=== PATIENT | female | born 1950 | race Caucasian/White ===

== ENCOUNTER 2017-11-16 19:46 | Inpatient (IN) | payer MEDICAID, SELFPAY ==
--- NOTE | 2017-11-16 20:27 | ED PDOC ---
HPI: Trauma/Fall - HPI Time Seen by Provider: 11/16/17 20:13 Chief Complaint (Nursing): Trauma Chief Complaint (Provider): fall History Per: Patient, Family History/Exam Limitations: no limitations Injury Occurred (Timing): Just Before Arrival Additional Complaint(s): 67 y/o female presents with daughter for evaluation of fall prior to arrival. Patient states she slipped in her bedroom, landed on right side. Patient notes pain to right upper arm, bilateral knees, and ribs. Denies head injury, LOC, dizziness, nausea/vomiting, neck/back pain, numbness/weakness of extremities. Past Medical History Reviewed: Historical Data, Nursing Documentation, Vital Signs Vital Signs: Last Vital Signs Temp 98.3 F 11/16/17 20:05 Pulse 96 H 11/16/17 20:05 Resp 16 11/16/17 20:05 BP 167/88 H 11/16/17 20:05 Pulse Ox 94 L 11/16/17 20:05 - Medical History PMH: Cardia Arrhythmia, COPD, Gastritis, HTN, Hyperthyroidism, Chronic Kidney Disease Denies: HIV - Surgical History Surgical History: Appendectomy - Family History Family History: States: Unknown Family Hx - Home Medications Home Medications: Ambulatory Orders Medication Instructions Recorded Albuterol Sulfate [Ventolin Hfa] 2 puff IH Q6H PRN 07/04/14 Aspirin [Aspirin EC] 81 mg PO DAILY 07/04/14 Fluticasone/Salmeterol 250/50 1 puff IH Q12H 07/04/14 [Advair Diskus 250/50] Pantoprazole Sodium [Protonix] 40 mg PO DAILY 07/04/14 diltiaZEM [Cardizem] 30 mg PO TID 07/04/14 Umeclidinium [facility] [Incruse 62.5 mcg IH DAILY #1 blst.w.dev 11/16/17 Ellipta] - Allergies Allergies/Adverse Reactions: Allergies Allergy/AdvReac Type Severity Reaction Status Date / Time No Known Allergies Allergy Verified 11/16/17 22:21 Review of Systems ROS Statement: Except As Marked, All Systems Reviewed And Found Negative Musculoskeletal: Positive for: Shoulder Pain (right), Arm Pain (right upper), Leg Pain (bilateral knee) Physical Exam - Reviewed Nursing Documentation Reviewed: Yes Vital Signs Reviewed: Yes - Physical Exam Appears: Positive for: Well, Non-toxic, Uncomfortable Head Exam: Positive for: ATRAUMATIC, NORMAL INSPECTION, NORMOCEPHALIC Skin: Positive for: Normal Color Eye Exam: Positive for: Normal appearance ENT: Positive for: Normal ENT Inspection Cardiovascular/Chest: Positive for: Regular Rate, Rhythm. Negative for: Chest Non Tender (tender to palpate left anterior inferior chest wall; no edema, ecchymosis, flail chest noted) Respiratory: Positive for: Normal Breath Sounds Gastrointestinal/Abdominal: Positive for: Normal Exam Back: Positive for: Normal Inspection Extremity: Positive for: Tenderness (Bilateral knee ecchymosis, FROM. Distal NV/ motor intact), Capillary Refill (<2 sec b/l UE/LE). Negative for: Normal ROM ( unable to move right upper extremity due to pain at shoulder and upper arm; old ecchymosis, + edema. Distal NV, motor intact. ) Neurologic/Psych: Positive for: Alert, Oriented. Negative for: Motor/Sensory Deficits - Laboratory Results Result Diagrams: 11/16/17 22:25 11/16/17 22:25 - ECG ECG: Positive for: Viewed By Me (reviewed by ED attenidng). Negative for: Interpreted By Me ECG Rhythm: Positive for: Sinus Rhythm O2 Sat by Pulse Oximetry: 94 - Other Rad xray right shoulder X-Ray: Viewed By Me X-Ray Interpretation: +humeral head fx xray bilateral knees X-Ray: Viewed By Me X-Ray Interpretation: no acute findings xray right humerus X-Ray: Viewed By Me X-Ray Interpretation: no acute findings - Progress ED Course And Treament: xray's, CT chest, tramadol PO Case discussed with Dr. Galarza, ortho on-call; recommends admission and CT right shoulder, agrees with plan for shoulder immobilizer Case discussed with Dr. Montano, FP resident on-call for admission EXAM: CT Chest Without Intravenous Contrast EXAM DATE/TIME: 11/16/2017 8:23 PM CLINICAL HISTORY: 67 years old, female; Injury or trauma; Fall; Initial encounter; Blunt trauma ( contusions or hematomas); Additional info: Fall, bilateral rib pain TECHNIQUE: Axial computed tomography images of the chest without intravenous contrast. All CT scans at this facility use one or more dose reduction techniques, viz.: automated exposure control; ma/kV adjustment per patient size (including targeted exams where dose is matched to indication; i.e. head); or iterative reconstruction technique. Coronal and sagittal reformatted images were created and reviewed. COMPARISON: No relevant prior studies available. FINDINGS: LUNGS: Moderate to severe diffuse centrilobular emphysematous changes, greatest in the upper lungs. Incidental tiny 3 x 1 mm noncalcified pulmonary nodule in the right middle lobe, image 68/series 3. For low-risk patients, no follow-up is necessary. For high-risk patients (smoking history or other known risk factors) an optional chest CT at 12 months could be performed 1.4 cm bulla or pneumatocele in the right lung. . PLEURAL SPACE: No pneumothorax or significant pleural effusions seen. HEART: Coronary artery calcification. No evidence of hemopericardium. MEDIASTINUM: No evidence of pneumomediastinum. BONES/JOINTS: Acute fracture of the right humeral head and neck. This is significantly comminuted, and is associated with multiple superiorly displaced humeral head fracture fragments. Fractures of the left fourth, fifth, and sixth ribs anteriorly, which are suspected to be acute. No significant associated displacement. SOFT TISSUES: No acute abnormality of the visualized soft tissues is seen. VASCULATURE: Exam is nondiagnostic for aortic dissection, secondary to unenhanced technique. No evidence of periaortic hemorrhage. LYMPH NODES: No evidence of diffuse lymphadenopathy. KIDNEYS AND URETERS: Incidental small 9 mm soft tissue density lesion abutting the right kidney laterally, suspicious for an indeterminate hyperdense exophytic right renal lesion. Recommend further evaluation with renal ultrasound or renal protocol CT or MRI, on a nonemergent basis. IMPRESSION: - Acute, comminuted fracture of the right humeral head and neck. - Acute fractures involving the left fourth through sixth ribs anteriorly. - Otherwise, no evidence of significant acute process on this unenhanced exam. - Incidental 2 mm pumonary nodule. See recommendations above. - Incidental indeterminate hyperdense renal lesion. See recommendations above. - Emphysematous changes. - See above for remaining findings. EXAM: CT Right Upper Extremity Without Intravenous Contrast, Shoulder EXAM DATE/TIME: 11/16/2017 10:05 PM CLINICAL HISTORY: 67 years old, female; Injury or trauma; Fall; Initial encounter; Blunt trauma ( contusions or hematomas; Shoulder; Right; Additional info: Humeral head FX TECHNIQUE: Axial computed tomography images of the right shoulder without intravenous contrast. All CT scans at this facility use one or more dose reduction techniques, viz.: automated exposure control; ma/kV adjustment per patient size (including targeted exams where dose is matched to indication; i.e. head); or iterative reconstruction technique. COMPARISON: CR - HUMERUS RT FALL PROTOCOL 2017-11-16 20:37 FINDINGS: Bones/joints: Acute comminuted fracture of the humeral head. No dislocation. Soft tissues: Unremarkable. IMPRESSION: Acute comminuted fracture of the humeral head. ESTRELLA wrap applied to bilateral knees Right shoulder placed in sling and swathe Incentive spirometer ordered Disposition - Clinical Impression Clinical Impression: Ribs, multiple fractures, Fracture of humeral head, right, closed - Patient ED Disposition Is Patient to be Admitted: Yes - Disposition Disposition Time: 22:00 Condition: GUARDED
--- NOTE | 2017-11-16 22:18 | CP.PCM.HP ---
History of Present Illness - History of Present Illness History of Present Illness: 67 yr old F presented to ED with complaint of right arm pain, left rib pain and overall body aches after suffering a fall at about 6:30pm today. Patient reports she was in her bedroom when she accidentally tripped over an area rug and landed on an adducted right arm and outstretched left arm. Prior to her fall patient denies weakness, dizziness, chest pain or syncope. Denies head trauma. After her fall patient was able to ambulate with assistance from her daughter but reports severe right arm/shoulder pain 10/10 and limited range of motion. PMD: [facility] (last visit was 11/13/17) PMHx: COPD, HTN, Hyperthyroidism, CKD, cardiac arrest in 2010 s/p IV medication ? for arrhythmia/respiratory distress FMHx: unknown SurgHx: appendectomy, x 1 SocHx: former smoker (100 pack yrs)-quit 10 yrs ago; denies Etoh or drugs Medications: Advair Diskus 250-50 mcg 1 puff BID, Aspirin 81mg PO QD, Albuterol Sulfate HFA 108 mcg/act 2 puffs PRN SOB, Lasix 20mg PO PRN edema/weight gain/ pulmonary congestion, Diltiazem 30mg PO before meals and at bedtime, Pantoprazole 40mg PO QD, Incruse-Ellipta 62.5mcg 1 puff QD, Allergies: NKDA; Morphine causes patient to hallucinate ED course: BP 167/88 mmHg, HR 96, Resp 16, O2 sat 94% on room air, Temp 98.3F -EKG: NSR at 90 bpm -XR Right humerus, XR right shoulder, XR knees -CT chest: acute comminuted fracture of the right humeral head and neck, acute fractures involving left 4th-6th ribs anteriorly, incidental 2mm pulmonary nodule, incidental indeterminate hyperdense renal lesion, emphysematous changes -CT right UE with contrast -ED treatment: Tramadol 50mg PO once -Orthopedic consult placed: Dr. Galarza Present on Admission - Present on Admission Any Indicators Present on Admission: No History of DVT/PE: No History of Uncontrolled Diabetes: No Urinary Catheter: No Decubitus Ulcer Present: No History Surgical Site Infection Following: None Review of Systems - Constitutional Constitutional: absent: Chills, Headache - EENT Eyes: absent: Change in Vision, Loss of Vision Ears: absent: Ear Pain, Dizziness Nose/Mouth/Throat: absent: Nasal Congestion, Nasal Discharge - Cardiovascular Cardiovascular: absent: Chest Pain, Dyspnea - Respiratory Respiratory: absent: Cough, Hemoptysis - Gastrointestinal Gastrointestinal: Abdominal Pain (left upper quadrant). absent: Nausea, Vomiting - Genitourinary Genitourinary: absent: Difficulty Urinating, Dysuria - Musculoskeletal Musculoskeletal: Deformity (RUE and right shoulder with severe pain) - Integumentary Integumentary: absent: Dry Skin, Rash - Neurological Neurological: Abnormal Gait. absent: Confusion, Numbness, Syncope, Weakness - Psychiatric Psychiatric: absent: Confusion - Hematologic/Lymphatic Hematologic: absent: Easy Bleeding, Easy Bruising Past Patient History - Infectious Disease Hx of Infectious Diseases: None - Past Medical History & Family History Past Medical History?: Yes - Past Social History Smoking Status: Former Smoker - CARDIAC Hx Cardia Arrhythmia: Yes Hx Hypertension: Yes - PULMONARY Hx Chronic Obstructive Pulmonary Disease (COPD): Yes - NEUROLOGICAL Hx Neurological Disorder: No - HEENT Hx HEENT Problems: No - RENAL Hx Chronic Kidney Disease: Yes - ENDOCRINE/METABOLIC Hx Hyperthyroidism: Yes - HEMATOLOGICAL/ONCOLOGICAL Hx Human Immunodeficiency Virus (HIV): No - INTEGUMENTARY Hx Dermatological Problems: No - MUSCULOSKELETAL/RHEUMATOLOGICAL Hx Musculoskeletal Disorders: No Hx Falls: No - GASTROINTESTINAL Hx Gastritis: Yes - GENITOURINARY/GYNECOLOGICAL Hx Genitourinary Disorders: Yes Hx Urinary Tract Infection: Yes - PSYCHIATRIC Hx Psychophysiologic Disorder: No Hx Substance Use: No - SURGICAL HISTORY Hx Appendectomy: Yes - ANESTHESIA Hx Anesthesia: Yes Hx Anesthesia Reactions: No Meds Home Medications: Home Medication List Medication Instructions Recorded Confirmed Type Umeclidinium [place] [Incruse 62.5 mcg IH DAILY #1 blst.w.dev 11/16/17 Rx Ellipta] Allergies/Adverse Reactions: Allergies Allergy/AdvReac Type Severity Reaction Status Date / Time No Known Allergies Allergy Verified 11/16/17 22:21 Physical Exam - Constitutional Appears: No Acute Distress (obese), Older Than Stated Age - Head Exam Head Exam: ATRAUMATIC, NORMOCEPHALIC - Eye Exam Eye Exam: EOMI, PERRL - ENT Exam ENT Exam: Mucous Membranes Moist - Neck Exam Neck exam: Positive for: Full Rom. Negative for: Lymphadenopathy - Respiratory Exam Respiratory Exam: Clear to Auscultation Bilateral, NORMAL BREATHING PATTERN - Cardiovascular Exam Cardiovascular Exam: REGULAR RHYTHM, +S1, +S2 - GI/Abdominal Exam GI & Abdominal Exam: Normal Bowel Sounds, Soft (obese), Tenderness (LUQ). absent: Rebound - Extremities Exam Extremities exam: Positive for: pedal pulses present (significant varciosed veins in bilateral LE). Negative for: full ROM (right arm adducted and in immobilizer, full ROM left arm and bilateral LE's with mild discomfort), pedal edema - Back Exam Back exam: absent: CVA tenderness (L), CVA tenderness (R) - Neurological Exam Neurological exam: Alert, CN II-XII Intact (grossly intact), Oriented x3 - Psychiatric Exam Psychiatric exam: Normal Affect, Normal Mood - Skin Skin Exam: Dry, Pallor (bluish discoloration of distal phalanges (hand and foot ) bilaterally), Warm Results - Vital Signs Recent Vital Signs: Last Vital Signs Temp 98.3 F 11/16/17 20:05 Pulse 96 H 11/16/17 20:05 Resp 16 11/16/17 20:05 BP 167/88 H 11/16/17 20:05 Pulse Ox 94 L 11/16/17 21:16 - Labs Result Diagrams: 11/16/17 22:25 11/16/17 22:25 Assessment & Plan - Assessment and Plan (Free Text) Assessment: 67 yr old F admitted for comminuted right humeral head and neck fracture and left ribs fractures. 1. Comminuted right humeral head and neck fracture -acute, traumatic, s/p mechanical fall -CT chest: acute comminuted fracture of the right humeral head and neck, acute fractures involving left 4th-6th ribs anteriorly, incidental 2mm pulmonary nodule, incidental indeterminate hyperdense renal lesion, emphysematous changes -admit to Med/Surg, NS 1 L IV, pain management, NPO past midnight -type and screen -Orthopedic consult: will follow recommendations: keep right arm immobilized -Cardiology consult 2. Left anterior rib fractures ribs 4th-6th -acute, traumatic, s/p mechanical fall -pain management 3. COPD -chronic, controlled -continue home medications (Advair diskus, albuterol sulfate HFA PRN) -supplemental O2 via nasal cannula to keep O2 sat above 92% 4. Pulmonary Hypertension -chronic, stable -continue home medications (Lasix 20mg PO QD, 5. Hyperthyroidism -chronic, stable of medications -f/u TSH 6. CKD stage 3 -chronic, stable -Bun/Cr 32/1.2, eGFR 45 7. Hyperkalemia -serum K+ 5.2 -home Potassium medication held 8. DVT prophylaxis -SCD's for now, possible OR tomorrow - Date & Time Date: 11/17/17 Time: 22:20
[2017-11-16 22:37] LABS: BASO # 0.1 K/uL (0.0-0.2); BASO % 0.9 % (0.0-2.0); EOS % 0.2 % (0.0-4.0); HEMOGLOBIN 15.1 g/dL (12.0-16.0); LYMPH # 1.5 K/uL (1.0-4.3); LYMPH % 10.2 % (20.0-40.0); MEAN CELL VOLUME 96.1 fl (81.0-99.0); MEAN CORPUSCULAR HEMOGLOBIN 32.2 pg (27.0-31.0); MEAN CORPUSCULAR HGB CONC 33.5 g/dL (33.0-37.0); MONO # 0.9 K/uL (0.0-0.8); MONO % 6.1 % (0.0-10.0); NEUT # 12.1 K/uL (1.8-7.0); NEUT % 82.6 % (50.0-75.0); RBC 4.7 Mil/uL (3.80-5.20); RED CELL DISTRIBUTION WIDTH 14.5 % (11.5-14.5); WHITE BLOOD COUNT 14.6 K/uL (4.8-10.8)
[2017-11-16 22:45] LABS: ALB/GLOB RATIO 1.1 (1.0-2.1); ALBUMIN 4.5 g/dL (3.5-5.0); CALCIUM 9.4 mg/dL (8.4-10.2)
--- NOTE | 2017-11-16 22:59 | CT ---
EXAM: CT Chest Without Intravenous Contrast EXAM DATE/TIME: 11/16/2017 8:23 PM CLINICAL HISTORY: 67 years old, female; Injury or trauma; Fall; Initial encounter; Blunt trauma (contusions or hematomas); Additional info: Fall, bilateral rib pain TECHNIQUE: Axial computed tomography images of the chest without intravenous contrast. All CT scans at this facility use one or more dose reduction techniques, viz.: automated exposure control; ma/kV adjustment per patient size (including targeted exams where dose is matched to indication; i.e. head); or iterative reconstruction technique. Coronal and sagittal reformatted images were created and reviewed. COMPARISON: No relevant prior studies available. FINDINGS: LUNGS: Moderate to severe diffuse centrilobular emphysematous changes, greatest in the upper lungs. Incidental tiny 3 x 1 mm noncalcified pulmonary nodule in the right middle lobe, image 68/series 3. For low-risk patients, no follow-up is necessary. For high-risk patients (smoking history or other known risk factors) an optional chest CT at 12 months could be performed 1.4 cm bulla or pneumatocele in the right lung. . PLEURAL SPACE: No pneumothorax or significant pleural effusions seen. HEART: Coronary artery calcification. No evidence of hemopericardium. MEDIASTINUM: No evidence of pneumomediastinum. BONES/JOINTS: Acute fracture of the right humeral head and neck. This is significantly comminuted, and is associated with multiple superiorly displaced humeral head fracture fragments. Fractures of the left fourth, fifth, and sixth ribs anteriorly, which are suspected to be acute. No significant associated displacement. SOFT TISSUES: No acute abnormality of the visualized soft tissues is seen. VASCULATURE: Exam is nondiagnostic for aortic dissection, secondary to unenhanced technique. No evidence of periaortic hemorrhage. LYMPH NODES: No evidence of diffuse lymphadenopathy. KIDNEYS AND URETERS: Incidental small 9 mm soft tissue density lesion abutting the right kidney laterally, suspicious for an indeterminate hyperdense exophytic right renal lesion. Recommend further evaluation with renal ultrasound or renal protocol CT or MRI, on a nonemergent basis. IMPRESSION: - Acute, comminuted fracture of the right humeral head and neck. - Acute fractures involving the left fourth through sixth ribs anteriorly. - Otherwise, no evidence of significant acute process on this unenhanced exam. - Incidental 2 mm pumonary nodule. See recommendations above. - Incidental indeterminate hyperdense renal lesion. See recommendations above. - Emphysematous changes. - See above for remaining findings.
[2017-11-16 23:04] LABS: PARTIAL THROMBOPLASTIN TIME 33.9 Seconds (25.6-37.1); PROTHROMBIN TIME 11.2 Seconds (9.8-13.1)
[2017-11-16] MEDS ORDERED: ALBUTEROL SULFATE IH PRN (23:51)
[2017-11-16] MEDS ORDERED: Albuterol HFA 90 mcg/actuation (8 g) INH PRN (23:53)
[2017-11-17] MEDS: Fluticasone-Salmeterol 250-50mcg Diskus IH SCH ×3 (01:08→22:58)
[2017-11-17] MEDS: Sodium Chloride 0.9% 1,000 ML IV SCH ×2 (04:05→16:37)
[2017-11-17 06:15] LABS: BASO % 0.5 % (0.0-2.0); EOS % 0.1 % (0.0-4.0); HEMOGLOBIN 14.2 g/dL (12.0-16.0); LYMPH # 1.8 K/uL (1.0-4.3); LYMPH % 18.4 % (20.0-40.0); MEAN CELL VOLUME 95.2 fl (81.0-99.0); MEAN CORPUSCULAR HEMOGLOBIN 32.6 pg (27.0-31.0); MEAN CORPUSCULAR HGB CONC 34.2 g/dL (33.0-37.0); MEAN PLATELET VOLUME 8.1 fl (7.2-11.7); MONO # 0.9 K/uL (0.0-0.8); MONO % 9.2 % (0.0-10.0); NEUT % 71.8 % (50.0-75.0); RBC 4.36 Mil/uL (3.80-5.20); RED CELL DISTRIBUTION WIDTH 14.1 % (11.5-14.5); WHITE BLOOD COUNT 9.8 K/uL (4.8-10.8)
[2017-11-17 06:27] LABS: ALB/GLOB RATIO 1.2 (1.0-2.1); ALBUMIN 3.9 g/dL (3.5-5.0); ALT/SGPT 33 U/L (9-52); AST/SGOT 26 U/L (14-36); BLOOD UREA NITROGEN 33 mg/dl (7-17); CALCIUM 9.2 mg/dL (8.4-10.2); GFR AFRICAN-AMERICAN > 60; GFR NON-AFRICAN AMERICAN 50
--- NOTE | 2017-11-17 07:48 | CP.PCM.CON ---
History of Present Illness - History of Present Illness History of Present Illness: Orthopedic consult Patient is a 67 y/o RHD female with PMH of COPD, HTN, hyperthyroidism, and CKD c /o severe right shoulder pain. She describes a mechanical fall yesterday, tripping over her footing at home and landing forward onto her chest and adducted right arm. She injured her left chest wall sustaining multiple rib fractures and a right comminuted humeral head fracture. She denies dizziness prior to fall and LOC. Dr. Galarza was consulted for evaluation of her right shoulder. Currently, her pain is controlled with medications and immobilization placed by ER. She describes the pain as dull, aching and intermittent. The pain occurs with movement and is alleviated when at rest. She denies radiation of pain, numbness and tingling. She also denies CP/SOB/N/V/D/fever/dysuria/ melena. Review of Systems - Review of Systems All systems: reviewed and no additional remarkable complaints except Review of Systems: as per HPI Past Patient History - Infectious Disease Hx of Infectious Diseases: None - Past Medical History & Family History Past Medical History?: Yes Past Family History: Reviewed and not pertinent - Past Social History Smoking Status: Former Smoker Alcohol: None Drugs: Denies - CARDIAC Hx Cardia Arrhythmia: Yes Hx Hypertension: Yes - PULMONARY Hx Chronic Obstructive Pulmonary Disease (COPD): Yes - NEUROLOGICAL Hx Neurological Disorder: No - HEENT Hx HEENT Problems: No - RENAL Hx Chronic Kidney Disease: Yes - ENDOCRINE/METABOLIC Hx Hyperthyroidism: Yes - HEMATOLOGICAL/ONCOLOGICAL Hx Human Immunodeficiency Virus (HIV): No - INTEGUMENTARY Hx Dermatological Problems: No - MUSCULOSKELETAL/RHEUMATOLOGICAL Hx Musculoskeletal Disorders: No Hx Falls: No - GASTROINTESTINAL Hx Gastritis: Yes - GENITOURINARY/GYNECOLOGICAL Hx Genitourinary Disorders: Yes Hx Urinary Tract Infection: Yes - PSYCHIATRIC Hx Psychophysiologic Disorder: No Hx Substance Use: No - SURGICAL HISTORY Hx Appendectomy: Yes - ANESTHESIA Hx Anesthesia: Yes Hx Anesthesia Reactions: No Meds Home Medications: Home Medication List Medication Instructions Recorded Confirmed Type Umeclidinium [place] [Incruse 62.5 mcg IH DAILY #1 blst.w.dev 11/16/17 Rx Ellipta] Allergies/Adverse Reactions: Allergies Allergy/AdvReac Type Severity Reaction Status Date / Time No Known Allergies Allergy Verified 11/16/17 22:21 - Medications Medications: Current Medications Albuterol (Ventolin Hfa 90 Mcg/Actuation (8 G)) 2 puff INH RQ6 PRN PRN Reason: Shortness of Breath Diltiazem HCl (Cardizem) 30 mg PO TID [facility] Sodium Chloride (Sodium Chloride 0.9%) 1,000 mls @ 100 mls/hr IV .Q10H [facility] Stop: 11/18/17 13:30 Last Admin: 11/17/17 04:05 Dose: 100 mls/hr Ketorolac Tromethamine (Toradol) 30 mg IVP Q6 PRN PRN Reason: Pain, moderate (4-7) Last Admin: 11/17/17 05:43 Dose: 30 mg Pantoprazole Sodium (Protonix Ec Tab) 40 mg PO DAILY [facility] Fluticasone/Salmeterol (Advair Diskus 250/50) 1 puff IH Q12H [facility] Last Admin: 11/17/17 01:08 Dose: 1 puff Tramadol HCl (Ultram) 50 mg PO Q4 PRN PRN Reason: Pain, severe (8-10) Physical Exam - Constitutional Appears: Well, No Acute Distress - Head Exam Head Exam: ATRAUMATIC, NORMOCEPHALIC - Eye Exam Eye Exam: EOMI, Normal appearance, PERRL - ENT Exam ENT Exam: Mucous Membranes Moist, Normal Exam - Respiratory Exam Respiratory Exam: Clear to Auscultation Bilateral, NORMAL BREATHING PATTERN - GI/Abdominal Exam GI & Abdominal Exam: Normal Bowel Sounds, Soft - Extremities Exam Additional comments: RUE: immoblized, mild shoulder swelling, + diffuse shoulder tenderness, no ecchymosis, no lesions sensation intact AXN/MN/UN/RN motor intact MN/UN/RN radial pulse intact comps soft NT LUE: no tenderness, no lesions, no swelling, no ecchymosis sensation intact AXN/MN/UN/RN motor intact MN/UN/RN radial pulse intact comps soft NT - Neurological Exam Neurological exam: Alert, Oriented x3 - Psychiatric Exam Psychiatric exam: Normal Affect, Normal Mood - Skin Skin Exam: Normal Color, Warm Results - Vital Signs Recent Vital Signs: Last Vital Signs Temp 98.2 F 11/17/17 07:43 Pulse 94 H 11/17/17 07:43 Resp 20 11/17/17 07:43 BP 147/82 11/17/17 07:43 Pulse Ox 94 L 11/17/17 07:43 - Labs Result Diagrams: 11/17/17 05:30 11/17/17 05:30 Labs: Laboratory Results - last 24 hr 11/16/17 11/16/17 11/16/17 22:25 22:25 22:25 WBC 14.6 H D RBC 4.70 Hgb 15.1 Hct 45.2 MCV 96.1 D MCH 32.2 H MCHC 33.5 RDW 14.5 Plt Count 394 MPV 8.0 Neut % (Auto) 82.6 H Lymph % (Auto) 10.2 L [place] % (Auto) 6.1 Eos % (Auto) 0.2 Baso % (Auto) 0.9 Neut # (Auto) 12.1 H Lymph # (Auto) 1.5 [place] # (Auto) 0.9 H Eos # (Auto) 0.0 Baso # (Auto) 0.1 PT 11.2 INR 1.0 APTT 33.9 Sodium 141 Potassium 5.2 H Chloride 105 Carbon Dioxide 23 Anion Gap 18 BUN 32 H Creatinine 1.2 Est GFR ( Amer) 54 Est GFR (Non-Af Amer) 45 Random Glucose 127 H Calcium 9.4 Total Bilirubin 0.8 AST 36 ALT 38 Alkaline Phosphatase 91 Total Protein 8.5 H Albumin 4.5 Globulin 4.0 H Albumin/Globulin Ratio 1.1 Blood Type Antibody Screen BBK History Checked 11/17/17 11/17/17 11/17/17 05:30 05:30 05:30 WBC 9.8 RBC 4.36 Hgb 14.2 Hct 41.5 MCV 95.2 MCH 32.6 H MCHC 34.2 RDW 14.1 Plt Count 347 MPV 8.1 Neut % (Auto) 71.8 Lymph % (Auto) 18.4 L [place] % (Auto) 9.2 Eos % (Auto) 0.1 Baso % (Auto) 0.5 Neut # (Auto) 7.0 Lymph # (Auto) 1.8 [place] # (Auto) 0.9 H Eos # (Auto) 0.0 Baso # (Auto) 0.0 PT INR APTT Sodium 140 Potassium 4.6 Chloride 106 Carbon Dioxide 22 Anion Gap 17 BUN 33 H Creatinine 1.1 Est GFR ( Amer) > 60 Est GFR (Non-Af Amer) 50 Random Glucose 115 H Calcium 9.2 Total Bilirubin 0.7 AST 26 ALT 33 Alkaline Phosphatase 86 Total Protein 7.3 Albumin 3.9 Globulin 3.4 Albumin/Globulin Ratio 1.2 Blood Type O POSITIVE Antibody Screen Negative BBK History Checked No verified bt Assessment & Plan (1) Fracture of humeral head, right, closed Assessment and Plan: Patient is a 67 y/o female with a right comminuted humeral head fracture -Dr. Galarza proposes a right total shoulder replacement -OR tomorrow AM -NPO pMN tonight -strict shoulder immobilization, NWB RUE -medical/cardiac clearance -above d/w Dr. Galarza in agreement Status: Acute Radiology Interpretation - Notes: Notes:: Accession No. : [id number] Patient Name / ID : TEO LUGO / [id number] Exam Date : 11/16/2017 20:30:30 ( Approved ) Study Comment : Sex / Age : Y Creator : Devon Espinoza MD Dictator : Devon Espinoza MD Pneumatic Systems Operator : A P Supervisor : Devon Espinoza MD Approver2 : Report Date : 11/17/2017 09:03:40 My Comment : PROCEDURE: Radiographs of the Right Shoulder HISTORY: fall COMPARISON: None. FINDINGS: BONES: Acute comminuted fracture of the humeral head. JOINTS: Degenerative changes. SOFT TISSUES: Normal. OTHER FINDINGS: None. IMPRESSION: Acute comminuted fracture of the humeral head. - Radiology Interpretation #2 Interpretation: Accession No. : [id number] Patient Name / ID : TEO LUGO / [id number] Exam Date : 11/16/2017 23:20:47 ( Approved ) Study Comment : Sex / Age : F 67Y Creator : Francisco J Rouse MD Dictator : Francisco J Rouse MD Pneumatic Systems Operator : A P Supervisor : Francisco J Rouse MD Approver2 : Report Date : 11/17/2017 10:55:15 My Comment : PROCEDURE: CT RIGHT UPPER EXTREMITY WITHOUT CONTRAST HISTORY: humeral head fx COMPARISON: Pole right humerus radiograph 11/16/2017. TECHNIQUE: A volumetric CT acquisition through the right shoulder was performed without intravenous contrast with reformatted datasets provided in sagittal axial and coronal planes as well as 3 dimensional surface rendered series. Contrast Dose: None Radiation dose:Total exam DLP = 299.95 mGy-cm. This CT exam was performed using one or more of the following dose reduction techniques: Automated exposure control, adjustment of the mA and/or kV according to patient size, and/or use of iterative reconstruction technique. FINDINGS: A comminuted fracture of the right radial head is appreciate with impaction into the metaphysis. The fracture includes at least 4 parts. There is medial angulation of the right humeral head forming a varus deformity at the fracture site. There is no subluxation or dislocation. The acromioclavicular joint intact without separation or fracture. The glenoid process is intact swells the remainder of the scapula as well. The visualized humeral diaphysis is intact as imaged although the distal segment is not included in this exam. Visualized upper right ribs appear intact. Local soft tissues appeared remarkable for local edema mildly. Hyperdensity at the upper triceps muscle may reflect limited hematoma. Incidental COPD noted at the right lung apex. IMPRESSION: Comminuted impacted fracture proximal right humerus involving the head with varus deformity at the fracture site and impaction of the major fracture fragment at the right hip humeral head. Comminution appears into least 4 parts and small hematoma is questioned at the proximal triceps muscle potentially reflecting muscle sprain or tear. Consider follow-up MRI. Intact scapula and acromioclavicular joint as well as the visualized clavicle.
--- NOTE | 2017-11-17 09:05 | RAD ---
PROCEDURE: Radiographs of the right humerus. HISTORY: fall COMPARISON: None. FINDINGS: BONES: Acute comminuted fracture of the humeral head. SOFT TISSUES: Regional soft tissue swelling. OTHER FINDINGS: None. IMPRESSION: Acute comminuted fracture of the humeral head.
--- NOTE | 2017-11-17 09:05 | RAD ---
PROCEDURE: Radiographs of the Right Shoulder HISTORY: fall COMPARISON: None. FINDINGS: BONES: Acute comminuted fracture of the humeral head. JOINTS: Degenerative changes. SOFT TISSUES: Normal. OTHER FINDINGS: None. IMPRESSION: Acute comminuted fracture of the humeral head.
--- NOTE | 2017-11-17 09:07 | RAD ---
PROCEDURE: Bilateral Knee Radiographs. HISTORY: fall COMPARISON: None. FINDINGS: BONES: Right Knee: No acute fracture. Left Knee: No acute fracture. JOINTS: Right Knee: Tibial femoral compartment narrowing. Left knee: Tibiofemoral compartment narrowing. SOFT TISSUES: Right Knee: Prepatellar soft tissue swelling. Left Knee: Prepatellar soft tissue swelling. JOINT EFFUSION: Right Knee: None. Left Knee: None. OTHER FINDINGS: None. IMPRESSION: Bilateral prepatellar soft tissue swelling without demonstrated fracture or dislocation. Bilateral knee tibial femoral compartment narrowing.
--- NOTE | 2017-11-17 09:21 | CP.PCM.CON ---
History of Present Illness - History of Present Illness History of Present Illness: This 67-year-old lady a hypertensive who has been taking Cardizem had an accidental fall and has a fractured right shoulder and this evaluation was requested prior to surgical correction. The patient indicates that she has been a hypertensive for number of years and has taken her medicines regularly. She denies any history of diabetes of smoking and has never experienced any chest pain or myocardial infarction or symptoms of congestive cardiac failure. The patient admits that she is fairly sedentary but is able to walk 4-5 blocks to the grocery store without any difficulty. There is no significant past history except an appendectomy 10 years back and a section more than 30 years back. Physical examination shows a pleasant elderly overweight female was able to lie flat and carry on a conversation. Her heart rate was 68 bpm regular and her blood pressure was 124/72 mmHg. Her jugular venous pressure was not elevated there was no edema over his lower extremities. The pedal pulses were well felt. The apex was not palpable the first and second heart sounds are normal there was no murmur or gallop there were no rales. Her electro-cardial gram showed sinus rhythm with a normal EKG pattern. Her lab data was noted. Impression: Accidental fall with a fractured right shoulder. The patient has a history of hypertension. She is hemodynamically stable and may proceed with the planned surgery. Past Patient History - Infectious Disease Hx of Infectious Diseases: None - Past Medical History & Family History Past Medical History?: Yes Past Family History: Reviewed and not pertinent - Past Social History Smoking Status: Former Smoker Alcohol: None Drugs: Denies - CARDIAC Hx Cardia Arrhythmia: Yes Hx Hypertension: Yes - PULMONARY Hx Chronic Obstructive Pulmonary Disease (COPD): Yes - NEUROLOGICAL Hx Neurological Disorder: No - HEENT Hx HEENT Problems: No - RENAL Hx Chronic Kidney Disease: Yes - ENDOCRINE/METABOLIC Hx Hyperthyroidism: Yes - HEMATOLOGICAL/ONCOLOGICAL Hx Human Immunodeficiency Virus (HIV): No - INTEGUMENTARY Hx Dermatological Problems: No - MUSCULOSKELETAL/RHEUMATOLOGICAL Hx Musculoskeletal Disorders: No Hx Falls: No - GASTROINTESTINAL Hx Gastritis: Yes - GENITOURINARY/GYNECOLOGICAL Hx Genitourinary Disorders: Yes Hx Urinary Tract Infection: Yes - PSYCHIATRIC Hx Psychophysiologic Disorder: No Hx Substance Use: No - SURGICAL HISTORY Hx Appendectomy: Yes - ANESTHESIA Hx Anesthesia: Yes Hx Anesthesia Reactions: No Meds Home Medications: Home Medication List Medication Instructions Recorded Confirmed Type Umeclidinium [place] [Incruse 62.5 mcg IH DAILY #1 blst.w.dev 11/16/17 Rx Ellipta] Allergies/Adverse Reactions: Allergies Allergy/AdvReac Type Severity Reaction Status Date / Time No Known Allergies Allergy Verified 11/16/17 22:21 - Medications Medications: Current Medications Albuterol (Ventolin Hfa 90 Mcg/Actuation (8 G)) 2 puff INH RQ6 PRN PRN Reason: Shortness of Breath Diltiazem HCl (Cardizem) 30 mg PO TID [facility] Sodium Chloride (Sodium Chloride 0.9%) 1,000 mls @ 100 mls/hr IV .Q10H [facility] Stop: 11/18/17 13:30 Last Admin: 11/17/17 04:05 Dose: 100 mls/hr Ketorolac Tromethamine (Toradol) 30 mg IVP Q6 PRN PRN Reason: Pain, moderate (4-7) Last Admin: 11/17/17 05:43 Dose: 30 mg Pantoprazole Sodium (Protonix Ec Tab) 40 mg PO DAILY [facility] Fluticasone/Salmeterol (Advair Diskus 250/50) 1 puff IH Q12H [facility] Last Admin: 11/17/17 01:08 Dose: 1 puff Tramadol HCl (Ultram) 50 mg PO Q4 PRN PRN Reason: Pain, severe (8-10) Results - Vital Signs Recent Vital Signs: Last Vital Signs Temp 98.2 F 11/17/17 07:43 Pulse 94 H 11/17/17 07:43 Resp 20 11/17/17 07:43 BP 147/82 11/17/17 07:43 Pulse Ox 94 L 11/17/17 07:43 - Labs Result Diagrams: 11/17/17 05:30 11/17/17 05:30 Labs: Laboratory Results - last 24 hr 11/16/17 11/16/17 11/16/17 22:25 22:25 22:25 WBC 14.6 H D RBC 4.70 Hgb 15.1 Hct 45.2 MCV 96.1 D MCH 32.2 H MCHC 33.5 RDW 14.5 Plt Count 394 MPV 8.0 Neut % (Auto) 82.6 H Lymph % (Auto) 10.2 L [place] % (Auto) 6.1 Eos % (Auto) 0.2 Baso % (Auto) 0.9 Neut # (Auto) 12.1 H Lymph # (Auto) 1.5 [place] # (Auto) 0.9 H Eos # (Auto) 0.0 Baso # (Auto) 0.1 PT 11.2 INR 1.0 APTT 33.9 Sodium 141 Potassium 5.2 H Chloride 105 Carbon Dioxide 23 Anion Gap 18 BUN 32 H Creatinine 1.2 Est GFR ( Amer) 54 Est GFR (Non-Af Amer) 45 Random Glucose 127 H Calcium 9.4 Total Bilirubin 0.8 AST 36 ALT 38 Alkaline Phosphatase 91 Total Protein 8.5 H Albumin 4.5 Globulin 4.0 H Albumin/Globulin Ratio 1.1 Blood Type Antibody Screen BBK History Checked 11/17/17 11/17/17 11/17/17 05:30 05:30 05:30 WBC 9.8 RBC 4.36 Hgb 14.2 Hct 41.5 MCV 95.2 MCH 32.6 H MCHC 34.2 RDW 14.1 Plt Count 347 MPV 8.1 Neut % (Auto) 71.8 Lymph % (Auto) 18.4 L [place] % (Auto) 9.2 Eos % (Auto) 0.1 Baso % (Auto) 0.5 Neut # (Auto) 7.0 Lymph # (Auto) 1.8 [place] # (Auto) 0.9 H Eos # (Auto) 0.0 Baso # (Auto) 0.0 PT INR APTT Sodium 140 Potassium 4.6 Chloride 106 Carbon Dioxide 22 Anion Gap 17 BUN 33 H Creatinine 1.1 Est GFR ( Amer) > 60 Est GFR (Non-Af Amer) 50 Random Glucose 115 H Calcium 9.2 Total Bilirubin 0.7 AST 26 ALT 33 Alkaline Phosphatase 86 Total Protein 7.3 Albumin 3.9 Globulin 3.4 Albumin/Globulin Ratio 1.2 Blood Type O POSITIVE Antibody Screen Negative BBK History Checked No verified bt
[2017-11-17] MEDS: Pantoprazole 40 mg EC Tab PO SCH (09:53)
--- NOTE | 2017-11-17 10:02 | CARD ---
APPROVED REPORT EKG Measurement Heart [id number] IA [id number] <Conclusion> Normal sinus rhythm Junctional ST depression, probably abnormal Abnormal ECG
--- NOTE | 2017-11-17 10:57 | CT ---
PROCEDURE: CT RIGHT UPPER EXTREMITY WITHOUT CONTRAST HISTORY: humeral head fx COMPARISON: Pole right humerus radiograph 11/16/2017. TECHNIQUE: A volumetric CT acquisition through the right shoulder was performed without intravenous contrast with reformatted datasets provided in sagittal axial and coronal planes as well as 3 dimensional surface rendered series. Contrast Dose: None Radiation dose:Total exam DLP = 299.95 mGy-cm. This CT exam was performed using one or more of the following dose reduction techniques: Automated exposure control, adjustment of the mA and/or kV according to patient size, and/or use of iterative reconstruction technique. FINDINGS: A comminuted fracture of the right radial head is appreciate with impaction into the metaphysis. The fracture includes at least 4 parts. There is medial angulation of the right humeral head forming a varus deformity at the fracture site. There is no subluxation or dislocation. The acromioclavicular joint intact without separation or fracture. The glenoid process is intact swells the remainder of the scapula as well. The visualized humeral diaphysis is intact as imaged although the distal segment is not included in this exam. Visualized upper right ribs appear intact. Local soft tissues appeared remarkable for local edema mildly. Hyperdensity at the upper triceps muscle may reflect limited hematoma. Incidental COPD noted at the right lung apex. IMPRESSION: Comminuted impacted fracture proximal right humerus involving the head with varus deformity at the fracture site and impaction of the major fracture fragment at the right hip humeral head. Comminution appears into least 4 parts and small hematoma is questioned at the proximal triceps muscle potentially reflecting muscle sprain or tear. Consider follow-up MRI. Intact scapula and acromioclavicular joint as well as the visualized clavicle.
--- NOTE | 2017-11-17 12:30 | CP.PCM.PN ---
Subjective - Date & Time of Evaluation Date of Evaluation: 11/17/17 Time of Evaluation: 12:30 - Subjective Subjective: No acute overnight events. Pt stats that she feel well this AM. Has pain in her RUE, and pain is worse with movement. Patient is medically Optimized for planned surgery tomorrow with Ortho. Objective - Vital Signs/Intake and Output Vital Signs (last 24 hours): Temp Pulse Resp BP Pulse Ox 98.2 F 94 H 18 147/82 95 11/17/17 07:43 11/17/17 09:52 11/17/17 09:52 11/17/17 09:52 11/17/17 09:52 - Medications Medications: Current Medications Albuterol (Ventolin Hfa 90 Mcg/Actuation (8 G)) 2 puff INH RQ6 PRN PRN Reason: Shortness of Breath Diltiazem HCl (Cardizem) 30 mg PO TID [facility] Last Admin: 11/17/17 09:52 Dose: 30 mg Sodium Chloride (Sodium Chloride 0.9%) 1,000 mls @ 100 mls/hr IV .Q10H [facility] Stop: 11/18/17 13:30 Last Admin: 11/17/17 04:05 Dose: 100 mls/hr Ketorolac Tromethamine (Toradol) 30 mg IVP Q6 PRN PRN Reason: Pain, moderate (4-7) Last Admin: 11/17/17 11:58 Dose: 30 mg Pantoprazole Sodium (Protonix Ec Tab) 40 mg PO DAILY [facility] Last Admin: 11/17/17 09:53 Dose: 40 mg Fluticasone/Salmeterol (Advair Diskus 250/50) 1 puff IH Q12H [facility] Last Admin: 11/17/17 11:06 Dose: 1 puff Tramadol HCl (Ultram) 50 mg PO Q4 PRN PRN Reason: Pain, severe (8-10) - Labs Labs: 11/17/17 05:30 11/17/17 05:30 PT 11.2 Seconds (9.8-13.1) 11/16/17 22:25 INR 1.0 (0.9-1.2) 11/16/17 22:25 APTT 33.9 Seconds (25.6-37.1) 11/16/17 22:25 - Constitutional Appears: No Acute Distress, Other (RUE in sling) - Head Exam Head Exam: ATRAUMATIC, NORMAL INSPECTION - Eye Exam Eye Exam: EOMI - ENT Exam ENT Exam: Mucous Membranes Moist - Respiratory Exam Respiratory Exam: Clear to Ausculation Bilateral. absent: Rhonchi, Wheezes - Cardiovascular Exam Cardiovascular Exam: REGULAR RHYTHM, +S1, +S2 - GI/Abdominal Exam GI & Abdominal Exam: Soft, Normal Bowel Sounds. absent: Tenderness - Extremities Exam Additional comments: RUE in a sling notable varicose veins in lower extremities b/l Contusion noted on both knees - Neurological Exam Neurological Exam: Alert, Awake, Oriented x3 - Psychiatric Exam Psychiatric exam: Normal Affect, Normal Mood Assessment and Plan - Assessment and Plan (Free Text) Assessment: Assessment/Plan: 67 yr old F admitted for comminuted right humeral head and neck fracture and left ribs fractures. Comminuted right humeral head and neck fracture -acute, traumatic, s/p mechanical fall -CT chest: acute comminuted fracture of the right humeral head and neck, acute fractures involving left 4th-6th ribs anteriorly, incidental 2mm pulmonary nodule, incidental indeterminate hyperdense renal lesion, emphysematous changes -admit to Med/Surg, NS 1 L IV, pain management, NPO past midnight -type and screen -Orthopedic consult: keep right arm immobilized, sling, OR in AM 11/18; strict shoulder immobilization, NWB RUE -Cardiology consult: She is hemodynamically stable and may proceed with the planned surgery. -Pain management: Dilaudid, Ultram, Toradol Left anterior rib fractures ribs 4th-6th -acute, traumatic, s/p mechanical fall -c/w pain management -follow up, Multiple myeloma and vitamin D follow up COPD -chronic, controlled -continue home medications (Advair diskus, albuterol sulfate HFA PRN) -supplemental O2 via nasal cannula to keep O2 sat above 92% Pulmonary Hypertension -chronic, stable -c/w home medications Hyperthyroidism -chronic, stable of medications -f/u TSH CKD stage 3 -chronic, stable -Bun/Cr 32/1.2, eGFR 45 -Bun/Cr 33/1.2, GFR 50 today Hyperkalemia -resolved -serum K+ 5.2-->4.6 -home Potassium medication held DVT prophylaxis -SCD's for now -hold per Surgery, OR tomorrow
[2017-11-17] MEDS ORDERED: HYDROmorphone 0.5 mg/0.5 ml ISec IVP PRN ×2 (12:39→18:00)
[2017-11-17] MEDS ORDERED: HYDROmorphone 0.5 mg/0.5 ml ISec IVP SCH (16:45)
[2017-11-17] MEDS: Docusate-Senna 50 mg-8.6 mg Tab PO SCH (22:55)
[2017-11-18] MEDS: Sodium Chloride 0.9% 1,000 ML IV SCH ×2 (04:45→09:33)
[2017-11-18] MEDS: HYDROmorphone 1 mg/ml ISec IVP PRN (05:58)
[2017-11-18] MEDS ORDERED: Absorbable Gelatin Sponge Size 100 ONE (06:20)
[2017-11-18] MEDS ORDERED: Bacitracin Ointment 30 GM TUBE ONE (06:20)
[2017-11-18] MEDS ORDERED: Thrombin Topical 5,000 Int Units Spray Kit ONE (06:20)
[2017-11-18 06:41] LABS: BASO # 0.1 K/uL (0.0-0.2); BASO % 0.7 % (0.0-2.0); EOS % 0.3 % (0.0-4.0); LYMPH # 1.7 K/uL (1.0-4.3); LYMPH % 14.2 % (20.0-40.0); MEAN CELL VOLUME 94.5 fl (81.0-99.0); MEAN CORPUSCULAR HEMOGLOBIN 32.7 pg (27.0-31.0); MEAN CORPUSCULAR HGB CONC 34.5 g/dL (33.0-37.0); MEAN PLATELET VOLUME 8.2 fl (7.2-11.7); MONO # 0.7 K/uL (0.0-0.8); MONO % 6.2 % (0.0-10.0); NEUT # 9.3 K/uL (1.8-7.0); NEUT % 78.6 % (50.0-75.0); NRBC % 0.1 % (0.0-0.0); RBC 4.29 Mil/uL (3.80-5.20); RED CELL DISTRIBUTION WIDTH 14.6 % (11.5-14.5); WHITE BLOOD COUNT 11.9 K/uL (4.8-10.8)
[2017-11-18 06:49] LABS: ALB/GLOB RATIO 1.2 (1.0-2.1); ALBUMIN 4.1 g/dL (3.5-5.0); ALT/SGPT 27 U/L (9-52); AST/SGOT 29 U/L (14-36); BLOOD UREA NITROGEN 30 mg/dl (7-17); CALCIUM 9.5 mg/dL (8.4-10.2); GFR AFRICAN-AMERICAN > 60; GFR NON-AFRICAN AMERICAN 55
[2017-11-18] MEDS ORDERED: Bupivacaine HCl 0.5% PF (30 ml) Inj ONE (07:20)
[2017-11-18] MEDS ORDERED: Etomidate 20 mg/10ml Inj IV ONE (07:23)
[2017-11-18] MEDS ORDERED: Phenylephrine 10 mg/ml Inj ONE (07:23)
[2017-11-18] MEDS ORDERED: Propofol 10 mg/ml Inj (20 ML) ONE (07:25)
[2017-11-18] MEDS ORDERED: Rocuronium 10 mg/ml (5 ml) ONE ×2 (07:25→09:10)
[2017-11-18] MEDS ORDERED: Succinylcholine 200 mg/10 ml Inj IV ONE (07:25)
[2017-11-18] MEDS ORDERED: Lactated Ringer's 1,000 ML IV ONE ×3 (07:45→10:55)
[2017-11-18] MEDS ORDERED: EPINEPHrine 1 mg/ml (1:1000) Inj ONE (07:46)
[2017-11-18] MEDS ORDERED: Midazolam 2 MG/2 ML VIAL ONE (08:06)
[2017-11-18] MEDS ORDERED: Bupivacaine HCl 0.25% PF (30 ml) Inj ONE (08:06)
[2017-11-18] MEDS ORDERED: Tranexamic Acid 1,000 MG in Sodium Chloride 0.9% 100 ML IVPB SCH (08:45)
[2017-11-18] MEDS ORDERED: Neostigmine 1:1000 (1 mg/ml) Inj ONE (09:04)
[2017-11-18] MEDS: Pantoprazole 40 mg EC Tab PO SCH (09:33)
[2017-11-18] MEDS ORDERED: Lactated Ringer's 1,000 ML IV SCH (10:30)
--- NOTE | 2017-11-18 11:07 | PCM.SURG1 ---
Surgeon's Initial Post Op Note - Surgeon's Notes Surgeon: Michell Gang Saw Operator: CRISTO Jenkins/ 2nd assist Zach sprague Type of Anesthesia: General Endo, Block Regional Anesthesia Administered By: DR Ramon Deal Pre-Operative Diagnosis: Displaced/comminuted 3 to 4 part fraxcture R proximal humerus. DJD R shoulder Operative Findings: comminuted/displaced fracture Right proximal humerus. DJD R shoulder. rotator cuff tear. biceps tendon rupture Post-Operative Diagnosis: as above Operation Performed: R Total Shoulder Replacemnt(Reverse type). repair R rotator cuff. biceps tenodesis Specimen/Specimens Removed: comminuted /displaced R prox humertus fx. tendon ( rotator cuff and biceps tenodesis) Estimated Blood Loss: EBL {In ML}: 50 Blood Products Given: N/A Drains Used: No Drains Post-Op Condition: Fair Date of Surgery/Procedure: 11/18/17 Time of Surgery/Procedure: 09:25 (time in room 7:55/anaesthesia indcution time 7 :55)
--- NOTE | 2017-11-18 13:07 | RAD ---
PROCEDURE: Radiographs of the Right Shoulder HISTORY: s/p R TSR COMPARISON: 11/16/2017 FINDINGS: BONES: Status post right glenohumeral arthroplasty. No osseous fracture appreciated. Prosthesis appears intact. JOINTS: Mild acromioclavicular degenerative arthritis. SOFT TISSUES: Normal. OTHER FINDINGS: None. IMPRESSION: Right glenohumeral arthroplasty.
--- NOTE | 2017-11-18 13:24 | PCM.ANESB1 ---
Interscalene Block - Brachial Plexus Date of Procedure: 11/18/17 Anesthesiologist: Jose Pre-Procedure Diagnosis: Right proximal humerus fracture Procedure Performed: Interscalene Block of Brachial Plexus Right - Procedure Interscalene Block of Brachial Plexus: This procedure was explained to the patient that it is for post-operative pain management. Consent was obtained after a thorough discussion with the patient regarding the benefits and possible complications of local anesthetic block of the Brachial Plexus at the Interscalene area. The patient was brought to the Operating Room and standard monitors were applied. Time out was held with the circulating nurse to confirm the correct surgery and appropriate block. After applying Oxygen by nasal cannula and administering IV Sedation, the patient's head was gently rotated away from the __right____operative shoulder and the anterior scalene groove was carefully palpated. The ultrasound transducer was then applied to the skin in the transverse plane and the brachial plexus was visualized lateral to the carotid artery and in between the anterior and middle scalene muscles. After identification,the anterior lateral portion of the neck was prepped with Chloraprep and Lidocaine 1% was injected subcutaneously for topical analgesia. At this point, a # 22 gauge Stimuplex 2 inches insulated needle was inserted into the interscalene groove and directed in a caudal and midline direction. The needle was inserted lateral to the ultrasound transducer in-plane towards the brachial plexus in a [id number] direction. Needle advancement was performed carefully under direct ultrasound visualization. Nerve stimulator was used and twitched of the affected extremity including the hand brachialis muscles, biceps and the deltoid was obtained at a current of __0.4___MA. After repeated negative aspiration,__2___cc of__2%___,____lidocaine were injected and this was followed with __8___cc of __2___% __lidocaine and 20 cc 0.25% bupivicaine . Under ultrasound guidance the local anesthetics were observed surrounding the roots of the brachial plexus. The needle was removed intact and sterile dressing was applied. The patient had stable vital signs, was conscious and in no apparent distress. The patient tolerated the interscalene block of the bracheal plexus well with stable vital signs and was prepared for subsequent surgery.
[2017-11-18] MEDS: Lactated Ringer's 1,000 ML IV SCH (13:30)
--- NOTE | 2017-11-18 13:58 | CP.PCM.PN ---
Subjective - Date & Time of Evaluation Date of Evaluation: 11/18/17 Time of Evaluation: 13:56 - Subjective Subjective: Not able to see the pt this AM. Was already taken to OR for surgery. Not able to perform physical exam. Will see and examine pt post procedure. Objective - Vital Signs/Intake and Output Vital Signs (last 24 hours): Temp Pulse Resp BP Pulse Ox 99.2 F 67 21 129/66 93 L 11/18/17 13:20 11/18/17 13:20 11/18/17 13:20 11/18/17 13:20 11/18/17 13:20 Intake and Output: 11/18/17 11/18/17 06:59 18:59 Intake Total 1150 Balance 1150 - Medications Medications: Current Medications Albuterol (Ventolin Hfa 90 Mcg/Actuation (8 G)) 2 puff INH RQ6 PRN PRN Reason: Shortness of Breath Diltiazem HCl (Cardizem) 30 mg PO TID [facility] Last Admin: 11/18/17 09:33 Dose: Not Given Hydromorphone HCl (Dilaudid) 0.5 mg IVP ONCE [facility] Last Admin: 11/17/17 16:48 Dose: 0.5 mg Hydromorphone HCl (Dilaudid) 0.5 mg IVP Q6H PRN PRN Reason: Pain, severe (8-10) Stop: 11/19/17 18:00 Last Admin: 11/18/17 05:58 Dose: 0.5 mg Cefazolin Sodium/Dextrose (Ancef Iv 2 Gm Duplex) 2 gm in 50 mls @ 50 mls/hr IVPB Q8 [facility] PRN Reason: Protocol Stop: 11/19/17 01:59 Lactated Ringer's (Lactated Ringer's) 1,000 mls @ 80 mls/hr IV .[id number] [facility] Ketorolac Tromethamine (Toradol) 30 mg IVP Q6 PRN PRN Reason: Pain, moderate (4-7) Last Admin: 11/17/17 11:58 Dose: 30 mg Ondansetron HCl (Zofran Inj) 4 mg IVP ONCE PRN PRN Reason: Nausea/Vomiting Pantoprazole Sodium (Protonix Ec Tab) 40 mg PO DAILY [facility] Last Admin: 11/18/17 09:33 Dose: Not Given Fluticasone/Salmeterol (Advair Diskus 250/50) 1 puff IH Q12H [facility] Last Admin: 11/17/17 22:58 Dose: 1 puff Senna/Docusate Sodium (Senokot S 50 Mg-8.6 Mg) 2 tab PO HS [facility] Last Admin: 11/17/17 22:55 Dose: 2 tab Tramadol HCl (Ultram) 50 mg PO Q4 PRN PRN Reason: Pain, severe (8-10) - Labs Labs: 11/18/17 06:10 11/18/17 06:10 PT 11.2 Seconds (9.8-13.1) 11/16/17 22:25 INR 1.0 (0.9-1.2) 11/16/17 22:25 APTT 33.9 Seconds (25.6-37.1) 11/16/17 22:25 Assessment and Plan - Assessment and Plan (Free Text) Assessment: Assessment/Plan: 67 yr old F admitted for comminuted right humeral head and neck fracture and left ribs fractures. Comminuted right humeral head and neck fracture -acute, traumatic, s/p mechanical fall -CT chest: acute comminuted fracture of the right humeral head and neck, acute fractures involving left 4th-6th ribs anteriorly, incidental 2mm pulmonary nodule, incidental indeterminate hyperdense renal lesion, emphysematous changes -Orthopedic consult: OR today for R shoulder replacement; follow up recs -Cardiology consult: She is hemodynamically stable and may proceed with the planned surgery. -Pain management: Dilaudid, Ultram, Toradol -will follow up ortho recs post OR Left anterior rib fractures ribs 4th-6th -acute, traumatic, s/p mechanical fall -c/w pain management -follow up, Multiple myeloma -vitamin D wnl COPD -chronic, controlled -c/w home medications -supplemental O2 via nasal cannula to keep O2 sat above 92% Pulmonary Hypertension -chronic, stable -c/w home medications Hyperthyroidism -chronic, stable of medications -f/u TSH CKD stage 3 -chronic, stable -Bun/Cr 33/1.2, GFR 50 -cont to monitor Hyperkalemia -resolved -serum K+ 5.2-->4.6 -home Potassium medication held DVT prophylaxis -SCD's for now -hold per Surgery: will follow up recs
--- NOTE | 2017-11-18 14:30 | CP.CCUPN ---
CCU Subjective - Physician Review Subjective (Free Text): 67F admitted 2 days ago after a Fall at Home, resulting in R humeral Fracture and Left Rib fractures. She underwent Total R Shoulder Replacement surgery today under interscalene anesthesia block and BiPAP support during an uneventful procedure. No narcotics were given nor necessary and patient is awake , alert and appropriately responsive post-procedure as he remains on BiPAP support. Settings now include 16/8 at 50% with generated TV of approx. 480- 500ml and SPo2 95%. She recd approx. 1000ml crystalloid intraop. Post-op R shoulder adductor immobilizer placed with binder placed circumferentially around entire upper chest/ torso. Other vitals and I/O's reviewed. ROS: Mild left lower rib pain now, but no other pertinent negs or positives on 10+ system review. PMSFH: Significant cardiac event occurred approx. 8 yrs ago whereby patient had an episode of tachycardia, given treatment to slow rhythm and became overly bradycardic and had a cardiac arrest, remained intubated on MV for over 3 weeks and was trached, also developed ARF and was on HD. Other PMH includes HTN. COPD and hypothyroidism. All other Nursing and physician documentation reviewed to date; no new pertinent info noted relevant to current medical problems. Allergies: NKDA Home Meds: Albuterol inh, Flutic/Salmet inh, ASA, Cardizem, Protonix, Umeclidinium EXAM- HEENT: no icterus, no gaze preference, pupils equal and reactive NECK: No JVD, supple, carotids equal upstroke bilat/no bruits CHEST: limited exam due to chest binder, otherwise clear with diminished BS bilat, no wheezes audible, palpable tenderness over left lateral lower ribs. HEART: regular, distant, S1S2, no rubs or murmurs ABD: soft, obese and rotund; no distention, no tympany, no palp tenderness, BS hypoactive EXT: Trace bilat pedal edema. No peripheral/ digital cyanosis, no calf tenderness or palpable cords, distal pulses intact and symmetrical. Multiple bilat varicosities, large ecchymoses over R knee. NEURO: no focal motor deficits, sensory (PP, Vib) intact SKIN: no rashes, warm and dry. 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 Results report reviewed as well. IMPRESSION / MAJOR PROBLEMS NOW: 1. S/p R Total Shoulder Replacement for R humeral head comminuted fracture 2. Left lower Anterior Rib Fractures 3. COPD 4. Morbid obesity PLAN: 1. BiPAP support until diaphragmatic function returns post-anesthesia. Settings on BiPAP changed to 05/13 for patient comfort. Average TV maintained above 350 ml. Will monitor resp status closely for any prolonged diaphragmatic paralysis. 2. Cautious narcotics ( low dose) only if necessary as interscalene block effects dissipate. 3. Maintenance IVF hydration 4. Continue SCDs, otherwise post-op DVT prophylaxis as per Ortho. CCU Objective - Vital Signs / Intake & Output Vital Signs (Last 4 hours): Vital Signs Temp Pulse Resp BP Pulse Ox 11/18/17 13:29 97.7 F 84 22 149/75 95 11/18/17 13:20 99.2 F 67 21 129/66 93 L 11/18/17 13:15 88 11/18/17 13:10 70 20 122/63 94 L 11/18/17 12:40 75 20 142/87 94 L 11/18/17 12:10 91 H 20 130/90 93 L 11/18/17 11:55 99.2 F 90 16 157/63 H 89 L 11/18/17 11:40 99 F 81 16 172/73 H 94 L 11/18/17 11:25 98.8 F 96 H 16 167/99 H 94 L 11/18/17 11:10 98.7 F 81 16 183/80 H 94 L Intake and Output (Last 8hrs): Intake & Output 11/17/17 11/18/17 11/18/17 22:59 06:59 14:59 Intake Total 1150 Balance 1150 Intake: IV 1150
[2017-11-18] MEDS ORDERED: HYDROmorphone 1 mg/ml ISec IVP SCH (17:00)
[2017-11-18] MEDS: HYDROmorphone 0.5 mg/0.5 ml ISec IVP PRN ×2 (17:34→21:39)
[2017-11-18] MEDS: ceFAZolin IV 2 gm in Dextrose 2 GM/50 ML BAG IVPB SCH (17:58)
[2017-11-18] MEDS: Docusate-Senna 50 mg-8.6 mg Tab PO SCH (21:38)
[2017-11-19] MEDS: ceFAZolin IV 2 gm in Dextrose 2 GM/50 ML BAG IVPB SCH (00:14)
[2017-11-19] MEDS: Fluticasone-Salmeterol 250-50mcg Diskus IH SCH ×3 (00:15→23:50)
[2017-11-19] MEDS: Lactated Ringer's 1,000 ML IV SCH (00:17)
[2017-11-19] MEDS: HYDROmorphone 0.5 mg/0.5 ml ISec IVP PRN ×3 (01:03→09:33)
[2017-11-19 05:34] LABS: HEMOGLOBIN 12.1 g/dL (12.0-16.0); MEAN CELL VOLUME 95.6 fl (81.0-99.0); MEAN CORPUSCULAR HEMOGLOBIN 32.1 pg (27.0-31.0); MEAN CORPUSCULAR HGB CONC 33.5 g/dL (33.0-37.0); RBC 3.78 Mil/uL (3.80-5.20); RED CELL DISTRIBUTION WIDTH 14.2 % (11.5-14.5); WHITE BLOOD COUNT 12.5 K/uL (4.8-10.8)
[2017-11-19 05:43] LABS: ABG ALLEN TEST YES; ARTERIAL BLOOD GAS HCO3 23.5 mmol/L (21-28); ARTERIAL BLOOD GAS HEMOGLOBIN 11.8 g/dL (11.7-17.4); ARTERIAL BLOOD GAS O2 CAPACITY 16.2 mL/dL (16-24); ARTERIAL BLOOD GAS O2 SAT 98.9 % (95-98); ARTERIAL BLOOD GAS PCO2 32 mm/Hg (35-45); ARTERIAL BLOOD GAS PH 7.44 (7.35-7.45); ARTERIAL BLOOD GAS PO2 96 mm/Hg (80-100); ARTERIAL BLOOD GAS TCO2 22.7 mmol/L (22-28)
[2017-11-19 05:56] LABS: BLOOD UREA NITROGEN 19 mg/dl (7-17); CALCIUM 8.8 mg/dL (8.4-10.2); GFR AFRICAN-AMERICAN > 60; GFR NON-AFRICAN AMERICAN > 60
--- NOTE | 2017-11-19 07:30 | CP.PCM.PN ---
Subjective - Date & Time of Evaluation Date of Evaluation: 11/19/17 Time of Evaluation: 07:30 - Subjective Subjective: OR for R total shoulder replacement 11/18/17 Pt seen and examined in bedside this AM, ICU. Pt awake, alert and answering all questions. RUE in sling, pt states that her pain is well controlled. Objective - Vital Signs/Intake and Output Vital Signs (last 24 hours): Temp Pulse Resp BP Pulse Ox 98 F 68 16 118/56 L 97 11/19/17 00:00 11/19/17 06:00 11/19/17 06:00 11/19/17 06:00 11/19/17 06:00 Intake and Output: 11/19/17 11/19/17 06:59 18:59 Intake Total 900 Balance 900 - Medications Medications: Current Medications Albuterol (Ventolin Hfa 90 Mcg/Actuation (8 G)) 2 puff INH RQ6 PRN PRN Reason: Shortness of Breath Diltiazem HCl (Cardizem) 30 mg PO TID [facility] Last Admin: 11/18/17 18:00 Dose: 30 mg Hydromorphone HCl (Dilaudid) 0.5 mg IVP ONCE [facility] Last Admin: 11/17/17 16:48 Dose: 0.5 mg Hydromorphone HCl (Dilaudid) 0.5 mg IVP Q4 PRN PRN Reason: Pain, severe (8-10) Stop: 11/19/17 18:00 Last Admin: 11/19/17 04:46 Dose: 0.5 mg Lactated Ringer's (Lactated Ringer's) 1,000 mls @ 80 mls/hr IV .[id number] [facility] Last Admin: 11/19/17 00:17 Dose: 80 mls/hr Ketorolac Tromethamine (Toradol) 30 mg IVP Q6 PRN PRN Reason: Pain, moderate (4-7) Last Admin: 11/17/17 11:58 Dose: 30 mg Ondansetron HCl (Zofran Inj) 4 mg IVP ONCE PRN PRN Reason: Nausea/Vomiting Pantoprazole Sodium (Protonix Ec Tab) 40 mg PO DAILY [facility] Last Admin: 11/18/17 09:33 Dose: Not Given Fluticasone/Salmeterol (Advair Diskus 250/50) 1 puff IH Q12H [facility] Last Admin: 11/19/17 00:15 Dose: 1 puff Senna/Docusate Sodium (Senokot S 50 Mg-8.6 Mg) 2 tab PO HS [facility] Last Admin: 11/18/17 21:38 Dose: 2 tab Tramadol HCl (Ultram) 50 mg PO Q4 PRN PRN Reason: Pain, severe (8-10) - Labs Labs: 11/19/17 04:50 11/19/17 04:45 PT 11.2 Seconds (9.8-13.1) 11/16/17 22:25 INR 1.0 (0.9-1.2) 11/16/17 22:25 APTT 33.9 Seconds (25.6-37.1) 11/16/17 22:25 - Constitutional Appears: No Acute Distress - Head Exam Head Exam: NORMAL INSPECTION Additional comments: O2 on NL 4L - Eye Exam Eye Exam: EOMI, Normal appearance - ENT Exam ENT Exam: Mucous Membranes Moist - Respiratory Exam Respiratory Exam: Clear to Ausculation Bilateral, NORMAL BREATHING PATTERN. absent: Rales, Rhonchi, Wheezes - Cardiovascular Exam Cardiovascular Exam: REGULAR RHYTHM, +S1, +S2 - GI/Abdominal Exam GI & Abdominal Exam: Soft, Normal Bowel Sounds. absent: Distended, Guarding, Tenderness - Extremities Exam Extremities Exam: Full ROM. absent: Pedal Edema Additional comments: RUE in a sling, moving fingers, good cap refill Multiple contusions noted on LUE, area of abrasion on L arm Notable varicose veins in lower extremities b/l Contusion noted on both knees b/l SCDs on, no edema noted moving b/l lower extremities - Neurological Exam Neurological Exam: Alert, Awake, Oriented x3 - Psychiatric Exam Psychiatric exam: Normal Affect, Normal Mood - Skin Skin Exam: Dry, Intact, Normal Color, Warm Assessment and Plan - Assessment and Plan (Free Text) Assessment: Assessment/Plan: 67 yr old F admitted for comminuted right humeral head and neck fracture and left ribs fractures. S/p R total shoulder replacement POD1 Comminuted right humeral head and neck fracture -S/p R total shoulder replacement POD1 -acute, traumatic, s/p mechanical fall -CT chest: acute comminuted fracture of the right humeral head and neck, acute fractures involving left 4th-6th ribs anteriorly, incidental 2mm pulmonary nodule, incidental indeterminate hyperdense renal lesion, emphysematous changes -Orthopedic consult: keep shoulder immobilized, sling and swath not to be removed, PT/OT, NWB RUE -Cardiology consult: She is hemodynamically stable and may proceed with the planned surgery. -Pain management: Dilaudid, Toradol and Interscalene Block of Brachial Plexus Right -ortho following -PT/OT Left anterior rib fractures ribs 4th-6th -acute, traumatic, s/p mechanical fall -stable -c/w pain management -PT/OT Osteoporosis -multiple fractures in ground level fall -vitamin D 35.5 -follow up, Multiple myeloma -start vitamin D and C Hyperthyroidism -uncontrolled -on PO meds in the past -not on any home meds -TSH 0.08, T4 12.3, T3 0.532 -Endocrine consulted; started on Methimazole 5mg PO BID -follow up labs COPD -chronic, controlled -c/w home medications -supplemental O2 via nasal cannula to keep O2 sat above 92% Pulmonary Hypertension -chronic, stable -c/w home medications CKD stage 3 -chronic, stable -Bun/Cr 19/0.8, GFR >60 -cont to monitor Hyperkalemia -resolved -serum K+ 5.2-->4.6 -home Potassium medication held DVT prophylaxis -start Lovenox; okay per surgery
--- NOTE | 2017-11-19 08:36 | CP.PCM.PN ---
Subjective - Date & Time of Evaluation Date of Evaluation: 11/19/17 Time of Evaluation: 07:45 - Subjective Subjective: Patient seen and examined at bedside comfortable. Pain is well controlled. On bipap overnight. No acute events overnight. Objective - Vital Signs/Intake and Output Vital Signs (last 24 hours): Temp Pulse Resp BP Pulse Ox 98.3 F 92 H 18 121/68 95 11/19/17 08:00 11/19/17 08:00 11/19/17 08:00 11/19/17 08:00 11/19/17 08:00 Intake and Output: 11/19/17 11/19/17 06:59 18:59 Intake Total 900 Balance 900 - Medications Medications: Current Medications Albuterol (Ventolin Hfa 90 Mcg/Actuation (8 G)) 2 puff INH RQ6 PRN PRN Reason: Shortness of Breath Diltiazem HCl (Cardizem) 30 mg PO TID [facility] Last Admin: 11/18/17 18:00 Dose: 30 mg Hydromorphone HCl (Dilaudid) 0.5 mg IVP ONCE [facility] Last Admin: 11/17/17 16:48 Dose: 0.5 mg Hydromorphone HCl (Dilaudid) 0.5 mg IVP Q4 PRN PRN Reason: Pain, severe (8-10) Stop: 11/19/17 18:00 Last Admin: 11/19/17 04:46 Dose: 0.5 mg Lactated Ringer's (Lactated Ringer's) 1,000 mls @ 80 mls/hr IV .[id number] [facility] Last Admin: 11/19/17 00:17 Dose: 80 mls/hr Ketorolac Tromethamine (Toradol) 30 mg IVP Q6 PRN PRN Reason: Pain, moderate (4-7) Last Admin: 11/19/17 07:53 Dose: 30 mg Ondansetron HCl (Zofran Inj) 4 mg IVP ONCE PRN PRN Reason: Nausea/Vomiting Pantoprazole Sodium (Protonix Ec Tab) 40 mg PO DAILY [facility] Last Admin: 11/18/17 09:33 Dose: Not Given Fluticasone/Salmeterol (Advair Diskus 250/50) 1 puff IH Q12H [facility] Last Admin: 11/19/17 00:15 Dose: 1 puff Senna/Docusate Sodium (Senokot S 50 Mg-8.6 Mg) 2 tab PO HS [facility] Last Admin: 11/18/17 21:38 Dose: 2 tab Tramadol HCl (Ultram) 50 mg PO Q4 PRN PRN Reason: Pain, severe (8-10) - Labs Labs: 11/19/17 04:50 11/19/17 04:45 PT 11.2 Seconds (9.8-13.1) 11/16/17 22:25 INR 1.0 (0.9-1.2) 11/16/17 22:25 APTT 33.9 Seconds (25.6-37.1) 11/16/17 22:25 - Extremities Exam Additional comments: R shoulder: Dressings CDI, mild swelling and ecchymosis, + diffuse tenderness 2nd to surgery ROM restricted in shoulder immobilizer sensation intact AXN/MN/UN/RN motor intact MN/UN/RN 2 sec cap refill, radial pulse intact Assessment and Plan (1) Fracture of humeral head, right, closed Assessment & Plan: Patient is POD#1 s/p R reverse TSR doing well -pain control -keep shoulder immobilized, sling and swath not to be removed -PT/OT NWB RUE -care as per medicine -orthopedically stable -discharge planning -above d/w Dr. Galarza in agreement Status: Acute
[2017-11-19] MEDS: Pantoprazole 40 mg EC Tab PO SCH (08:52)
[2017-11-19 09:05] LABS: T4 12.3 ug/dl (5.5-11.0)
[2017-11-19 09:19] LABS: T3 0.532 nmol/L (1.49-2.60)
--- NOTE | 2017-11-19 10:18 | CP.CCUPN ---
CCU Subjective - Physician Review Subjective (Free Text): Remains awake and alert, was on BiPAP overnight, tolerated nasal cannula oxygen therapy during breakfast meal, able to do incentive spirometry without difficulty and with acceptable effort. Post-op R shoulder adductor immobilizer placed with binder placed circumferentially around entire upper chest/ torso remamins. Just medicated with IV Toradol for rib pain. Other vitals and I/O's reviewed. ROS: Mild left lower rib pain now, but no other pertinent negs or positives on 10+ system review. PMSFH: Significant cardiac event occurred approx. 8 yrs ago whereby patient had an episode of tachycardia, given treatment to slow rhythm and became overly bradycardic and had a cardiac arrest, remained intubated on MV for over 3 weeks and was trached, also developed ARF and was on HD. Other PMH includes HTN. COPD and hypothyroidism. All other Nursing and physician documentation reviewed to date; no new pertinent info noted relevant to current medical problems. EXAM- HEENT: no icterus, no gaze preference, pupils equal and reactive NECK: No JVD, supple, carotids equal upstroke bilat/no bruits CHEST: limited exam due to chest binder, otherwise clear with diminished BS bilat, no wheezes audible, palpable tenderness over left lateral lower ribs. HEART: regular, distant, S1S2, no rubs or murmurs ABD: soft, obese and rotund; no distention, no tympany, no palp tenderness, BS hypoactive EXT: Trace bilat pedal edema. No peripheral/ digital cyanosis, no calf tenderness or palpable cords, distal pulses intact and symmetrical. Multiple bilat varicosities, large ecchymoses over R knee. NEURO: no focal motor deficits, sensory (PP, Vib) intact SKIN: no rashes, warm and dry. LABS: WBC= 12.5 HGB= 12.1 PLTs= 269K Zl=519 K= 4.7 WY=876 HCO3= 21 BUN/Cr= 19/0.8 BS= 120 IMPRESSION / MAJOR PROBLEMS NOW: 1. S/p R Total Shoulder Replacement for R humeral head comminuted fracture 2. Left lower Anterior Rib Fractures 3. COPD 4. Morbid obesity PLAN: 1. Satisfactory TVs noted on BiPAP support, does not need to be on BiPAP any further, transitioned to nasal cannula. 2. Incentive Spirometry as tolerated. 3. Cautious low dose narcotics. 4. Continue SCDs, otherwise post-op DVT prophylaxis as per Ortho. 5. Stable for transfer to regular post-op Ortho bed. CCU Objective - Vital Signs / Intake & Output Vital Signs (Last 4 hours): Vital Signs Temp Pulse Resp BP Pulse Ox 11/19/17 08:51 92 H 21 121/58 L 93 L 11/19/17 08:00 98.3 F 92 H 18 121/68 95 Intake and Output (Last 8hrs): Intake & Output 11/18/17 11/19/17 11/19/17 22:59 06:59 14:59 Intake Total 240 660 Output Total 300 Balance -60 660 Intake: IV 240 560 Intake, Piggyback 100 Output: Urine 300 Urine, Voided 300 Other: # Voids Urine, Voided 1 1
[2017-11-19] MEDS ORDERED: Enoxaparin 40 mg Syringe SC SCH (10:45)
--- NOTE | 2017-11-19 15:00 | OP ---
PROCEDURE DATE: 11/18/17 TIME OF SURGERY: Time in the room 07:55, anesthesia induction time 07:55, incision time 09:25. PREOPERATIVE DIAGNOSES: 1. Comminuted displaced ecjzj-el-bifg-part fracture of the right proximal humerus. 2. Preexisting degenerative joint disease of the right shoulder. POSTOPERATIVE DIAGNOSES: 1. Displaced comminuted hfdra-ya-pgeu-part fracture of the right proximal humerus. 2. Preexisting osteoarthritis of the right shoulder. 3. Rotator cuff tear. 4. Biceps tendon rupture. Postoperative diagnoses as per operative findings. OPERATIONS PERFORMED: 1. Right total shoulder replacement, reverse type. 2. Repair of right rotator cuff. 3. Biceps tenodesis. SPECIMENS REMOVED: Comminuted displaced right proximal humerus fracture, tendon and cartilage. SURGEON: Colton Galarza MD CATERING [place]: BALAJI Ellsworth, certified registered nursing therapist's assistant. SECOND BARREL HEADER: Ivana Winchester PA-C. ANESTHESIA: General and regional anesthesia. ANESTHESIOLOGIST: Ramon Garcia MD ESTIMATED BLOOD LOSS: Approximately 50 mL. BLOOD PRODUCTS: No blood products given. DRAINS: No drains. POSTOPERATIVE CONDITION: Fair. OPERATIVE INDICATIONS: Kathy Rea is a 67-year-old female who presents today after a fall at home. The patient is transported to the [facility] emergency room. The patient is a patient of Dr. Michael Watkins. The patient is admitted. Preoperative workup including planar radiographs and CT scan was accomplished. Medical clearance was obtained from Dr. Michael Sapp. Pros, cons, risks and benefits of various treatment options were discussed. The concept of benign neglect, closed reduction, possible open reduction and plate fixation and possible prosthetic replacement were discussed, most people across the country would agree with this fracture pattern, prosthetic replacement was indicated. The patient can no longer withstand the discomfort. The situation was discussed with the patient and her daughter and the patient renders informed consent. OPERATIVE PROCEDURE: After having obtained informed consent in the above fashion, after the satisfactory induction of regional scalene block and general endotracheal anesthesia by Dr. Garcia, after having identified side, site and procedure and a critical pause/time-out, after sterilely prepping and draping the right upper extremity, after having sure that all bony prominences were well padded. The right upper extremity was prepped and free draped in usual fashion for upper extremity surgery. The shoulder positioner was employed. An incision was described extending from the distal third of the clavicle, taking great care to staying lateral from the coracoid process to the point of the deltoid. The incision is insufflated with a solution of 1:1000 epinephrine in 200 mL of saline. The skin incision was carried down through the skin and subcutaneous tissue. Dissection was carried out medially and laterally, identifying the deltopectoral interval. The deltopectoral interval was identified and using Metzenbaum scissors, the cephalic vein was mobilized, the underlying clavipectoral fascia, hemostasis was controlled with the Aquamantys. This having been accomplished using a modified pediatric [place] retractor, shoulder retractor was placed with external rotation, the rotator cuff was identified. There was found to be a tear of the rotator cuff and attenuation of the biceps tendon complex. With externally rotating the site of the contracture, a capsular release was necessary after identifying the rotator cuff tear at a point approximately 1 cm lateral to the position of the lesser tuberosity, incision was accomplished and described using electrocautery with further external rotation, the fragments were identified and the shoulder is dislocated. The fracture line is at the surgical neck of the humerus. The rotator cuff flap was developed and with external rotation, it was peeled back and tagged with Arthrex stay sutures, with progressive external rotation, the shoulder having been dislocated, the biceps tendon now which was injured is completely released and is tacked, a portion of the rotator cuff was elevated from the humeral side and the fragments were enucleated from the rotator cuff. This having been accomplished, the humeral neck osteotomy was accomplished and attention was now turned to the glenoid. The intramedullary canal was found and at this point in time, again the previous contractures were released. Hemostasis was controlled with the Aquamantys. The glenoid is exposed, there were found to be osteophytes on the glenoid, they were debrided. The glenoid is exposed. Glenoid preparation having been accomplished, the guide is placed on the glenoid and the guidewire was introduced. At this point in time, the glenoid having been exposed with appropriate retractors anterior and posteriorly and the capsule having been released, the labrum was excised. The pin having been introduced at the equator, some of the articular cartilage superiorly is denuded with a jono and reaming was accomplished with the reamers. The guide pin position after acceptable reaming is accomplished for the small size glenoid component, reaming having been accomplished, the central peg is reamed. The guide pin was removed. At this point in time, the small glenoid baseplate was impacted, impacted firmly, drilling was accomplished and the 20 and 25 mm screws were impacted. The position of the glenoid plate was found to be excellent. At this point in time, the glenosphere is introduced, impacted and held definitively with the screw. Attention was now turned to the humeral shaft, sequential reaming is to 14 mm. The osteotomy was modified to accommodate the 14 mm prosthesis. The rasp was left, trailing was accomplished with a neutral humeral head assembly, the construct was reduced and found to be acceptable in all planes. At this point in time, the rasp was removed, the definitive component was introduced. The proximal body had been affixed and held with a screw, the polyethylene was inserted. The shoulder was reduced and the shoulder was found to be stable in all planes. This having been accomplished with the arm neutral and about 10 degrees of internal rotation, the rotator cuff was repaired to the prosthesis and to the posterior leaf of the rotator cuff. This having been accomplished, biceps tenodesis was accomplished by tenodesing the biceps tendon to the rotator cuff repair. The wound was thoroughly irrigated, at this point in time, hemostasis was controlled with the Aquamantys. Closures in layers with interrupted 0 Quill followed by 0 Quill, 2-0 Quill plastic closure. Compression dressing, shoulder immobilizers was applied. Neurocirculatory status is intact in recovery. Postoperative x-rays revealed acceptable position of the construct. Colton Galarza MD
--- NOTE | 2017-11-19 16:50 | CP.PCM.PCO ---
Assessment/Plan - Assessment and Plan (Free Text) Assessment: looks good Dtr at bedside No AARON with pain meds Spoke with Dr Guillaume to start lovenox
[2017-11-19] MEDS: Citracal+D 315mg/250IU PO SCH ×2 (17:34→17:38)
[2017-11-19] MEDS: Cholecalciferol 1,000 INTLU TAB PO SCH (17:34)
[2017-11-19] MEDS: methIMAzole 5 MG TAB PO SCH (17:34)
[2017-11-19] MEDS: Enoxaparin 40 mg Syringe SC SCH (17:36)
[2017-11-19] MEDS ORDERED: HYDROmorphone 1 mg/ml ISec IVP PRN (18:00)
[2017-11-19] MEDS: HYDROmorphone 1 mg/ml ISec IVP PRN (21:42)
[2017-11-19] MEDS: Docusate-Senna 50 mg-8.6 mg Tab PO SCH (21:45)
--- NOTE | 2017-11-20 01:51 | CON ---
DATE: 11/19/2017 ENDOCRINOLOGY CONSULT LOCATION: Room 651. HISTORY OF PRESENT ILLNESS: This is a 67-year-old female with known history of hypertension who had an accidental fall and sustained a right humeral head fracture and underwent surgical resection thereof, and is now being referred for an incidental finding of abnormal thyroid function studies consistent with hyperthyroidism. PAST MEDICAL HISTORY: History of hypertension, currently controlled on medications. No known history of any thyroid condition or any intake of any medications for the same. FAMILY HISTORY: No known thyroid endocrinopathy. SOCIAL HISTORY: The patient has a supportive family. No known substance use. REVIEW OF SYSTEMS: As mentioned above. Admits to generalized body weakness with episodic bouts of dizziness and lightheadedness with bifrontal headaches. Also admits to occasional bouts of palpitations, especially on exertion but no overt chest pains or shortness of breath, otherwise. Her oral intake has been variable with nausea and dyspepsia with occasional hyperdefecation. PHYSICAL EXAMINATION: GENERAL: This is an overweight female in no apparent distress. VITAL SIGNS: Blood pressure of 140/80, pulse of 70 beats per minute and regular, temperature 98, respirations 20. Height is 4 feet 8 inches, weight is 178 pounds. HEENT: Head normocephalic. Eyes anicteric with pink conjunctivae. Funduscopy not possible at this time. Ears, nose and throat, otherwise, normal. NECK: Supple. Thyroid gland is normal in size. No carotid bruits or any cervical adenopathy. CARDIOPULMONARY: Some adynamic precordium. S1, S2 is rapid and regular. LUNGS: Clear to auscultation. ABDOMEN: Flat, soft with positive bowel sounds. EXTREMITIES: No peripheral edema. Pulses are +2 bilaterally. LABORATORY DATA: Her chemistry showed a BUN of 19, sodium 139, potassium 4.7, chloride 106, CO2 of 21, glucose 120, and creatinine 0.8. Her thyroid studies showed a T4 of 12.3 with a TSH of less than 0.08. ASSESSMENT: This is a 67-year-old female with early hyperthyroidism, most likely related to underlying autoimmune thyroiditis with no overt palpable thyroid nodules or thyromegaly at this time. PLAN OF MANAGEMENT: We will start her with very low-dose medical therapy with Tapazole given as 5 mg b.i.d. after meals to start today as ordered. We will obtain a comprehensive thyroid hormonal profile with a total and free T4 and TSH. We will also obtain a thyroid stimulating immunoglobulin which will confirm and/or indicate the presence of underlying thyroid autoimmunity. We will follow with you. Mandi Munoz MD
[2017-11-20] MEDS ORDERED: Levothyroxine 25 MCG TAB PO SCH (06:30)
[2017-11-20 06:51] LABS: BASO # 0.1 K/uL (0.0-0.2); BASO % 0.8 % (0.0-2.0); EOS % 0.2 % (0.0-4.0); HEMOGLOBIN 11.6 g/dL (12.0-16.0); LYMPH # 1.9 K/uL (1.0-4.3); LYMPH % 17.7 % (20.0-40.0); MEAN CELL VOLUME 97.6 fl (81.0-99.0); MEAN CORPUSCULAR HEMOGLOBIN 32.8 pg (27.0-31.0); MEAN CORPUSCULAR HGB CONC 33.6 g/dL (33.0-37.0); MONO # 1.4 K/uL (0.0-0.8); MONO % 12.9 % (0.0-10.0); NEUT # 7.3 K/uL (1.8-7.0); NEUT % 68.4 % (50.0-75.0); NRBC % 5.5 % (0.0-0.0); RBC 3.55 Mil/uL (3.80-5.20); RED CELL DISTRIBUTION WIDTH 14.7 % (11.5-14.5); WHITE BLOOD COUNT 10.6 K/uL (4.8-10.8)
[2017-11-20 07:14] LABS: ALBUMIN (PEP) 3.8 g/dL (3.8-4.8); ALPHA-1-GLOBULIN (PEP) 0.3 g/dL (0.2-0.3)
[2017-11-20 07:17] LABS: ALBUMIN 3.5 g/dL (3.5-5.0); ALT/SGPT 23 U/L (9-52); AST/SGOT 45 U/L (14-36); BLOOD UREA NITROGEN 26 mg/dl (7-17); CALCIUM 8.7 mg/dL (8.4-10.2); GFR AFRICAN-AMERICAN > 60; GFR NON-AFRICAN AMERICAN 55; T4 15.5 ug/dl (5.5-11.0)
[2017-11-20] MEDS: methIMAzole 5 MG TAB PO SCH ×3 (09:23→18:02)
[2017-11-20] MEDS: Cholecalciferol 1,000 INTLU TAB PO SCH (09:23)
[2017-11-20] MEDS: Pantoprazole 40 mg EC Tab PO SCH (09:23)
[2017-11-20] MEDS: Enoxaparin 40 mg Syringe SC SCH (09:24)
--- NOTE | 2017-11-20 11:53 | CP.PCM.PN ---
Subjective - Date & Time of Evaluation Date of Evaluation: 11/20/17 Time of Evaluation: 09:00 - Subjective Subjective: Patient complaining of left shoulder pain. Denies numbness/tinglng/CP/SOB/ dizziness. Objective - Vital Signs/Intake and Output Vital Signs (last 24 hours): Temp Pulse Resp BP Pulse Ox 98.6 F 92 H 18 153/86 H 92 L 11/20/17 08:04 11/20/17 09:22 11/20/17 09:22 11/20/17 09:22 11/20/17 09:22 Intake and Output: 11/20/17 11/20/17 06:59 18:59 Intake Total 350 Balance 350 - Medications Medications: Current Medications Albuterol (Ventolin Hfa 90 Mcg/Actuation (8 G)) 2 puff INH RQ6 PRN PRN Reason: Shortness of Breath Calcium/Vitamin D (Citracal+D 315mg/250iu) 1 tab PO DAILY [facility] Last Admin: 11/19/17 17:38 Dose: Not Given Cholecalciferol (Vitamin D) 1,000 intlu PO DAILY [facility] Last Admin: 11/20/17 09:23 Dose: 1,000 intlu Diltiazem HCl (Cardizem) 30 mg PO TID [facility] Last Admin: 11/20/17 09:22 Dose: 30 mg Enoxaparin Sodium (Lovenox) 40 mg SC DAILY [facility] PRN Reason: Protocol Last Admin: 11/20/17 09:24 Dose: 40 mg Hydromorphone HCl (Dilaudid) 0.5 mg IVP Q4 PRN PRN Reason: Pain, severe (8-10) Hydromorphone HCl (Dilaudid) 2 mg PO Q6 [facility] Ketorolac Tromethamine (Toradol) 30 mg IVP Q6 PRN PRN Reason: Pain, moderate (4-7) Last Admin: 11/20/17 06:49 Dose: 30 mg Methimazole (Tapazole) 5 mg PO BID [facility] Last Admin: 11/20/17 09:23 Dose: 5 mg Ondansetron HCl (Zofran Inj) 4 mg IVP ONCE PRN PRN Reason: Nausea/Vomiting Pantoprazole Sodium (Protonix Ec Tab) 40 mg PO DAILY [facility] Last Admin: 11/20/17 09:23 Dose: 40 mg Fluticasone/Salmeterol (Advair Diskus 250/50) 1 puff IH Q12H [facility] Last Admin: 11/19/17 23:50 Dose: 1 puff Senna/Docusate Sodium (Senokot S 50 Mg-8.6 Mg) 2 tab PO HS [facility] Last Admin: 11/19/17 21:45 Dose: 2 tab Tramadol HCl (Ultram) 50 mg PO Q4 PRN PRN Reason: Pain, severe (8-10) - Labs Labs: 11/20/17 06:25 11/20/17 06:25 PT 11.2 Seconds (9.8-13.1) 11/16/17 22:25 INR 1.0 (0.9-1.2) 11/16/17 22:25 APTT 33.9 Seconds (25.6-37.1) 11/16/17 22:25 - Extremities Exam Additional comments: +ROM fingers/wrist, sensation intact, dressing changed, incision intact, dry, no erythema. Assessment and Plan (1) Closed fracture of right proximal humerus Assessment & Plan: POD#2 s/p total shoulder replacmeent, reverse orthopedically stable shoulder post op xray noted f/u w 2 weeks call for appt shoulder immobilizer at all times d/w marsha Loco with above Status: Acute (2) Fracture of humeral head, right, closed Assessment & Plan: Patient Name / ID : CURT WEINBERG / [id number] Exam Date : 05/06/2017 19:26:45 ( Approved ) Study Comment : Sex / Age : F / 56Y Creator : Devon Espinoza MD Dictator : Devon Espinoza MD Territory Sales Professional : Insulation Board Back Tender : Devon Espinoza MD Approver2 : Report Date : 05/07/2017 09:39:08 My Comment : PROCEDURE: CT Abdomen and Pelvis with contrast HISTORY: RLQ pain COMPARISON: None. TECHNIQUE: Contrast dose: 95 mL Omnipaque 300 Radiation dose: Total exam DLP = 514.7 mGy-cm. This CT exam was performed using one or more of the following dose reduction techniques: Automated exposure control, adjustment of the mA and/or kV according to patient size, and/or use of iterative reconstruction technique. FINDINGS: LOWER THORAX: Partially imaged right middle lobe consolidation. LIVER: Steatosis. Stable mild central ductal dilatation. GALLBLADDER AND BILE DUCTS: Unremarkable. Stable prominence of the CBD measuring up to 1.1 centimeter. PANCREAS: Stable mild ductal dilatation. SPLEEN: Unremarkable main spleen and splenule. ADRENALS: Unremarkable. No mass. KIDNEYS AND URETERS: Stable subcentimeter left renal cysts. No hydronephrosis. No solid mass. VASCULATURE: Atherosclerotic calcifications. No aortic aneurysm. BOWEL: Unremarkable. No obstruction. No gross mural thickening. APPENDIX: Not visualized. PERITONEUM: Unremarkable. No free fluid. No free air. LYMPH NODES: Unremarkable. No enlarged lymph nodes. BLADDER: Unremarkable. REPRODUCTIVE: Not visualized. BONES: No acute fracture. OTHER FINDINGS: Radiopaque foreign body in posterior spinal canal extending from T12-L4 redemonstrated. IMPRESSION: Partially imaged right middle lobe consolidation. Stable biliary and pancreatic ductal dilatation. Additional stable findings as above. Status: Acute
[2017-11-20] MEDS ORDERED: Fluticasone-Salmeterol 250-50mcg Diskus IH SCH (12:00)
[2017-11-20 12:08] LABS: ALBUMIN 40.7 Relative %
--- NOTE | 2017-11-20 13:08 | CP.PCM.PN ---
Subjective - Date & Time of Evaluation Date of Evaluation: 11/20/17 Time of Evaluation: 13:05 - Subjective Subjective: S/p R total shoulder replacement 11/18/17 No acute overnight events. Pt states that she continues to have pain in her RUE. Pt ambulating with PT/OT. Objective - Vital Signs/Intake and Output Vital Signs (last 24 hours): Temp Pulse Resp BP Pulse Ox 98.6 F 92 H 18 153/86 H 92 L 11/20/17 08:04 11/20/17 12:39 11/20/17 09:22 11/20/17 12:39 11/20/17 09:22 Intake and Output: 11/20/17 11/20/17 06:59 18:59 Intake Total 350 Balance 350 - Medications Medications: Current Medications Albuterol (Ventolin Hfa 90 Mcg/Actuation (8 G)) 2 puff INH RQ6 [facility] Calcium/Vitamin D (Citracal+D 315mg/250iu) 1 tab PO DAILY [facility] Last Admin: 11/19/17 17:38 Dose: Not Given Cholecalciferol (Vitamin D) 1,000 intlu PO DAILY [facility] Last Admin: 11/20/17 09:23 Dose: 1,000 intlu Diltiazem HCl (Cardizem) 30 mg PO TID [facility] Last Admin: 11/20/17 12:39 Dose: 30 mg Enoxaparin Sodium (Lovenox) 40 mg SC DAILY [facility] PRN Reason: Protocol Last Admin: 11/20/17 09:24 Dose: 40 mg Hydromorphone HCl (Dilaudid) 0.5 mg IVP Q4 PRN PRN Reason: Pain, severe (8-10) Hydromorphone HCl (Dilaudid) 2 mg PO Q6 [facility] Ketorolac Tromethamine (Toradol) 30 mg IVP Q6 PRN PRN Reason: Pain, moderate (4-7) Last Admin: 11/20/17 06:49 Dose: 30 mg Methimazole (Tapazole) 5 mg PO BID [facility] Last Admin: 11/20/17 09:23 Dose: 5 mg Ondansetron HCl (Zofran Inj) 4 mg IVP ONCE PRN PRN Reason: Nausea/Vomiting Pantoprazole Sodium (Protonix Ec Tab) 40 mg PO DAILY [facility] Last Admin: 11/20/17 09:23 Dose: 40 mg Fluticasone/Salmeterol (Advair Diskus 250/50) 1 puff IH Q12H [facility] Last Admin: 11/20/17 12:38 Dose: 1 puff Senna/Docusate Sodium (Senokot S 50 Mg-8.6 Mg) 2 tab PO HS [facility] Last Admin: 11/19/17 21:45 Dose: 2 tab Tramadol HCl (Ultram) 50 mg PO Q4 PRN PRN Reason: Pain, severe (8-10) - Labs Labs: 11/20/17 06:25 11/20/17 06:25 PT 11.2 Seconds (9.8-13.1) 11/16/17 22:25 INR 1.0 (0.9-1.2) 11/16/17 22:25 APTT 33.9 Seconds (25.6-37.1) 11/16/17 22:25 - Constitutional Appears: No Acute Distress - Head Exam Head Exam: ATRAUMATIC, NORMAL INSPECTION - Eye Exam Eye Exam: EOMI - ENT Exam ENT Exam: Mucous Membranes Moist - Respiratory Exam Respiratory Exam: Clear to Ausculation Bilateral, NORMAL BREATHING PATTERN. absent: Wheezes - Cardiovascular Exam Cardiovascular Exam: REGULAR RHYTHM, +S1, +S2 - GI/Abdominal Exam GI & Abdominal Exam: Soft, Normal Bowel Sounds. absent: Tenderness - Extremities Exam Extremities Exam: Full ROM, Normal Inspection. absent: Pedal Edema Additional comments: RUE in a sling, moving fingers, good cap refill Multiple contusions noted on LUE, area of abrasion on L arm Notable varicose veins in lower extremities b/l Contusion noted on both knees b/l SCDs on, no edema noted moving b/l lower extremities - Neurological Exam Neurological Exam: Alert, Awake, Oriented x3 - Psychiatric Exam Psychiatric exam: Normal Affect, Normal Mood - Skin Skin Exam: Dry Assessment and Plan - Assessment and Plan (Free Text) Assessment: Assessment/Plan: 67 yr old F admitted for comminuted right humeral head and neck fracture and left ribs fractures. S/p R total shoulder replacement POD2 Comminuted right humeral head and neck fracture -S/p R total shoulder replacement POD2 -acute, traumatic, s/p mechanical fall -CT chest: acute comminuted fracture of the right humeral head and neck, acute fractures involving left 4th-6th ribs anteriorly, incidental 2mm pulmonary nodule, incidental indeterminate hyperdense renal lesion, emphysematous changes -Cardiology consult: She is hemodynamically stable and may proceed with the planned surgery. -Pain management: Dilaudid, Toradol and Interscalene Block of Brachial Plexus Right. -Will add PO dilaudid around the clock for better control -ortho following;f/u w 2 weeks call for appt and shoulder immobilizer at all times -PT/OT Left anterior rib fractures ribs 4th-6th -acute, traumatic, s/p mechanical fall -stable -c/w pain management -PT/OT Osteoporosis -multiple fractures in ground level fall -vitamin D 35.5 -follow up, Multiple myeloma -c/w vitamin D and C Hyperthyroidism -uncontrolled -on PO meds in the past -not on any home meds -TSH 0.09, T4 15.5, T3 0.532 -Endocrine consulted; started on Methimazole 5mg PO BID, follow up recs COPD -chronic, controlled -c/w home medications Pulmonary Hypertension -chronic, stable -c/w home medications CKD stage 3 -chronic, stable -Bun/Cr 26/, GFR >58 -cont to monitor Hyperkalemia -resolved -serum K+ 5.2-->4.6 -home Potassium medication held DVT prophylaxis -cont Lovenox; okay per surgery
[2017-11-20] MEDS: Albuterol HFA 90 mcg/actuation (8 g) INH SCH ×3 (16:47→20:57)
[2017-11-20] MEDS: Fluticasone-Salmeterol 250-50mcg Diskus IH SCH ×2 (18:00→20:56)
[2017-11-20] MEDS: Citracal+D 315mg/250IU PO SCH (18:06)
--- NOTE | 2017-11-20 20:09 | PN ---
DATE: 11/20/2017 ROOM: 651. SUBJECTIVE: This is a 67 year old female with recent right humeral fracture and is now also being followed closely for metabolic management for an incidental finding of recent onset of hyperthyroidism as noted thereof. Her repeat thyroid studies done today showed a T4 of 15.5 mcg/dL with a free T4 of 3.09 and a TSH of 0.09. LABORATORY DATA: Her chemistries showed a BUN of 26, sodium 137, potassium 4.5, chloride 106, CO2 21, glucose 88 and creatinine 1. ASSESSMENT: This is a 67-year-old female with overt hyperthyroidism historically, clinically and biochemically most likely related to underlying Graves disease. PLAN OF MANAGEMENT: We will modify once again her medical therapy and increase the Tapazole to 10 mg b.i.d. after meals to start today as ordered. We will we will titrate incremental as indicated to optimize metabolic control. We will obtain serial chemistries and serial thyroid studies and adjust her dose regimen accordingly. We will follow. Mandi Munoz MD
[2017-11-21] MEDS: Albuterol HFA 90 mcg/actuation (8 g) INH SCH ×4 (02:10→20:25)
[2017-11-21] MEDS: HYDROmorphone 0.5 mg/0.5 ml ISec IVP PRN ×2 (02:49→07:30)
[2017-11-21 07:49] LABS: BASO % 0.3 % (0.0-2.0); EOS # 0.1 K/uL (0.0-0.7); EOS % 0.9 % (0.0-4.0); LYMPH # 1.4 K/uL (1.0-4.3); LYMPH % 14.4 % (20.0-40.0); MEAN CORPUSCULAR HEMOGLOBIN 32.6 pg (27.0-31.0); MEAN CORPUSCULAR HGB CONC 33.6 g/dL (33.0-37.0); MEAN PLATELET VOLUME 8.2 fl (7.2-11.7); MONO # 0.9 K/uL (0.0-0.8); MONO % 9.4 % (0.0-10.0); NEUT # 7.1 K/uL (1.8-7.0); RBC 3.67 Mil/uL (3.80-5.20); RED CELL DISTRIBUTION WIDTH 14.3 % (11.5-14.5); WHITE BLOOD COUNT 9.5 K/uL (4.8-10.8)
[2017-11-21 07:56] LABS: BLOOD UREA NITROGEN 24 mg/dl (7-17); CALCIUM 8.4 mg/dL (8.4-10.2); GFR AFRICAN-AMERICAN > 60; GFR NON-AFRICAN AMERICAN > 60
[2017-11-21] MEDS: Fluticasone-Salmeterol 250-50mcg Diskus IH SCH ×2 (08:36→21:27)
[2017-11-21] MEDS: Citracal+D 315mg/250IU PO SCH (08:38)
[2017-11-21] MEDS: Enoxaparin 40 mg Syringe SC SCH (08:38)
[2017-11-21] MEDS: Pantoprazole 40 mg EC Tab PO SCH (08:39)
[2017-11-21] MEDS: Cholecalciferol 1,000 INTLU TAB PO SCH (08:40)
--- NOTE | 2017-11-21 18:59 | CP.PCM.PN ---
Subjective - Date & Time of Evaluation Date of Evaluation: 11/21/17 Time of Evaluation: 08:15 - Subjective Subjective: 67F seen and examined at bedside with attending. Patient not happy, on nasal cannula, and complaint of continued pain (5-8/10) at RIGHT shoulder but without numbness/tingling in hand or fingers, LEFT chest in area of rib fractures 4-5-6 with pain on deep inspiration, and poits to RIGHT knee especially having pain when she moves. She reports not much appetite but says she has been using the incentive spirometer. Review of records shows PT does not recommend discharge and was unable to evaluate for ability to navigate stairs due to desaturation and pain. Objective - Vital Signs/Intake and Output Vital Signs (last 24 hours): Temp Pulse Resp BP Pulse Ox 36.6 C 87 18 116/75 93 L 11/21/17 16:08 11/21/17 17:05 11/21/17 16:08 11/21/17 17:05 11/21/17 16:08 Intake and Output: 11/21/17 11/21/17 06:59 18:59 Intake Total 50 100 Balance 50 100 - Medications Medications: Current Medications Albuterol (Ventolin Hfa 90 Mcg/Actuation (8 G)) 2 puff INH RQ6 [facility] Last Admin: 11/21/17 13:40 Dose: Not Given Calcium/Vitamin D (Citracal+D 315mg/250iu) 1 tab PO DAILY [facility] Last Admin: 11/21/17 08:38 Dose: 1 tab Cholecalciferol (Vitamin D) 1,000 intlu PO DAILY [facility] Last Admin: 11/21/17 08:40 Dose: 1,000 intlu Diltiazem HCl (Cardizem) 30 mg PO TID [facility] Last Admin: 11/21/17 17:05 Dose: 30 mg Enoxaparin Sodium (Lovenox) 40 mg SC DAILY [facility] PRN Reason: Protocol Last Admin: 11/21/17 08:38 Dose: 40 mg Gabapentin (Neurontin) 100 mg PO BID [facility] Last Admin: 11/21/17 18:26 Dose: 100 mg Hydromorphone HCl (Dilaudid) 0.5 mg IVP Q4 PRN PRN Reason: Pain, severe (8-10) Last Admin: 11/21/17 07:30 Dose: 0.5 mg Ketorolac Tromethamine (Toradol) 15 mg IVP Q6 [facility] Methimazole (Tapazole) 10 mg PO BID [facility] Last Admin: 11/21/17 16:59 Dose: 10 mg Pantoprazole Sodium (Protonix Ec Tab) 40 mg PO DAILY [facility] Last Admin: 11/21/17 08:39 Dose: 40 mg Fluticasone/Salmeterol (Advair Diskus 250/50) 1 puff IH Q12H [facility] Last Admin: 11/21/17 08:36 Dose: 1 puff - Labs Labs: 11/21/17 06:30 11/21/17 06:30 PT 11.2 Seconds (9.8-13.1) 11/16/17 22:25 INR 1.0 (0.9-1.2) 11/16/17 22:25 APTT 33.9 Seconds (25.6-37.1) 11/16/17 22:25 - Constitutional Appears: Non-toxic, No Acute Distress - Head Exam Head Exam: ATRAUMATIC, NORMAL INSPECTION - Eye Exam Eye Exam: EOMI Pupil Exam: PERRL - ENT Exam ENT Exam: Mucous Membranes Moist, Normal Exam - Neck Exam Neck Exam: Normal Inspection - Respiratory Exam Respiratory Exam: Clear to Ausculation Bilateral (Not good inspiratory effort due to discomfort), NORMAL BREATHING PATTERN - Cardiovascular Exam Cardiovascular Exam: REGULAR RHYTHM, +S1, +S2 - GI/Abdominal Exam GI & Abdominal Exam: Soft, Normal Bowel Sounds - Extremities Exam Extremities Exam: Normal Capillary Refill, Normal Inspection Additional comments: RIGHT shoulder immobilized: fingers warm, moving all digits RIGHT knee edematous/ecchymotic but patient able to move knee with pain - Neurological Exam Neurological Exam: Alert, Awake, Oriented x3 - Psychiatric Exam Psychiatric exam: Normal Mood - Skin Skin Exam: Dry, Warm Additional comments: Several areas of ecchymosis: RIGHT chest/shoulder, b/l knees Assessment and Plan - Assessment and Plan (Free Text) Assessment: 67F POD#3 s/p orthopedic surgery for comminuted humeral head fracture with poor pain control and when combined with LEFT rib fractures is resulting in poor respiratory effort which greatly increases chances of developing pneumonia. She has an underlying hyperthyroid condition which is being managed by Dr Munoz. - Pain managment: Adjusted Toradol dosing, Added Gabapentin 100mg BID, and Dilaudid 0.5mg for breakthrough, will re-evaluate - c/w Diet, encourage hydration (BUN slightly elevated) - Endocrinology Consult (Dr Munoz): Methimazole - COPD: home medications (instructed to have Ellipta brought in) - HTN: home medications - DVT prophylaxis: Lovenox - c/w PT/OT - Shortness of Breath: NC @ 2L, Incentive Spirometry, Lasix 20mg x1 (patient takes PRN at home for "swelling" in legs)
--- NOTE | 2017-11-21 19:24 | PN ---
DATE: 11/21/2017 ENDO FOLLOWUP NOTE LOCATION: In room 651. SUBJECTIVE: This is a 67-year-old female with recent overt hyperthyroidism noted historically, clinically and biochemically with possible underlying Graves disease and has been started on medical therapy, which she is tolerating fairly well at this time. She also sustained a right humeral fracture from an accidental fall prior to this admission and is being followed closely by Orthopedic Surgery. Her latest chemistry showed a BUN of 24, sodium 137, potassium 4.3, chloride 103, CO2 of 24, glucose 90 and creatinine 0.9. Her latest thyroid study showed a T4 of 15.5 with a free T4 of 3.09 and a TSH of 0.09. ASSESSMENT: This is a 67-year-old female with overt hyperthyroidism noted historically, clinically and biochemically, most likely related to underlying Graves disease and/or autoimmune thyroiditis thereof. PLAN OF MANAGEMENT: We will continue to modify medical therapy given at a higher dose of Tapazole at 10 mg p.o. b.i.d. after meals as ordered. We will titrate incrementally as indicated to optimize metabolic control. We will follow. Mandi Munoz MD
[2017-11-22] MEDS: Albuterol HFA 90 mcg/actuation (8 g) INH SCH ×4 (02:01→20:43)
[2017-11-22] MEDS: Fluticasone-Salmeterol 250-50mcg Diskus IH SCH ×2 (09:05→22:05)
[2017-11-22] MEDS: Enoxaparin 40 mg Syringe SC SCH (09:12)
[2017-11-22] MEDS ORDERED: Oxycodone/Acetaminophen 5/325 mg Tab PO ONE (09:14)
[2017-11-22] MEDS: Citracal+D 315mg/250IU PO SCH (09:15)
[2017-11-22] MEDS: Cholecalciferol 1,000 INTLU TAB PO SCH (09:15)
[2017-11-22] MEDS: Pantoprazole 40 mg EC Tab PO SCH (09:16)
[2017-11-22] MEDS: Lidocaine 5% Patch TD SCH (09:30)
--- NOTE | 2017-11-22 10:10 | CP.PCM.PN ---
Subjective - Date & Time of Evaluation Date of Evaluation: 11/22/17 Time of Evaluation: 10:10 - Subjective Subjective: No acute overnight events. Pt states that her breathing has improved, but continues to endorse L rib pain. Objective - Vital Signs/Intake and Output Vital Signs (last 24 hours): Temp Pulse Resp BP Pulse Ox 98.5 F 95 H 20 157/90 H 91 L 11/22/17 08:35 11/22/17 09:14 11/22/17 08:35 11/22/17 09:20 11/22/17 08:35 Intake and Output: 11/22/17 11/22/17 06:59 18:59 Intake Total 50 Balance 50 - Medications Medications: Current Medications Albuterol (Ventolin Hfa 90 Mcg/Actuation (8 G)) 2 puff INH RQ6 [facility] Last Admin: 11/22/17 09:17 Dose: 2 puff Calcium/Vitamin D (Citracal+D 315mg/250iu) 1 tab PO DAILY [facility] Last Admin: 11/22/17 09:15 Dose: 1 tab Cholecalciferol (Vitamin D) 1,000 intlu PO DAILY [facility] Last Admin: 11/22/17 09:15 Dose: 1,000 intlu Diltiazem HCl (Cardizem) 30 mg PO TID [facility] Last Admin: 11/22/17 09:14 Dose: 30 mg Enoxaparin Sodium (Lovenox) 40 mg SC DAILY [facility] PRN Reason: Protocol Last Admin: 11/22/17 09:12 Dose: 40 mg Furosemide (Lasix) 20 mg IVP DAILY [facility] Last Admin: 11/22/17 09:20 Dose: 20 mg Gabapentin (Neurontin) 100 mg PO BID [facility] Last Admin: 11/22/17 09:15 Dose: 100 mg Hydromorphone HCl (Dilaudid) 0.5 mg IVP Q4 PRN PRN Reason: Pain, severe (8-10) Last Admin: 11/21/17 07:30 Dose: 0.5 mg Hydromorphone HCl (Dilaudid) 4 mg PO Q6 PRN PRN Reason: Pain, severe (8-10) Ketorolac Tromethamine (Toradol) 15 mg IVP Q6 [facility] Last Admin: 11/22/17 04:21 Dose: 15 mg Lidocaine (Lidoderm) 1 ea TD DAILY [facility] Last Admin: 11/22/17 09:30 Dose: 1 ea Methimazole (Tapazole) 10 mg PO BID [facility] Last Admin: 11/22/17 09:15 Dose: 10 mg Pantoprazole Sodium (Protonix Ec Tab) 40 mg PO DAILY [facility] Last Admin: 11/22/17 09:16 Dose: 40 mg Fluticasone/Salmeterol (Advair Diskus 250/50) 1 puff IH Q12H [facility] Last Admin: 11/22/17 09:05 Dose: 1 puff - Labs Labs: 11/21/17 06:30 11/21/17 06:30 PT 11.2 Seconds (9.8-13.1) 11/16/17 22:25 INR 1.0 (0.9-1.2) 11/16/17 22:25 APTT 33.9 Seconds (25.6-37.1) 11/16/17 22:25 - Constitutional Appears: No Acute Distress, Other (NL on 4L O2) - Head Exam Head Exam: NORMAL INSPECTION - Eye Exam Eye Exam: EOMI - ENT Exam ENT Exam: Mucous Membranes Moist - Respiratory Exam Respiratory Exam: Wheezes (mild expiratory wheezing ), NORMAL BREATHING PATTERN - Cardiovascular Exam Cardiovascular Exam: REGULAR RHYTHM, +S1, +S2 - GI/Abdominal Exam GI & Abdominal Exam: Soft, Normal Bowel Sounds. absent: Tenderness - Extremities Exam Extremities Exam: Pedal Edema (mild pedeal edema, varicose veins b/l, b/l knee contusion, improved ) - Neurological Exam Neurological Exam: Alert, Awake, Oriented x3 - Psychiatric Exam Psychiatric exam: Normal Affect, Normal Mood Assessment and Plan - Assessment and Plan (Free Text) Assessment: Assessment/Plan: 67 yr old F admitted for comminuted right humeral head and neck fracture and left ribs fractures. S/p R total shoulder replacement POD4. Pain management. Comminuted right humeral head and neck fracture -S/p R total shoulder replacement POD4 -acute, traumatic, s/p mechanical fall -CT chest: acute comminuted fracture of the right humeral head and neck, acute fractures involving left 4th-6th ribs anteriorly, incidental 2mm pulmonary nodule, incidental indeterminate hyperdense renal lesion, emphysematous changes -Cardiology consult: She is hemodynamically stable and may proceed with the planned surgery. -Pain management: Dilaudid, Toradol and Interscalene Block of Brachial Plexus Right. -c/w PO dilaudid around the clock for better control -ortho following;f/u w 2 weeks call for appt and shoulder immobilizer at all times -PT/OT Left anterior rib fractures ribs 4th-6th -acute, traumatic, s/p mechanical fall -stable -c/w pain management; toradol, dilaudid, Lidoderm -PT/OT Osteoporosis -multiple fractures in ground level fall -vitamin D 35.5 -follow up, Multiple myeloma; SPEP neg for M spike -c/w vitamin D and C Hyperthyroidism -uncontrolled -on PO meds in the past -not on any home meds -TSH 0.09, T4 15.5, T3 0.532 -Endocrine consulted; started on Methimazole 10mg PO BID, follow up recs COPD -chronic, controlled -c/w home medications Pulmonary Hypertension -chronic, stable -c/w home medications CKD stage 2 -chronic, stable -Bun/Cr 2/, GFR >60 -cont to monitor DVT prophylaxis -cont Lovenox; okay per surgery
[2017-11-22] MEDS: HYDROmorphone 0.5 mg/0.5 ml ISec IVP PRN (12:01)
[2017-11-23] MEDS: Albuterol HFA 90 mcg/actuation (8 g) INH SCH ×4 (02:04→20:35)
[2017-11-23] MEDS: Fluticasone-Salmeterol 250-50mcg Diskus IH SCH ×2 (08:14→21:25)
[2017-11-23] MEDS: Cholecalciferol 1,000 INTLU TAB PO SCH (08:15)
[2017-11-23] MEDS: Lidocaine 5% Patch TD SCH (08:19)
[2017-11-23] MEDS ORDERED: Albuterol-Ipratrop 3 mg / 0.5 (3 ml) UD INH STA (08:28)
--- NOTE | 2017-11-23 08:42 | CP.PCM.PN ---
Subjective - Date & Time of Evaluation Date of Evaluation: 11/23/17 Time of Evaluation: 08:38 - Subjective Subjective: Patient complaining about rib pain is worse than shoulder pain. Denies CP/SOB/ dizziness/numbness/tingling. Objective - Vital Signs/Intake and Output Vital Signs (last 24 hours): Temp Pulse Resp BP Pulse Ox 98.4 F 95 H 18 143/78 96 11/23/17 07:52 11/23/17 08:14 11/23/17 08:14 11/23/17 08:20 11/23/17 08:14 Intake and Output: 11/23/17 11/23/17 06:59 18:59 Intake Total 200 Balance 200 - Medications Medications: Current Medications Albuterol (Ventolin Hfa 90 Mcg/Actuation (8 G)) 2 puff INH RQ6 [facility] Last Admin: 11/23/17 08:15 Dose: 2 puff Albuterol/Ipratropium (Duoneb 3 Mg/0.5 Mg (3 Ml) Ud) 3 ml INH STAT STA Stop: 11/23/17 08:29 Calcium/Vitamin D (Citracal+D 315mg/250iu) 1 tab PO DAILY [facility] Last Admin: 11/22/17 09:15 Dose: 1 tab Cholecalciferol (Vitamin D) 1,000 intlu PO DAILY [facility] Last Admin: 11/23/17 08:15 Dose: 1,000 intlu Diltiazem HCl (Cardizem) 30 mg PO TID [facility] Last Admin: 11/23/17 08:14 Dose: 30 mg Enoxaparin Sodium (Lovenox) 40 mg SC DAILY [facility] PRN Reason: Protocol Last Admin: 11/22/17 09:12 Dose: 40 mg Furosemide (Lasix) 20 mg IVP DAILY [facility] Last Admin: 11/23/17 08:20 Dose: 20 mg Gabapentin (Neurontin) 100 mg PO BID [facility] Last Admin: 11/22/17 17:18 Dose: 100 mg Hydromorphone HCl (Dilaudid) 0.5 mg IVP Q4 PRN PRN Reason: Pain, severe (8-10) Last Admin: 11/22/17 12:01 Dose: 0.5 mg Hydromorphone HCl (Dilaudid) 4 mg PO Q6 PRN PRN Reason: Pain, severe (8-10) Last Admin: 11/22/17 20:39 Dose: 4 mg Ketorolac Tromethamine (Toradol) 15 mg IVP Q6 [facility] Last Admin: 11/23/17 04:41 Dose: 15 mg Lidocaine (Lidoderm) 1 ea TD DAILY [facility] Last Admin: 11/23/17 08:19 Dose: 1 ea Methimazole (Tapazole) 10 mg PO BID [facility] Last Admin: 11/22/17 17:18 Dose: 10 mg Pantoprazole Sodium (Protonix Ec Tab) 40 mg PO DAILY [facility] Last Admin: 11/22/17 09:16 Dose: 40 mg Fluticasone/Salmeterol (Advair Diskus 250/50) 1 puff IH Q12H [facility] Last Admin: 11/23/17 08:14 Dose: 1 puff - Labs Labs: 11/21/17 06:30 11/21/17 06:30 PT 11.2 Seconds (9.8-13.1) 11/16/17 22:25 INR 1.0 (0.9-1.2) 11/16/17 22:25 APTT 33.9 Seconds (25.6-37.1) 11/16/17 22:25 - Extremities Exam Additional comments: Right shoulder: dressing changed. Dry. Incision intact, no drainage. No erythema , Sensation intact to rad/ulnar/med nerve, +ROM fingers/wrist. Assessment and Plan (1) Closed fracture of right proximal humerus Assessment & Plan: POD#5 s/p right total shoulder replacement orthopedically stable for d/c shoulder immobilizer at all times encourage OOB IS d/w Dr. Galarza, agrees with above Status: Acute (2) Fracture of humeral head, right, closed Status: Acute
[2017-11-23] MEDS: Enoxaparin 40 mg Syringe SC SCH (09:35)
[2017-11-23] MEDS: Pantoprazole 40 mg EC Tab PO SCH (09:36)
--- NOTE | 2017-11-23 11:39 | CP.PCM.PN ---
Subjective - Date & Time of Evaluation Date of Evaluation: 11/23/17 Time of Evaluation: 11:36 - Subjective Subjective: No acute overnight events. Pt states that the pain is better today, but continues to endorse L rib pain and R should pain (rib >shoulder pain). Ambulating, denies dyspnea, n/v/d/c. Objective - Vital Signs/Intake and Output Vital Signs (last 24 hours): Temp Pulse Resp BP Pulse Ox 98.4 F 95 H 18 143/78 96 11/23/17 07:52 11/23/17 09:03 11/23/17 08:14 11/23/17 08:20 11/23/17 08:14 Intake and Output: 11/23/17 11/23/17 06:59 18:59 Intake Total 200 Balance 200 - Medications Medications: Current Medications Acetaminophen (Tylenol 325mg Tab) 650 mg PO Q6 [facility] Albuterol (Ventolin Hfa 90 Mcg/Actuation (8 G)) 2 puff INH RQ6 [facility] Last Admin: 11/23/17 08:15 Dose: 2 puff Calcium/Vitamin D (Citracal+D 315mg/250iu) 1 tab PO DAILY [facility] Last Admin: 11/22/17 09:15 Dose: 1 tab Cholecalciferol (Vitamin D) 1,000 intlu PO DAILY [facility] Last Admin: 11/23/17 08:15 Dose: 1,000 intlu Diltiazem HCl (Cardizem) 30 mg PO TID [facility] Last Admin: 11/23/17 08:14 Dose: 30 mg Enoxaparin Sodium (Lovenox) 40 mg SC DAILY [facility] PRN Reason: Protocol Last Admin: 11/23/17 09:35 Dose: 40 mg Furosemide (Lasix) 20 mg IVP DAILY [facility] Last Admin: 11/23/17 08:20 Dose: 20 mg Gabapentin (Neurontin) 100 mg PO BID [facility] Last Admin: 11/23/17 09:36 Dose: 100 mg Hydromorphone HCl (Dilaudid) 0.5 mg IVP Q4 PRN PRN Reason: Pain, severe (8-10) Last Admin: 11/22/17 12:01 Dose: 0.5 mg Hydromorphone HCl (Dilaudid) 4 mg PO Q6 [facility] Ketorolac Tromethamine (Toradol) 15 mg IVP Q6 [facility] Last Admin: 11/23/17 09:29 Dose: 15 mg Lidocaine (Lidoderm) 1 ea TD DAILY [facility] Last Admin: 11/23/17 08:19 Dose: 1 ea Methimazole (Tapazole) 10 mg PO BID [facility] Last Admin: 11/23/17 09:36 Dose: 10 mg Pantoprazole Sodium (Protonix Ec Tab) 40 mg PO DAILY [facility] Last Admin: 11/23/17 09:36 Dose: 40 mg Promethazine HCl/Codeine (Phenergan/Codeine Oral Syrup) 10 ml PO Q6 [facility] Fluticasone/Salmeterol (Advair Diskus 250/50) 1 puff IH Q12H [facility] Last Admin: 11/23/17 08:14 Dose: 1 puff - Labs Labs: 11/21/17 06:30 11/21/17 06:30 PT 11.2 Seconds (9.8-13.1) 11/16/17 22:25 INR 1.0 (0.9-1.2) 11/16/17 22:25 APTT 33.9 Seconds (25.6-37.1) 11/16/17 22:25 - Constitutional Appears: No Acute Distress, Other (NC on 4L O2) - Head Exam Head Exam: NORMAL INSPECTION - Eye Exam Eye Exam: EOMI - ENT Exam ENT Exam: Mucous Membranes Moist - Respiratory Exam Respiratory Exam: Clear to Ausculation Bilateral, NORMAL BREATHING PATTERN. absent: Wheezes - Cardiovascular Exam Cardiovascular Exam: REGULAR RHYTHM, +S1, +S2 - GI/Abdominal Exam GI & Abdominal Exam: Soft, Normal Bowel Sounds. absent: Tenderness - Extremities Exam Extremities Exam: Pedal Edema (1+ pedal edema up to the mid-verdugo. ). absent: Calf Tenderness Additional comments: RUE in a sling, finger good cap refill, warm and moving all fingers Lower extremities contusion b/l in the knees Varicose veins b/l in the lower ext - Neurological Exam Neurological Exam: Alert, Awake - Psychiatric Exam Psychiatric exam: Normal Affect, Normal Mood Assessment and Plan - Assessment and Plan (Free Text) Assessment: Assessment/Plan: 67 yr old F admitted for comminuted right humeral head and neck fracture and left ribs fractures. S/p R total shoulder replacement POD4. Pain management. Comminuted right humeral head and neck fracture -S/p R total shoulder replacement POD4 -acute, traumatic, s/p mechanical fall -CT chest: acute comminuted fracture of the right humeral head and neck, acute fractures involving left 4th-6th ribs anteriorly, incidental 2mm pulmonary nodule, incidental indeterminate hyperdense renal lesion, emphysematous changes -Cardiology consult: She is hemodynamically stable and may proceed with the planned surgery. -Pain management: Dilaudid, Toradol and Interscalene Block of Brachial Plexus Right. -c/w PO dilaudid around the clock for better control -ortho following;f/u w 2 weeks call for appt and shoulder immobilizer at all times. Okay to be d/c per ortho. -will consult anesthesiology -PT/OT Left anterior rib fractures ribs 4th-6th -acute, traumatic, s/p mechanical fall -stable -c/w pain management; toradol, dilaudid -Lidoderm patch in area -will consult anesthesiology for pain, nerve block -PT/OT Dyspna -dyspnea with O2 90's, desaturation with ambulation -per pt, hx of small clots -O2 desaturated with ambulation during PT -will r/o PE -consult pulmonary -U/s lower extremities -d-dimer, blood work -Cont O2 via NC -follow up results Osteoporosis -multiple fractures in ground level fall -vitamin D 35.5 -follow up, Multiple myeloma; SPEP neg for M spike -c/w vitamin D and C Hyperthyroidism -uncontrolled -on PO meds in the past -not on any home meds -TSH 0.09, T4 15.5, T3 0.532 -Endocrine consulted; started on Methimazole 10mg PO BID, follow up recs COPD -chronic, controlled -c/w home medications Pulmonary Hypertension -chronic, stable -c/w home medications CKD stage 2 -chronic, stable -Bun/Cr 2/, GFR >60 -cont to monitor DVT prophylaxis -cont Lovenox; okay per surgery
[2017-11-23] MEDS: HYDROmorphone 0.5 mg/0.5 ml ISec IVP PRN (13:30)
[2017-11-23 15:23] LABS: PROTHROMBIN TIME 11.6 Seconds (9.8-13.1)
[2017-11-23 15:24] LABS: PARTIAL THROMBOPLASTIN TIME 28.8 Seconds (25.6-37.1)
[2017-11-23 15:29] LABS: BLOOD UREA NITROGEN 31 mg/dl (7-17); CALCIUM 8.6 mg/dL (8.4-10.2); GFR AFRICAN-AMERICAN > 60; GFR NON-AFRICAN AMERICAN 55
[2017-11-23] MEDS ORDERED: Potassium Chloride 20 mEq ER Tab PO ONE (15:55)
[2017-11-23] MEDS ORDERED: Promethazine/Cod 6.25mg-10mg/5ml Syr UD PO SCH (16:00)
[2017-11-23] MEDS: Citracal+D 315mg/250IU PO SCH (16:38)
[2017-11-23] MEDS ORDERED: Enoxaparin 40 mg Syringe SC SCH (16:45)
--- NOTE | 2017-11-23 17:28 | US ---
PROCEDURE: Bilateral lower extremity venous duplex Doppler. HISTORY: r/o PE COMPARISON: None available. TECHNIQUE: Bilateral common femoral, superficial femoral, popliteal and posterior tibial veins were evaluated. Flow was assessed with color Doppler, compressibility, assessment of phasic flow and augmentation response. FINDINGS: COMMON FEMORAL VEIN: Right CFV: Unremarkable. Left CFV: Unremarkable. SUPERFICIAL FEMORAL VEIN: Right SFV: Unremarkable. Left SFV: Unremarkable. POPLITEAL VEIN: Right Popliteal: Unremarkable. Left Popliteal: Unremarkable. POSTERIOR TIBIAL VEIN: Right PTV: Unremarkable. Left PTV: Unremarkable. OTHER FINDINGS: None. IMPRESSION: No evidence of deep venous thrombosis.
[2017-11-23] MEDS: Promethazine/Cod 6.25mg-10mg/5ml Syr UD PO SCH (17:56)
--- NOTE | 2017-11-23 20:42 | CP.PCM.PN ---
Subjective - Date & Time of Evaluation Date of Evaluation: 11/23/17 Time of Evaluation: 20:30 - Subjective Subjective: Patient is examined at bedside with daughter present. She states the pain is tolerable with the current regimen of Dilaudid PO 4mg. There is no wincing or grimacing when she moves or takes a deep breath, but she does appear to be short of breath. According to her daughter this is her baseline. It was explained to her that intercostal nerve blocks are only 6-8 hours in duration, she then decided against it. She's hesitant to undergo CT angio due to history of renal failure, and is awaiting VQ scan instead. Objective - Vital Signs/Intake and Output Vital Signs (last 24 hours): Temp Pulse Resp BP Pulse Ox 99.3 F 90 20 118/66 91 L 11/23/17 16:12 11/23/17 17:57 11/23/17 16:12 11/23/17 17:57 11/23/17 16:12 - Medications Medications: Current Medications Acetaminophen (Tylenol 325mg Tab) 650 mg PO Q6 [facility] Last Admin: 11/23/17 16:44 Dose: 650 mg Albuterol (Ventolin Hfa 90 Mcg/Actuation (8 G)) 2 puff INH RQ6 [facility] Last Admin: 11/23/17 16:39 Dose: 2 puff Calcium/Vitamin D (Citracal+D 315mg/250iu) 1 tab PO DAILY [facility] Last Admin: 11/23/17 16:38 Dose: 1 tab Cholecalciferol (Vitamin D) 1,000 intlu PO DAILY [facility] Last Admin: 11/23/17 08:15 Dose: 1,000 intlu Diltiazem HCl (Cardizem) 30 mg PO TID [facility] Last Admin: 11/23/17 17:57 Dose: 30 mg Enoxaparin Sodium (Lovenox) 40 mg SC DAILY [facility] PRN Reason: Protocol Gabapentin (Neurontin) 100 mg PO BID [facility] Last Admin: 11/23/17 16:39 Dose: 100 mg Hydromorphone HCl (Dilaudid) 0.5 mg IVP Q4 PRN PRN Reason: Pain, severe (8-10) Last Admin: 11/23/17 13:30 Dose: 0.5 mg Hydromorphone HCl (Dilaudid) 4 mg PO Q6 [facility] Last Admin: 11/23/17 16:43 Dose: 4 mg Ketorolac Tromethamine (Toradol) 15 mg IVP Q6 [facility] Last Admin: 11/23/17 18:42 Dose: 15 mg Lidocaine (Lidoderm) 1 ea TD DAILY [facility] Last Admin: 11/23/17 08:19 Dose: 1 ea Methimazole (Tapazole) 10 mg PO BID [facility] Last Admin: 11/23/17 16:39 Dose: 10 mg Pantoprazole Sodium (Protonix Ec Tab) 40 mg PO DAILY [facility] Last Admin: 11/23/17 09:36 Dose: 40 mg Promethazine HCl/Codeine (Phenergan/Codeine Oral Syrup) 10 ml PO Q8 [facility] Last Admin: 11/23/17 17:56 Dose: 10 ml Fluticasone/Salmeterol (Advair Diskus 250/50) 1 puff IH Q12H [facility] Last Admin: 11/23/17 08:14 Dose: 1 puff - Labs Labs: 11/21/17 06:30 11/23/17 14:35 PT 11.6 Seconds (9.8-13.1) 11/23/17 14:35 INR 1.0 (0.9-1.2) 11/23/17 14:35 APTT 28.8 Seconds (25.6-37.1) 11/23/17 14:35 - Respiratory Exam Respiratory Exam: Accessory Muscle Use, Chest Wall Tenderness, Decreased Breath Sounds Assessment and Plan - Assessment and Plan (Free Text) Assessment: 67 yo woman s/p fall at home, s/p right total shoulder replacement, also with rib fractures. - continue current regimen - add neurontin 100mg qhs to regimen, can titrate to BID if tolerated - add Voltaren gel to alternate with Lidoderm patch - f/u PE work-up
[2017-11-23] MEDS ORDERED: Enoxaparin 80 mg Syringe SC SCH (21:00)
[2017-11-24] MEDS: Promethazine/Cod 6.25mg-10mg/5ml Syr UD PO SCH ×3 (01:16→18:08)
[2017-11-24] MEDS: Albuterol HFA 90 mcg/actuation (8 g) INH SCH ×4 (01:20→20:55)
[2017-11-24 06:18] LABS: BASO # 0.1 K/uL (0.0-0.2); EOS # 0.3 K/uL (0.0-0.7); EOS % 2.3 % (0.0-4.0); HEMOGLOBIN 11.2 g/dL (12.0-16.0); LYMPH # 2.1 K/uL (1.0-4.3); LYMPH % 17.3 % (20.0-40.0); MEAN CELL VOLUME 96.8 fl (81.0-99.0); MEAN CORPUSCULAR HEMOGLOBIN 32.3 pg (27.0-31.0); MEAN CORPUSCULAR HGB CONC 33.3 g/dL (33.0-37.0); MEAN PLATELET VOLUME 8.3 fl (7.2-11.7); MONO # 1.1 K/uL (0.0-0.8); MONO % 8.7 % (0.0-10.0); NEUT # 8.6 K/uL (1.8-7.0); NEUT % 70.7 % (50.0-75.0); NRBC % 0.2 % (0.0-0.0); RBC 3.47 Mil/uL (3.80-5.20); RED CELL DISTRIBUTION WIDTH 14.4 % (11.5-14.5); WHITE BLOOD COUNT 12.1 K/uL (4.8-10.8)
[2017-11-24 06:29] LABS: BLOOD UREA NITROGEN 31 mg/dl (7-17); CALCIUM 8.4 mg/dL (8.4-10.2); GFR AFRICAN-AMERICAN > 60; GFR NON-AFRICAN AMERICAN 50
--- NOTE | 2017-11-24 07:57 | CP.PCM.PN ---
Subjective - Date & Time of Evaluation Date of Evaluation: 11/24/17 Time of Evaluation: 07:45 - Subjective Subjective: Patient seen and examined OOB to chair comfortable. No complaints of pain at this time. No acute events overnight. Objective - Vital Signs/Intake and Output Vital Signs (last 24 hours): Temp Pulse Resp BP Pulse Ox 97.9 F 84 18 138/79 95 11/23/17 23:38 11/23/17 23:38 11/23/17 23:38 11/23/17 23:38 11/23/17 23:38 - Medications Medications: Current Medications Acetaminophen (Tylenol 325mg Tab) 650 mg PO Q6 [facility] Last Admin: 11/24/17 04:24 Dose: 650 mg Albuterol (Ventolin Hfa 90 Mcg/Actuation (8 G)) 2 puff INH RQ6 [facility] Last Admin: 11/24/17 01:20 Dose: 2 puff Calcium/Vitamin D (Citracal+D 315mg/250iu) 1 tab PO DAILY [facility] Last Admin: 11/23/17 16:38 Dose: 1 tab Cholecalciferol (Vitamin D) 1,000 intlu PO DAILY [facility] Last Admin: 11/23/17 08:15 Dose: 1,000 intlu Diltiazem HCl (Cardizem) 30 mg PO TID [facility] Last Admin: 11/23/17 17:57 Dose: 30 mg Enoxaparin Sodium (Lovenox) 40 mg SC DAILY [facility] PRN Reason: Protocol Gabapentin (Neurontin) 100 mg PO BID [facility] Last Admin: 11/23/17 16:39 Dose: 100 mg Hydromorphone HCl (Dilaudid) 0.5 mg IVP Q4 PRN PRN Reason: Pain, severe (8-10) Last Admin: 11/23/17 13:30 Dose: 0.5 mg Hydromorphone HCl (Dilaudid) 4 mg PO Q6 [facility] Last Admin: 11/24/17 04:27 Dose: Not Given Ketorolac Tromethamine (Toradol) 15 mg IVP Q6 [facility] Last Admin: 11/24/17 05:50 Dose: 15 mg Lidocaine (Lidoderm) 1 ea TD DAILY [facility] Last Admin: 11/23/17 08:19 Dose: 1 ea Methimazole (Tapazole) 10 mg PO BID [facility] Last Admin: 11/23/17 16:39 Dose: 10 mg Pantoprazole Sodium (Protonix Ec Tab) 40 mg PO DAILY [facility] Last Admin: 11/23/17 09:36 Dose: 40 mg Promethazine HCl/Codeine (Phenergan/Codeine Oral Syrup) 10 ml PO Q8 [facility] Last Admin: 11/24/17 01:16 Dose: 10 ml Fluticasone/Salmeterol (Advair Diskus 250/50) 1 puff IH Q12H [facility] Last Admin: 11/23/17 21:25 Dose: 1 puff - Labs Labs: 11/24/17 05:30 11/24/17 05:30 PT 11.6 Seconds (9.8-13.1) 11/23/17 14:35 INR 1.0 (0.9-1.2) 11/23/17 14:35 APTT 28.8 Seconds (25.6-37.1) 11/23/17 14:35 - Extremities Exam Additional comments: R shoulder: Dressings CDI, mild swelling and ecchymosis, no tenderness ROM restricted in shoulder immobilizer sensation intact AXN/MN/UN/RN motor intact MN/UN/RN 2 sec cap refill, radial pulse intact Assessment and Plan (1) Fracture of humeral head, right, closed Assessment & Plan: Patient is POD#6 s/p R reverse TSR doing well -strict shoulder immobilization -PT/OT NWB RUE -orthopedically stable for discharge -f/u in office this Thursday11/27/17 -above d/w Dr. Galarza in agreement Status: Acute
[2017-11-24] MEDS ORDERED: Enoxaparin 40 mg Syringe SC SCH (09:00)
[2017-11-24] MEDS: Fluticasone-Salmeterol 250-50mcg Diskus IH SCH ×2 (09:54→20:55)
[2017-11-24] MEDS: Citracal+D 315mg/250IU PO SCH (09:55)
[2017-11-24] MEDS: Lidocaine 5% Patch TD SCH (09:56)
[2017-11-24] MEDS: Enoxaparin 40 mg Syringe SC SCH (09:56)
[2017-11-24] MEDS: Pantoprazole 40 mg EC Tab PO SCH (09:57)
[2017-11-24] MEDS: Cholecalciferol 1,000 INTLU TAB PO SCH (09:58)
--- NOTE | 2017-11-24 11:33 | CP.PCM.PN ---
Subjective - Date & Time of Evaluation Date of Evaluation: 11/24/17 Time of Evaluation: 11:30 - Subjective Subjective: Yesterday, PT refused CTA, Anesthesiology was consulted for better pain management; pt refused nerve block. No acute overnight events. This AM pt refused MRI of R knee, stating that she feels that she does not need it and her legs are not hurting and shes claustrophobic. Risks explained to patient, option to give ativan to help pt through the MRI, but pt refusing further work-up. Overall, pt states that is feeling well, pain improving per pt. Despnea improving. Objective - Vital Signs/Intake and Output Vital Signs (last 24 hours): Temp Pulse Resp BP Pulse Ox 97.8 F 83 20 170/74 H 88 L 11/24/17 08:54 11/24/17 09:54 11/24/17 08:54 11/24/17 08:54 11/24/17 08:54 - Medications Medications: Current Medications Acetaminophen (Tylenol 325mg Tab) 650 mg PO Q6 [facility] Last Admin: 11/24/17 10:01 Dose: 650 mg Albuterol (Ventolin Hfa 90 Mcg/Actuation (8 G)) 2 puff INH RQ6 [facility] Last Admin: 11/24/17 09:58 Dose: 2 puff Calcium/Vitamin D (Citracal+D 315mg/250iu) 1 tab PO DAILY [facility] Last Admin: 11/24/17 09:55 Dose: 1 tab Cholecalciferol (Vitamin D) 1,000 intlu PO DAILY [facility] Last Admin: 11/24/17 09:58 Dose: 1,000 intlu Diltiazem HCl (Cardizem) 30 mg PO TID [facility] Last Admin: 11/24/17 09:54 Dose: 30 mg Enoxaparin Sodium (Lovenox) 40 mg SC DAILY [facility] PRN Reason: Protocol Last Admin: 11/24/17 09:56 Dose: 40 mg Gabapentin (Neurontin) 100 mg PO BID [facility] Last Admin: 11/24/17 09:57 Dose: 100 mg Hydromorphone HCl (Dilaudid) 0.5 mg IVP Q4 PRN PRN Reason: Pain, severe (8-10) Last Admin: 11/23/17 13:30 Dose: 0.5 mg Hydromorphone HCl (Dilaudid) 2 mg PO Q6 [facility] Last Admin: 11/24/17 09:55 Dose: 2 mg Ketorolac Tromethamine (Toradol) 15 mg IVP Q8 [facility] Last Admin: 11/24/17 09:57 Dose: 15 mg Lidocaine (Lidoderm) 1 ea TD DAILY [facility] Last Admin: 11/24/17 09:56 Dose: 1 ea Methimazole (Tapazole) 10 mg PO BID [facility] Last Admin: 11/24/17 09:57 Dose: 10 mg Pantoprazole Sodium (Protonix Ec Tab) 40 mg PO DAILY [facility] Last Admin: 11/24/17 09:57 Dose: 40 mg Promethazine HCl/Codeine (Phenergan/Codeine Oral Syrup) 10 ml PO Q8 [facility] Last Admin: 11/24/17 11:18 Dose: 10 ml Fluticasone/Salmeterol (Advair Diskus 250/50) 1 puff IH Q12H [facility] Last Admin: 11/24/17 09:54 Dose: 1 puff - Labs Labs: 11/24/17 05:30 11/24/17 05:30 PT 11.6 Seconds (9.8-13.1) 11/23/17 14:35 INR 1.0 (0.9-1.2) 11/23/17 14:35 APTT 28.8 Seconds (25.6-37.1) 11/23/17 14:35 - Constitutional Appears: No Acute Distress, Other (on 2L NC) - Head Exam Head Exam: NORMAL INSPECTION - Eye Exam Eye Exam: EOMI, Normal appearance - ENT Exam ENT Exam: Mucous Membranes Moist - Neck Exam Neck Exam: Full ROM - Respiratory Exam Respiratory Exam: Clear to Ausculation Bilateral, Wheezes (mild in lower lobes) . absent: Rales - Cardiovascular Exam Cardiovascular Exam: REGULAR RHYTHM, +S1, +S2 - GI/Abdominal Exam GI & Abdominal Exam: Soft, Normal Bowel Sounds. absent: Tenderness - Extremities Exam Extremities Exam: Pedal Edema Additional comments: RUE in a sling, finger good cap refill, warm and moving all fingers LUE contusions noted throughout the skin Lower extremities contusion b/l in the knees Varicose veins b/l in the lower ext R knee edema > L knee contusions noted throughout both knees, improving 1+ pedal edema up to the knees. - Neurological Exam Neurological Exam: Alert, Awake, Oriented x3 - Psychiatric Exam Psychiatric exam: Normal Affect, Normal Mood - Skin Skin Exam: Dry, Intact Assessment and Plan - Assessment and Plan (Free Text) Assessment: Assessment/Plan: 67 yr old F admitted for comminuted right humeral head and neck fracture and left ribs fractures. S/p R total shoulder replacement POD4. Pain management. Comminuted right humeral head and neck fracture -S/p R total shoulder replacement POD4 -acute, traumatic, s/p mechanical fall -CT chest: acute comminuted fracture of the right humeral head and neck, acute fractures involving left 4th-6th ribs anteriorly, incidental 2mm pulmonary nodule, incidental indeterminate hyperdense renal lesion, emphysematous changes -Cardiology consult: She is hemodynamically stable and may proceed with the planned surgery. -Pain management: Dilaudid, Toradol and Interscalene Block of Brachial Plexus Right. -c/w PO dilaudid around the clock for better control -ortho following;f/u w 2 weeks call for appt and shoulder immobilizer at all times. Okay to be d/c per ortho. -will consult anesthesiology -PT/OT Left anterior rib fractures ribs 4th-6th -acute, traumatic, s/p mechanical fall -stable -c/w pain management; toradol, dilaudid -Lidoderm patch in area -will consult anesthesiology for pain, nerve block, pt refused. Recs appreciated -PT/OT Dyspna -dyspnea with O2 90's, desaturation with ambulation -per pt, hx of small clots -O2 desaturated with ambulation during PT -dyspnea improving -d/c NC O2 -consult pulmonary -U/s lower extremities 11/23: no DVT appreciated -d-dimer elevated 1472 like 07/10 to contusions throughout the body, s/p trauma -follow up results Osteoporosis -multiple fractures in ground level fall -vitamin D 35.5 -follow up, Multiple myeloma; SPEP neg for M spike -c/w vitamin D and C Hyperthyroidism -uncontrolled -on PO meds in the past -not on any home meds -TSH 0.09, T4 15.5, T3 0.532 -Endocrine consulted; started on Methimazole 10mg PO BID, follow up recs COPD -chronic, controlled -c/w home medications Pulmonary Hypertension -chronic, stable -c/w home medications CKD stage 2 -chronic, stable -Bun/Cr 2/, GFR >60 -cont to monitor DVT prophylaxis -cont Lovenox; okay per surgery Dispo -will d/c pt home once pt is able to climb stairs and pain is controlled.
--- NOTE | 2017-11-24 21:10 | CP.PCM.CON ---
History of Present Illness - History of Present Illness History of Present Illness: Called to evaluate patine with COPD, and now with worsening SOB after surgery for arm Fx. NKDA 2 ppd smoker since 17 years of age, quit 10 years ago. VSS Stable. O2 Sat was 80% on Room Air. Physical was WNL exctp Lung Exam which demonstrated distant lung sounds. a/p I would obtain v/q scan. Cont O2 for an ot sat > 90%. Cont ERNESTINA. Would continue LABA/ICS and LAMA. Would contiue full dose Lovenox until FL has been rulled out. Will need AC for 9 months if + for PE. Signing out of case. Please reconsult prn. Past Patient History - Infectious Disease Hx of Infectious Diseases: None - Past Medical History & Family History Past Medical History?: Yes Past Family History: Reviewed and not pertinent - Past Social History Smoking Status: Former Smoker Alcohol: None Drugs: Denies - CARDIAC Hx Cardia Arrhythmia: Yes Hx Hypertension: Yes - PULMONARY Hx Chronic Obstructive Pulmonary Disease (COPD): Yes - NEUROLOGICAL Hx Neurological Disorder: No - HEENT Hx HEENT Problems: No - RENAL Hx Chronic Kidney Disease: Yes - ENDOCRINE/METABOLIC Hx Hyperthyroidism: Yes - HEMATOLOGICAL/ONCOLOGICAL Hx Human Immunodeficiency Virus (HIV): No - INTEGUMENTARY Hx Dermatological Problems: No - MUSCULOSKELETAL/RHEUMATOLOGICAL Hx Musculoskeletal Disorders: No Hx Falls: No - GASTROINTESTINAL Hx Gastritis: Yes - GENITOURINARY/GYNECOLOGICAL Hx Genitourinary Disorders: Yes Hx Urinary Tract Infection: Yes - PSYCHIATRIC Hx Psychophysiologic Disorder: No Hx Substance Use: No - SURGICAL HISTORY Hx Appendectomy: Yes - ANESTHESIA Hx Anesthesia: Yes Hx Anesthesia Reactions: No Meds Home Medications: Home Medication List Medication Instructions Recorded Confirmed Type Umeclidinium [place] [Incruse 62.5 mcg IH DAILY #1 blst.w.dev 11/16/17 Rx Ellipta] Albuterol HFA [Ventolin HFA 90 2 puff INH RQ6 PRN inhaler 11/20/17 Rx mcg/actuation (8 g)] Calcium/Vitamin D [Citracal+D 1 tab PO DAILY 30 Days tab 11/20/17 Rx 315mg/250IU] Cholecalciferol [Vitamin D 1000 IU] 1,000 intlu PO DAILY 30 Days tab 11/20/17 Rx diltiaZEM [Cardizem] 30 mg PO TID 30 Days tab 11/20/17 Rx methIMAzole [Tapazole] 5 mg PO BID 30 Days tab 11/20/17 Rx oxyCODONE/Acetaminophen [Percocet 1 ea PO Q6 #30 tab 11/20/17 Rx 5/325 mg Tab] Allergies/Adverse Reactions: Allergies Allergy/AdvReac Type Severity Reaction Status Date / Time No Known Allergies Allergy Verified 11/16/17 22:21 - Medications Medications: Current Medications Acetaminophen (Tylenol 325mg Tab) 650 mg PO Q6 [facility] Last Admin: 11/24/17 15:50 Dose: 650 mg Albuterol (Ventolin Hfa 90 Mcg/Actuation (8 G)) 2 puff INH RQ6 [facility] Last Admin: 11/24/17 20:55 Dose: 2 puff Calcium/Vitamin D (Citracal+D 315mg/250iu) 1 tab PO DAILY [facility] Last Admin: 11/24/17 09:55 Dose: 1 tab Cholecalciferol (Vitamin D) 1,000 intlu PO DAILY [facility] Last Admin: 11/24/17 09:58 Dose: 1,000 intlu Diltiazem HCl (Cardizem) 30 mg PO TID [facility] Last Admin: 11/24/17 17:24 Dose: 30 mg Enoxaparin Sodium (Lovenox) 40 mg SC DAILY [facility] PRN Reason: Protocol Last Admin: 11/24/17 09:56 Dose: 40 mg Gabapentin (Neurontin) 100 mg PO BID [facility] Last Admin: 11/24/17 16:34 Dose: 100 mg Hydromorphone HCl (Dilaudid) 0.5 mg IVP Q4 PRN PRN Reason: Pain, severe (8-10) Last Admin: 11/23/17 13:30 Dose: 0.5 mg Hydromorphone HCl (Dilaudid) 2 mg PO Q6 [facility] Last Admin: 11/24/17 21:03 Dose: 2 mg Ketorolac Tromethamine (Toradol) 15 mg IVP Q8 [facility] Last Admin: 11/24/17 16:35 Dose: 15 mg Lidocaine (Lidoderm) 1 ea TD DAILY [facility] Last Admin: 11/24/17 09:56 Dose: 1 ea Methimazole (Tapazole) 10 mg PO BID [facility] Last Admin: 11/24/17 16:35 Dose: 10 mg Pantoprazole Sodium (Protonix Ec Tab) 40 mg PO DAILY [facility] Last Admin: 11/24/17 09:57 Dose: 40 mg Promethazine HCl/Codeine (Phenergan/Codeine Oral Syrup) 10 ml PO Q8 [facility] Last Admin: 11/24/17 18:08 Dose: 10 ml Fluticasone/Salmeterol (Advair Diskus 250/50) 1 puff IH Q12H [facility] Last Admin: 11/24/17 20:55 Dose: 1 puff Senna/Docusate Sodium (Senokot S 50 Mg-8.6 Mg) 2 tab PO HS [facility] Last Admin: 11/24/17 21:04 Dose: Not Given Results - Vital Signs Recent Vital Signs: Last Vital Signs Temp 98.2 F 11/24/17 16:52 Pulse 89 11/24/17 17:24 Resp 20 11/24/17 16:52 BP 109/62 11/24/17 17:24 Pulse Ox 94 L 11/24/17 16:52 - Labs Result Diagrams: 11/24/17 05:30 11/24/17 05:30 Labs: Laboratory Results - last 24 hr 11/24/17 11/24/17 05:30 05:30 WBC 12.1 H RBC 3.47 L Hgb 11.2 L Hct 33.6 L MCV 96.8 MCH 32.3 H MCHC 33.3 RDW 14.4 Plt Count 275 MPV 8.3 Neut % (Auto) 70.7 Lymph % (Auto) 17.3 L Wells % (Auto) 8.7 Eos % (Auto) 2.3 Baso % (Auto) 1.0 Neut # (Auto) 8.6 H Lymph # (Auto) 2.1 Wells # (Auto) 1.1 H Eos # (Auto) 0.3 Baso # (Auto) 0.1 Sodium 135 Potassium 4.1 Chloride 104 Carbon Dioxide 20 L Anion Gap 15 BUN 31 H Creatinine 1.1 Est GFR ( Amer) > 60 Est GFR (Non-Af Amer) 50 Random Glucose 94 Calcium 8.4
[2017-11-24] MEDS ORDERED: Docusate-Senna 50 mg-8.6 mg Tab PO SCH (22:00)
[2017-11-25] MEDS: Promethazine/Cod 6.25mg-10mg/5ml Syr UD PO SCH ×2 (00:38→09:30)
[2017-11-25 01:57] VITALS: O2SAT 95
[2017-11-25] MEDS: Albuterol HFA 90 mcg/actuation (8 g) INH SCH ×2 (02:05→09:08)
[2017-11-25 06:22] LABS: BASO # 0.1 K/uL (0.0-0.2); BASO % 0.8 % (0.0-2.0); EOS # 0.3 K/uL (0.0-0.7); EOS % 2.3 % (0.0-4.0); HEMOGLOBIN 11.2 g/dL (12.0-16.0); LYMPH # 1.9 K/uL (1.0-4.3); LYMPH % 16.1 % (20.0-40.0); MEAN CELL VOLUME 96.8 fl (81.0-99.0); MEAN CORPUSCULAR HEMOGLOBIN 31.7 pg (27.0-31.0); MEAN CORPUSCULAR HGB CONC 32.7 g/dL (33.0-37.0); MEAN PLATELET VOLUME 7.6 fl (7.2-11.7); MONO # 1.3 K/uL (0.0-0.8); MONO % 11.1 % (0.0-10.0); NEUT # 8.1 K/uL (1.8-7.0); NEUT % 69.7 % (50.0-75.0); NRBC % 0.1 % (0.0-0.0); RBC 3.54 Mil/uL (3.80-5.20); RED CELL DISTRIBUTION WIDTH 14.4 % (11.5-14.5); WHITE BLOOD COUNT 11.6 K/uL (4.8-10.8)
--- NOTE | 2017-11-25 07:02 | CP.PCM.DIS ---
Provider - Provider Date of Admission: 11/16/17 22:06 Attending physician: Abimbola Hughes MD Consults: Ortho: Dr. Galarza Endocrinology: Dr. Munoz Pulmonology: Dr. Meza Time Spent in preparation of Discharge (in minutes): 20 Hospital Course - Lab Results Lab Results: Micro Results 11/19/17 08:01 Naris MRSA Culture (Admit) - Final MRSA NOT DETECTED 11/18/17 19:20 Naris MRSA Culture (Admit) - Final MRSA NOT DETECTED Most Recent Lab Values WBC 11.6 K/uL (4.8-10.8) H 11/25/17 05:30 RBC 3.54 Mil/uL (3.80-5.20) L 11/25/17 05:30 Hgb 11.2 g/dL (12.0-16.0) L 11/25/17 05:30 Hct 34.3 % (34.0-47.0) 11/25/17 05:30 MCV 96.8 fl (81.0-99.0) 11/25/17 05:30 MCH 31.7 pg (27.0-31.0) H 11/25/17 05:30 MCHC 32.7 g/dL (33.0-37.0) L 11/25/17 05:30 RDW 14.4 % (11.5-14.5) 11/25/17 05:30 Plt Count 411 K/uL (130-400) H D 11/25/17 05:30 MPV 7.6 fl (7.2-11.7) 11/25/17 05:30 Neut % (Auto) 69.7 % (50.0-75.0) 11/25/17 05:30 Lymph % (Auto) 16.1 % (20.0-40.0) L 11/25/17 05:30 [place] % (Auto) 11.1 % (0.0-10.0) H 11/25/17 05:30 Eos % (Auto) 2.3 % (0.0-4.0) 11/25/17 05:30 Baso % (Auto) 0.8 % (0.0-2.0) 11/25/17 05:30 Neut # (Auto) 8.1 K/uL (1.8-7.0) H 11/25/17 05:30 Lymph # (Auto) 1.9 K/uL (1.0-4.3) 11/25/17 05:30 [place] # (Auto) 1.3 K/uL (0.0-0.8) H 11/25/17 05:30 Eos # (Auto) 0.3 K/uL (0.0-0.7) 11/25/17 05:30 Baso # (Auto) 0.1 K/uL (0.0-0.2) 11/25/17 05:30 PT 11.6 Seconds (9.8-13.1) 11/23/17 14:35 INR 1.0 (0.9-1.2) 11/23/17 14:35 APTT 28.8 Seconds (25.6-37.1) 11/23/17 14:35 D-Dimer, Quantitative 1472 ng/mlDDU (0-230) H 11/23/17 14:35 pCO2 32 mm/Hg (35-45) L 11/19/17 05:17 pO2 96 mm/Hg (80-100) 11/19/17 05:17 HCO3 23.5 mmol/L (21-28) 11/19/17 05:17 ABG pH 7.44 (7.35-7.45) 11/19/17 05:17 ABG Total CO2 22.7 mmol/L (22-28) 11/19/17 05:17 ABG O2 Saturation 98.9 % (95-98) H 11/19/17 05:17 ABG O2 Content 16.0 ML/dL (15-23) 11/19/17 05:17 ABG Base Excess -1.8 mmol/L (-2.0-3.0) 11/19/17 05:17 ABG Hemoglobin 11.8 g/dL (11.7-17.4) 11/19/17 05:17 ABG Carboxyhemoglobin 2.0 % (0.5-1.5) H 11/19/17 05:17 POC ABG HHb (Measured) 1.1 % (0.0-5.0) 11/19/17 05:17 ABG Methemoglobin 1.2 % (0.0-3.0) 11/19/17 05:17 ABG O2 Capacity 16.2 mL/dL (16-24) 11/19/17 05:17 Zachariah Test Yes 11/19/17 05:17 A-a O2 Difference 149.0 mm/Hg 11/19/17 05:17 Hgb O2 Saturation 95.7 % (95.0-98.0) 11/19/17 05:17 Vent Mode Bipap 11/19/17 05:17 Mechanical Rate 14 11/19/17 05:17 FiO2 40.0 % 11/19/17 05:17 Inspiratory BiPAP 16 11/19/17 05:17 Expiratory BiPAP 8 11/19/17 05:17 Sodium 135 mmol/l (132-148) 11/24/17 05:30 Potassium 4.1 MMOL/L (3.6-5.0) 11/24/17 05:30 Chloride 104 mmol/L (98-107) 11/24/17 05:30 Carbon Dioxide 20 mmol/L (22-30) L 11/24/17 05:30 Anion Gap 15 (10-20) 11/24/17 05:30 BUN 31 mg/dl (7-17) H 11/24/17 05:30 Creatinine 1.1 mg/dl (0.7-1.2) 11/24/17 05:30 Est GFR ( Amer) > 60 11/24/17 05:30 Est GFR (Non-Af Amer) 50 11/24/17 05:30 Random Glucose 94 mg/dL (65-105) 11/24/17 05:30 Calcium 8.4 mg/dL (8.4-10.2) 11/24/17 05:30 Total Bilirubin 1.1 mg/dl (0.2-1.3) 11/20/17 06:25 AST 45 U/L (14-36) H D 11/20/17 06:25 ALT 23 U/L (9-52) 11/20/17 06:25 Alkaline Phosphatase 77 U/L (38-126) 11/20/17 06:25 Total Protein 7.0 G/DL (6.3-8.2) 11/20/17 06:25 Total Protein (PEP) 6.9 g/dL (6.1-8.1) 11/18/17 06:10 Albumin 3.5 g/dL (3.5-5.0) 11/20/17 06:25 Albumin (PEP) 3.8 g/dL (3.8-4.8) 11/18/17 06:10 Globulin 3.5 gm/dL (2.2-3.9) 11/20/17 06:25 Albumin/Globulin Ratio 1.0 (1.0-2.1) 11/20/17 06:25 Owlvk-4-Wlhoaxsmu 0.3 g/dL (0.2-0.3) 11/18/17 06:10 Ecozs-1-Lenojxibm 1.0 g/dL (0.5-0.9) H 11/18/17 06:10 Beta Globulins 28.8 Relative % 11/18/17 05:30 Czgq-4-Dgrsuqis 0.4 g/dL (0.4-0.6) 11/18/17 06:10 Hpsv-1-Xywkuqvt 0.5 g/dL (0.2-0.5) 11/18/17 06:10 Gamma Globulins 1.0 g/dL (0.8-1.7) 11/18/17 06:10 Abnorm Protein Band 1 TEST NOT PERFORMED 11/18/17 06:10 Abnorm Protein Band 2 TEST NOT PERFORMED 11/18/17 06:10 Abnorm Protein Band 3 TEST NOT PERFORMED 11/18/17 06:10 25-OH Vitamin D Total 35.5 NG/ML (30.0-100.0) 11/18/17 06:10 Free T4 3.09 ng/dL (0.78-2.19) H 11/20/17 06:25 Thyroxine (T4) 15.5 ug/dl (5.5-11.0) H 11/20/17 06:25 Total T3 0.532 nmol/L (1.49-2.60) L 11/19/17 08:14 TSH 3rd Generation 0.09 mIU/ML (0.46-4.68) L 11/20/17 06:25 Ur Random Creatinine 164 mg/dL (20-320) 11/18/17 05:30 U Random Total Protein 74 mg/g creat (21-161) 11/18/17 05:30 Urine Albumin (PEP) 40.7 Relative % 11/18/17 05:30 Ur Protein Fractions See note 11/18/17 05:30 SAUMYA & SPEP Interp See note 11/18/17 06:10 Blood Type O POSITIVE 11/17/17 05:30 Blood Type Confirm O POSITIVE 11/17/17 10:10 Antibody Screen Negative 11/17/17 05:30 Crossmatch See Detail 11/17/17 05:30 BBK History Checked No verified bt 11/17/17 05:30 - Hospital Course Hospital Course: 67 YO Female admitted for comminuted right humeral head and neck fracture and left ribs fractures. S/p R total shoulder replacement POD7. During admission there was dyspnea during PT with desaturation, with hx of chronic lower extremity edema (PO lasix at home). Wells criteria score 1, Lower extremity u/s was obtained and was negative with elevated d-dimer. Further imaging was held because patient refused CTA, V/Q scan could not be done due to surgery and pt refused medical treatment for PE/DVT. Pain control was optimized, dyspnea improved. Endo was consulted due to elevated TSH, pt was started on methimazole 10mg PO BID. Pt cleared by Ortho to be d/c home, has follow up apt with Dr. Galarza on 11/27/17 and follow up in [facility] with Dr. Bowen on 12/01/17 @ 10:00AM. Pt to be d/c to home with daughter. Pt will need further osteoporosis workup as outpatient. Cont Meds: Albuterol (Ventolin Hfa 90 Mcg/Actuation (8 G)) 2 puff INH RQ6 [facility] Calcium/Vitamin D (Citracal+D 315mg/250iu) 1 tab PO DAILY [facility] tab Cholecalciferol (Vitamin D) 1,000 intlu PO DAILY [facility] Diltiazem HCl (Cardizem) 30 mg PO TID [facility] Fluticasone/Salmeterol (Advair Diskus 250/50) 1 puff IH Q12H [facility] + Methimazole (Tapazole) 10 mg PO BID [facility] Ketorolac Tromethamine [Toradol] 10 mg PO BID oxyCODONE/Acetaminophen [Percocet 5/325 mg Tab] 1 ea PO Q6 Gabapentin (Neurontin) 100 mg PO BID [facility] Lidocaine (Lidoderm) 1 ea TD DAILY Discharge Exam - Head Exam Head Exam: NORMAL INSPECTION - Eye Exam Eye Exam: EOMI - ENT Exam ENT Exam: Mucous Membranes Moist - Respiratory Exam Respiratory Exam: Clear to PA & Lateral, NORMAL BREATHING PATTERN. absent: Rales, Rhonchi, Wheezes - Cardiovascular Exam Cardiovascular Exam: REGULAR RHYTHM, +S1, +S2 - GI/Abdominal Exam GI & Abdominal Exam: Normal Bowel Sounds. absent: Guarding, Soft, Tenderness - Extremities Exam Extremities exam: pedal edema (1+ up to the knees b/l) Additional comments: contusions in both knees b/l, improving Edema R>L Full ROM Varicose veins b/l multiple contusions in the LUE - Neurological Exam Neurological exam: Alert, Oriented x3 - Psychiatric Exam Psychiatric exam: Normal Affect, Normal Mood Discharge Plan - Discharge Medications Prescriptions: Calcium/Vitamin D [Citracal+D 315mg/250IU] 1 tab PO DAILY 30 Days tab Cholecalciferol [Vitamin D 1000 IU] 1,000 intlu PO DAILY 30 Days tab diltiaZEM [Cardizem] 30 mg PO TID 30 Days tab Gabapentin [Neurontin] 100 mg PO BID 30 Days cap Ketorolac Tromethamine [Toradol] 10 mg PO BID #10 tab Lidocaine 5% [Lidoderm] 1 ea TD DAILY #5 patch methIMAzole [Tapazole] 10 mg PO BID #60 tab oxyCODONE/Acetaminophen [Percocet 5/325 mg Tab] 1 ea PO Q6 #30 tab Umeclidinium [place] [Incruse Ellipta] 62.5 mcg IH DAILY #1 blst.w.dev - Follow Up Plan Condition: GUARDED Disposition: HOME/ ROUTINE Instructions: Shoulder Replacement (DC) Additional Instructions: Follow up with Ortho on 11/27/[address] Galarza Follow up with PMDDr. Bowen on 12/01/17 @ 10:00AM Referrals: Glory Bowen MD [Family Provider] - Colton Galarza III, MD [Staff Provider] -
[2017-11-25 08:31] VITALS: BP 153/85; PULSE 93; RESP 22; TEMP 97.8
[2017-11-25] MEDS: Fluticasone-Salmeterol 250-50mcg Diskus IH SCH (09:02)
[2017-11-25] MEDS: Citracal+D 315mg/250IU PO SCH (09:04)
[2017-11-25] MEDS: Lidocaine 5% Patch TD SCH (09:05)
[2017-11-25] MEDS: Pantoprazole 40 mg EC Tab PO SCH (09:07)
[2017-11-25] MEDS: Enoxaparin 40 mg Syringe SC SCH (09:07)
[2017-11-25] MEDS: Cholecalciferol 1,000 INTLU TAB PO SCH (09:12)
--- NOTE | 2017-11-25 11:28 | CP.PCM.PN ---
Subjective - Date & Time of Evaluation Date of Evaluation: 11/25/17 Time of Evaluation: 07:30 - Subjective Subjective: Patient seen and examined OOB to chair comfortable. Pain well controlled. Tolerated PT well yesterday. To be discharged home today. No new complaints. Objective - Vital Signs/Intake and Output Vital Signs (last 24 hours): Temp Pulse Resp BP Pulse Ox 97.8 F 93 H 22 153/85 H 95 11/25/17 08:31 11/25/17 09:03 11/25/17 08:31 11/25/17 09:03 11/25/17 00:00 - Medications Medications: Current Medications Acetaminophen (Tylenol 325mg Tab) 650 mg PO Q6 [facility] Last Admin: 11/25/17 09:00 Dose: 650 mg Albuterol (Ventolin Hfa 90 Mcg/Actuation (8 G)) 2 puff INH RQ6 [facility] Last Admin: 11/25/17 09:08 Dose: 2 puff Calcium/Vitamin D (Citracal+D 315mg/250iu) 1 tab PO DAILY [facility] Last Admin: 11/25/17 09:04 Dose: 1 tab Cholecalciferol (Vitamin D) 1,000 intlu PO DAILY [facility] Last Admin: 11/25/17 09:12 Dose: 1,000 intlu Diltiazem HCl (Cardizem) 30 mg PO TID [facility] Last Admin: 11/25/17 09:03 Dose: 30 mg Enoxaparin Sodium (Lovenox) 40 mg SC DAILY [facility] PRN Reason: Protocol Last Admin: 11/25/17 09:07 Dose: 40 mg Gabapentin (Neurontin) 100 mg PO BID [facility] Last Admin: 11/25/17 09:07 Dose: 100 mg Hydromorphone HCl (Dilaudid) 0.5 mg IVP Q4 PRN PRN Reason: Pain, severe (8-10) Last Admin: 11/23/17 13:30 Dose: 0.5 mg Hydromorphone HCl (Dilaudid) 2 mg PO Q6 [facility] Last Admin: 11/25/17 09:04 Dose: 2 mg Ketorolac Tromethamine (Toradol) 15 mg IVP Q8 [facility] Last Admin: 11/25/17 09:01 Dose: 15 mg Lidocaine (Lidoderm) 1 ea TD DAILY [facility] Last Admin: 11/25/17 09:05 Dose: 1 ea Methimazole (Tapazole) 10 mg PO BID [facility] Last Admin: 11/25/17 09:07 Dose: 10 mg Pantoprazole Sodium (Protonix Ec Tab) 40 mg PO DAILY [facility] Last Admin: 11/25/17 09:07 Dose: 40 mg Promethazine HCl/Codeine (Phenergan/Codeine Oral Syrup) 10 ml PO Q8 [facility] Last Admin: 11/25/17 09:30 Dose: 10 ml Fluticasone/Salmeterol (Advair Diskus 250/50) 1 puff IH Q12H [facility] Last Admin: 11/25/17 09:02 Dose: 1 puff Senna/Docusate Sodium (Senokot S 50 Mg-8.6 Mg) 2 tab PO HS [facility] Last Admin: 11/24/17 21:04 Dose: Not Given - Labs Labs: 11/25/17 05:30 11/24/17 05:30 PT 11.6 Seconds (9.8-13.1) 11/23/17 14:35 INR 1.0 (0.9-1.2) 11/23/17 14:35 APTT 28.8 Seconds (25.6-37.1) 11/23/17 14:35 - Extremities Exam Additional comments: R shoulder: Dressings CDI, mild swelling and ecchymosis, mild tenderness ROM restricted in shoulder immobilizer sensation intact AXN/MN/UN/RN motor intact MN/UN/RN 2 sec cap refill, radial pulse intact Assessment and Plan (1) Fracture of humeral head, right, closed Assessment & Plan: Patient is POD#7 s/p R reverse TSR doing well -strict shoulder immobilization -dressings changed today -PT/OT NWB RUE -orthopedically stable for discharge today -f/u in office this Thursday11/27/17 -above d/w Dr. Galarza in agreement Status: Acute
--- NOTE | 2017-11-25 16:38 | CP.PCM.PCO ---
Assessment/Plan - Assessment and Plan (Free Text) Assessment: Met with patient and dtr twice Reviewed meds and discharge plan Reviewed out concerns for PE . Offered blood thinners such as coumadin / Eliquis because both CTA and V/Q scan were unable to be done Pt says her blood is thin enough with enough bruising and prefers not to take it "I know it from my emphysema " F/u in [facility] will need tx for osteoporosis as outpt
[2017-11-25 17:13] LABS: TSI 99 % baseline (<140)
== END 2017-11-25 12:41 | disposition home or self-care (01) | DRG 483 ==
LOC: H.ER 19:46 → H.ERHOLD 22:06 → H.MEDSURG1 11-17 00:20 → H.ICU/CCU 11-18 13:26 → H.MEDSURG1 11-19 13:56
PROVIDERS: ADMIT Family Medicine Geriatric Medicine; ATTEND Family Medicine Geriatric Medicine
PROC: 0LS30ZZ Reposition Right Upper Arm Tendon, Open Approach (ICD-10-PCS; 2017-11-18)
PROC: 0LQ10ZZ Repair Right Shoulder Tendon, Open Approach (ICD-10-PCS; 2017-11-18)
PROC: 3E0T3BZ Introduction of Anesthetic Agent into Peripheral Nerves and Plexi, Percutaneous Approach (ICD-10-PCS; principal; 2017-11-18 07:45)
PROC: 0RRJ00Z Replacement of Right Shoulder Joint with Reverse Ball and Socket Synthetic Substitute, Open Approach (ICD-10-PCS; 2017-11-18 07:45)
DX: S42.241A 4-part fracture of surgical neck of right humerus, initial encounter for closed fracture (principal); S22.42XA Multiple fractures of ribs, left side, initial encounter for closed fracture; I27.20 Pulmonary hypertension, unspecified; I12.9 Hypertensive chronic kidney disease with stage 1 through stage 4 chronic kidney disease, or unspecified chronic kidney disease; R91.1 Solitary pulmonary nodule; K29.70 Gastritis, unspecified, without bleeding; Z86.74 Personal history of sudden cardiac arrest; W01.0XXA Fall on same level from slipping, tripping and stumbling without subsequent striking against object, initial encounter; Y92.003 Bedroom of unspecified non-institutional (private) residence as the place of occurrence of the external cause; Z68.39 Body mass index [BMI] 39.0-39.9, adult; E06.3 Autoimmune thyroiditis; Z87.891 Personal history of nicotine dependence; E87.5 Hyperkalemia; E66.01 Morbid (severe) obesity due to excess calories; M81.0 Age-related osteoporosis without current pathological fracture; M19.011 Primary osteoarthritis, right shoulder; S46.011A Strain of muscle(s) and tendon(s) of the rotator cuff of right shoulder, initial encounter; S46.211A Strain of muscle, fascia and tendon of other parts of biceps, right arm, initial encounter; N18.2 Chronic kidney disease, stage 2 (mild); E05.00 Thyrotoxicosis with diffuse goiter without thyrotoxic crisis or storm; R79.1 Abnormal coagulation profile

== ENCOUNTER 2018-06-19 22:52 | Inpatient (IN) | payer MEDICAID, SELFPAY ==
[2018-06-19] MEDS ORDERED: Sodium Chloride 0.9% 1,000 ML IV STA (23:29)
[2018-06-20 00:06] LABS: BASO % 0.2 % (0.0-2.0); EOS % 0.1 % (0.0-4.0); LYMPH # 0.4 K/uL (1.0-4.3); MEAN CELL VOLUME 95.3 fl (81.0-99.0); MEAN CORPUSCULAR HEMOGLOBIN 32.5 pg (27.0-31.0); MEAN CORPUSCULAR HGB CONC 34.1 g/dL (33.0-37.0); MEAN PLATELET VOLUME 7.7 fl (7.2-11.7); MONO # 0.7 K/uL (0.0-0.8); MONO % 3.8 % (0.0-10.0); NEUT # 16.7 K/uL (1.8-7.0); NEUT % 93.9 % (50.0-75.0); PLATELET COUNT 378 K/uL (130-400); RBC 4.93 Mil/uL (3.80-5.20); RED CELL DISTRIBUTION WIDTH 14.7 % (11.5-14.5); WHITE BLOOD COUNT 17.8 K/uL (4.8-10.8)
--- NOTE | 2018-06-20 00:47 | ED PDOC ---
HPI: Chest Pain Time Seen by Provider: 06/19/18 23:08 Chief Complaint (Nursing): Chest Pain History Per: Patient History/Exam Limitations: no limitations Onset/Duration Of Symptoms: Days Current Symptoms Are (Timing): Better Additional Complaint(s): Hx of COPD, HTN, Pneumonia presenting with chest pain, states it started yesterday, mid-sternal, also with RUQ/R sided rib pain and vomiting. States for the past week she has been vomiting several times a day, watery, non bloody non bilious, with normal bowel movements. States she has had problems with vomiting ever since her R shoulder surgery. States currently her breathing is much better and feels the pain is less than when she arrived in the ER. No fevers. Patient states that she has been coughing all day with blood-tinged sputum. PMD: [facility] Past Medical History Reviewed: Historical Data, Nursing Documentation, Vital Signs Vital Signs: Last Vital Signs Temp 97.8 F 06/19/18 23:04 Pulse 132 H 06/19/18 23:04 Resp 30 H 06/19/18 23:04 BP 162/89 H 06/19/18 23:04 Pulse Ox 90 L 06/19/18 23:04 - Medical History PMH: Cardia Arrhythmia, COPD, Gastritis, HTN, Hyperthyroidism, Chronic Kidney Disease Denies: HIV - Surgical History Surgical History: Appendectomy - Family History Family History: States: Unknown Family Hx - Home Medications Home Medications: Ambulatory Orders Medication Instructions Recorded Aspirin [Aspirin EC] 81 mg PO DAILY 07/04/14 Pantoprazole Sodium [Protonix] 40 mg PO DAILY 07/04/14 Umeclidinium [place] [Incruse 62.5 mcg IH DAILY #1 blst.w.dev 11/16/17 Ellipta] Albuterol HFA [Ventolin HFA 90 2 puff INH RQ6 PRN inhaler 11/20/17 mcg/actuation (8 g)] Calcium/Vitamin D [Citracal+D 1 tab PO DAILY 30 Days tab 11/20/17 315mg/250IU] Cholecalciferol [Vitamin D 1000 IU] 1,000 intlu PO DAILY 30 Days tab 11/20/17 diltiaZEM [Cardizem] 30 mg PO TID 30 Days tab 11/20/17 Gabapentin [Neurontin] 100 mg PO BID 30 Days cap 11/25/17 methIMAzole [Tapazole] 10 mg PO QOTHERDAY 06/20/18 - Allergies Allergies/Adverse Reactions: Allergies Allergy/AdvReac Type Severity Reaction Status Date / Time No Known Allergies Allergy Verified 06/19/18 23:03 Review of Systems ROS Statement: Except As Marked, All Systems Reviewed And Found Negative Constitutional: Negative for: Fever, Chills Cardiovascular: Positive for: Chest Pain Respiratory: Negative for: Cough, Shortness of Breath Gastrointestinal: Positive for: Nausea, Vomiting, Abdominal Pain Physical Exam - Reviewed Nursing Documentation Reviewed: Yes Vital Signs Reviewed: Yes - Physical Exam Appears: Positive for: Well, Non-toxic, No Acute Distress Head Exam: Positive for: ATRAUMATIC, NORMAL INSPECTION, NORMOCEPHALIC Skin: Positive for: Normal Color, Warm, DRY Eye Exam: Positive for: EOMI, Normal appearance, PERRL ENT: Positive for: Normal ENT Inspection Neck: Positive for: Normal, Painless ROM Cardiovascular/Chest: Positive for: Regular Rate, Rhythm, Other (Right lower rib tenderness, no stepoff/crepitus) Respiratory: Positive for: CNT, Normal Breath Sounds Gastrointestinal/Abdominal: Positive for: Normal Exam, Soft, Tenderness Back: Positive for: Normal Inspection Extremity: Positive for: Normal ROM Neurologic/Psych: Positive for: Alert, Oriented - Laboratory Results Result Diagrams: 06/19/18 23:45 06/19/18 23:45 - ECG O2 Sat by Pulse Oximetry: 90 Pulse Ox Interpretation: Abnormal - Critical Care Total Time (In Min): 60 Documented Critical Care: Time excludes all time spent performint seperately billable procedures Medical Decision Making Medical Decision Making: Patient presenting with chest pain, vomiting --Patient's vitals are abnormal, however patient is well appearing --Possibly bronchitis v. URI v. PE v. PNA --Will check labs, give fluids --No respiratory distress noted 2AM --Patient has elevated troponin --Dr. Vizcarra reviewed EKG's, states symptoms and troponin are more concerning for respiratory etiology --D dimer elevated, CTA ordered 3AM CTA OF THE CHEST WITH IV CONTRAST CLINICAL HISTORY: Rule out pulmonary embolus. TECHNIQUE: Axial and reformatted sagittal and coronal images of the chest ob tained after bolus IV contrast administration. FINDINGS: Moderate centrilobular emphysema. Right lower lobe air space infiltration. Left lower lobe subsegmental air space consolidation. Mild central pulmonary venous congestion. Mildly prominent mediastinal and hilar lymph nodes with largest measuring 1.3 cm, benign. Reactive. Moderate diffuse spondylosis. Normal enhancement of the main pulmonary artery and right and left pulmonary arteries. Normal enhancement of the bilateral peripheral pulmonary arteries. There is no demonstrated pulmonary embolism. Normal thoracic aorta and visualized great vessels. There is no demonstrated aortic dissection. Normal pericardium. Normal visualized trachea and thickened bronchi. Normal pleura. Normal chest wall structures. Osteopenia. Increased dorsal kyphosis secondary to mild chronic compression deformities of the midthoracic vertebral bodies. Mild thickening of the gallbladder. IMPRESSION: No demonstrated pulmonary embolism or arterial dissection. Emphysema. Bilateral multifocal bronchopneumonia. Congestive heart failure. Mild thickening of the gallbladder. Electronically signed on Jun 20, 2018 3:27:25 AM EST by: Mercy Flor M.D., Certified by ABR, MSK, Neuroradiology Dr. Deondre quintero. Will admit for NSTEMI for continuous cardiac monitoring and serial troponins Disposition - Clinical Impression Clinical Impression: NSTEMI (non-ST elevated myocardial infarction), Tachycardia - Disposition Disposition Time: 03:00 Condition: FAIR
[2018-06-20 00:53] LABS: CALCIUM 9.4 mg/dL (8.4-10.2)
[2018-06-20 00:58] LABS: TROPONIN I 0.213 ng/mL (0.00-0.120)
[2018-06-20 01:13] LABS: INR 1.1; PROTHROMBIN TIME 12.9 Seconds (9.8-13.1)
[2018-06-20 01:16] LABS: PARTIAL THROMBOPLASTIN TIME 33.2 Seconds (25.6-37.1)
[2018-06-20 01:50] LABS: BANDS 3 % (0-2); LYMPHOCYTE 3 % (20-50); MONOCYTE 8 % (0-10); NEUTROPHIL 86 % (42-75); TOTAL CELLS COUNTED 100
[2018-06-20 01:51] LABS: PLATELET ESTIMATE NORMAL (NORMAL)
[2018-06-20] MEDS ORDERED: Iodixanol 320 MG/ML 100 ML BOTTLE IV ONE (02:08)
[2018-06-20] MEDS ORDERED: Sodium Chloride 0.9% 50 ML IV ONE (02:08)
[2018-06-20] MEDS ORDERED: Albuterol-Ipratrop 3 mg / 0.5 (3 ml) UD INH PRN (04:48)
--- NOTE | 2018-06-20 04:49 | CP.PCM.HP ---
History of Present Illness - History of Present Illness History of Present Illness: 67 yr old F with PMH of COPD, HTN, Hyperthyroidism, CKD presented to ED with chest pain and also with RUQ/R sided rib pain since 2 months ago. Patient states worsening CP since 2 days ago, mild sternal, no radiated to arms, neck or back, at rest, no related with any event, associated nbnb vomiting several times a day for the past 3 days, also states mild sob but denies difficulty breathing. On arrival pt was found tachycardic and tachypneic with low O2 sat (90) Patient has h/o fall 7 months ago requiring total shoulder replacement, she states mild pain in R shoulder. Otherwise she denies fever, chills, diaphoresis, palpitations, headaches, blurry vision, cough, back pain, no urinary sx or changes in BM. PMD: [facility] (last visit was ) PMHx: COPD, HTN, Hyperthyroidism, CKD, cardiac arrest in 2010 s/p IV medication? for arrhythmia/respiratory distress FMHx: MOther from ovarian cancer, father had a stroke. SurgHx: appendectomy, x 1, R shoulder replacement SocHx: former smoker (100 pack yrs)-quit 12 yrs ago; denies Etoh or drugs Medications: Advair Diskus 250-50 mcg 1 puff BID, Aspirin 81mg PO QD, Albuterol Sulfate HFA 108 mcg/act 2 puffs PRN SOB, Lasix 20mg PO PRN, Diltiazem 30mg PO before meals and at bedtime, Pantoprazole 40mg PO QD, Incruse-Ellipta 62.5mcg 1 puff QD, Methimazol 10 mg daily Allergies: NKDA; Morphine causes patient to hallucinate ED course: BP 162/89 HR 132, Resp 30, O2 sat 90% on room air, Temp 97.3F - elevated troponin x1, D dimer elevated - EKG: sinus tachycardia, no acute changes - CTA chest: No demonstrated pulmonary embolism or arterial dissection. Emphysema. Bilateral multifocal bronchopneumonia. Congestive heart failure. Mild thickening of the gallbladder. - ED treatment: ASA 325 mg once, Toradol IV Present on Admission - Present on Admission Any Indicators Present on Admission: No History of DVT/PE: No History of Uncontrolled Diabetes: No Urinary Catheter: No Decubitus Ulcer Present: No Review of Systems - Review of Systems All systems: reviewed and no additional remarkable complaints except (HPI) Past Patient History - Infectious Disease Hx of Infectious Diseases: None - Past Medical History & Family History Past Medical History?: Yes - Past Social History Smoking Status: Former Smoker - CARDIAC Hx Cardia Arrhythmia: Yes Hx Hypertension: Yes - PULMONARY Hx Chronic Obstructive Pulmonary Disease (COPD): Yes - NEUROLOGICAL Hx Neurological Disorder: No - HEENT Hx HEENT Problems: No - RENAL Hx Chronic Kidney Disease: Yes - ENDOCRINE/METABOLIC Hx Hyperthyroidism: Yes - HEMATOLOGICAL/ONCOLOGICAL Hx Human Immunodeficiency Virus (HIV): No - INTEGUMENTARY Hx Dermatological Problems: No - MUSCULOSKELETAL/RHEUMATOLOGICAL Hx Musculoskeletal Disorders: No Hx Falls: No - GASTROINTESTINAL Hx Gastritis: Yes - GENITOURINARY/GYNECOLOGICAL Hx Genitourinary Disorders: Yes Hx Urinary Tract Infection: Yes - PSYCHIATRIC Hx Psychophysiologic Disorder: No Hx Substance Use: No - SURGICAL HISTORY Hx Appendectomy: Yes - ANESTHESIA Hx Anesthesia: Yes Hx Anesthesia Reactions: No Meds Allergies/Adverse Reactions: Allergies Allergy/AdvReac Type Severity Reaction Status Date / Time No Known Allergies Allergy Verified 06/19/18 23:03 Physical Exam - Constitutional Appears: No Acute Distress - Head Exam Head Exam: NORMAL INSPECTION - Eye Exam Eye Exam: EOMI, PERRL - Respiratory Exam Respiratory Exam: Clear to Auscultation Bilateral, NORMAL BREATHING PATTERN - Cardiovascular Exam Cardiovascular Exam: Tachycardia, REGULAR RHYTHM, +S1, +S2. absent: Systolic Murmur - GI/Abdominal Exam GI & Abdominal Exam: Normal Bowel Sounds, Soft, Tenderness (RUQ and ribs). absent: Distended - Extremities Exam Extremities exam: Negative for: calf tenderness, pedal edema Additional comments: b/l varicose veins - Neurological Exam Neurological exam: Alert, CN II-XII Intact, Oriented x3 - Skin Skin Exam: Dry, Warm Results - Vital Signs Recent Vital Signs: Last Vital Signs Temp 97.8 F 06/19/18 23:04 Pulse 124 H 06/20/18 01:20 Resp 18 06/20/18 01:20 BP 125/67 06/20/18 01:20 Pulse Ox 92 L 06/20/18 01:20 - Labs Result Diagrams: 06/19/18 23:45 06/19/18 23:45 Labs: Laboratory Results - last 24 hr 06/19/18 06/19/18 06/19/18 23:45 23:45 23:45 WBC 17.8 H D RBC 4.93 Hgb 16.0 Hct 47.0 MCV 95.3 D MCH 32.5 H MCHC 34.1 RDW 14.7 H Plt Count 378 D MPV 7.7 Neut % (Auto) 93.9 H Lymph % (Auto) 2.0 L [place] % (Auto) 3.8 Eos % (Auto) 0.1 Baso % (Auto) 0.2 Neut # (Auto) 16.7 H Lymph # (Auto) 0.4 L [place] # (Auto) 0.7 Eos # (Auto) 0.0 Baso # (Auto) 0.0 Neutrophils % (Manual) 86 H Band Neutrophils % 3 H Lymphocytes % (Manual) 3 L Monocytes % (Manual) 8 Platelet Estimate Normal PT 12.9 INR 1.1 APTT 33.2 D-Dimer, Quantitative 980 H Sodium 134 Potassium 4.2 Chloride 93 L Carbon Dioxide 26 Anion Gap 19 BUN 24 H Creatinine 1.2 Est GFR ( Amer) 54 Est GFR (Non-Af Amer) 45 Random Glucose 98 Calcium 9.4 Troponin I 0.2130 H* Assessment & Plan - Assessment and Plan (Free Text) Assessment: 67 yo female patient admitted with chest pain and elevated troponin r/o NSTEMI. Plan: Elevated troponin/chest pain r/o NSTEMI - admit to tele - continue cardiac monitoring - cardiology consulted - per ED Doctor, Dr. Vizcarra reviewed EKG's, states symptoms and troponin are more concerning for respiratory etiology, hold lovenox for now. - elevated D dimer - CTA chest: negative for pulmonary embolism or arterial dissection. - ASA daily - start statin - pain management - trending troponin - PBNP - f/u echo and ekg in am - labs in am Tachycardia - EKG: sinus tachy, no acute chnges - c/ cardiazem TID - Cardiology consult, recs appreciated Nausea/Vomiting - liquid diet for now, advance as tolerated - zofran IV prn COPD -chronic, dyspneic -continue home medications (Advair diskus, albuterol sulfate HFA PRN) -supplemental O2 via NC to keep O2 sat above 92% Hypertension -chronic, stable -continue home medications Hyperthyroidism -chronic, continue home medications -f/u TSH and free T4 CKD stage 3 -chronic, stable -Bun/Cr 24/1.2, eGFR 45 DVT prophylaxis -SCD's for now
[2018-06-20] MEDS ORDERED: Sodium Chloride 3% for Inhalation 4 ML VIAL.NEB IH PRN (08:06)
[2018-06-20] MEDS: Citracal+D 315mg/250IU PO SCH (09:08)
[2018-06-20] MEDS: Cholecalciferol 1,000 INTLU TAB PO SCH (09:08)
[2018-06-20] MEDS: Enoxaparin 40 mg Syringe SC SCH (09:11)
[2018-06-20] MEDS: Azithromycin 500 MG in Sodium Chloride 0.9% 250 ML IVPB SCH (09:12)
--- NOTE | 2018-06-20 09:41 | RAD ---
Date of service: 06/19/2018 HISTORY: cp, tachycardia COMPARISON: Chest radiographs 07/27/2014. FINDINGS: LUNGS: Reticular markings are increased bilaterally diffusely but no alveolitis is appreciated bilaterally. PLEURA: No significant pleural effusion identified, no pneumothorax apparent. CARDIOVASCULAR: Calcific atherosclerotic changes are seen related to the thoracic aorta. Cardiomegaly is unchanged. [id number] pulmonary vascular congestion evident. OSSEOUS STRUCTURES: No significant abnormalities. VISUALIZED UPPER ABDOMEN: Normal. OTHER FINDINGS: None. IMPRESSION: [id number] pulmonary vascular congestion pattern. No acute infiltrate or pleural effusion appreciated bilaterally. Stable cardiomegaly
[2018-06-20 10:30] LABS: BASO # 0.1 K/uL (0.0-0.2); BASO % 0.6 % (0.0-2.0); EOS # 0.1 K/uL (0.0-0.7); EOS % 0.8 % (0.0-4.0); HEMOGLOBIN 14.6 g/dL (12.0-16.0); LYMPH % 8.6 % (20.0-40.0); MEAN CELL VOLUME 95.8 fl (81.0-99.0); MEAN CORPUSCULAR HEMOGLOBIN 32.1 pg (27.0-31.0); MEAN CORPUSCULAR HGB CONC 33.5 g/dL (33.0-37.0); MEAN PLATELET VOLUME 7.8 fl (7.2-11.7); MONO # 0.9 K/uL (0.0-0.8); NEUT # 9.6 K/uL (1.8-7.0); NRBC % 0.1 % (0.0-0.0); RBC 4.56 Mil/uL (3.80-5.20); RED CELL DISTRIBUTION WIDTH 14.9 % (11.5-14.5); WHITE BLOOD COUNT 11.7 K/uL (4.8-10.8)
[2018-06-20] MEDS ORDERED: Alum-Mag Hydrox-Simethicone Susp (30 mL) PO ONE (10:44)
[2018-06-20 10:49] LABS: ALB/GLOB RATIO 0.9 (1.0-2.1); ALBUMIN 3.5 g/dL (3.5-5.0); ALT/SGPT 107 U/L (9-52); AST/SGOT 257 U/L (14-36); BLOOD UREA NITROGEN 19 mg/dl (7-17); CALCIUM 8.7 mg/dL (8.4-10.2); GFR NON-AFRICAN AMERICAN 50
[2018-06-20 10:57] LABS: T4 9.36 ug/dl (5.5-11.0)
[2018-06-20 11:07] LABS: B-TYPE NATRIURETIC PEPTIDE 3920 pg/ml (0-900)
[2018-06-20] MEDS: Pantoprazole 40 mg EC Tab PO SCH (11:47)
[2018-06-20] MEDS: Sucralfate 1 gm/10 ml Oral Susp UD PO SCH ×3 (12:59→21:53)
--- NOTE | 2018-06-20 15:12 | US ---
Date of service: 06/20/2018 HISTORY: abn LFT, eval GB and liver COMPARISON: None. TECHNIQUE: Sonographic evaluation of the abdomen. FINDINGS: LIVER: Measures 14.1 cm. Normal echogenicity of the liver parenchyma. Linear echogenic structure in the lumen of the left hepatic vein best seen in transverse images of the left liver lobe (image 16) may indicate partial thrombosis on a chronic basis. The remainder the liver appears unremarkable. GALLBLADDER: Unremarkable. No gallstones. COMMON BILE DUCT: Measures 10.9 mm. No choledocholithiasis appreciable. PANCREAS: The tail of the pancreas is obscured by overlying bowel gas with remainder unremarkable. RIGHT KIDNEY: Measures 9.4cm. Normal echogenicity. No calculus, mass, or hydronephrosis. LEFT KIDNEY: Measures 9.2cm. 1.9 cm simple cyst is identified at the lower pole. No calculus, solid mass, or hydronephrosis. SPLEEN: Normal in size and contour, measuring 8.6 cm greatest dimension. No focal mass appreciable. AORTA: Limited evaluation due to overlying bowel gas. IVC: Limited evaluation due to overlying bowel gas. OTHER FINDINGS: None. IMPRESSION: Abnormal common bile duct dilatation of 10.9 mm without choledocholithiasis. Sludge identified in the gallbladder but no cholelithiasis is appreciated. Gallbladder moderately mildly distended and is otherwise unremarkable. Questionable chronic partial thrombosis left hepatic vein. Consider follow-up contrast CT through the abdomen using liver protocol.
--- NOTE | 2018-06-20 16:16 | CT ---
Date of service: 06/20/2018 PROCEDURE: CT Chest with contrast (Pulmonary Angiogram) HISTORY: r/o PE, elevate dimer COMPARISON: Noncontrast chest CT 11/16/2017. TECHNIQUE: Axial computed tomography images were obtained of the chest in the pulmonary arterial phase of enhancement. Coronal and sagittal reformatted images were created and reviewed. Intravenous contrast dose: Visipaque 320, 99 cc Radiation dose: Total exam DLP = 316.83 mGy-cm. This CT exam was performed using one or more of the following dose reduction techniques: Automated exposure control, adjustment of the mA and/or kV according to patient size, and/or use of iterative reconstruction technique. FINDINGS: PULMONARY ARTERIES: Unremarkable. No pulmonary embolism. AORTA: Calcific atherosclerotic changes are seen related to the thoracic aorta. LUNGS: Diffuse pulmonary fibrosis is appreciated with pulmonary emphysema concentrated at the apices more than bases once again. Two tiny pulmonary nodules are again seen at the right middle lobe in image 61 series 5 measuring 2.5 mm in each case with no additional pulmonary mass appreciated bilaterally. Bibasilar dependent atelectasis is appreciated in the central airways appear clear. PLEURAL SPACES: Unremarkable. No effusion or pneumothorax. HEART: Cardiomegaly. No pericardial effusion. No pulmonary vascular congestion. LYMPH NODES: No lymphadenopathy. BONES, CHEST WALL: Unremarkable. No fracture or destructive lesion OTHER FINDINGS: Unremarkable. IMPRESSION: COPD pattern again evident without pneumothorax or acute infiltrate bilaterally. Limited bilateral basilar atelectasis identified with stable right middle lobe subcentimeter pulmonary nodules. Follow-up low-dose chest CT is recommended in 1 year to further surveil the right middle lobe nodular findings. Discordant preliminary report from [facility] multifocal bronchopneumonia not clearly identified and there is no mention of right middle lobe nodules in preliminary report.
[2018-06-20] MEDS: Albuterol-Ipratrop 3 mg / 0.5 (3 ml) UD INH SCH (19:17)
[2018-06-20 19:48] LABS: HEPATITIS B SURFACE AG Negative (NEGATIVE)
[2018-06-20 19:53] LABS: HEPATITIS A IGM NEGATIVE (NEGATIVE); HEPATITIS B CORE AB NEGATIVE (NEGATIVE)
[2018-06-20 20:05] LABS: HEPATITIS C ANTIBODY NEGATIVE (NEGATIVE)
--- NOTE | 2018-06-20 20:39 | CP.PCM.CON ---
History of Present Illness - History of Present Illness History of Present Illness: PT ADMITTED WITH SUBSTERNAL CP AND ELEVATED TROPONINS. CP OCCURS AT REST, NON RADIATING, NO PALP OR SOB. NO EDEMA. PT ALSO PRESENTS WITH COUGH AND HEMOPTYSIS. CTA REVEALS NO CENTRAL PE. Review of Systems - Constitutional Constitutional: As Per HPI. absent: Anorexia, Chills, Daytime Sleepiness, Excessive Sweating, Fatigue, Fever, Frequent Falls, Headache, Increased Appetite, Lethargy, Malaise, Night Sweats, Snoring, Sleep Apnea, Weight Gain, Weight Loss, Weakness, Other - EENT Eyes: As Per HPI. absent: Blind Spots, Blurred Vision, Change in Vision, Decreased Night Vision, Diplopia, Discharge, Dry Eye, Exophthalmos, Floaters, Irritation, Itchy Eyes, Loss of Peripheral Vision, Pain, Photophobia, Requires Corrective Lenses, Sees Flashes, Spots in Vision, Tunnel Vision, Other Visual Disturbances, Loss of Vision, Other Ears: As Per HPI. absent: Decreased Hearing, Ear Discharge, Ear Pain, Tinnitus, Abnormal Hearing, Disequilibrium, Dizziness, Other Nose/Mouth/Throat: As Per HPI. absent: Epistaxis, Nasal Congestion, Nasal Discharge, Nasal Obstruction, Nasal Trauma, Nose Pain, Post Nasal Drip, Sinus Pain, Sinus Pressure, Bleeding Gums, Change in Voice, Dental Pain, Dry Mouth, Dysphagia, Halitosis, Hoarsness, Lip Swelling, Mouth Lesions, Mouth Pain, Odynophagia, Sore Throat, Throat Swelling, Tongue Swelling, Facial Pain, Neck Pain, Neck Mass, Other - Breasts Breasts: As Per HPI. absent: Change in Shape, Mass, Pain, Nipple Discharge, Nipple Inversion, Skin Changes, Swelling, Other - Cardiovascular Cardiovascular: As Per HPI, Chest Pain, Chest Pain at Rest, Orthopnea, Palpitat ions. absent: Acrocyanosis, Chest Pain with Activity, Claudication, Diaphoresis, Dyspnea, Dyspnea on Exertion, Edema, Irregular Heart Rhythm, Pain Radiating to Arm/Neck/Jaw, Leg Edema, Leg Ulcers, Lightheadedness, Paroxysmal Nocturnal Dyspnea, Pedal Edema, Radiating Pain, Rapid Heart Rate, Slow Heart Rate, Syncope, Other - Respiratory Respiratory: As Per HPI. absent: Cough, Dyspnea, Hemoptysis, Dyspnea on Exertion, Wheezing, Snoring, Stridor, Pain on Inspiration, Chest Congestion, Excessive Mucous Production, Change in Mucous Color, Pain with Coughing, Other - Gastrointestinal Gastrointestinal: As Per HPI. absent: Abdominal Pain, Belching, Bloating, Change in Bowel Habits, Change in Stool Character, Coffee Ground Emesis, Constipation, Cramping, Diarrhea, Dyspepsia, Dysphagia, Early Satiety, Excessive Flatus, Fecal Incontinence, Heartburn, Hematemesis, Hematochezia, Loose Stools, Melena, Nausea, Odynophagia, Temesmus, Vomiting, Other - Genitourinary Genitourinary: As Per HPI. absent: Change in Urinary Stream, Difficulty Urinating, Dysuria, Flank Pain, Hematuria, Pyuria, Nocturia, Urinary Incontinence, Urinary Frequency, Urinary Hesitance, Urinary Urgency, Voiding Freq/Small Amts, Freq UTI, Hx Renal/Bladder Calculi, Hx /Renal Surgery, Bladder Distension, Other - Reproductive: Female Reproductive:Female: As Per HPI. absent: Amenorrhea, Amenorrhea/ Control, Currently Menstual, Cycle <21 Days, Cycle >35 Days, Cycle Variable, Menses 1-7 Days, Menses >/= 8 Days, Menses Variable, Cycle > 4 Weeks Between, No Menses for 6 Months, Heavy Menses, Light Menses, Normal Menses, Spotting Between Cycles, S/P Hysterectomy, Menopausal, Post Menopausal, Premenarche, Abnormal Vaginal Bleeding, Dysmenorrhea, Dyspareunia, Genital Lesions, Genital Pruritis, Pelvic Pain, Prolapse Symptoms, Sexual Dysfunction, Vaginal Discharge, Vaginal Dryness, Vaginal Odor, Vaginal Pruritis, Other - Menstruation Menstruation: As Per HPI. absent: Amenorrhea, Amenorrhea/ Control, Currently Menstual, Cycle <21 Days, Cycle >35 Days, Cycle Variable, Menses 1-7 Days, Menses >/= 8 Days, Menses Variable, Cycle > 4 Weeks Between, No Menses for 6 Months, Heavy Menses, Light Menses, Normal Menses, Spotting Between Cycles, S/P Hysterectomy, Menopausal, Post Menopausal, Premenarche, Abnormal Vaginal B leeding, Dysmenorrhea, Other - Musculoskeletal Musculoskeletal: As Per HPI. absent: Abnormal Gait, Arthralgias, Atrophy, Back Pain, Deformity, Joint Swelling, Limited Range of Motion, Loss of Height, Muscle Cramps, Muscle Weakness, Myalgias, Neck Pain, Numbness, Radiating Pain into Limb, Stiffness, Tingling, Other - Integumentary Integumentary: As Per HPI. absent: Acne, Alopecia, Bleeding Lesions, Change in Hair, Change in Nails, Change in Pigmentation, Changing Lesions, Dry Skin, Erythema, Furuncle, Hirsutism, Lesions, New Lesions, Non-Healing Lesions, Photosensitivity, Pruritus, Rash, Skin Pain, Skin Ulcer, Sores, Striae, Swelling, Unusual Bruising, Wounds, Jaundice, Other - Neurological Neurological: As Per HPI. absent: Abnormal Gait, Abnormal Hearing, Abnormal Movements, Abnormal Speech, Behavioral Changes, Burning Sensations, Confusion, Convulsions, Disequilibrium, Dizziness, Numbness, Focal Weakness, Frequent Falls, Headaches, Lack of Coordination, Loss of Vision, Memory Loss, Paresthesias, Radicular Pain, Restless Legs, Sensory Deficit, Syncope, Tingling, Tremor, Vertigo, Weakness, Other Visual Disturbances, Other - Psychiatric Psychiatric: As Per HPI. absent: Abnormal Sleep Pattern, Anhedonia, Anxiety, Auditory Hallucinations, Behavioral Changes, Change in Appetite, Change in Libido, Confusion, Depression, Difficulty Concentrating, Hallucinations, Homicidal Ideation, Hopelessness, Irritability, Memory Loss, Mood Swings, Panic Attacks, Paranoia, Suicidal Ideation, Visual Hallucinations, Tactile Hallucinations, Other - Endocrine Endocrine: As Per HPI. absent: Change in Body Appearance, Change in Libido, Cold Intolorance, Deepening of Voice, Excessive Sweating, Fatigue, Flushing, Heat Intolorance, Increase in Ring/Shoe/Hat Size, Palpitations, Polydipsia, Polyphagia, Polyuria, Other - Hematologic/Lymphatic Hematologic: As Per HPI. absent: Easy Bleeding, Easy Bruising, Lymphadenopathy, Other Past Patient History - Infectious Disease Hx of Infectious Diseases: None - Past Medical History & Family History Past Medical History?: Yes - Past Social History Smoking Status: Former Smoker Chewing Tobacco Use: No Cigar Use: No Alcohol: None Drugs: Denies Home Situation {Lives}: With Family Domestic Violence: Negative - CARDIAC Hx Cardiac Disorders: Yes (HTN, CHF) Hx Hypertension: Yes - PULMONARY Hx Respiratory Disorders: Yes (COPD) Hx Chronic Obstructive Pulmonary Disease (COPD): Yes - NEUROLOGICAL Hx Neurological Disorder: No - HEENT Hx HEENT Problems: No - RENAL Hx Chronic Kidney Disease: Yes - ENDOCRINE/METABOLIC Hx Endocrine Disorders: Yes (hyperthyroidism) Hx Hyperthyroidism: Yes - HEMATOLOGICAL/ONCOLOGICAL Hx Blood Disorders: No - INTEGUMENTARY Hx Dermatological Problems: No - MUSCULOSKELETAL/RHEUMATOLOGICAL Hx Musculoskeletal Disorders: No Hx Falls: No - GASTROINTESTINAL Hx Gastritis: Yes - GENITOURINARY/GYNECOLOGICAL Hx Genitourinary Disorders: Yes - PSYCHIATRIC Hx Psychophysiologic Disorder: No - SURGICAL HISTORY Hx Appendectomy: Yes - ANESTHESIA Hx Anesthesia: Yes Hx Anesthesia Reactions: No Meds Allergies/Adverse Reactions: Allergies Allergy/AdvReac Type Severity Reaction Status Date / Time No Known Allergies Allergy Verified 06/19/18 23:03 - Medications Medications: Current Medications Albuterol/Ipratropium (Duoneb 3 Mg/0.5 Mg (3 Ml) Ud) 3 ml INH RQ6 PRN PRN Reason: Shortness of Breath Albuterol/Ipratropium (Duoneb 3 Mg/0.5 Mg (3 Ml) Ud) 3 ml INH RQ6 [facility]QUE Last Admin: 06/20/18 19:17 Dose: 3 ml Aspirin (Aspirin) 325 mg PO DAILY [facility] Last Admin: 06/20/18 11:47 Dose: 325 mg Calcium/Vitamin D (Citracal+D 315mg/250iu) 1 tab PO DAILY [facility] Last Admin: 06/20/18 09:08 Dose: 1 tab Cholecalciferol (Vitamin D) 1,000 intlu PO DAILY [facility] Last Admin: 06/20/18 09:08 Dose: 1,000 intlu Diltiazem HCl (Cardizem) 30 mg PO TID [facility] Last Admin: 06/20/18 18:05 Dose: 30 mg Enoxaparin Sodium (Lovenox) 40 mg SC DAILY [facility]; Protocol Last Admin: 06/20/18 09:11 Dose: 40 mg Gabapentin (Neurontin) 100 mg PO BID [facility] Last Admin: 06/20/18 18:03 Dose: 100 mg Ceftriaxone Sodium 1 gm/ (Sodium Chloride) 100 mls @ 100 mls/hr IVPB DAILY [facility]; Protocol Last Admin: 06/20/18 09:12 Dose: 100 mls/hr Azithromycin 500 mg/ Sodium (Chloride) 250 mls @ 250 mls/hr IVPB DAILY [facility]; Protocol Last Admin: 06/20/18 09:12 Dose: 250 mls/hr Methimazole (Tapazole) 10 mg PO DAILY [facility] Last Admin: 06/20/18 11:47 Dose: 10 mg Pantoprazole Sodium (Protonix Ec Tab) 40 mg PO DAILY [facility] Last Admin: 06/20/18 11:47 Dose: 40 mg Sucralfate (Carafate Oral Susp) 1 gm PO QID [facility] Last Admin: 06/20/18 18:05 Dose: 1 gm Physical Exam - Constitutional Appears: Non-toxic - Head Exam Head Exam: ATRAUMATIC, NORMAL INSPECTION, NORMOCEPHALIC - Eye Exam Eye Exam: EOMI, Normal appearance, PERRL. absent: Conjunctival injection, Nystagmus, Periorbital swelling, Periorbital tenderness, Scleral icterus Pupil Exam: NORMAL ACCOMODATION, PERRL. absent: Fixed, Irregular, Miosis, Mydriatic, Unequal - ENT Exam ENT Exam: Mucous Membranes Moist, Normal Exam. absent: Mucous Membranes Dry, Normal External Ear Exam, Normal Oropharynx, TM's Normal Bilaterally - Neck Exam Neck exam: Positive for: Normal Inspection. Negative for: Full Rom, Lymphadenopathy, Meningismus, Tenderness, Thyromegaly - Respiratory Exam Respiratory Exam: Clear to Auscultation Bilateral, NORMAL BREATHING PATTERN. absent: Accessory Muscle Use, Chest Wall Tenderness, Decreased Breath Sounds, Prolonged Expiratory Phase, Rales, Rhonchi, Wheezes, Respiratory Distress, Stridor - Cardiovascular Exam Cardiovascular Exam: REGULAR RHYTHM, +S1, +S2, Systolic Murmur. absent: Bradycardia, Tachycardia, Clicks, Diastolic murmur, Gallop, Irregular Rhythm, JVD, RRR, Rubs, +S4 - GI/Abdominal Exam GI & Abdominal Exam: Normal Bowel Sounds, Soft. absent: Bruit, Diminished Bowel Sounds, Distended, Firm, Guarding, Hernia, Hyperactive Bowel Sounds, Hypoactive Bowel Sounds, Mass, Organomegaly, Pulsatile Mass, Rebound, Rigid, Tenderness - Rectal Exam Rectal Exam: Deferred - Extremities Exam Extremities exam: Positive for: normal inspection. Negative for: calf tenderness, full ROM, joint swelling, normal capillary refill, pedal edema, tenderness, pedal pulses present - Back Exam Back exam: NORMAL INSPECTION. absent: CVA tenderness (L), CVA tenderness (R), FULL ROM, muscle spasm, paraspinal tenderness, rash noted, tenderness, vertebral tenderness - Neurological Exam Neurological exam: Alert, CN II-XII Intact, Normal Gait, Oriented x3, Reflexes Normal - Psychiatric Exam Psychiatric exam: Normal Affect, Normal Mood - Skin Skin Exam: Dry, Intact, Normal Color, Warm Results - Vital Signs Recent Vital Signs: Last Vital Signs Temp 97.8 F 06/20/18 20:24 Pulse 106 H 06/20/18 20:24 Resp 20 06/20/18 20:24 BP 139/83 06/20/18 20:24 Pulse Ox 96 06/20/18 20:24 - Labs Result Diagrams: 06/21/18 04:20 06/21/18 04:20 Labs: Laboratory Results - last 24 hr 06/19/18 06/19/18 06/19/18 23:45 23:45 23:45 WBC 17.8 H D RBC 4.93 Hgb 16.0 Hct 47.0 MCV 95.3 D MCH 32.5 H MCHC 34.1 RDW 14.7 H Plt Count 378 D MPV 7.7 Neut % (Auto) 93.9 H Lymph % (Auto) 2.[address] [place] % (Auto) 3.8 Eos % (Auto) 0.1 Baso % (Auto) 0.2 Neut # (Auto) 16.7 H Lymph # (Auto) 0.[address] [place] # (Auto) 0.7 Eos # (Auto) 0.0 Baso # (Auto) 0.0 Neutrophils % (Manual) 86 H Band Neutrophils % 3 H Lymphocytes % (Manual) 3 L Monocytes % (Manual) 8 Platelet Estimate Normal PT 12.9 INR 1.1 APTT 33.2 D-Dimer, Quantitative 980 H Sodium 134 Potassium 4.2 Chloride 93 L Carbon Dioxide 26 Anion Gap 19 BUN 24 H Creatinine 1.2 Est GFR ( Amer) 54 Est GFR (Non-Af Amer) 45 Random Glucose 98 Calcium 9.4 Total Bilirubin AST ALT Alkaline Phosphatase Troponin I 0.2130 H* NT-Pro-B Natriuret Pep Total Protein Albumin Globulin Albumin/Globulin Ratio Thyroxine (T4) TSH 3rd Generation Hepatitis A IgM Ab Hep Bs Antigen Hep B Core IgM Ab Hepatitis C Antibody HIV-1 Ab Rapid Screen 06/20/18 06/20/18 06/20/18 10:20 10:20 10:20 WBC 11.7 H RBC 4.56 Hgb 14.6 Hct 43.7 MCV 95.8 MCH 32.1 H MCHC 33.5 RDW 14.9 H Plt Count 354 MPV 7.8 Neut % (Auto) 82.0 H Lymph % (Auto) 8.[address] [place] % (Auto) 8.0 Eos % (Auto) 0.8 Baso % (Auto) 0.6 Neut # (Auto) 9.6 H Lymph # (Auto) 1.0 [place] # (Auto) 0.9 H Eos # (Auto) 0.1 Baso # (Auto) 0.1 Neutrophils % (Manual) Band Neutrophils % Lymphocytes % (Manual) Monocytes % (Manual) Platelet Estimate PT INR APTT D-Dimer, Quantitative Sodium 137 Potassium 4.1 Chloride 99 Carbon Dioxide 27 Anion Gap 15 BUN 19 H Creatinine 1.1 Est GFR ( Amer) > 60 Est GFR (Non-Af Amer) 50 Random Glucose 97 Calcium 8.7 Total Bilirubin 6.1 H AST 257 H D ALT 107 H D Alkaline Phosphatase 317 H D Troponin I 0.9590 H* 0.9410 H* NT-Pro-B Natriuret Pep 3920 H Total Protein 7.2 Albumin 3.5 Globulin 3.7 Albumin/Globulin Ratio 0.9 L Thyroxine (T4) 9.36 TSH 3rd Generation 1.18 Hepatitis A IgM Ab Hep Bs Antigen Hep B Core IgM Ab Hepatitis C Antibody HIV-1 Ab Rapid Screen 06/20/18 06/20/18 11:00 11:18 WBC RBC Hgb Hct MCV MCH MCHC RDW Plt Count MPV Neut % (Auto) Lymph % (Auto) [place] % (Auto) Eos % (Auto) Baso % (Auto) Neut # (Auto) Lymph # (Auto) [place] # (Auto) Eos # (Auto) Baso # (Auto) Neutrophils % (Manual) Band Neutrophils % Lymphocytes % (Manual) Monocytes % (Manual) Platelet Estimate PT INR APTT D-Dimer, Quantitative Sodium Potassium Chloride Carbon Dioxide Anion Gap BUN Creatinine Est GFR ( Amer) Est GFR (Non-Af Amer) Random Glucose Calcium Total Bilirubin AST ALT Alkaline Phosphatase Troponin I NT-Pro-B Natriuret Pep Total Protein Albumin Globulin Albumin/Globulin Ratio Thyroxine (T4) TSH 3rd Generation Hepatitis A IgM Ab Negative Hep Bs Antigen Negative Hep B Core IgM Ab Negative Hepatitis C Antibody Negative HIV-1 Ab Rapid Screen Non reactive Assessment & Plan (1) Chest pain Status: Acute Comment: monitor trop. change from ccb to metoprolol. sl ntg prn. echo in am. (2) Hemoptysis Status: Acute Comment: NO PNA ON CT. NO CENTRAL PE ON CTA (3) Elevated troponin Status: Acute (4) Hepatic vein thrombosis Status: Acute Comment: ORDERED VQ SCAN TO EVAL FOR CHRONIC EMBOLIC DISEASE PT HAS HEMOPTYSIS W SOB AND MILD TROP INCREASE. (5) HTN (hypertension) Status: Chronic Priority: Low (6) Hyperthyroidism Status: Chronic Priority: Low - Assessment and Plan (Free Text) Plan: MEDS TO BE ADJUSTED FOR SYMPTOMS. WOULD RO CHRONIC PERIPHERAL PE'S. TREND TROP. DW FAMILY AND CARE TEAM 45 MIN TOTAL CARE TIME.
[2018-06-20] MEDS: Metoprolol Succinate 50 mg XL Tab PO SCH (21:54)
--- NOTE | 2018-06-20 22:35 | CARD ---
APPROVED REPORT Date of service: 06/20/2018 EKG Measurement Heart [id number] <Conclusion> Sinus tachycardia Right atrial enlargement Borderline ECG
--- NOTE | 2018-06-20 22:39 | CARD ---
APPROVED REPORT Date of service: 06/19/2018 EKG Measurement Heart [id number] <Conclusion> Sinus tachycardia Right atrial enlargement Nonspecific ST abnormality Abnormal ECG
[2018-06-21] MEDS: Albuterol-Ipratrop 3 mg / 0.5 (3 ml) UD INH SCH ×4 (00:59→20:14)
[2018-06-21 05:41] LABS: BASO # 0.1 K/uL (0.0-0.2); BASO % 0.8 % (0.0-2.0); EOS % 0.1 % (0.0-4.0); HEMOGLOBIN 14.8 g/dL (12.0-16.0); LYMPH # 0.9 K/uL (1.0-4.3); LYMPH % 4.9 % (20.0-40.0); MEAN CELL VOLUME 95.8 fl (81.0-99.0); MEAN CORPUSCULAR HGB CONC 34.4 g/dL (33.0-37.0); MEAN PLATELET VOLUME 8.1 fl (7.2-11.7); MONO # 1.3 K/uL (0.0-0.8); MONO % 7.5 % (0.0-10.0); NEUT # 15.4 K/uL (1.8-7.0); NEUT % 86.7 % (50.0-75.0); RBC 4.49 Mil/uL (3.80-5.20); RED CELL DISTRIBUTION WIDTH 14.7 % (11.5-14.5); WHITE BLOOD COUNT 17.8 K/uL (4.8-10.8)
[2018-06-21 06:41] LABS: ALB/GLOB RATIO 0.9 (1.0-2.1); ALBUMIN 3.1 g/dL (3.5-5.0); ALT/SGPT 110 U/L (9-52); AMYLASE 37 U/L (30-110); AST/SGOT 231 U/L (14-36); BLOOD UREA NITROGEN 14 mg/dl (7-17); CALCIUM 8.5 mg/dL (8.4-10.2); GFR NON-AFRICAN AMERICAN 55; LIPASE 30 U/L (23-300)
[2018-06-21] MEDS ORDERED: Potassium Chloride 20 mEq ER Tab PO ONE (07:49)
[2018-06-21] MEDS: Sucralfate 1 gm/10 ml Oral Susp UD PO SCH ×4 (09:02→21:14)
[2018-06-21] MEDS: Azithromycin 500 MG in Sodium Chloride 0.9% 250 ML IVPB SCH (09:03)
[2018-06-21] MEDS: Enoxaparin 40 mg Syringe SC SCH (09:05)
[2018-06-21] MEDS: Citracal+D 315mg/250IU PO SCH (09:06)
[2018-06-21] MEDS: Metoprolol Succinate 50 mg XL Tab PO SCH ×2 (09:06→21:13)
[2018-06-21] MEDS: Cholecalciferol 1,000 INTLU TAB PO SCH (09:06)
[2018-06-21] MEDS: Pantoprazole 40 mg EC Tab PO SCH (09:07)
[2018-06-21] MEDS ORDERED: Iohexol 300 100 ML IJ ONE (09:41)
[2018-06-21] MEDS ORDERED: Sodium Chloride 0.9% 50 ML IV ONE (09:41)
--- NOTE | 2018-06-21 09:41 | CP.PCM.PN ---
<Ruth Yatesa - Last Filed: 06/21/18 10:37> Subjective - Date & Time of Evaluation Date of Evaluation: 06/21/18 Time of Evaluation: 09:00 - Subjective Subjective: Pt seen/evaluated at bedside, reports resolution of chest pain. Denies abdominal pain/discomfort, shortness of breath, leg pain/cramps. Troponin 0.65243, down from peak of 0.959. Objective - Vital Signs/Intake and Output Vital Signs (last 24 hours): Temp Pulse Resp BP Pulse Ox 97.6 F 88 20 102/62 96 06/21/18 08:22 06/21/18 09:06 06/21/18 08:22 06/21/18 09:06 06/21/18 08:22 - Medications Medications: Current Medications Albuterol/Ipratropium (Duoneb 3 Mg/0.5 Mg (3 Ml) Ud) 3 ml INH RQ6 PRN PRN Reason: Shortness of Breath Albuterol/Ipratropium (Duoneb 3 Mg/0.5 Mg (3 Ml) Ud) 3 ml INH RQ6 [facility] Last Admin: 06/21/18 07:11 Dose: 3 ml Aspirin (Aspirin) 325 mg PO DAILY [facility] Last Admin: 06/21/18 09:16 Dose: 325 mg Calcium/Vitamin D (Citracal+D 315mg/250iu) 1 tab PO DAILY [facility] Last Admin: 06/21/18 09:06 Dose: 1 tab Cholecalciferol (Vitamin D) 1,000 intlu PO DAILY [facility] Last Admin: 06/21/18 09:06 Dose: 1,000 intlu Enoxaparin Sodium (Lovenox) 40 mg SC DAILY [facility]; Protocol Last Admin: 06/21/18 09:05 Dose: 40 mg Gabapentin (Neurontin) 100 mg PO BID [facility] Last Admin: 06/21/18 09:08 Dose: Not Given Ceftriaxone Sodium 1 gm/ (Sodium Chloride) 100 mls @ 100 mls/hr IVPB DAILY [facility]; Protocol Last Admin: 06/21/18 09:03 Dose: 100 mls/hr Azithromycin 500 mg/ Sodium (Chloride) 250 mls @ 250 mls/hr IVPB DAILY [facility]; Protocol Last Admin: 06/21/18 09:03 Dose: 250 mls/hr Methimazole (Tapazole) 10 mg PO DAILY [facility] Last Admin: 06/21/18 09:05 Dose: 10 mg Metoprolol Succinate (Toprol Xl) 50 mg PO Q12 [facility] Last Admin: 06/21/18 09:06 Dose: Not Given Nitroglycerin (Nitrostat Sl Tab) 0.4 mg SL Q5M PRN PRN Reason: Pain, Mild (1-3) Pantoprazole Sodium (Protonix Ec Tab) 40 mg PO DAILY [facility] Last Admin: 06/21/18 09:07 Dose: 40 mg Sucralfate (Carafate Oral Susp) 1 gm PO QID [facility] Last Admin: 06/21/18 09:02 Dose: 1 gm - Labs Labs: 06/21/18 04:20 06/21/18 04:20 PT 12.9 Seconds (9.8-13.1) 06/19/18 23:45 INR 1.1 06/19/18 23:45 APTT 33.2 Seconds (25.6-37.1) 06/19/18 23:45 - Constitutional Appears: No Acute Distress - Head Exam Head Exam: NORMAL INSPECTION - Respiratory Exam Respiratory Exam: NORMAL BREATHING PATTERN. absent: Wheezes - Cardiovascular Exam Cardiovascular Exam: REGULAR RHYTHM - GI/Abdominal Exam GI & Abdominal Exam: Soft. absent: Tenderness - Extremities Exam Extremities Exam: absent: Calf Tenderness Additional comments: vasicose veins - Neurological Exam Neurological Exam: Alert, Oriented x3 - Skin Skin Exam: Dry, Warm Assessment and Plan - Assessment and Plan (Free Text) Assessment: 67 yo F with hx COPD, HTN, Hyperthyroidism, CKD, admitted with chest pain and elevated troponin/NSTEMI. 4 Trop positive; last one 0.5780 (down from peak). Cu rrently stable. EKG with sinus tach and no acute changes. Had elevated D-dimer; CTA ordered and neg for acute PE; showed COPD pattern and subcentimeter pulm nodules; prelim report reported multifocal PNA as well. Pt has leukocytosis and cough; started on ceftriaxone/azithro on 04/20 (today is day 2). Cardiology consulted- Dr. Vizcarra - recs appreciated; pending VQ scan. Also found to have transaminitis - CT abd/pelvis w/ liver protocol ordered. Plan: Elevated troponin/chest pain - Cardiology consult Dr. Vizcarra; input and recs appreciated; reviewed EKG in ED and stated symptoms and troponin are more concerning for respiratory etiology, hold lovenox for now; VQ scan - CTA chest: negative for pulmonary embolism or arterial dissection; subcentim eter nodules; no PNA on final report - Continue with ASA, statin daily - Echo pending for today Jaundice/Abnormal LFT - Hepatitis panel, HIV screen - CT abd/pelvis w/ liver protocol - GI consult - Dr. Sutherland - Surg Consult- Dr. Farley Tachycardia - EKG: sinus tachy, no acute chnges - Cardiazem d/c by cardiology Pneumonia, prob bacterial ( POA) - C/w IV Azithro and Ceftriaxone - Elevated WBC, cough - Duoneb, scheduled - Follow up blood and sputum cultures, and legionella/mycoplasma COPD - Continue home medications (Advair diskus, albuterol sulfate HFA PRN) - Supplemental O2 via NC to keep O2 sat above 92% Hypertension -Chronic, stable -Continue home medications Hyperthyroidism -Chronic, continue home medications - TSH 1.18 wnl, T4 9.36 wnl CKD stage 3 -Chronic, stable -Bun/Cr 14/1.0, eGFR 55 Nausea/Vomiting - Resolved; advance diet DVT prophylaxis -SCD's for now <Yuridia Black - Last Filed: 06/21/18 19:20> Objective - Vital Signs/Intake and Output Vital Signs (last 24 hours): Temp Pulse Resp BP Pulse Ox 97.5 F L 90 20 106/64 95 06/21/18 12:38 06/21/18 12:38 06/21/18 12:38 06/21/18 12:38 06/21/18 12:38 - Medications Medications: Current Medications Albuterol/Ipratropium (Duoneb 3 Mg/0.5 Mg (3 Ml) Ud) 3 ml INH RQ6 PRN PRN Reason: Shortness of Breath Albuterol/Ipratropium (Duoneb 3 Mg/0.5 Mg (3 Ml) Ud) 3 ml INH RQ6 [facility] Last Admin: 06/21/18 14:03 Dose: 3 ml Aspirin (Aspirin) 325 mg PO DAILY [facility] Last Admin: 06/21/18 09:16 Dose: 325 mg Bacitracin (Bacitracin Oint) 1 applic TOP BID [facility] Last Admin: 06/21/18 17:18 Dose: 1 applic Calcium/Vitamin D (Citracal+D 315mg/250iu) 1 tab PO DAILY [facility] Last Admin: 06/21/18 09:06 Dose: 1 tab Cholecalciferol (Vitamin D) 1,000 intlu PO DAILY [facility] Last Admin: 06/21/18 09:06 Dose: 1,000 intlu Enoxaparin Sodium (Lovenox) 40 mg SC DAILY [facility]; Protocol Last Admin: 06/21/18 09:05 Dose: 40 mg Gabapentin (Neurontin) 100 mg PO BID [facility] Last Admin: 06/21/18 17:19 Dose: Not Given Ceftriaxone Sodium 1 gm/ (Sodium Chloride) 100 mls @ 100 mls/hr IVPB DAILY [facility]; Protocol Last Admin: 06/21/18 09:03 Dose: 100 mls/hr Azithromycin 500 mg/ Sodium (Chloride) 250 mls @ 250 mls/hr IVPB DAILY [facility]; Protocol Last Admin: 06/21/18 09:03 Dose: 250 mls/hr Methimazole (Tapazole) 10 mg PO DAILY [facility] Last Admin: 06/21/18 09:05 Dose: 10 mg Metoprolol Succinate (Toprol Xl) 50 mg PO Q12 [facility] Last Admin: 06/21/18 09:06 Dose: Not Given Nitroglycerin (Nitrostat Sl Tab) 0.4 mg SL Q5M PRN PRN Reason: Pain, Mild (1-3) Pantoprazole Sodium (Protonix Ec Tab) 40 mg PO DAILY [facility] Last Admin: 06/21/18 09:07 Dose: 40 mg Sucralfate (Carafate Oral Susp) 1 gm PO QID [facility] Last Admin: 06/21/18 17:18 Dose: 1 gm - Labs Labs: 06/21/18 04:20 06/21/18 04:20 PT 12.9 Seconds (9.8-13.1) 06/19/18 23:45 INR 1.1 06/19/18 23:45 APTT 33.2 Seconds (25.6-37.1) 06/19/18 23:45 Attending/Attestation - Attestation I have personally seen and examined this patient.: Yes I have fully participated in the care of the patient.: Yes I have reviewed all pertinent clinical information, including history, physical exam and plan: Yes Notes (Text): Troponin Elevation prob NSTEMI - pt came with CP, Troponin elevation - cont ASA, Toprol - not on therapeutic anticoag as pt had questionable hemoptysis vs blood tinge sputum on admission -Cardio consulted- discussed case with Dr Vizcarra - poss Cardiac cath if V/Q scan neg and after clearance from ID Cough with questionable Hemoptysis ? Lung Infection/Pneumonia ( initial CT reading was multifocal infiltrates plus 17k leukocytosis)) - no further hemoptysis during admission -empirically started on IV Ceftriaxone and Azithro - sputum c/s , blood c/s, -Flu , Legionella, Mycoplasma: neg Leukocytosis with Bandemia no fever ? Lung Infection vs Hepatobiliary Infection - empirically on Ceftriaxone and Azithro - ID consult - Dr Graf - Blood c/s neg so far - Abn LFTs with Ct finding of CBD dilatation Abn LFT Ct of abd: Pancreatic Protocol LIVER: Evaluation of the hepatic parenchyma fails demonstrate cystic or solid mass or definite patent vein thrombosis. However, filling defects are identified in a linear fashion in the distribution of the right and left portal veins best appreciated axial series 5 images 48 through 51 at the right and at the left, images 40 through 45. The suggest nonocclusive thrombosis and correspond to the sonographic images best shown at the left sided portal veins. Right-sided portal vein and involvement was not as easily demonstrated by ultrasound. It is difficult to completely exclude trace thrombosis within the lumen of the main portal vein at its proximal to mid segment. Nevertheless, enhancement throughout the liver is unremarkable. No cirrhosis pattern appreciated. Dilated intra and extrahepatic biliary tree is stable with the gallbladder di stended as well. Radiodense choledocholithiasis remains unidentified. PANCREAS: Unremarkable. No gross lesion or ductal dilatation. - GI consulted -Surgery consulted Non occlusive Thrombosis Portal Vein ? need for anticoag will hold off on anticoag as this is nonocclusive and pt came with hemoptysis, will get GI consult and await recommendation
--- NOTE | 2018-06-21 12:11 | CP.PCM.HP ---
<Milo Dumont - Last Filed: 06/21/18 12:06> History of Present Illness - History of Present Illness History of Present Illness: SURGERY CONSULT NOTE FOR DR. NELSON Reason: enlarged CBD 67F present to hospital for chest pain and found to have a myocardial infarction on this admission. Patient also states she has been having RUQ pain on and off for the pain 2 months. She states pain is not associated with nausea or vomiting, she denies feeling fevers or chills associated with pain. She tolerates diet. She noticed she has been more jaundice over the past 2 weeks. PMH: COPD, HTN, CKD, Cardiac arrest, CHF, Cardiac arrest in the past PSH: Appendectomy, , right shoulder replacement Social: 100 year pack of tobacco, quit 17 years ago, denies alcohol or illicit drug abuse Allergies: NKDA Present on Admission - Present on Admission Any Indicators Present on Admission: Yes Past Patient History - Infectious Disease Hx of Infectious Diseases: None - Past Medical History & Family History Past Medical History?: Yes - Past Social History Smoking Status: Former Smoker - CARDIAC Hx Cardiac Disorders: Yes (HTN, CHF) Hx Hypertension: Yes - PULMONARY Hx Respiratory Disorders: Yes (COPD) Hx Chronic Obstructive Pulmonary Disease (COPD): Yes - NEUROLOGICAL Hx Neurological Disorder: No - HEENT Hx HEENT Problems: No - RENAL Hx Chronic Kidney Disease: Yes - ENDOCRINE/METABOLIC Hx Endocrine Disorders: Yes (hyperthyroidism) Hx Hyperthyroidism: Yes - HEMATOLOGICAL/ONCOLOGICAL Hx Blood Disorders: No - INTEGUMENTARY Hx Dermatological Problems: No - MUSCULOSKELETAL/RHEUMATOLOGICAL Hx Musculoskeletal Disorders: No Hx Falls: No - GASTROINTESTINAL Hx Gastritis: Yes - GENITOURINARY/GYNECOLOGICAL Hx Genitourinary Disorders: Yes - PSYCHIATRIC Hx Psychophysiologic Disorder: No - SURGICAL HISTORY Hx Appendectomy: Yes - ANESTHESIA Hx Anesthesia: Yes Hx Anesthesia Reactions: No Meds Allergies/Adverse Reactions: Allergies Allergy/AdvReac Type Severity Reaction Status Date / Time No Known Allergies Allergy Verified 06/22/18 14:32 Physical Exam - Constitutional Appears: Non-toxic, No Acute Distress - Eye Exam Eye Exam: EOMI, PERRL - ENT Exam ENT Exam: Mucous Membranes Moist - Respiratory Exam Respiratory Exam: Clear to Auscultation Bilateral, NORMAL BREATHING PATTERN - Cardiovascular Exam Cardiovascular Exam: REGULAR RHYTHM, +S1, +S2 - GI/Abdominal Exam GI & Abdominal Exam: Soft, Tenderness (RUQ tenderness). absent: Distended, Firm, Guarding, Rebound, Rigid - Extremities Exam Extremities exam: Negative for: pedal edema, tenderness - Neurological Exam Neurological exam: Alert, Oriented x3 - Psychiatric Exam Psychiatric exam: Normal Affect, Normal Mood - Skin Skin Exam: Dry, Intact, Warm Additional comments: Jaundice Results - Vital Signs Recent Vital Signs: Last Vital Signs Temp 97.6 F 06/21/18 08:22 Pulse 88 06/21/18 09:06 Resp 20 06/21/18 08:22 BP 102/62 06/21/18 09:06 Pulse Ox 96 06/21/18 08:22 - Labs Result Diagrams: 06/21/18 04:20 06/21/18 04:20 Labs: Laboratory Results - last 24 hr 06/20/18 06/21/18 06/21/18 11:00 04:20 04:20 WBC 17.8 H D RBC 4.49 Hgb 14.8 Hct 43.0 MCV 95.8 MCH 33.0 H MCHC 34.4 RDW 14.7 H Plt Count 340 MPV 8.1 Neut % (Auto) 86.7 H Lymph % (Auto) 4.9 L [place] % (Auto) 7.5 Eos % (Auto) 0.1 Baso % (Auto) 0.8 Neut # (Auto) 15.4 H Lymph # (Auto) 0.9 L [place] # (Auto) 1.3 H Eos # (Auto) 0.0 Baso # (Auto) 0.1 Sodium 133 Potassium 3.3 L Chloride 102 Carbon Dioxide 23 Anion Gap 11 BUN 14 Creatinine 1.0 Est GFR ( Amer) > 60 Est GFR (Non-Af Amer) 55 Random Glucose 104 Calcium 8.5 Magnesium 2.0 Total Bilirubin 7.0 H AST 231 H ALT 110 H Alkaline Phosphatase 330 H Troponin I 0.5780 H* Total Protein 6.6 Albumin 3.1 L Globulin 3.5 Albumin/Globulin Ratio 0.9 L Amylase 37 Lipase 30 Hepatitis A IgM Ab Negative Hep Bs Antigen Negative Hep B Core IgM Ab Negative Hepatitis C Antibody Negative Assessment & Plan - Assessment and Plan (Free Text) Assessment: 67F presents with myocardial infarction, Transaminitis US: CBD- 10.9mm, no choledocholithiasis, GB sludge, mildly dilated Plan: - IVF - Antibiotics - Trend LFTs - Pain control - Recommend MRCP to evaluate CBD, patient refusing/metal shoulder - Recommend CT with pancreatic protocol - Recommend GI evaluation - No surgical intervention Discussed with Dr. Omar Dumont, PGY3 <Topher Nelson - Last Filed: 06/25/18 20:02> Results - Vital Signs Recent Vital Signs: Last Vital Signs Temp 98 F 06/25/18 19:54 Pulse 77 06/25/18 19:54 Resp 18 06/25/18 19:54 BP 116/67 06/25/18 19:54 Pulse Ox 96 06/25/18 19:54 - Labs Result Diagrams: 06/25/18 05:00 06/25/18 05:00 Labs: Laboratory Results - last 24 hr 06/25/18 06/25/18 06/25/18 05:00 05:00 16:10 WBC 7.9 RBC 3.86 Hgb 12.6 Hct 36.9 MCV 95.4 MCH 32.6 H MCHC 34.2 RDW 15.0 H Plt Count 362 MPV 8.1 Neut % (Auto) 72.2 Lymph % (Auto) 15.1 L [place] % (Auto) 10.0 Eos % (Auto) 1.8 Baso % (Auto) 0.9 Neut # (Auto) 5.7 Lymph # (Auto) 1.2 [place] # (Auto) 0.8 Eos # (Auto) 0.1 Baso # (Auto) 0.1 Sodium 140 Potassium 3.5 L Chloride 109 H Carbon Dioxide 23 Anion Gap 12 BUN 9 Creatinine 0.8 Est GFR ( Amer) > 60 Est GFR (Non-Af Amer) > 60 Random Glucose 93 Calcium 8.9 Phosphorus 3.3 Total Bilirubin 4.7 H AST 116 H ALT 81 H Alkaline Phosphatase 547 H Total Protein 6.3 Albumin 2.8 L Globulin 3.5 Albumin/Globulin Ratio 0.8 L Attending/Attestation - Attestation I have personally seen and examined this patient.: Yes I have fully participated in the care of the patient.: Yes I have reviewed all pertinent clinical information: Yes Notes (Text): Pt was seen and examined at bedside Agree with above note and assessment Pt with upper abdominal pain and High Troponin Abdomen: Soft, Tender in RUQ, ND Labs and radiology reviewed Ass: Abdominal pain related to Chronic Cholecystitis with Dilated CBD Plan: Clear liquid diet GI consult Cardiology consult IV antibiotics c.w current mx Plan d.w pt in detail Risk and benefit explained in detail.
--- NOTE | 2018-06-21 12:19 | CP.PCM.PN ---
Subjective - Date & Time of Evaluation Date of Evaluation: 06/21/18 Time of Evaluation: 12:17 - Subjective Subjective: NO FURTHER CP. TROP STABLE. HR REMAINS MILDLY ELEVATED. Objective - Vital Signs/Intake and Output Vital Signs (last 24 hours): Temp Pulse Resp BP Pulse Ox 97.6 F 88 20 102/62 96 06/21/18 08:22 06/21/18 09:06 06/21/18 08:22 06/21/18 09:06 06/21/18 08:22 - Medications Medications: Current Medications Albuterol/Ipratropium (Duoneb 3 Mg/0.5 Mg (3 Ml) Ud) 3 ml INH RQ6 PRN PRN Reason: Shortness of Breath Albuterol/Ipratropium (Duoneb 3 Mg/0.5 Mg (3 Ml) Ud) 3 ml INH RQ6 [facility] Last Admin: 06/21/18 07:11 Dose: 3 ml Aspirin (Aspirin) 325 mg PO DAILY [facility] Last Admin: 06/21/18 09:16 Dose: 325 mg Bacitracin (Bacitracin Oint) 1 applic TOP BID [facility] Calcium/Vitamin D (Citracal+D 315mg/250iu) 1 tab PO DAILY [facility] Last Admin: 06/21/18 09:06 Dose: 1 tab Cholecalciferol (Vitamin D) 1,000 intlu PO DAILY [facility] Last Admin: 06/21/18 09:06 Dose: 1,000 intlu Enoxaparin Sodium (Lovenox) 40 mg SC DAILY [facility]; Protocol Last Admin: 06/21/18 09:05 Dose: 40 mg Gabapentin (Neurontin) 100 mg PO BID [facility] Last Admin: 06/21/18 09:08 Dose: Not Given Ceftriaxone Sodium 1 gm/ (Sodium Chloride) 100 mls @ 100 mls/hr IVPB DAILY [facility]; Protocol Last Admin: 06/21/18 09:03 Dose: 100 mls/hr Azithromycin 500 mg/ Sodium (Chloride) 250 mls @ 250 mls/hr IVPB DAILY [facility]; Protocol Last Admin: 06/21/18 09:03 Dose: 250 mls/hr Methimazole (Tapazole) 10 mg PO DAILY [facility] Last Admin: 06/21/18 09:05 Dose: 10 mg Metoprolol Succinate (Toprol Xl) 50 mg PO Q12 [facility] Last Admin: 06/21/18 09:06 Dose: Not Given Nitroglycerin (Nitrostat Sl Tab) 0.4 mg SL Q5M PRN PRN Reason: Pain, Mild (1-3) Pantoprazole Sodium (Protonix Ec Tab) 40 mg PO DAILY [facility] Last Admin: 06/21/18 09:07 Dose: 40 mg Sucralfate (Carafate Oral Susp) 1 gm PO QID [facility] Last Admin: 06/21/18 09:02 Dose: 1 gm - Labs Labs: 06/21/18 04:20 06/21/18 04:20 PT 12.9 Seconds (9.8-13.1) 06/19/18 23:45 INR 1.1 06/19/18 23:45 APTT 33.2 Seconds (25.6-37.1) 06/19/18 23:45 - Constitutional Appears: Well - Head Exam Head Exam: ATRAUMATIC, NORMAL INSPECTION, NORMOCEPHALIC - Eye Exam Eye Exam: EOMI, Normal appearance, PERRL. absent: Conjunctival injection, Nystagmus, Periorbital swelling, Periorbital tenderness, Scleral icterus Pupil Exam: NORMAL ACCOMODATION, PERRL - ENT Exam ENT Exam: Mucous Membranes Moist, Normal Exam. absent: Mucous Membranes Dry, Normal External Ear Exam, Normal Oropharynx, TM's Normal Bilaterally - Neck Exam Neck Exam: Full ROM, Normal Inspection. absent: Lymphadenopathy, Meningismus, Tenderness, Thyromegaly - Respiratory Exam Respiratory Exam: Clear to Ausculation Bilateral, NORMAL BREATHING PATTERN. absent: Accessory Muscle Use, Chest Wall Tenderness, Decreased Breath Sounds, Prolonged Expiratory Phase, Rales, Rhonchi, Wheezes, Respiratory Distress, Stridor - Cardiovascular Exam Cardiovascular Exam: REGULAR RHYTHM, +S1, +S2, Murmur. absent: Bradycardia, Tachycardia, Clicks, Diastolic murmur, Gallop, Irregular Rhythm, JVD, RRR, Rubs, +S4 - GI/Abdominal Exam GI & Abdominal Exam: Soft, Normal Bowel Sounds. absent: Bruit, Distended, Firm, Guarding, Rigid, Tenderness, Diminished Bowel Sounds, Hernia, Hyperactive Bowel Sounds, Hypoactive Bowel Sounds, Organomegaly, Pulsatile Mass, Rebound, Mass - Rectal Exam Rectal Exam: Deferred - Extremities Exam Extremities Exam: Full ROM, Normal Capillary Refill, Pedal Edema. absent: Calf Tenderness, Joint Swelling, Normal Inspection, Tenderness - Back Exam Back Exam: NORMAL INSPECTION. absent: CVA tenderness (L), CVA tenderness (R), Full ROM, muscle spasm, paraspinal tenderness, rash noted, tenderness, vertebral tenderness - Neurological Exam Neurological Exam: Alert, Awake, CN II-XII Intact, Normal Gait, Oriented x3 - Psychiatric Exam Psychiatric exam: Normal Affect, Normal Mood. absent: Agitated, Anxious, Depressed, Flat Affect, Homicidal Ideation, Manic, Suicidal Ideation - Skin Skin Exam: Dry, Intact, Normal Color, Warm. absent: Abrasion, Cyanosis, Diaphoretic, Erythema, Mottled, Pallor, Pallor, Petechiae, Rash, Urticaria, Vesicles Assessment and Plan (1) Chest pain Status: Acute (2) Hemoptysis Status: Acute (3) Elevated troponin Status: Acute (4) Hepatic vein thrombosis Status: Acute (5) HTN (hypertension) Status: Chronic (6) Transaminitis Status: Acute (7) Hyperthyroidism Status: Chronic - Assessment and Plan (Free Text) Plan: echo reveals mod dilated RV and RA. Mild PHTN. would await vq prior to cath also consider id eval for leukocytosis prior to cath continue med management 45 MIN TOTAL CARE TIME
--- NOTE | 2018-06-21 12:26 | CP.PCM.CON ---
<Milo Dumont - Last Filed: 06/21/18 12:26> History of Present Illness - History of Present Illness History of Present Illness: SURGERY CONSULT NOTE FOR DR. NELSON Reason: enlarged CBD 67F present to hospital for chest pain and found to have a myocardial infarction on this admission. Patient also states she has been having RUQ pain on and off for the pain 2 months. She states pain is not associated with nausea or vomiting, she denies feeling fevers or chills associated with pain. She tolerates diet. She noticed she has been more jaundice over the past 2 weeks. PMH: COPD, HTN, CKD, Cardiac arrest, CHF, Cardiac arrest in the past PSH: Appendectomy, , right shoulder replacement Social: 100 year pack of tobacco, quit 17 years ago, denies alcohol or illicit drug abuse Allergies: NKDA Past Patient History - Infectious Disease Hx of Infectious Diseases: None - Past Medical History & Family History Past Medical History?: Yes - Past Social History Smoking Status: Former Smoker - CARDIAC Hx Cardiac Disorders: Yes (HTN, CHF) Hx Hypertension: Yes - PULMONARY Hx Respiratory Disorders: Yes (COPD) Hx Chronic Obstructive Pulmonary Disease (COPD): Yes - NEUROLOGICAL Hx Neurological Disorder: No - HEENT Hx HEENT Problems: No - RENAL Hx Chronic Kidney Disease: Yes - ENDOCRINE/METABOLIC Hx Endocrine Disorders: Yes (hyperthyroidism) Hx Hyperthyroidism: Yes - HEMATOLOGICAL/ONCOLOGICAL Hx Blood Disorders: No - INTEGUMENTARY Hx Dermatological Problems: No - MUSCULOSKELETAL/RHEUMATOLOGICAL Hx Musculoskeletal Disorders: No Hx Falls: No - GASTROINTESTINAL Hx Gastritis: Yes - GENITOURINARY/GYNECOLOGICAL Hx Genitourinary Disorders: Yes - PSYCHIATRIC Hx Psychophysiologic Disorder: No - SURGICAL HISTORY Hx Appendectomy: Yes - ANESTHESIA Hx Anesthesia: Yes Hx Anesthesia Reactions: No Meds Allergies/Adverse Reactions: Allergies Allergy/AdvReac Type Severity Reaction Status Date / Time No Known Allergies Allergy Verified 06/22/18 14:32 - Medications Medications: Current Medications Albuterol/Ipratropium (Duoneb 3 Mg/0.5 Mg (3 Ml) Ud) 3 ml INH RQ6 PRN PRN Reason: Shortness of Breath Albuterol/Ipratropium (Duoneb 3 Mg/0.5 Mg (3 Ml) Ud) 3 ml INH RQ6 [facility] Last Admin: 06/21/18 07:11 Dose: 3 ml Aspirin (Aspirin) 325 mg PO DAILY [facility] Last Admin: 06/21/18 09:16 Dose: 325 mg Bacitracin (Bacitracin Oint) 1 applic TOP BID [facility] Calcium/Vitamin D (Citracal+D 315mg/250iu) 1 tab PO DAILY [facility] Last Admin: 06/21/18 09:06 Dose: 1 tab Cholecalciferol (Vitamin D) 1,000 intlu PO DAILY [facility] Last Admin: 06/21/18 09:06 Dose: 1,000 intlu Enoxaparin Sodium (Lovenox) 40 mg SC DAILY [facility]; Protocol Last Admin: 06/21/18 09:05 Dose: 40 mg Gabapentin (Neurontin) 100 mg PO BID [facility] Last Admin: 06/21/18 09:08 Dose: Not Given Ceftriaxone Sodium 1 gm/ (Sodium Chloride) 100 mls @ 100 mls/hr IVPB DAILY [facility]; Protocol Last Admin: 06/21/18 09:03 Dose: 100 mls/hr Azithromycin 500 mg/ Sodium (Chloride) 250 mls @ 250 mls/hr IVPB DAILY [facility]; Protocol Last Admin: 06/21/18 09:03 Dose: 250 mls/hr Methimazole (Tapazole) 10 mg PO DAILY [facility] Last Admin: 06/21/18 09:05 Dose: 10 mg Metoprolol Succinate (Toprol Xl) 50 mg PO Q12 [facility] Last Admin: 06/21/18 09:06 Dose: Not Given Nitroglycerin (Nitrostat Sl Tab) 0.4 mg SL Q5M PRN PRN Reason: Pain, Mild (1-3) Pantoprazole Sodium (Protonix Ec Tab) 40 mg PO DAILY [facility] Last Admin: 06/21/18 09:07 Dose: 40 mg Sucralfate (Carafate Oral Susp) 1 gm PO QID [facility] Last Admin: 06/21/18 09:02 Dose: 1 gm Physical Exam - Constitutional Appears: Non-toxic, No Acute Distress - Eye Exam Eye Exam: EOMI, PERRL - ENT Exam ENT Exam: Mucous Membranes Moist - Respiratory Exam Respiratory Exam: Clear to Auscultation Bilateral, NORMAL BREATHING PATTERN - Cardiovascular Exam Cardiovascular Exam: REGULAR RHYTHM, +S1, +S2 - GI/Abdominal Exam GI & Abdominal Exam: Soft, Tenderness (RUQ tenderness). absent: Distended, Firm, Guarding, Rebound, Rigid - Extremities Exam Extremities exam: Negative for: pedal edema, tenderness - Neurological Exam Neurological exam: Alert, Oriented x3 - Psychiatric Exam Psychiatric exam: Normal Affect, Normal Mood - Skin Skin Exam: Dry, Intact, Warm Additional comments: jaundice Results - Vital Signs Recent Vital Signs: Last Vital Signs Temp 97.6 F 06/21/18 08:22 Pulse 88 06/21/18 09:06 Resp 20 06/21/18 08:22 BP 102/62 06/21/18 09:06 Pulse Ox 96 06/21/18 08:22 - Labs Result Diagrams: 06/21/18 04:20 06/21/18 04:20 Labs: Laboratory Results - last 24 hr 06/20/18 06/21/18 06/21/18 11:00 04:20 04:20 WBC 17.8 H D RBC 4.49 Hgb 14.8 Hct 43.0 MCV 95.8 MCH 33.0 H MCHC 34.4 RDW 14.7 H Plt Count 340 MPV 8.1 Neut % (Auto) 86.7 H Lymph % (Auto) 4.9 L [place] % (Auto) 7.5 Eos % (Auto) 0.1 Baso % (Auto) 0.8 Neut # (Auto) 15.4 H Lymph # (Auto) 0.9 L [place] # (Auto) 1.3 H Eos # (Auto) 0.0 Baso # (Auto) 0.1 Sodium 133 Potassium 3.3 L Chloride 102 Carbon Dioxide 23 Anion Gap 11 BUN 14 Creatinine 1.0 Est GFR ( Amer) > 60 Est GFR (Non-Af Amer) 55 Random Glucose 104 Calcium 8.5 Magnesium 2.0 Total Bilirubin 7.0 H AST 231 H ALT 110 H Alkaline Phosphatase 330 H Troponin I 0.5780 H* Total Protein 6.6 Albumin 3.1 L Globulin 3.5 Albumin/Globulin Ratio 0.9 L Amylase 37 Lipase 30 Hepatitis A IgM Ab Negative Hep Bs Antigen Negative Hep B Core IgM Ab Negative Hepatitis C Antibody Negative Assessment & Plan - Assessment and Plan (Free Text) Assessment: 67F presents with myocardial infarction, Transaminitis US: CBD- 10.9mm, no choledocholithiasis, GB sludge, mildly dilated Plan: - IVF - Antibiotics - Trend LFTs - Pain control - Recommend MRCP to evaluate CBD, patient refusing/metal shoulder - Recommend CT with pancreatic protocol - Recommend GI evaluation - No surgical intervention Discussed with Dr. Omar Dumont, PGY3 <Topher Nelson - Last Filed: 06/25/18 20:03> Meds - Medications Medications: Current Medications Albuterol/Ipratropium (Duoneb 3 Mg/0.5 Mg (3 Ml) Ud) 3 ml INH RQ6 PRN PRN Reason: Shortness of Breath Albuterol/Ipratropium (Duoneb 3 Mg/0.5 Mg (3 Ml) Ud) 3 ml INH RQ6 [facility] Last Admin: 06/25/18 13:03 Dose: 3 ml Calcium/Vitamin D (Citracal+D 315mg/250iu) 1 tab PO DAILY [facility] Last Admin: 06/25/18 11:34 Dose: Not Given Cholecalciferol (Vitamin D) 1,000 intlu PO DAILY [facility] Last Admin: 06/25/18 11:40 Dose: 1,000 intlu Emollient Ointment (Vaseline Oint) 1 pkt TOP DAILY [facility] Last Admin: 06/25/18 11:39 Dose: 1 pkt Gabapentin (Neurontin) 100 mg PO BID [facility] Last Admin: 06/25/18 17:44 Dose: Not Given Ceftriaxone Sodium 1 gm/ (Sodium Chloride) 100 mls @ 100 mls/hr IVPB DAILY [facility]; Protocol Last Admin: 06/25/18 11:37 Dose: 100 mls/hr Azithromycin 500 mg/ Sodium (Chloride) 250 mls @ 250 mls/hr IVPB DAILY [facility]; Protocol Last Admin: 06/25/18 11:37 Dose: 250 mls/hr Methimazole (Tapazole) 10 mg PO DAILY [facility] Last Admin: 06/25/18 11:39 Dose: 10 mg Metoprolol Succinate (Toprol Xl) 50 mg PO Q12 [facility] Last Admin: 06/25/18 11:39 Dose: 50 mg Nitroglycerin (Nitrostat Sl Tab) 0.4 mg SL Q5M PRN PRN Reason: Pain, Mild (1-3) Pantoprazole Sodium (Protonix Ec Tab) 40 mg PO DAILY [facility] Last Admin: 06/25/18 11:40 Dose: 40 mg Results - Vital Signs Recent Vital Signs: Last Vital Signs Temp 98 F 06/25/18 19:54 Pulse 77 06/25/18 19:54 Resp 18 06/25/18 19:54 BP 116/67 06/25/18 19:54 Pulse Ox 96 06/25/18 19:54 - Labs Result Diagrams: 06/25/18 05:00 06/25/18 05:00 Labs: Laboratory Results - last 24 hr 06/25/18 06/25/18 06/25/18 05:00 05:00 16:10 WBC 7.9 RBC 3.86 Hgb 12.6 Hct 36.9 MCV 95.4 MCH 32.6 H MCHC 34.2 RDW 15.0 H Plt Count 362 MPV 8.1 Neut % (Auto) 72.2 Lymph % (Auto) 15.1 L [place] % (Auto) 10.0 Eos % (Auto) 1.8 Baso % (Auto) 0.9 Neut # (Auto) 5.7 Lymph # (Auto) 1.2 [place] # (Auto) 0.8 Eos # (Auto) 0.1 Baso # (Auto) 0.1 Sodium 140 Potassium 3.5 L Chloride 109 H Carbon Dioxide 23 Anion Gap 12 BUN 9 Creatinine 0.8 Est GFR ( Amer) > 60 Est GFR (Non-Af Amer) > 60 Random Glucose 93 Calcium 8.9 Phosphorus 3.3 Total Bilirubin 4.7 H AST 116 H ALT 81 H Alkaline Phosphatase 547 H Total Protein 6.3 Albumin 2.8 L Globulin 3.5 Albumin/Globulin Ratio 0.8 L Attending/Attestation - Attestation I have personally seen and examined this patient.: Yes I have fully participated in the care of the patient.: Yes I have reviewed all pertinent clinical information: Yes Notes (Text): Pt was seen and examined at bedside Agree with above note and assessment Pt with upper abdominal pain and High Troponin Abdomen: Soft, Tender in RUQ, ND Labs and radiology reviewed Ass: Abdominal pain related to Chronic Cholecystitis with Dilated CBD Plan: Clear liquid diet GI consult Cardiology consult IV antibiotics c.w current mx Plan d.w pt in detail Risk and benefit explained in detail.
[2018-06-21] MEDS ORDERED: Iodixanol 320 MG/ML 100 ML BOTTLE IV ONE (15:52)
--- NOTE | 2018-06-21 16:22 | NM ---
Date of service: 06/21/2018 COMPARISON: 06/19/2018. Single-view chest TECHNIQUE: 35.9 mCi technetium 99-m DTPA aerosol. 4.54 mCI technetium 99-m MAA administered intravenously. FINDINGS: VENTILATION COMPONENT: Heterogeneous ventilation. Retention of radionuclide in the tracheobronchial tree and ingestion of radionuclide in the stomach, incidental findings PERFUSION COMPONENT: Heterogeneous distribution of radionuclide. No geographic, segmental, lobar abnormalities apparent on the present examination. IMPRESSION: Low probability ventilation perfusion scan for pulmonary embolism.
--- NOTE | 2018-06-21 16:54 | CT ---
Date of service: 06/21/2018 PROCEDURE: CT Abdomen without and with contrast HISTORY: CBD abnormal COMPARISON: None. TECHNIQUE: Helical CT the abdomen was performed from the domes the diaphragm to the symphysis pubis following dynamic intravenous contrast administration at 40 and 85 sec post intravenous contrast administration. Preliminary CT was performed prior to intravenous contrast administration through the same volume. Reformatted images of been submitted as well. Contrast dose: Visipaque 320, 95 cc Radiation dose: Total exam DLP = 1635.45 mGy-cm. This CT exam was performed using one or more of the following dose reduction techniques: Automated exposure control, adjustment of the mA and/or kV according to patient size, and/or use of iterative reconstruction technique. FINDINGS: LOWER THORAX: Pulmonary fibrotic changes are reiterated at the bases with limited subsegmental atelectasis. Cardiomegaly is stable. LIVER: Evaluation of the hepatic parenchyma fails demonstrate cystic or solid mass or definite patent vein thrombosis. However, filling defects are identified in a linear fashion in the distribution of the right and left portal veins best appreciated axial series 5 images 48 through 51 at the right and at the left, images 40 through 45. The suggest nonocclusive thrombosis and correspond to the sonographic images best shown at the left sided portal veins. Right-sided portal vein and involvement was not as easily demonstrated by ultrasound. It is difficult to completely exclude trace thrombosis within the lumen of the main portal vein at its proximal to mid segment. Nevertheless, enhancement throughout the liver is unremarkable. No cirrhosis pattern appreciated. Dilated intra and extrahepatic biliary tree is stable with the gallbladder distended as well. Radiodense choledocholithiasis remains unidentified. PANCREAS: Unremarkable. No gross lesion or ductal dilatation. SPLEEN: Unremarkable. ADRENALS: Unremarkable. No mass. KIDNEYS AND URETERS: Bilateral renal cysts are stable with no interval obstructive uropathy or definitive suspicious renal mass. VASCULATURE: Nonaneurysmal abdominal aortic calcific atherosclerotic changes are identified. BOWEL: Stomach is collapsed and the visualized small large-bowel loops appear unremarkable grossly. PERITONEUM: Unremarkable. No free fluid. No free air. LYMPH NODES: Unremarkable. No enlarged lymph nodes. OTHER FINDINGS: None. IMPRESSION: 1. No definite pattern to suggest hepatic venous thrombosis. 2. 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 No definite pattern of cirrhosis identified. 3. Dilated biliary tree reiterated as per above.
[2018-06-21] MEDS: Bacitracin OINT 15GM TOP SCH (17:18)
--- NOTE | 2018-06-21 19:43 | CP.PCM.CON ---
History of Present Illness - History of Present Illness History of Present Illness: 67 yo female with epigastric and RUQ pain over the past 4 weeks with new onset jaundice over the past 2 weeks. Patient initially was evaluated for possible cardiac or pulmonary source of pain. LFTs have been elevated. Pain described as sharp and under ribs on the right side. Review of Systems - Constitutional Constitutional: absent: Chills - EENT Eyes: absent: Blurred Vision Ears: absent: Ear Pain Nose/Mouth/Throat: absent: Nasal Discharge - Cardiovascular Cardiovascular: As Per HPI - Respiratory Respiratory: absent: Cough - Gastrointestinal Gastrointestinal: As Per HPI Past Patient History - Infectious Disease Hx of Infectious Diseases: None - Past Medical History & Family History Past Medical History?: Yes - Past Social History Smoking Status: Former Smoker Chewing Tobacco Use: No Cigar Use: No Alcohol: None Drugs: Denies Home Situation {Lives}: With Family Domestic Violence: Negative - CARDIAC Hx Cardiac Disorders: Yes (HTN, CHF) Hx Hypertension: Yes - PULMONARY Hx Respiratory Disorders: Yes (COPD) Hx Chronic Obstructive Pulmonary Disease (COPD): Yes - NEUROLOGICAL Hx Neurological Disorder: No - HEENT Hx HEENT Problems: No - RENAL Hx Chronic Kidney Disease: Yes - ENDOCRINE/METABOLIC Hx Endocrine Disorders: Yes (hyperthyroidism) Hx Hyperthyroidism: Yes - HEMATOLOGICAL/ONCOLOGICAL Hx Blood Disorders: No - INTEGUMENTARY Hx Dermatological Problems: No - MUSCULOSKELETAL/RHEUMATOLOGICAL Hx Musculoskeletal Disorders: No Hx Falls: No - GASTROINTESTINAL Hx Gastritis: Yes - GENITOURINARY/GYNECOLOGICAL Hx Genitourinary Disorders: Yes - PSYCHIATRIC Hx Psychophysiologic Disorder: No - SURGICAL HISTORY Hx Appendectomy: Yes - ANESTHESIA Hx Anesthesia: Yes Hx Anesthesia Reactions: No Meds Allergies/Adverse Reactions: Allergies Allergy/AdvReac Type Severity Reaction Status Date / Time No Known Allergies Allergy Verified 06/19/18 23:03 - Medications Medications: Current Medications Albuterol/Ipratropium (Duoneb 3 Mg/0.5 Mg (3 Ml) Ud) 3 ml INH RQ6 PRN PRN Reason: Shortness of Breath Albuterol/Ipratropium (Duoneb 3 Mg/0.5 Mg (3 Ml) Ud) 3 ml INH RQ6 [facility] Last Admin: 06/21/18 14:03 Dose: 3 ml Bacitracin (Bacitracin Oint) 1 applic TOP BID [facility] Last Admin: 06/21/18 17:18 Dose: 1 applic Calcium/Vitamin D (Citracal+D 315mg/250iu) 1 tab PO DAILY [facility] Last Admin: 06/21/18 09:06 Dose: 1 tab Cholecalciferol (Vitamin D) 1,000 intlu PO DAILY [facility] Last Admin: 06/21/18 09:06 Dose: 1,000 intlu Enoxaparin Sodium (Lovenox) 40 mg SC DAILY [facility]; Protocol Last Admin: 06/21/18 09:05 Dose: 40 mg Gabapentin (Neurontin) 100 mg PO BID [facility] Last Admin: 06/21/18 17:19 Dose: Not Given Ceftriaxone Sodium 1 gm/ (Sodium Chloride) 100 mls @ 100 mls/hr IVPB DAILY [facility]; Protocol Last Admin: 06/21/18 09:03 Dose: 100 mls/hr Azithromycin 500 mg/ Sodium (Chloride) 250 mls @ 250 mls/hr IVPB DAILY [facility]; Protocol Last Admin: 06/21/18 09:03 Dose: 250 mls/hr Methimazole (Tapazole) 10 mg PO DAILY [facility] Last Admin: 06/21/18 09:05 Dose: 10 mg Metoprolol Succinate (Toprol Xl) 50 mg PO Q12 [facility] Last Admin: 06/21/18 09:06 Dose: Not Given Nitroglycerin (Nitrostat Sl Tab) 0.4 mg SL Q5M PRN PRN Reason: Pain, Mild (1-3) Pantoprazole Sodium (Protonix Ec Tab) 40 mg PO DAILY [facility] Last Admin: 06/21/18 09:07 Dose: 40 mg Sucralfate (Carafate Oral Susp) 1 gm PO QID [facility] Last Admin: 06/21/18 17:18 Dose: 1 gm Physical Exam - Constitutional Appears: No Acute Distress - Head Exam Head Exam: ATRAUMATIC - Eye Exam Eye Exam: Scleral icterus - ENT Exam ENT Exam: Mucous Membranes Moist - Neck Exam Neck exam: Positive for: Full Rom - Respiratory Exam Respiratory Exam: Clear to Auscultation Bilateral - GI/Abdominal Exam GI & Abdominal Exam: Normal Bowel Sounds, Soft, Tenderness Additional comments: epigastrum and RUQ Results - Vital Signs Recent Vital Signs: Last Vital Signs Temp 97.5 F L 06/21/18 12:38 Pulse 90 06/21/18 12:38 Resp 20 06/21/18 12:38 BP 106/64 06/21/18 12:38 Pulse Ox 95 06/21/18 12:38 - Labs Result Diagrams: 06/21/18 04:20 06/21/18 04:20 Labs: Laboratory Results - last 24 hr 06/20/18 06/20/18 06/20/18 10:20 11:00 19:23 WBC RBC Hgb Hct MCV MCH MCHC RDW Plt Count MPV Neut % (Auto) Lymph % (Auto) [place] % (Auto) Eos % (Auto) Baso % (Auto) Neut # (Auto) Lymph # (Auto) [place] # (Auto) Eos # (Auto) Baso # (Auto) Sodium Potassium Chloride Carbon Dioxide Anion Gap BUN Creatinine Est GFR ( Amer) Est GFR (Non-Af Amer) Random Glucose Calcium Magnesium Total Bilirubin AST ALT Alkaline Phosphatase Troponin I Total Protein Albumin Globulin Albumin/Globulin Ratio Amylase Lipase 25-OH Vitamin D Total Hepatitis A IgM Ab Negative Hep Bs Antigen Negative Hep B Core IgM Ab Negative Hepatitis C Antibody Negative Ur L.pneumophila Ag Negative Mycoplasma pneumon IgM Negative 06/21/18 06/21/18 06/21/18 04:20 04:20 04:20 WBC 17.8 H D RBC 4.49 Hgb 14.8 Hct 43.0 MCV 95.8 MCH 33.0 H MCHC 34.4 RDW 14.7 H Plt Count 340 MPV 8.1 Neut % (Auto) 86.7 H Lymph % (Auto) 4.9 L [place] % (Auto) 7.5 Eos % (Auto) 0.1 Baso % (Auto) 0.8 Neut # (Auto) 15.4 H Lymph # (Auto) 0.9 L [place] # (Auto) 1.3 H Eos # (Auto) 0.0 Baso # (Auto) 0.1 Sodium 133 Potassium 3.3 L Chloride 102 Carbon Dioxide 23 Anion Gap 11 BUN 14 Creatinine 1.0 Est GFR ( Amer) > 60 Est GFR (Non-Af Amer) 55 Random Glucose 104 Calcium 8.5 Magnesium 2.0 Total Bilirubin 7.0 H AST 231 H ALT 110 H Alkaline Phosphatase 330 H Troponin I 0.5780 H* Total Protein 6.6 Albumin 3.1 L Globulin 3.5 Albumin/Globulin Ratio 0.9 L Amylase 37 Lipase 30 25-OH Vitamin D Total 47.8 Hepatitis A IgM Ab Hep Bs Antigen Hep B Core IgM Ab Hepatitis C Antibody Ur L.pneumophila Ag Mycoplasma pneumon IgM - Imaging and Cardiology CT scan - abdomen Status: Image reviewed by me, Report reviewed by me Assessment & Plan (1) Dilation of biliary tract Assessment and Plan: Extra and intrahepatic duct dilatation in patient with gallbladder intact. No definite stones were seen though sludge is present. LFT abnormalities consistent with cholestatic picture. Patient refusing MRCP due to metal in shoulder. ERCP is indicated to r/o Ampullary stricture/obstruction. If she is cleared by cardiology the procedure could be done as early as Thursday. Aspirin being held pending the ERCP. Status: Acute
--- NOTE | 2018-06-21 21:29 | CARD ---
APPROVED REPORT Date of service: 06/21/2018 EXAM: Two-dimensional and M-mode echocardiogram with Doppler and color Doppler. Other Information Quality : GoodRhythm : NSR INDICATION Congestive Heart Failure 2D DIMENSIONS IVSd1.04 (0.7-1.1cm)LVDd3.64 (3.9-5.9cm) PWd0.93 (0.7-1.1cm)IVSs1.33 (0.8-1.2cm) LVDs2.28 (2.5-4.0cm)FS (%) 37.4 % PWs1.33 (0.8-1.2cm) M-Mode DIMENSIONS Left Atrium (MM)4.06 (2.5-4.0cm)IVSd1.41 (0.7-1.1cm) Aortic Root2.85 (2.2-3.7cm)LVDd4.32 (4.0-5.6cm) Aortic Cusp Exc.1.82 (1.5-2.0cm)PWd1.21 (0.7-1.1cm) IVSs2.00 cmFS (%) 35 % LVDs2.79 (2.0-3.8cm)PWs1.44 cm Aortic Valve AoV Peak Xypbleuo575.1cm/sAoV VTI19.7cmAO Peak GR.7mmHg LVOT Peak Whovpkcz29.8cm/sLVOT VTI14.13cmAO Mean GR.3mmHg Mitral Valve MV E Lhfxviix03.1cm/sMV DECEL [id number] A Lvoozkko72.3cm/s MV NNE55biN/A ratio0.6MVA (PHT)3.59cm2 TDI Lateral E' Peak V9.29cm/sMedial E' Peak V7.01cm/sE/Lateral E'4.4 E/Medial E'5.9 Tricuspid Valve TR Peak [id number]/sRAP [id number] Peak Gr.30mmHg [id number] LEFT VENTRICLE The left ventricle is normal size. There is normal left ventricular wall thickness. The left ventricular systolic function is normal. The estimated ejection fraction is 55-60% No regional wall motion abnormalities noted.. Transmitral Doppler flow pattern is Grade I-abnormal relaxation pattern. No left ventricle thrombus noted on this study. There is no ventricular septal defect visualized. There is no left ventricular aneurysm. There is no mass noted in the left ventricle. RIGHT VENTRICLE The right ventricle is dilated. There is normal right ventricular wall thickness. The right ventricular systolic function is normal. ATRIA The left atrium is borderline dilated. The right atrium size is normal. The interatrial septum is intact with no evidence for an atrial septal defect. AORTIC VALVE The aortic valve is normal in structure. Trace aortic regurgitation is present. There is no aortic valvular stenosis. There is no aortic valvular vegetation. MITRAL VALVE The mitral valve is normal in structure. There is no evidence of mitral valve prolapse. There is no mitral valve stenosis. There is trace mitral valve regurgitation noted. TRICUSPID VALVE The tricuspid valve is normal in structure. There is mild to moderate tricuspid valve regurgitation noted. RVSP is calculated at 40 mm Hg. There is no tricuspid valve prolapse or vegetation. There is no tricuspid valve stenosis. PULMONIC VALVE The pulmonary valve is normal in structure. There is no pulmonic valvular regurgitation. There is no pulmonic valvular stenosis. GREAT VESSELS The aortic root is normal in size. The ascending aorta is normal in size. The pulmonary artery is normal. The IVC is dilated and collapses >50% with inspiration. PERICARDIAL EFFUSION There is no pericardial effusion. There is no pleural effusion. <Conclusion> The estimated ejection fraction is 55-60% Transmitral Doppler flow pattern is Grade I-abnormal relaxation pattern. The left atrium is borderline dilated. The right ventricle is dilated. Consider chronic Cor Pulmonale. There is mild to moderate tricuspid valve regurgitation noted. RVSP is calculated at 40 mm Hg. The IVC is dilated and collapses >50% with inspiration.
[2018-06-22] MEDS: Albuterol-Ipratrop 3 mg / 0.5 (3 ml) UD INH SCH ×4 (03:48→19:52)
[2018-06-22 05:23] LABS: BASO # 0.1 K/uL (0.0-0.2); BASO % 0.5 % (0.0-2.0); EOS # 0.1 K/uL (0.0-0.7); EOS % 0.8 % (0.0-4.0); HEMOGLOBIN 14.1 g/dL (12.0-16.0); LYMPH # 0.8 K/uL (1.0-4.3); LYMPH % 6.8 % (20.0-40.0); MEAN CELL VOLUME 96.3 fl (81.0-99.0); MEAN CORPUSCULAR HEMOGLOBIN 32.6 pg (27.0-31.0); MEAN CORPUSCULAR HGB CONC 33.9 g/dL (33.0-37.0); MEAN PLATELET VOLUME 8.1 fl (7.2-11.7); MONO # 0.6 K/uL (0.0-0.8); MONO % 5.3 % (0.0-10.0); NEUT # 9.9 K/uL (1.8-7.0); NEUT % 86.6 % (50.0-75.0); RBC 4.32 Mil/uL (3.80-5.20); WHITE BLOOD COUNT 11.4 K/uL (4.8-10.8)
[2018-06-22 05:31] LABS: ALB/GLOB RATIO 0.9 (1.0-2.1); ALBUMIN 3.1 g/dL (3.5-5.0); ALT/SGPT 114 U/L (9-52); AST/SGOT 183 U/L (14-36); BLOOD UREA NITROGEN 12 mg/dl (7-17); CALCIUM 9.1 mg/dL (8.4-10.2); GFR NON-AFRICAN AMERICAN > 60
--- NOTE | 2018-06-22 07:24 | CP.PCM.PN ---
<Milo Dumont D - Last Filed: 06/22/18 07:22> Subjective - Date & Time of Evaluation Date of Evaluation: 06/22/18 Time of Evaluation: 07:22 - Subjective Subjective: SURGERY NOTE FOR DR. NELSON 67F presents with no acute events overnight. Objective - Vital Signs/Intake and Output Vital Signs (last 24 hours): Temp Pulse Resp BP Pulse Ox 97.5 F L 83 18 118/74 95 06/22/18 05:00 06/22/18 05:00 06/22/18 05:00 06/22/18 05:00 06/22/18 05:00 - Medications Medications: Current Medications Albuterol/Ipratropium (Duoneb 3 Mg/0.5 Mg (3 Ml) Ud) 3 ml INH RQ6 PRN PRN Reason: Shortness of Breath Albuterol/Ipratropium (Duoneb 3 Mg/0.5 Mg (3 Ml) Ud) 3 ml INH RQ6 [facility] Last Admin: 06/22/18 03:48 Dose: Not Given Bacitracin (Bacitracin Oint) 1 applic TOP BID [facility] Last Admin: 06/21/18 17:18 Dose: 1 applic Calcium/Vitamin D (Citracal+D 315mg/250iu) 1 tab PO DAILY [facility] Last Admin: 06/21/18 09:06 Dose: 1 tab Cholecalciferol (Vitamin D) 1,000 intlu PO DAILY [facility] Last Admin: 06/21/18 09:06 Dose: 1,000 intlu Enoxaparin Sodium (Lovenox) 40 mg SC DAILY [facility]; Protocol Last Admin: 06/21/18 09:05 Dose: 40 mg Gabapentin (Neurontin) 100 mg PO BID [facility] Last Admin: 06/21/18 17:19 Dose: Not Given Ceftriaxone Sodium 1 gm/ (Sodium Chloride) 100 mls @ 100 mls/hr IVPB DAILY [facility]; Protocol Last Admin: 06/21/18 09:03 Dose: 100 mls/hr Azithromycin 500 mg/ Sodium (Chloride) 250 mls @ 250 mls/hr IVPB DAILY [facility]; Protocol Last Admin: 06/21/18 09:03 Dose: 250 mls/hr Methimazole (Tapazole) 10 mg PO DAILY [facility] Last Admin: 06/21/18 09:05 Dose: 10 mg Metoprolol Succinate (Toprol Xl) 50 mg PO Q12 [facility] Last Admin: 06/21/18 21:13 Dose: 50 mg Nitroglycerin (Nitrostat Sl Tab) 0.4 mg SL Q5M PRN PRN Reason: Pain, Mild (1-3) Pantoprazole Sodium (Protonix Ec Tab) 40 mg PO DAILY [facility] Last Admin: 06/21/18 09:07 Dose: 40 mg Sucralfate (Carafate Oral Susp) 1 gm PO QID [facility] Last Admin: 06/21/18 21:14 Dose: 1 gm - Labs Labs: 06/22/18 04:50 06/22/18 04:50 PT 12.9 Seconds (9.8-13.1) 06/19/18 23:45 INR 1.1 06/19/18 23:45 APTT 33.2 Seconds (25.6-37.1) 06/19/18 23:45 Assessment and Plan - Assessment and Plan (Free Text) Assessment: 67F with dilated CBD, transaminitis, with cardiac event Plan: - No surgical intervention - Per GI patient needs ERCP, pending cardiac clearance - Trend LFTS Further recs discuss with Dr. Omar Dumont, PGY3 <Topher Nelson - Last Filed: 06/25/18 20:04> Objective - Vital Signs/Intake and Output Vital Signs (last 24 hours): Temp Pulse Resp BP Pulse Ox 98 F 77 18 116/67 96 06/25/18 19:54 06/25/18 19:54 06/25/18 19:54 06/25/18 19:54 06/25/18 19:54 Intake and Output: 06/25/18 06/26/18 18:59 06:59 Intake Total 350 Balance 350 - Medications Medications: Current Medications Albuterol/Ipratropium (Duoneb 3 Mg/0.5 Mg (3 Ml) Ud) 3 ml INH RQ6 PRN PRN Reason: Shortness of Breath Albuterol/Ipratropium (Duoneb 3 Mg/0.5 Mg (3 Ml) Ud) 3 ml INH RQ6 [facility] Last Admin: 06/25/18 13:03 Dose: 3 ml Calcium/Vitamin D (Citracal+D 315mg/250iu) 1 tab PO DAILY [facility] Last Admin: 06/25/18 11:34 Dose: Not Given Cholecalciferol (Vitamin D) 1,000 intlu PO DAILY [facility] Last Admin: 06/25/18 11:40 Dose: 1,000 intlu Emollient Ointment (Vaseline Oint) 1 pkt TOP DAILY [facility] Last Admin: 06/25/18 11:39 Dose: 1 pkt Gabapentin (Neurontin) 100 mg PO BID [facility] Last Admin: 06/25/18 17:44 Dose: Not Given Ceftriaxone Sodium 1 gm/ (Sodium Chloride) 100 mls @ 100 mls/hr IVPB DAILY [facility]; Protocol Last Admin: 06/25/18 11:37 Dose: 100 mls/hr Azithromycin 500 mg/ Sodium (Chloride) 250 mls @ 250 mls/hr IVPB DAILY [facility]; Protocol Last Admin: 06/25/18 11:37 Dose: 250 mls/hr Methimazole (Tapazole) 10 mg PO DAILY [facility] Last Admin: 06/25/18 11:39 Dose: 10 mg Metoprolol Succinate (Toprol Xl) 50 mg PO Q12 [facility] Last Admin: 06/25/18 11:39 Dose: 50 mg Nitroglycerin (Nitrostat Sl Tab) 0.4 mg SL Q5M PRN PRN Reason: Pain, Mild (1-3) Pantoprazole Sodium (Protonix Ec Tab) 40 mg PO DAILY [facility] Last Admin: 06/25/18 11:40 Dose: 40 mg - Labs Labs: 06/25/18 05:00 06/25/18 05:00 PT 12.9 Seconds (9.8-13.1) 06/19/18 23:45 INR 1.1 06/19/18 23:45 APTT 33.2 Seconds (25.6-37.1) 06/19/18 23:45 Attending/Attestation - Attestation I have personally seen and examined this patient.: Yes I have fully participated in the care of the patient.: Yes I have reviewed all pertinent clinical information, including history, physical exam and plan: Yes Notes (Text): Pt was seen and examined at bedside Agree with above note and assessment Pt with abdominal pain related to Chronic Cholecystitis with Dilated CBD GI consult for ERCP Cardiology consult IV antibiotics c.w current mx Plan d.w pt in detail Risk and benefit explained in detail.
[2018-06-22] MEDS: Bacitracin OINT 15GM TOP SCH (09:16)
[2018-06-22] MEDS: Enoxaparin 40 mg Syringe SC SCH (09:16)
[2018-06-22] MEDS: Pantoprazole 40 mg EC Tab PO SCH (09:17)
[2018-06-22] MEDS: Metoprolol Succinate 50 mg XL Tab PO SCH ×2 (09:17→21:49)
[2018-06-22] MEDS: Cholecalciferol 1,000 INTLU TAB PO SCH (09:17)
[2018-06-22] MEDS: Sucralfate 1 gm/10 ml Oral Susp UD PO SCH ×4 (09:17→22:06)
[2018-06-22] MEDS: Citracal+D 315mg/250IU PO SCH (09:17)
[2018-06-22] MEDS: Azithromycin 500 MG in Sodium Chloride 0.9% 250 ML IVPB SCH (09:25)
--- NOTE | 2018-06-22 09:51 | CP.PCM.PN ---
Subjective - Date & Time of Evaluation Date of Evaluation: 06/22/18 Time of Evaluation: 09:00 - Subjective Subjective: Pt seen and evaluated at bedside, sitting up, eating breakfast. Reports that she does not have chest pain, had an episode of RUQ abdominal pain overnight which was relieved with 1 dose naproxen. Pt states she is agreeable to ERCP; anxious to know results of scans done yesterday. Objective - Vital Signs/Intake and Output Vital Signs (last 24 hours): Temp Pulse Resp BP Pulse Ox 98.0 F 80 18 104/67 96 06/22/18 07:56 06/22/18 09:17 06/22/18 07:56 06/22/18 09:17 06/22/18 07:56 - Medications Medications: Current Medications Albuterol/Ipratropium (Duoneb 3 Mg/0.5 Mg (3 Ml) Ud) 3 ml INH RQ6 PRN PRN Reason: Shortness of Breath Albuterol/Ipratropium (Duoneb 3 Mg/0.5 Mg (3 Ml) Ud) 3 ml INH RQ6 [facility] Last Admin: 06/22/18 08:18 Dose: 3 ml Bacitracin (Bacitracin Oint) 1 applic TOP BID [facility] Last Admin: 06/22/18 09:16 Dose: 1 applic Calcium/Vitamin D (Citracal+D 315mg/250iu) 1 tab PO DAILY [facility] Last Admin: 06/22/18 09:17 Dose: 1 tab Cholecalciferol (Vitamin D) 1,000 intlu PO DAILY [facility] Last Admin: 06/22/18 09:17 Dose: 1,000 intlu Enoxaparin Sodium (Lovenox) 40 mg SC DAILY [facility]; Protocol Last Admin: 06/22/18 09:16 Dose: 40 mg Gabapentin (Neurontin) 100 mg PO BID [facility] Last Admin: 06/22/18 09:17 Dose: 100 mg Ceftriaxone Sodium 1 gm/ (Sodium Chloride) 100 mls @ 100 mls/hr IVPB DAILY [facility]; Protocol Last Admin: 06/22/18 09:21 Dose: 100 mls/hr Azithromycin 500 mg/ Sodium (Chloride) 250 mls @ 250 mls/hr IVPB DAILY [facility]; Protocol Last Admin: 06/22/18 09:25 Dose: 250 mls/hr Methimazole (Tapazole) 10 mg PO DAILY [facility] Last Admin: 06/22/18 09:16 Dose: 10 mg Metoprolol Succinate (Toprol Xl) 50 mg PO Q12 [facility] Last Admin: 06/22/18 09:17 Dose: 50 mg Nitroglycerin (Nitrostat Sl Tab) 0.4 mg SL Q5M PRN PRN Reason: Pain, Mild (1-3) Pantoprazole Sodium (Protonix Ec Tab) 40 mg PO DAILY [facility] Last Admin: 06/22/18 09:17 Dose: 40 mg Sucralfate (Carafate Oral Susp) 1 gm PO QID [facility] Last Admin: 06/22/18 09:17 Dose: 1 gm - Labs Labs: 06/22/18 04:50 06/22/18 04:50 PT 12.9 Seconds (9.8-13.1) 06/19/18 23:45 INR 1.1 06/19/18 23:45 APTT 33.2 Seconds (25.6-37.1) 06/19/18 23:45 - Constitutional Appears: No Acute Distress - Head Exam Head Exam: NORMAL INSPECTION - Respiratory Exam Respiratory Exam: Clear to Ausculation Bilateral, NORMAL BREATHING PATTERN. absent: Respiratory Distress - GI/Abdominal Exam GI & Abdominal Exam: Soft, Normal Bowel Sounds - Extremities Exam Extremities Exam: absent: Calf Tenderness - Back Exam Back Exam: NORMAL INSPECTION - Neurological Exam Neurological Exam: Alert, Oriented x3 - Psychiatric Exam Psychiatric exam: Anxious - Skin Skin Exam: Warm Additional comments: jaundiced hue Assessment and Plan - Assessment and Plan (Free Text) Assessment: 67 yo F with hx COPD, HTN, Hyperthyroidism, admitted with chest pain and elevated troponin/NSTEMI. 4 Trop positive; last one 0.5780 (down from peak). Currently stable. EKG with sinus tach and no acute changes. Had elevated D-dimer; CTA ordered and neg for acute PE; showed COPD pattern and subcentimeter pulm nodules; prelim report reported multifocal PNA as well. Pt has leukocytosis and cough; started on ceftriaxone/azithro on 04/20 (today is day 3). Legionella/mycoplasma negative. Leukocytosis trending down. Cardiology- Dr. Vizcarra - recs appreciated; VQ scan ordered-- low probability for PE; considering cardiac cath with ID clearance; ID consulted- Dr. Graf. Echo: reveals mod dilated RV and RA. Mild PHTN. EF 55-60%. Also found to have transaminitis - CT abd/pelvis w/ liver protocol ordered originally, however then changed to CT abd/pelvis with pancreatic protocol. CT abd/pelvis w/ pancreatic protocol: Nonocclusive thrombosis and correspond to the sonographic images best shown at the left sided portal veins. Right-sided portal vein and involvement was not as easily demonstrated by ultrasound. It is difficult to completely exclude trace thrombosis within the lumen of the main portal vein at its proximal to mid segment. Nevertheless, enhancement throughout the liver is unremarkable. No cirrhosis pattern appreciated. Dilated intra and extra-hepatic biliary tree is stable with the gallbladder distended as well. Radiodense choledocholithiasis remains unidentified. Pancreas: unremarkable. Hematology consulted- Dr. Mccoy. GI consult - Dr. Sutherland- will need ERCP pending cardiac clearance (pt refusing MRCP due to past shoulder surgery). Plan: Elevated troponin/NSTEMI/chest pain - Cardiology consult Dr. Vizcarra; input and recs appreciated; reviewed EKG in ED and stated symptoms and troponin are more concerning for respiratory etiology, hold lovenox for now; VQ scan recommended and showed low probability ventilation perfusion scan for pulmonary embolism - CTA chest: negative for pulmonary embolism or arterial dissection; sub centimeter nodules; infiltrates/atelectasis - Echo complete Jaundice/Abnormal LFT - Hepatitis panel, HIV screen - CT abd/pelvis w/ pancreatic protocol completed; results as above in Assessment - GI consult - Dr. Sutherland; input and recs appreciated rec MRCP but since luis ent is not agreeable, will plan for ERCP pending cardiac clearance. - Surg Consult- Dr. Farley; input and recs appreciated - no surg intervention at this time Non occlusive Thrombosis Portal Vein - Heme onc consulted Tachycardia - EKG: sinus tachy, no acute chnges - Cardiazem d/c by cardiology Pneumonia, prob bacterial ( POA) - C/w IV Azithro and Ceftriaxone, today is day 3 - Elevated WBC, however trending down, 11 today from 17 yest - Duoneb, scheduled - Follow up blood and sputum cultures COPD - Continue home medications - Supplemental O2 via NC to keep O2 sat above 92% Hypertension -Chronic, stable -Continue home medications Hyperthyroidism -Chronic, continue home medications - TSH 1.18 wnl, T4 9.36 wnl Nausea/Vomiting - Resolved; tolerating regular diet DVT prophylaxis - SCD - Lovenox
--- NOTE | 2018-06-22 10:31 | CP.PCM.CON ---
History of Present Illness - History of Present Illness History of Present Illness: 67F presented to the hospital for chest pain and found to have a myocardial infarction She states she has been having RUQ pain on and off for the past 2 months. She was found to have jaundice and elevated LFT's Hep serology nega tive GI on board MRCP on hold due to shoulder prosthesis ERCP is planned On IV antibiotics for HCAP Rx in progress PMH: COPD, HTN, CKD, Cardiac arrest, CHF, Cardiac arrest in the past PSH: Appendectomy, , right shoulder replacement Social: 100 year pack of tobacco, quit 17 years ago, denies alcohol or illicit drug abuse Allergies: NKDA Review of Systems - Constitutional Constitutional: absent: As Per HPI, Anorexia, Chills, Daytime Sleepiness, Excessive Sweating, Fatigue, Fever, Frequent Falls, Headache, Increased Appetite, Lethargy, Malaise, Night Sweats, Snoring, Sleep Apnea, Weight Gain, Weight Loss, Weakness, Other - EENT Eyes: absent: As Per HPI, Blind Spots, Blurred Vision, Change in Vision, Decreased Night Vision, Diplopia, Discharge, Dry Eye, Exophthalmos, Floaters, Irritation, Itchy Eyes, Loss of Peripheral Vision, Pain, Photophobia, Requires Corrective Lenses, Sees Flashes, Spots in Vision, Tunnel Vision, Other Visual Disturbances, Loss of Vision, Other Ears: absent: As Per HPI, Decreased Hearing, Ear Discharge, Ear Pain, Tinnitus, Abnormal Hearing, Disequilibrium, Dizziness, Other Nose/Mouth/Throat: absent: As Per HPI, Epistaxis, Nasal Congestion, Nasal Discharge, Nasal Obstruction, Nasal Trauma, Nose Pain, Post Nasal Drip, Sinus Pain, Sinus Pressure, Bleeding Gums, Change in Voice, Dental Pain, Dry Mouth, Dysphagia, Halitosis, Hoarsness, Lip Swelling, Mouth Lesions, Mouth Pain, Odynophagia, Sore Throat, Throat Swelling, Tongue Swelling, Facial Pain, Neck Pain, Neck Mass, Other - Cardiovascular Cardiovascular: Dyspnea - Respiratory Respiratory: Cough, Dyspnea - Gastrointestinal Gastrointestinal: absent: As Per HPI, Abdominal Pain, Belching, Bloating, Change in Bowel Habits, Change in Stool Character, Coffee Ground Emesis, Constipation, Cramping, Diarrhea, Dyspepsia, Dysphagia, Early Satiety, Excessive Flatus, Fecal Incontinence, Heartburn, Hematemesis, Hematochezia, Loose Stools, Melena, Nausea, Odynophagia, Temesmus, Vomiting, Other - Genitourinary Genitourinary: absent: As Per HPI, Change in Urinary Stream, Difficulty Urinating, Dysuria, Flank Pain, Hematuria, Pyuria, Nocturia, Urinary Incontinence, Urinary Frequency, Urinary Hesitance, Urinary Urgency, Voiding Freq/Small Amts, Freq UTI, Hx Renal/Bladder Calculi, Hx /Renal Surgery, Bladder Distension, Other - Musculoskeletal Musculoskeletal: absent: As Per HPI, Abnormal Gait, Arthralgias, Atrophy, Back Pain, Deformity, Joint Swelling, Limited Range of Motion, Loss of Height, Muscle Cramps, Muscle Weakness, Myalgias, Neck Pain, Numbness, Radiating Pain into Limb, Stiffness, Tingling, Other - Integumentary Integumentary: absent: As Per HPI, Acne, Alopecia, Bleeding Lesions, Change in Hair, Change in Nails, Change in Pigmentation, Changing Lesions, Dry Skin, Erythema, Furuncle, Hirsutism, Lesions, New Lesions, Non-Healing Lesions, Photosensitivity, Pruritus, Rash, Skin Pain, Skin Ulcer, Sores, Striae, Swelling, Unusual Bruising, Wounds, Jaundice, Other - Neurological Neurological: absent: As Per HPI, Abnormal Gait, Abnormal Hearing, Abnormal Movements, Abnormal Speech, Behavioral Changes, Burning Sensations, Confusion, Convulsions, Disequilibrium, Dizziness, Numbness, Focal Weakness, Frequent Falls, Headaches, Lack of Coordination, Loss of Vision, Memory Loss, Paresthesias, Radicular Pain, Restless Legs, Sensory Deficit, Syncope, Tingling, Tremor, Vertigo, Weakness, Other Visual Disturbances, Other - Psychiatric Psychiatric: absent: As Per HPI, Abnormal Sleep Pattern, Anhedonia, Anxiety, Auditory Hallucinations, Behavioral Changes, Change in Appetite, Change in Libido, Confusion, Depression, Difficulty Concentrating, Hallucinations, Homicidal Ideation, Hopelessness, Irritability, Memory Loss, Mood Swings, Panic Attacks, Paranoia, Suicidal Ideation, Visual Hallucinations, Tactile Hallucinations, Other - Endocrine Endocrine: absent: As Per HPI, Change in Body Appearance, Change in Libido, Cold Intolorance, Deepening of Voice, Excessive Sweating, Fatigue, Flushing, Heat Intolorance, Increase in Ring/Shoe/Hat Size, Palpitations, Polydipsia, Polyphagia, Polyuria, Other - Hematologic/Lymphatic Hematologic: absent: As Per HPI, Easy Bleeding, Easy Bruising, Lymphadenopathy, Other Past Patient History - Infectious Disease Hx of Infectious Diseases: None - Past Medical History & Family History Past Medical History?: Yes - Past Social History Smoking Status: Former Smoker Chewing Tobacco Use: No Cigar Use: No Alcohol: None Drugs: Denies Home Situation {Lives}: With Family Domestic Violence: Negative - CARDIAC Hx Cardiac Disorders: Yes (HTN, CHF) Hx Hypertension: Yes - PULMONARY Hx Respiratory Disorders: Yes (COPD) Hx Chronic Obstructive Pulmonary Disease (COPD): Yes - NEUROLOGICAL Hx Neurological Disorder: No - HEENT Hx HEENT Problems: No - RENAL Hx Chronic Kidney Disease: Yes - ENDOCRINE/METABOLIC Hx Endocrine Disorders: Yes (hyperthyroidism) Hx Hyperthyroidism: Yes - HEMATOLOGICAL/ONCOLOGICAL Hx Blood Disorders: No - INTEGUMENTARY Hx Dermatological Problems: No - MUSCULOSKELETAL/RHEUMATOLOGICAL Hx Musculoskeletal Disorders: No Hx Falls: No - GASTROINTESTINAL Hx Gastritis: Yes - GENITOURINARY/GYNECOLOGICAL Hx Genitourinary Disorders: Yes - PSYCHIATRIC Hx Psychophysiologic Disorder: No - SURGICAL HISTORY Hx Appendectomy: Yes - ANESTHESIA Hx Anesthesia: Yes Hx Anesthesia Reactions: No Meds Allergies/Adverse Reactions: Allergies Allergy/AdvReac Type Severity Reaction Status Date / Time No Known Allergies Allergy Verified 06/22/18 14:32 - Medications Medications: Current Medications Albuterol/Ipratropium (Duoneb 3 Mg/0.5 Mg (3 Ml) Ud) 3 ml INH RQ6 PRN PRN Reason: Shortness of Breath Albuterol/Ipratropium (Duoneb 3 Mg/0.5 Mg (3 Ml) Ud) 3 ml INH RQ6 [facility] Last Admin: 06/22/18 08:18 Dose: 3 ml Bacitracin (Bacitracin Oint) 1 applic TOP BID [facility] Last Admin: 06/22/18 09:16 Dose: 1 applic Calcium/Vitamin D (Citracal+D 315mg/250iu) 1 tab PO DAILY [facility] Last Admin: 06/22/18 09:17 Dose: 1 tab Cholecalciferol (Vitamin D) 1,000 intlu PO DAILY [facility] Last Admin: 06/22/18 09:17 Dose: 1,000 intlu Enoxaparin Sodium (Lovenox) 40 mg SC DAILY [facility]; Protocol Last Admin: 01/15/19 09:16 Dose: 40 mg Gabapentin (Neurontin) 100 mg PO BID [facility] Last Admin: 06/22/18 09:17 Dose: 100 mg Ceftriaxone Sodium 1 gm/ (Sodium Chloride) 100 mls @ 100 mls/hr IVPB DAILY [facility]; Protocol Last Admin: 06/22/18 09:21 Dose: 100 mls/hr Azithromycin 500 mg/ Sodium (Chloride) 250 mls @ 250 mls/hr IVPB DAILY [facility]; Protocol Last Admin: 06/22/18 09:25 Dose: 250 mls/hr Methimazole (Tapazole) 10 mg PO DAILY [facility] Last Admin: 06/22/18 09:16 Dose: 10 mg Metoprolol Succinate (Toprol Xl) 50 mg PO Q12 [facility] Last Admin: 06/22/18 09:17 Dose: 50 mg Nitroglycerin (Nitrostat Sl Tab) 0.4 mg SL Q5M PRN PRN Reason: Pain, Mild (1-3) Pantoprazole Sodium (Protonix Ec Tab) 40 mg PO DAILY [facility] Last Admin: 06/22/18 09:17 Dose: 40 mg Sucralfate (Carafate Oral Susp) 1 gm PO QID [facility] Last Admin: 06/22/18 09:17 Dose: 1 gm Physical Exam - Constitutional Appears: Non-toxic, Confused, Chronically Ill - Head Exam Head Exam: ATRAUMATIC, NORMOCEPHALIC - Eye Exam Eye Exam: PERRL. absent: Scleral icterus - ENT Exam ENT Exam: Mucous Membranes Dry - Neck Exam Neck exam: Negative for: Lymphadenopathy, Thyromegaly - Respiratory Exam Respiratory Exam: Decreased Breath Sounds, Prolonged Expiratory Phase, Rhonchi - Cardiovascular Exam Cardiovascular Exam: REGULAR RHYTHM, +S1, +S2 - GI/Abdominal Exam GI & Abdominal Exam: Diminished Bowel Sounds, Soft. absent: Tenderness - Exam Exam: NORMAL INSPECTION - Extremities Exam Extremities exam: Positive for: pedal edema, pedal pulses present. Negative for: calf tenderness - Back Exam Back exam: absent: CVA tenderness (L), CVA tenderness (R), paraspinal tenderness - Neurological Exam Neurological exam: Alert, Altered, CN II-XII Intact - Psychiatric Exam Psychiatric exam: Depressed Results - Vital Signs Recent Vital Signs: Last Vital Signs Temp 98.0 F 06/22/18 07:56 Pulse 80 06/22/18 09:17 Resp 18 06/22/18 07:56 BP 104/67 06/22/18 09:17 Pulse Ox 96 06/22/18 07:56 - Labs Result Diagrams: 06/22/18 04:50 06/22/18 04:50 Labs: Laboratory Results - last 24 hr 06/20/18 06/20/18 06/21/18 10:20 19:23 04:20 WBC RBC Hgb Hct MCV MCH MCHC RDW Plt Count MPV Neut % (Auto) Lymph % (Auto) Jay % (Auto) Eos % (Auto) Baso % (Auto) Neut # (Auto) Lymph # (Auto) Jay # (Auto) Eos # (Auto) Baso # (Auto) Sodium Potassium Chloride Carbon Dioxide Anion Gap BUN Creatinine Est GFR ( Amer) Est GFR (Non-Af Amer) Random Glucose Calcium Magnesium Total Bilirubin AST ALT Alkaline Phosphatase Total Protein Albumin Globulin Albumin/Globulin Ratio 25-OH Vitamin D Total 47.8 Ur L.pneumophila Ag Negative Mycoplasma pneumon IgM Negative 06/22/18 06/22/18 04:50 04:50 WBC 11.4 H RBC 4.32 Hgb 14.1 Hct 41.6 MCV 96.3 MCH 32.6 H MCHC 33.9 RDW 15.0 H Plt Count 330 MPV 8.1 Neut % (Auto) 86.6 H Lymph % (Auto) 6.8 L Jay % (Auto) 5.3 Eos % (Auto) 0.8 Baso % (Auto) 0.5 Neut # (Auto) 9.9 H Lymph # (Auto) 0.8 L Jay # (Auto) 0.6 Eos # (Auto) 0.1 Baso # (Auto) 0.1 Sodium 137 Potassium 4.7 Chloride 101 Carbon Dioxide 23 Anion Gap 18 BUN 12 Creatinine 0.9 Est GFR ( Amer) > 60 Est GFR (Non-Af Amer) > 60 Random Glucose 98 Calcium 9.1 Magnesium 2.4 H Total Bilirubin 5.6 H AST 183 H D ALT 114 H Alkaline Phosphatase 360 H Total Protein 6.5 Albumin 3.1 L Globulin 3.4 Albumin/Globulin Ratio 0.9 L 25-OH Vitamin D Total Ur L.pneumophila Ag Mycoplasma pneumon IgM Assessment & Plan (1) Chest pain Status: Acute (2) Dilation of biliary tract Status: Acute (3) Elevated troponin Status: Acute (4) Hemoptysis Status: Acute (5) Hepatic vein thrombosis Status: Acute (6) NSTEMI (non-ST elevated myocardial infarction) Status: Acute (7) Tachycardia Status: Acute (8) Transaminitis Status: Acute - Assessment and Plan (Free Text) Assessment: r/o acending cholangitis 'r/o sepsis recuklturesd IV antibiiotics adjusted
[2018-06-22 15:23] LABS: SQUAMOUS EPITHIAL 1 /hpf (0-5); URINE BACTERIA RARE (<OCC); URINE BILIRUBIN MODERATE (NEGATIVE); URINE BLOOD NEGATIVE (NEGATIVE); URINE CLARITY CLOUDY (Clear); URINE COLOR AMBER (YELLOW); URINE GLUCOSE (UA) NEG (NEGATIVE); URINE LEUKOCYTE ESTERASE NEG Leu/uL (Negative); URINE PROTEIN 30 mg/dL (NEGATIVE)
--- NOTE | 2018-06-22 15:59 | CP.PCM.PN ---
Subjective - Date & Time of Evaluation Date of Evaluation: 06/22/18 Time of Evaluation: 15:52 - Subjective Subjective: Generally feeling well at this point. Had elevated troponin when admittted. Objective - Vital Signs/Intake and Output Vital Signs (last 24 hours): Temp Pulse Resp BP Pulse Ox 97.8 F 81 18 108/72 96 06/22/18 11:46 06/22/18 11:46 06/22/18 11:46 06/22/18 11:46 06/22/18 11:46 - Medications Medications: Current Medications Albuterol/Ipratropium (Duoneb 3 Mg/0.5 Mg (3 Ml) Ud) 3 ml INH RQ6 PRN PRN Reason: Shortness of Breath Albuterol/Ipratropium (Duoneb 3 Mg/0.5 Mg (3 Ml) Ud) 3 ml INH RQ6 [facility] Last Admin: 06/22/18 13:29 Dose: 3 ml Bacitracin (Bacitracin Oint) 1 applic TOP BID [facility] Last Admin: 06/22/18 09:16 Dose: 1 applic Calcium/Vitamin D (Citracal+D 315mg/250iu) 1 tab PO DAILY [facility] Last Admin: 06/22/18 09:17 Dose: 1 tab Cholecalciferol (Vitamin D) 1,000 intlu PO DAILY [facility] Last Admin: 06/22/18 09:17 Dose: 1,000 intlu Emollient Ointment (Vaseline Oint) 1 pkt TOP DAILY [facility] Enoxaparin Sodium (Lovenox) 40 mg SC DAILY [facility]; Protocol Last Admin: 06/22/18 09:16 Dose: 40 mg Gabapentin (Neurontin) 100 mg PO BID [facility] Last Admin: 06/22/18 09:17 Dose: 100 mg Ceftriaxone Sodium 1 gm/ (Sodium Chloride) 100 mls @ 100 mls/hr IVPB DAILY [facility]; Protocol Last Admin: 06/22/18 09:21 Dose: 100 mls/hr Azithromycin 500 mg/ Sodium (Chloride) 250 mls @ 250 mls/hr IVPB DAILY [facility]; Protocol Last Admin: 06/22/18 09:25 Dose: 250 mls/hr Methimazole (Tapazole) 10 mg PO DAILY [facility] Last Admin: 06/22/18 09:16 Dose: 10 mg Metoprolol Succinate (Toprol Xl) 50 mg PO Q12 [facility] Last Admin: 06/22/18 09:17 Dose: 50 mg Nitroglycerin (Nitrostat Sl Tab) 0.4 mg SL Q5M PRN PRN Reason: Pain, Mild (1-3) Pantoprazole Sodium (Protonix Ec Tab) 40 mg PO DAILY [facility] Last Admin: 06/22/18 09:17 Dose: 40 mg Sucralfate (Carafate Oral Susp) 1 gm PO QID [facility] Last Admin: 06/22/18 12:14 Dose: 1 gm - Labs Labs: 06/22/18 04:50 06/22/18 04:50 PT 12.9 Seconds (9.8-13.1) 06/19/18 23:45 INR 1.1 06/19/18 23:45 APTT 33.2 Seconds (25.6-37.1) 06/19/18 23:45 - Head Exam Head Exam: ATRAUMATIC - Eye Exam Eye Exam: Normal appearance - ENT Exam ENT Exam: Normal Exam - Neck Exam Neck Exam: Full ROM - Respiratory Exam Respiratory Exam: Clear to Ausculation Bilateral - Cardiovascular Exam Cardiovascular Exam: REGULAR RHYTHM, +S1, +S2 - GI/Abdominal Exam GI & Abdominal Exam: Soft, Normal Bowel Sounds. absent: Tenderness Assessment and Plan (1) Dilation of biliary tract Assessment & Plan: Dilated CBD and elevated Bili and ALP. ERCP discussed with patient and she agrees to the procedure. Will schedule ERCP when cleared by cardiology. Status: Acute
[2018-06-22] MEDS: Petrolatum UD PAK TOP SCH (16:13)
[2018-06-23] MEDS: Albuterol-Ipratrop 3 mg / 0.5 (3 ml) UD INH SCH ×4 (01:08→19:20)
[2018-06-23 05:50] LABS: BASO % 0.4 % (0.0-2.0); EOS # 0.1 K/uL (0.0-0.7); EOS % 1.3 % (0.0-4.0); LYMPH # 0.7 K/uL (1.0-4.3); LYMPH % 9.7 % (20.0-40.0); MEAN CORPUSCULAR HGB CONC 34.4 g/dL (33.0-37.0); MEAN PLATELET VOLUME 8.3 fl (7.2-11.7); MONO # 0.5 K/uL (0.0-0.8); MONO % 7.9 % (0.0-10.0); NEUT # 5.5 K/uL (1.8-7.0); NEUT % 80.7 % (50.0-75.0); NRBC % 0.1 % (0.0-0.0); PLATELET COUNT 323 K/uL (130-400); RBC 4.24 Mil/uL (3.80-5.20); RED CELL DISTRIBUTION WIDTH 15.1 % (11.5-14.5); WHITE BLOOD COUNT 6.8 K/uL (4.8-10.8)
[2018-06-23 06:14] LABS: ALB/GLOB RATIO 0.8 (1.0-2.1); ALT/SGPT 111 U/L (9-52); AST/SGOT 155 U/L (14-36); BLOOD UREA NITROGEN 9 mg/dl (7-17); CALCIUM 9.1 mg/dL (8.4-10.2); GFR NON-AFRICAN AMERICAN > 60
[2018-06-23 07:25] LABS: LYMPHOCYTE 12 % (20-50); MONOCYTE 6 % (0-10); NEUTROPHIL 82 % (42-75); PLATELET ESTIMATE NORMAL (NORMAL); TOTAL CELLS COUNTED 100
[2018-06-23 07:26] LABS: ANISOCYTOSIS SLIGHT; LARGE PLATELETS PRESENT; OVALOCYTES SLIGHT
--- NOTE | 2018-06-23 08:43 | CP.PCM.PN ---
Subjective - Date & Time of Evaluation Date of Evaluation: 06/23/18 Time of Evaluation: 08:00 - Subjective Subjective: Pt seen and examined this am. Daughter at the bedside. Discussed plan for Cath procedure today and subsequent ERCP, likely tomorrow. Pt and daughter are in agreement with plan. Patient denies any chest pain, dyspnea, n/v. Reports mild abdominal pain occasionally. Instructed to remain NPO after breakfast. Plan for Cath this afternoon as per Dr. Vizcarra. Objective - Vital Signs/Intake and Output Vital Signs (last 24 hours): Temp Pulse Resp BP Pulse Ox 97.4 F L 78 18 122/77 96 06/23/18 07:55 06/23/18 07:55 06/23/18 07:55 06/23/18 07:55 06/23/18 07:55 - Medications Medications: Current Medications Albuterol/Ipratropium (Duoneb 3 Mg/0.5 Mg (3 Ml) Ud) 3 ml INH RQ6 PRN PRN Reason: Shortness of Breath Albuterol/Ipratropium (Duoneb 3 Mg/0.5 Mg (3 Ml) Ud) 3 ml INH RQ6 [facility] Last Admin: 06/23/18 07:48 Dose: 3 ml Calcium/Vitamin D (Citracal+D 315mg/250iu) 1 tab PO DAILY [facility] Last Admin: 06/22/18 09:17 Dose: 1 tab Cholecalciferol (Vitamin D) 1,000 intlu PO DAILY [facility] Last Admin: 06/22/18 09:17 Dose: 1,000 intlu Emollient Ointment (Vaseline Oint) 1 pkt TOP DAILY [facility] Last Admin: 06/22/18 16:13 Dose: 1 pkt Gabapentin (Neurontin) 100 mg PO BID [facility] Last Admin: 06/22/18 16:13 Dose: 100 mg Ceftriaxone Sodium 1 gm/ (Sodium Chloride) 100 mls @ 100 mls/hr IVPB DAILY [facility]; Protocol Last Admin: 06/22/18 09:21 Dose: 100 mls/hr Azithromycin 500 mg/ Sodium (Chloride) 250 mls @ 250 mls/hr IVPB DAILY [facility]; Protocol Last Admin: 06/22/18 09:25 Dose: 250 mls/hr Methimazole (Tapazole) 10 mg PO DAILY [facility] Last Admin: 06/22/18 09:16 Dose: 10 mg Metoprolol Succinate (Toprol Xl) 50 mg PO Q12 [facility] Last Admin: 06/22/18 21:49 Dose: 50 mg Nitroglycerin (Nitrostat Sl Tab) 0.4 mg SL Q5M PRN PRN Reason: Pain, Mild (1-3) Pantoprazole Sodium (Protonix Ec Tab) 40 mg PO DAILY [facility] Last Admin: 06/22/18 09:17 Dose: 40 mg Sucralfate (Carafate Oral Susp) 1 gm PO QID [facility] Last Admin: 06/22/18 22:06 Dose: 1 gm - Labs Labs: 06/23/18 04:05 06/23/18 04:05 PT 12.9 Seconds (9.8-13.1) 06/19/18 23:45 INR 1.1 06/19/18 23:45 APTT 33.2 Seconds (25.6-37.1) 06/19/18 23:45 - Constitutional Appears: No Acute Distress - Head Exam Head Exam: NORMAL INSPECTION - Eye Exam Eye Exam: Normal appearance - ENT Exam ENT Exam: Mucous Membranes Moist - Neck Exam Additional comments: Neck veins flat - Respiratory Exam Respiratory Exam: Decreased Breath Sounds. absent: Accessory Muscle Use, Wheezes - Cardiovascular Exam Cardiovascular Exam: REGULAR RHYTHM, +S1, +S2. absent: JVD, Murmur - GI/Abdominal Exam GI & Abdominal Exam: Soft, Normal Bowel Sounds. absent: Distended, Tenderness - Extremities Exam Extremities Exam: Normal Capillary Refill. absent: Pedal Edema - Neurological Exam Neurological Exam: Alert, Awake - Psychiatric Exam Psychiatric exam: Normal Affect - Skin Skin Exam: Normal Color. absent: Diaphoretic, Pallor Assessment and Plan - Assessment and Plan (Free Text) Assessment: 67 yo F with hx COPD, HTN, Hyperthyroidism, admitted with chest pain, hemoptysis, nausea and vomiting and discovered to have elevated troponins, transaminitis, elevated Total bilirubin, right lung lobe infiltrated, dilated hepatobiliary tree and thrombosis of portal vein on CT scan. Active problems include: NSTEMI, PNU, and possible obstructive jaundice. Plan for Cath today at [facility]. The following consultants are on board: Cardiology- Dr. Vizcarra GI- Dr. Sutherland ID- Dr. Graf Heme Onc: Dr. Mccoy Plan: Elevated troponin/NSTEMI/chest pain - Troponins trending down 0.94>>>0.21 today - Cardiology consult Dr. 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 Dilated intra and extra-hepatic biliary tree is stable with the gallbladder distended as well. - GI consult - Dr. Sutherland; ERCP pending cardiac clearance - Surg Consult- Dr. Farley - no surg intervention at this time Non occlusive Thrombosis Portal Vein - Heme onc consulted; Dr. Mccoy Pneumonia, prob bacterial ( POA) - C/w IV Azithro and Ceftriaxone, today is day 4 - Leukocytosis resolved - Duoneb, scheduled - Bcx no growth 48 (prelim) COPD - Continue home medications - Supplemental O2 via NC to keep O2 sat above 92% Hypertension -Chronic, stable Hyperthyroidism -Chronic, continue home medications - TSH 1.18 wnl, T4 9.36 wnl Nausea/Vomiting - Resolved; tolerating regular diet Diet -NPO after breakfast DVT prophylaxis - SCD and encourage ambulation - Lovenox held as per cardio Discussed case with Dr. Boateng
[2018-06-23] MEDS: Azithromycin 500 MG in Sodium Chloride 0.9% 250 ML IVPB SCH (09:25)
[2018-06-23] MEDS: Sucralfate 1 gm/10 ml Oral Susp UD PO SCH ×4 (09:26→21:24)
[2018-06-23] MEDS: Citracal+D 315mg/250IU PO SCH (09:26)
[2018-06-23] MEDS: Petrolatum UD PAK TOP SCH (09:27)
[2018-06-23] MEDS: Cholecalciferol 1,000 INTLU TAB PO SCH (09:27)
[2018-06-23] MEDS: Metoprolol Succinate 50 mg XL Tab PO SCH ×2 (09:27→21:11)
[2018-06-23] MEDS: Pantoprazole 40 mg EC Tab PO SCH (09:28)
--- NOTE | 2018-06-23 11:44 | CP.PCM.PN ---
<Milo Dumont - Last Filed: 06/23/18 11:40> Subjective - Date & Time of Evaluation Date of Evaluation: 06/23/18 Time of Evaluation: 11:40 - Subjective Subjective: SURGERY NOTE FOR DR. NELSON No acute events overnight. Patient seen by cardiology and GI. Objective - Vital Signs/Intake and Output Vital Signs (last 24 hours): Temp Pulse Resp BP Pulse Ox 97.4 F L 91 H 18 102/64 96 06/23/18 07:55 06/23/18 09:27 06/23/18 07:55 06/23/18 09:27 06/23/18 07:55 - Medications Medications: Current Medications Albuterol/Ipratropium (Duoneb 3 Mg/0.5 Mg (3 Ml) Ud) 3 ml INH RQ6 PRN PRN Reason: Shortness of Breath Albuterol/Ipratropium (Duoneb 3 Mg/0.5 Mg (3 Ml) Ud) 3 ml INH RQ6 [facility] Last Admin: 06/23/18 07:48 Dose: 3 ml Calcium/Vitamin D (Citracal+D 315mg/250iu) 1 tab PO DAILY [facility] Last Admin: 06/23/18 09:26 Dose: 1 tab Cholecalciferol (Vitamin D) 1,000 intlu PO DAILY [facility] Last Admin: 06/23/18 09:27 Dose: 1,000 intlu Emollient Ointment (Vaseline Oint) 1 pkt TOP DAILY [facility] Last Admin: 06/23/18 09:27 Dose: 1 pkt Enoxaparin Sodium (Lovenox) 40 mg SC DAILY [facility]; Protocol Gabapentin (Neurontin) 100 mg PO BID [facility] Last Admin: 06/23/18 09:27 Dose: 100 mg Ceftriaxone Sodium 1 gm/ (Sodium Chloride) 100 mls @ 100 mls/hr IVPB DAILY [facility]; Protocol Last Admin: 06/23/18 09:26 Dose: 100 mls/hr Azithromycin 500 mg/ Sodium (Chloride) 250 mls @ 250 mls/hr IVPB DAILY [facility]; Protocol Last Admin: 06/23/18 09:25 Dose: 250 mls/hr Methimazole (Tapazole) 10 mg PO DAILY [facility] Last Admin: 06/23/18 09:27 Dose: 10 mg Metoprolol Succinate (Toprol Xl) 50 mg PO Q12 [facility] Last Admin: 06/23/18 09:27 Dose: 50 mg Nitroglycerin (Nitrostat Sl Tab) 0.4 mg SL Q5M PRN PRN Reason: Pain, Mild (1-3) Pantoprazole Sodium (Protonix Ec Tab) 40 mg PO DAILY [facility] Last Admin: 06/23/18 09:28 Dose: 40 mg Sucralfate (Carafate Oral Susp) 1 gm PO QID [facility] Last Admin: 06/23/18 09:26 Dose: 1 gm - Labs Labs: 06/23/18 04:05 06/23/18 04:05 PT 12.9 Seconds (9.8-13.1) 06/19/18 23:45 INR 1.1 06/19/18 23:45 APTT 33.2 Seconds (25.6-37.1) 06/19/18 23:45 Assessment and Plan - Assessment and Plan (Free Text) Assessment: 67F with MD, Transaminitis and abdominal CBD Plan: - Patient scheduled for cardiac cath today - Patient to go for ERCP to follow if cleared by cardio - No surgical intervention Further recs discuss with Dr. Omar Dumont, PGY3 <Topher Nelson - Last Filed: 06/25/18 20:05> Objective - Vital Signs/Intake and Output Vital Signs (last 24 hours): Temp Pulse Resp BP Pulse Ox 98 F 77 18 116/67 96 06/25/18 19:54 06/25/18 19:54 06/25/18 19:54 06/25/18 19:54 06/25/18 19:54 Intake and Output: 06/25/18 06/26/18 18:59 06:59 Intake Total 350 Balance 350 - Medications Medications: Current Medications Albuterol/Ipratropium (Duoneb 3 Mg/0.5 Mg (3 Ml) Ud) 3 ml INH RQ6 PRN PRN Reason: Shortness of Breath Albuterol/Ipratropium (Duoneb 3 Mg/0.5 Mg (3 Ml) Ud) 3 ml INH RQ6 [facility] Last Admin: 06/25/18 13:03 Dose: 3 ml Calcium/Vitamin D (Citracal+D 315mg/250iu) 1 tab PO DAILY [facility] Last Admin: 06/25/18 11:34 Dose: Not Given Cholecalciferol (Vitamin D) 1,000 intlu PO DAILY [facility] Last Admin: 06/25/18 11:40 Dose: 1,000 intlu Emollient Ointment (Vaseline Oint) 1 pkt TOP DAILY [facility] Last Admin: 06/25/18 11:39 Dose: 1 pkt Gabapentin (Neurontin) 100 mg PO BID [facility] Last Admin: 06/25/18 17:44 Dose: Not Given Ceftriaxone Sodium 1 gm/ (Sodium Chloride) 100 mls @ 100 mls/hr IVPB DAILY [facility]; Protocol Last Admin: 06/25/18 11:37 Dose: 100 mls/hr Azithromycin 500 mg/ Sodium (Chloride) 250 mls @ 250 mls/hr IVPB DAILY [facility]; Protocol Last Admin: 06/25/18 11:37 Dose: 250 mls/hr Methimazole (Tapazole) 10 mg PO DAILY [facility] Last Admin: 06/25/18 11:39 Dose: 10 mg Metoprolol Succinate (Toprol Xl) 50 mg PO Q12 [facility] Last Admin: 06/25/18 11:39 Dose: 50 mg Nitroglycerin (Nitrostat Sl Tab) 0.4 mg SL Q5M PRN PRN Reason: Pain, Mild (1-3) Pantoprazole Sodium (Protonix Ec Tab) 40 mg PO DAILY [facility] Last Admin: 06/25/18 11:40 Dose: 40 mg - Labs Labs: 06/25/18 05:00 06/25/18 05:00 PT 12.9 Seconds (9.8-13.1) 06/19/18 23:45 INR 1.1 06/19/18 23:45 APTT 33.2 Seconds (25.6-37.1) 06/19/18 23:45 Attending/Attestation - Attestation I have fully participated in the care of the patient.: Yes I have reviewed all pertinent clinical information, including history, physical exam and plan: Yes Notes (Text): Pt is going for Cardiac cath first and then ERCP later on C.w current mx IV antibiotics Plan d.w pt in detail
[2018-06-23 12:55] VITALS: BMI 33.5
--- NOTE | 2018-06-23 14:20 | CP.PCM.PN ---
Subjective - Date & Time of Evaluation Date of Evaluation: 06/23/18 Time of Evaluation: 14:20 - Subjective Subjective: mild sob Objective - Vital Signs/Intake and Output Vital Signs (last 24 hours): Temp Pulse Resp BP Pulse Ox 97.3 F L 82 18 128/77 97 06/23/18 11:47 06/23/18 11:47 06/23/18 11:47 06/23/18 11:47 06/23/18 11:47 - Medications Medications: Current Medications Albuterol/Ipratropium (Duoneb 3 Mg/0.5 Mg (3 Ml) Ud) 3 ml INH RQ6 PRN PRN Reason: Shortness of Breath Albuterol/Ipratropium (Duoneb 3 Mg/0.5 Mg (3 Ml) Ud) 3 ml INH RQ6 [facility] Last Admin: 06/23/18 13:05 Dose: Not Given Calcium/Vitamin D (Citracal+D 315mg/250iu) 1 tab PO DAILY [facility] Last Admin: 06/23/18 09:26 Dose: 1 tab Cholecalciferol (Vitamin D) 1,000 intlu PO DAILY [facility] Last Admin: 06/23/18 09:27 Dose: 1,000 intlu Emollient Ointment (Vaseline Oint) 1 pkt TOP DAILY [facility] Last Admin: 06/23/18 09:27 Dose: 1 pkt Enoxaparin Sodium (Lovenox) 40 mg SC DAILY [facility]; Protocol Gabapentin (Neurontin) 100 mg PO BID [facility] Last Admin: 06/23/18 09:27 Dose: 100 mg Ceftriaxone Sodium 1 gm/ (Sodium Chloride) 100 mls @ 100 mls/hr IVPB DAILY [facility]; Protocol Last Admin: 06/23/18 09:26 Dose: 100 mls/hr Azithromycin 500 mg/ Sodium (Chloride) 250 mls @ 250 mls/hr IVPB DAILY [facility]; Protocol Last Admin: 06/23/18 09:25 Dose: 250 mls/hr Methimazole (Tapazole) 10 mg PO DAILY [facility] Last Admin: 06/23/18 09:27 Dose: 10 mg Metoprolol Succinate (Toprol Xl) 50 mg PO Q12 [facility] Last Admin: 06/23/18 09:27 Dose: 50 mg Nitroglycerin (Nitrostat Sl Tab) 0.4 mg SL Q5M PRN PRN Reason: Pain, Mild (1-3) Ondansetron HCl (Zofran Inj) 4 mg IVP Q6 PRN PRN Reason: Nausea/Vomiting Pantoprazole Sodium (Protonix Ec Tab) 40 mg PO DAILY [facility] Last Admin: 06/23/18 09:28 Dose: 40 mg Sucralfate (Carafate Oral Susp) 1 gm PO QID [facility] Last Admin: 06/23/18 09:26 Dose: 1 gm - Labs Labs: 06/23/18 04:05 06/23/18 04:05 PT 12.9 Seconds (9.8-13.1) 06/19/18 23:45 INR 1.1 06/19/18 23:45 APTT 33.2 Seconds (25.6-37.1) 06/19/18 23:45 Assessment and Plan (1) HTN (hypertension) Status: Chronic (2) Hyperthyroidism Status: Chronic (3) Hepatic vein thrombosis Status: Acute (4) Elevated troponin Status: Acute (5) Chest pain Status: Acute (6) Hemoptysis Status: Acute (7) Transaminitis Status: Acute - Assessment and Plan (Free Text) Plan: cath done no obstructive cad trop elevations chronic and due to cor pulmonale
--- NOTE | 2018-06-23 14:28 | CP.PCM.PN ---
Subjective - Date & Time of Evaluation Date of Evaluation: 06/23/18 Time of Evaluation: 08:00 - Subjective Subjective: 67F presented to the hospital for chest pain and found to have a myocardial infarction She states she has been having RUQ pain on and off for the past 2 months. She was found to have jaundice and elevated LFT's Hep serology negat meli GI on board MRCP on hold due to shoulder prosthesis ERCP is planned On IV antibiotics for HCAP Had cardiac cath which ruled out obstruction- cardiology feels elevated troponins due to Cor Pulmonale will need ERCP with DR Sutherland Objective - Vital Signs/Intake and Output Vital Signs (last 24 hours): Temp Pulse Resp BP Pulse Ox 97.3 F L 82 18 128/77 97 06/23/18 11:47 06/23/18 11:47 06/23/18 11:47 06/23/18 11:47 06/23/18 11:47 - Medications Medications: Current Medications Albuterol/Ipratropium (Duoneb 3 Mg/0.5 Mg (3 Ml) Ud) 3 ml INH RQ6 PRN PRN Reason: Shortness of Breath Albuterol/Ipratropium (Duoneb 3 Mg/0.5 Mg (3 Ml) Ud) 3 ml INH RQ6 [facility] Last Admin: 06/23/18 13:05 Dose: Not Given Calcium/Vitamin D (Citracal+D 315mg/250iu) 1 tab PO DAILY [facility] Last Admin: 06/23/18 09:26 Dose: 1 tab Cholecalciferol (Vitamin D) 1,000 intlu PO DAILY [facility] Last Admin: 06/23/18 09:27 Dose: 1,000 intlu Emollient Ointment (Vaseline Oint) 1 pkt TOP DAILY [facility] Last Admin: 06/23/18 09:27 Dose: 1 pkt Enoxaparin Sodium (Lovenox) 40 mg SC DAILY [facility]; Protocol Gabapentin (Neurontin) 100 mg PO BID [facility] Last Admin: 06/23/18 09:27 Dose: 100 mg Ceftriaxone Sodium 1 gm/ (Sodium Chloride) 100 mls @ 100 mls/hr IVPB DAILY [facility]; Protocol Last Admin: 06/23/18 09:26 Dose: 100 mls/hr Azithromycin 500 mg/ Sodium (Chloride) 250 mls @ 250 mls/hr IVPB DAILY [facility]; Protocol Last Admin: 06/23/18 09:25 Dose: 250 mls/hr Methimazole (Tapazole) 10 mg PO DAILY [facility] Last Admin: 06/23/18 09:27 Dose: 10 mg Metoprolol Succinate (Toprol Xl) 50 mg PO Q12 [facility] Last Admin: 06/23/18 09:27 Dose: 50 mg Nitroglycerin (Nitrostat Sl Tab) 0.4 mg SL Q5M PRN PRN Reason: Pain, Mild (1-3) Ondansetron HCl (Zofran Inj) 4 mg IVP Q6 PRN PRN Reason: Nausea/Vomiting Pantoprazole Sodium (Protonix Ec Tab) 40 mg PO DAILY [facility] Last Admin: 06/23/18 09:28 Dose: 40 mg Sucralfate (Carafate Oral Susp) 1 gm PO QID [facility] Last Admin: 06/23/18 09:26 Dose: 1 gm - Labs Labs: 06/23/18 04:05 06/23/18 04:05 PT 12.9 Seconds (9.8-13.1) 06/19/18 23:45 INR 1.1 06/19/18 23:45 APTT 33.2 Seconds (25.6-37.1) 06/19/18 23:45 - Constitutional Appears: Non-toxic, Cachectic, Chronically Ill - Head Exam Head Exam: NORMOCEPHALIC - Eye Exam Eye Exam: PERRL, Scleral icterus - ENT Exam ENT Exam: Mucous Membranes Dry - Neck Exam Neck Exam: absent: Lymphadenopathy - Respiratory Exam Respiratory Exam: Decreased Breath Sounds, Prolonged Expiratory Phase, Rales - Cardiovascular Exam Cardiovascular Exam: REGULAR RHYTHM, +S1, +S2 - GI/Abdominal Exam GI & Abdominal Exam: Distended, Guarding, Soft, Diminished Bowel Sounds. absent: Tenderness - Rectal Exam Rectal Exam: Deferred - Exam Exam: NORMAL INSPECTION - Extremities Exam Extremities Exam: Pedal Edema - Back Exam Back Exam: absent: CVA tenderness (L), CVA tenderness (R), paraspinal tenderness - Neurological Exam Neurological Exam: Alert, Awake, Oriented x3 - Psychiatric Exam Psychiatric exam: Depressed - Skin Skin Exam: Dry, Intact Assessment and Plan (1) Chest pain Status: Acute (2) Dilation of biliary tract Status: Acute (3) Elevated troponin Status: Acute (4) Hemoptysis Status: Acute (5) Hepatic vein thrombosis Status: Acute (6) NSTEMI (non-ST elevated myocardial infarction) Status: Acute (7) Tachycardia Status: Acute (8) Transaminitis Status: Acute - Assessment and Plan (Free Text) Assessment: 67F presented to the hospital for chest pain and found to have a myocardial infarction She states she has been having RUQ pain on and off for the past 2 months. She was found to have jaundice and elevated LFT's Hep serology negative GI on board MRCP on hold due to shoulder prosthesis ERCP is planned On IV antibiotics for HCAP Had cardiac cath which ruled out obstruction- cardiology feels elevated troponins due to Cor Pulmonale will need ERCP with DR Sutherland
--- NOTE | 2018-06-23 15:35 | CP.PCM.PN ---
Subjective - Date & Time of Evaluation Date of Evaluation: 06/23/18 Time of Evaluation: 15:33 - Subjective Subjective: Patient feeling about the same . Cardiac cath today negative. Objective - Vital Signs/Intake and Output Vital Signs (last 24 hours): Temp Pulse Resp BP Pulse Ox 97.3 F L 82 18 128/77 97 06/23/18 11:47 06/23/18 11:47 06/23/18 11:47 06/23/18 11:47 06/23/18 11:47 - Medications Medications: Current Medications Albuterol/Ipratropium (Duoneb 3 Mg/0.5 Mg (3 Ml) Ud) 3 ml INH RQ6 PRN PRN Reason: Shortness of Breath Albuterol/Ipratropium (Duoneb 3 Mg/0.5 Mg (3 Ml) Ud) 3 ml INH RQ6 [facility] Last Admin: 06/23/18 13:05 Dose: Not Given Calcium/Vitamin D (Citracal+D 315mg/250iu) 1 tab PO DAILY [facility] Last Admin: 06/23/18 09:26 Dose: 1 tab Cholecalciferol (Vitamin D) 1,000 intlu PO DAILY [facility] Last Admin: 06/23/18 09:27 Dose: 1,000 intlu Emollient Ointment (Vaseline Oint) 1 pkt TOP DAILY [facility] Last Admin: 06/23/18 09:27 Dose: 1 pkt Enoxaparin Sodium (Lovenox) 40 mg SC DAILY [facility]; Protocol Gabapentin (Neurontin) 100 mg PO BID [facility] Last Admin: 06/23/18 09:27 Dose: 100 mg Ceftriaxone Sodium 1 gm/ (Sodium Chloride) 100 mls @ 100 mls/hr IVPB DAILY [facility]; Protocol Last Admin: 06/23/18 09:26 Dose: 100 mls/hr Azithromycin 500 mg/ Sodium (Chloride) 250 mls @ 250 mls/hr IVPB DAILY [facility]; Protocol Last Admin: 06/23/18 09:25 Dose: 250 mls/hr Methimazole (Tapazole) 10 mg PO DAILY [facility] Last Admin: 06/23/18 09:27 Dose: 10 mg Metoprolol Succinate (Toprol Xl) 50 mg PO Q12 [facility] Last Admin: 06/23/18 09:27 Dose: 50 mg Nitroglycerin (Nitrostat Sl Tab) 0.4 mg SL Q5M PRN PRN Reason: Pain, Mild (1-3) Ondansetron HCl (Zofran Inj) 4 mg IVP Q6 PRN PRN Reason: Nausea/Vomiting Pantoprazole Sodium (Protonix Ec Tab) 40 mg PO DAILY [facility] Last Admin: 06/23/18 09:28 Dose: 40 mg Sucralfate (Carafate Oral Susp) 1 gm PO QID [facility] Last Admin: 06/23/18 09:26 Dose: 1 gm - Labs Labs: 06/23/18 04:05 06/23/18 04:05 PT 12.9 Seconds (9.8-13.1) 06/19/18 23:45 INR 1.1 06/19/18 23:45 APTT 33.2 Seconds (25.6-37.1) 06/19/18 23:45 - Head Exam Head Exam: ATRAUMATIC - ENT Exam ENT Exam: Normal Exam - Neck Exam Neck Exam: Full ROM - Respiratory Exam Respiratory Exam: NORMAL BREATHING PATTERN - Cardiovascular Exam Cardiovascular Exam: +S1, +S2 - GI/Abdominal Exam GI & Abdominal Exam: Soft Assessment and Plan (1) Dilation of biliary tract Assessment & Plan: Has elevated Bili and LFTs. ERCP Thursday. Status: Acute
--- NOTE | 2018-06-23 22:19 | CP.PCM.CON ---
History of Present Illness - History of Present Illness History of Present Illness: 67 year old female with a history of COPD, HTN, CKD, presenting with chest pain, found to have WI and hepatic vein DVT. The patient reports to right upper quadrant pain for about [address] scan revealed right and left hepatic ve in thrombus as well as possible portal vein thrombus. She denies abnormal bleeding and clotting in the past. Past medical history: COPD, HTN, CKD Past surgical history: , appendectomy Family history: Denies hematologic and oncologic problems Social history: Former tobacco abuse Allergies: NKA Review of systems: All remaining review of systems including HEENT, cardiovascular, respiratory, gastrointestinal, genitourinary,musculoskeletal, dermatologic, neurologic, and psychiatric are negative unless mentioned in the HPI. Past Patient History - Infectious Disease Hx of Infectious Diseases: None - Past Medical History & Family History Past Medical History?: Yes - Past Social History Smoking Status: Former Smoker Chewing Tobacco Use: No Cigar Use: No Alcohol: None Drugs: Denies Home Situation {Lives}: With Family Domestic Violence: Negative - CARDIAC Hx Cardiac Disorders: Yes (HTN, CHF) Hx Hypertension: Yes - PULMONARY Hx Respiratory Disorders: Yes (COPD) Hx Chronic Obstructive Pulmonary Disease (COPD): Yes - NEUROLOGICAL Hx Neurological Disorder: No - HEENT Hx HEENT Problems: No - RENAL Hx Chronic Kidney Disease: Yes - ENDOCRINE/METABOLIC Hx Endocrine Disorders: Yes (hyperthyroidism) Hx Hyperthyroidism: Yes - HEMATOLOGICAL/ONCOLOGICAL Hx Blood Disorders: No - INTEGUMENTARY Hx Dermatological Problems: No - MUSCULOSKELETAL/RHEUMATOLOGICAL Hx Musculoskeletal Disorders: No Hx Falls: No - GASTROINTESTINAL Hx Gastritis: Yes - GENITOURINARY/GYNECOLOGICAL Hx Genitourinary Disorders: Yes - PSYCHIATRIC Hx Psychophysiologic Disorder: No - SURGICAL HISTORY Hx Appendectomy: Yes - ANESTHESIA Hx Anesthesia: Yes Hx Anesthesia Reactions: No Meds Allergies/Adverse Reactions: Allergies Allergy/AdvReac Type Severity Reaction Status Date / Time No Known Allergies Allergy Verified 06/22/18 14:32 - Medications Medications: Current Medications Albuterol/Ipratropium (Duoneb 3 Mg/0.5 Mg (3 Ml) Ud) 3 ml INH RQ6 PRN PRN Reason: Shortness of Breath Albuterol/Ipratropium (Duoneb 3 Mg/0.5 Mg (3 Ml) Ud) 3 ml INH RQ6 [facility] Last Admin: 06/23/18 19:20 Dose: Not Given Calcium/Vitamin D (Citracal+D 315mg/250iu) 1 tab PO DAILY [facility] Last Admin: 06/23/18 09:26 Dose: 1 tab Cholecalciferol (Vitamin D) 1,000 intlu PO DAILY [facility] Last Admin: 06/23/18 09:27 Dose: 1,000 intlu Emollient Ointment (Vaseline Oint) 1 pkt TOP DAILY [facility] Last Admin: 06/23/18 09:27 Dose: 1 pkt Enoxaparin Sodium (Lovenox) 40 mg SC DAILY [facility]; Protocol Gabapentin (Neurontin) 100 mg PO BID [facility] Last Admin: 06/23/18 16:15 Dose: Not Given Ceftriaxone Sodium 1 gm/ (Sodium Chloride) 100 mls @ 100 mls/hr IVPB DAILY [facility]; Protocol Last Admin: 06/23/18 09:26 Dose: 100 mls/hr Azithromycin 500 mg/ Sodium (Chloride) 250 mls @ 250 mls/hr IVPB DAILY [facility]; Protocol Last Admin: 06/23/18 09:25 Dose: 250 mls/hr Ibuprofen (Motrin Tab) 600 mg PO Q6 PRN PRN Reason: Pain, moderate (4-7) Methimazole (Tapazole) 10 mg PO DAILY [facility] Last Admin: 06/23/18 09:27 Dose: 10 mg Metoprolol Succinate (Toprol Xl) 50 mg PO Q12 [facility] Last Admin: 06/23/18 21:11 Dose: 50 mg Nitroglycerin (Nitrostat Sl Tab) 0.4 mg SL Q5M PRN PRN Reason: Pain, Mild (1-3) Ondansetron HCl (Zofran Inj) 4 mg IVP Q6 PRN PRN Reason: Nausea/Vomiting Pantoprazole Sodium (Protonix Ec Tab) 40 mg PO DAILY [facility] Last Admin: 06/23/18 09:28 Dose: 40 mg Sucralfate (Carafate Oral Susp) 1 gm PO QID [facility] Last Admin: 06/23/18 21:24 Dose: 1 gm Physical Exam - Head Exam Head Exam: ATRAUMATIC - Eye Exam Eye Exam: Normal appearance - ENT Exam ENT Exam: Mucous Membranes Dry - Respiratory Exam Respiratory Exam: NORMAL BREATHING PATTERN - Cardiovascular Exam Cardiovascular Exam: +S1, +S2 - GI/Abdominal Exam GI & Abdominal Exam: Normal Bowel Sounds Results - Vital Signs Recent Vital Signs: Last Vital Signs Temp 97.5 F L 06/23/18 20:15 Pulse 75 06/23/18 21:11 Resp 18 06/23/18 20:15 BP 155/81 H 06/23/18 21:11 Pulse Ox 98 06/23/18 20:15 - Labs Result Diagrams: 06/23/18 04:05 06/23/18 04:05 Labs: Laboratory Results - last 24 hr 06/23/18 06/23/18 06/23/18 04:05 04:05 04:05 WBC 6.8 RBC 4.24 Hgb 14.0 Hct 40.7 MCV 96.0 MCH 33.0 H MCHC 34.4 RDW 15.1 H Plt Count 323 MPV 8.3 Neut % (Auto) 80.7 H Lymph % (Auto) 9.7 L Aiken % (Auto) 7.9 Eos % (Auto) 1.3 Baso % (Auto) 0.4 Neut # (Auto) 5.5 Lymph # (Auto) 0.7 L Aiken # (Auto) 0.5 Eos # (Auto) 0.1 Baso # (Auto) 0.0 Neutrophils % (Manual) 82 H Lymphocytes % (Manual) 12 L Monocytes % (Manual) 6 Platelet Estimate Normal Large Platelets Present Anisocytosis (manual) Slight Ovalocytes Slight Sodium 137 Potassium 3.8 Chloride 110 H Carbon Dioxide 22 Anion Gap 9 L BUN 9 Creatinine 0.9 Est GFR ( Amer) > 60 Est GFR (Non-Af Amer) > 60 Random Glucose 84 Calcium 9.1 Magnesium 2.2 Total Bilirubin 6.3 H AST 155 H ALT 111 H Alkaline Phosphatase 437 H D Troponin I Total Protein 6.6 Albumin 3.0 L Globulin 3.6 Albumin/Globulin Ratio 0.8 L ENDY 6 Profile Negative 06/23/18 08:26 WBC RBC Hgb Hct MCV MCH MCHC RDW Plt Count MPV Neut % (Auto) Lymph % (Auto) Aiken % (Auto) Eos % (Auto) Baso % (Auto) Neut # (Auto) Lymph # (Auto) Aiken # (Auto) Eos # (Auto) Baso # (Auto) Neutrophils % (Manual) Lymphocytes % (Manual) Monocytes % (Manual) Platelet Estimate Large Platelets Anisocytosis (manual) Ovalocytes Sodium Potassium Chloride Carbon Dioxide Anion Gap BUN Creatinine Est GFR ( Amer) Est GFR (Non-Af Amer) Random Glucose Calcium Magnesium Total Bilirubin AST ALT Alkaline Phosphatase Troponin I 0.1000 Total Protein Albumin Globulin Albumin/Globulin Ratio ENDY 6 Profile Assessment & Plan (1) DVT (deep venous thrombosis) Assessment and Plan: B/L hepatic vein thrombus ? provoked from local inflammation recommend therapeutic anticoagulation Thank you for this interesting consult. Status: Acute
[2018-06-24] MEDS: Albuterol-Ipratrop 3 mg / 0.5 (3 ml) UD INH SCH ×4 (01:15→19:10)
[2018-06-24 05:35] LABS: ALB/GLOB RATIO 0.8 (1.0-2.1); ALBUMIN 2.9 g/dL (3.5-5.0); ALT/SGPT 93 U/L (9-52); AST/SGOT 114 U/L (14-36); BLOOD UREA NITROGEN 8 mg/dl (7-17); CALCIUM 9.3 mg/dL (8.4-10.2); GFR NON-AFRICAN AMERICAN > 60
[2018-06-24] MEDS ORDERED: Enoxaparin 40 mg Syringe SC SCH (09:00)
[2018-06-24] MEDS: Sucralfate 1 gm/10 ml Oral Susp UD PO SCH ×4 (09:14→21:14)
[2018-06-24] MEDS: Petrolatum UD PAK TOP SCH (09:15)
[2018-06-24] MEDS: Citracal+D 315mg/250IU PO SCH (09:18)
[2018-06-24] MEDS: Metoprolol Succinate 50 mg XL Tab PO SCH ×2 (09:18→20:51)
[2018-06-24] MEDS: Pantoprazole 40 mg EC Tab PO SCH (09:20)
[2018-06-24] MEDS: Cholecalciferol 1,000 INTLU TAB PO SCH (09:37)
--- NOTE | 2018-06-24 10:52 | CP.PCM.PN ---
<Milo Dumont D - Last Filed: 06/24/18 10:50> Subjective - Date & Time of Evaluation Date of Evaluation: 06/24/18 Time of Evaluation: 10:50 - Subjective Subjective: SURGERY NOTE FOR DR. NELSON 67F seen and examined at bedside. Patient resting comfortably. Denies pain, tolerating diet. Went for cardiac cath yesterday - negative. Objective - Vital Signs/Intake and Output Vital Signs (last 24 hours): Temp Pulse Resp BP Pulse Ox 97.4 F L 76 20 129/77 97 06/24/18 08:11 06/24/18 09:18 06/24/18 08:11 06/24/18 09:18 06/24/18 08:11 - Medications Medications: Current Medications Albuterol/Ipratropium (Duoneb 3 Mg/0.5 Mg (3 Ml) Ud) 3 ml INH RQ6 PRN PRN Reason: Shortness of Breath Albuterol/Ipratropium (Duoneb 3 Mg/0.5 Mg (3 Ml) Ud) 3 ml INH RQ6 [facility] Last Admin: 06/24/18 07:27 Dose: 3 ml Calcium/Vitamin D (Citracal+D 315mg/250iu) 1 tab PO DAILY [facility] Last Admin: 06/24/18 09:18 Dose: 1 tab Cholecalciferol (Vitamin D) 1,000 intlu PO DAILY [facility] Last Admin: 06/24/18 09:37 Dose: 1,000 intlu Emollient Ointment (Vaseline Oint) 1 pkt TOP DAILY [facility] Last Admin: 06/24/18 09:15 Dose: 1 pkt Enoxaparin Sodium (Lovenox) 40 mg SC DAILY [facility]; Protocol Last Admin: 06/24/18 09:15 Dose: 40 mg Gabapentin (Neurontin) 100 mg PO BID [facility] Last Admin: 06/24/18 09:19 Dose: 100 mg Ceftriaxone Sodium 1 gm/ (Sodium Chloride) 100 mls @ 100 mls/hr IVPB DAILY [facility]; Protocol Last Admin: 06/24/18 09:35 Dose: 100 mls/hr Azithromycin 500 mg/ Sodium (Chloride) 250 mls @ 250 mls/hr IVPB DAILY [facility]; Protocol Last Admin: 06/23/18 09:25 Dose: 250 mls/hr Methimazole (Tapazole) 10 mg PO DAILY [facility] Last Admin: 06/23/18 09:27 Dose: 10 mg Metoprolol Succinate (Toprol Xl) 50 mg PO Q12 [facility] Last Admin: 06/24/18 09:18 Dose: 50 mg Nitroglycerin (Nitrostat Sl Tab) 0.4 mg SL Q5M PRN PRN Reason: Pain, Mild (1-3) Ondansetron HCl (Zofran Inj) 4 mg IVP Q6 PRN PRN Reason: Nausea/Vomiting Pantoprazole Sodium (Protonix Ec Tab) 40 mg PO DAILY [facility] Last Admin: 06/24/18 09:20 Dose: 40 mg Sucralfate (Carafate Oral Susp) 1 gm PO QID [facility] Last Admin: 06/24/18 09:14 Dose: 1 gm - Labs Labs: 06/23/18 04:05 06/24/18 04:30 PT 12.9 Seconds (9.8-13.1) 06/19/18 23:45 INR 1.1 06/19/18 23:45 APTT 33.2 Seconds (25.6-37.1) 06/19/18 23:45 - Constitutional Appears: Non-toxic, No Acute Distress - Respiratory Exam Respiratory Exam: Clear to Ausculation Bilateral, NORMAL BREATHING PATTERN - Cardiovascular Exam Cardiovascular Exam: REGULAR RHYTHM, +S1, +S2 - GI/Abdominal Exam GI & Abdominal Exam: Soft. absent: Distended, Firm, Guarding, Rigid, Tenderness, Rebound - Neurological Exam Neurological Exam: Alert, Awake Assessment and Plan - Assessment and Plan (Free Text) Assessment: 67F Transaminitis, cardiac cath neg Plan: ERCP planned for Thursday Discussed with Dr. Omar Dumont, PGY3 <Topher Nelson - Last Filed: 06/25/18 20:06> Objective - Vital Signs/Intake and Output Vital Signs (last 24 hours): Temp Pulse Resp BP Pulse Ox 98 F 77 18 116/67 96 06/25/18 19:54 06/25/18 19:54 06/25/18 19:54 06/25/18 19:54 06/25/18 19:54 Intake and Output: 06/25/18 06/26/18 18:59 06:59 Intake Total 350 Balance 350 - Medications Medications: Current Medications Albuterol/Ipratropium (Duoneb 3 Mg/0.5 Mg (3 Ml) Ud) 3 ml INH RQ6 PRN PRN Reason: Shortness of Breath Albuterol/Ipratropium (Duoneb 3 Mg/0.5 Mg (3 Ml) Ud) 3 ml INH RQ6 [facility] Last Admin: 06/25/18 13:03 Dose: 3 ml Calcium/Vitamin D (Citracal+D 315mg/250iu) 1 tab PO DAILY [facility] Last Admin: 06/25/18 11:34 Dose: Not Given Cholecalciferol (Vitamin D) 1,000 intlu PO DAILY [facility] Last Admin: 06/25/18 11:40 Dose: 1,000 intlu Emollient Ointment (Vaseline Oint) 1 pkt TOP DAILY [facility] Last Admin: 06/25/18 11:39 Dose: 1 pkt Gabapentin (Neurontin) 100 mg PO BID [facility] Last Admin: 06/25/18 17:44 Dose: Not Given Ceftriaxone Sodium 1 gm/ (Sodium Chloride) 100 mls @ 100 mls/hr IVPB DAILY [facility]; Protocol Last Admin: 06/25/18 11:37 Dose: 100 mls/hr Azithromycin 500 mg/ Sodium (Chloride) 250 mls @ 250 mls/hr IVPB DAILY [facility]; Protocol Last Admin: 06/25/18 11:37 Dose: 250 mls/hr Methimazole (Tapazole) 10 mg PO DAILY [facility] Last Admin: 06/25/18 11:39 Dose: 10 mg Metoprolol Succinate (Toprol Xl) 50 mg PO Q12 [facility] Last Admin: 06/25/18 11:39 Dose: 50 mg Nitroglycerin (Nitrostat Sl Tab) 0.4 mg SL Q5M PRN PRN Reason: Pain, Mild (1-3) Pantoprazole Sodium (Protonix Ec Tab) 40 mg PO DAILY [facility] Last Admin: 06/25/18 11:40 Dose: 40 mg - Labs Labs: 06/25/18 05:00 06/25/18 05:00 PT 12.9 Seconds (9.8-13.1) 06/19/18 23:45 INR 1.1 06/19/18 23:45 APTT 33.2 Seconds (25.6-37.1) 01/12/19 23:45 Attending/Attestation - Attestation I have personally seen and examined this patient.: Yes I have fully participated in the care of the patient.: Yes I have reviewed all pertinent clinical information, including history, physical exam and plan: Yes Notes (Text): Pt was seen and examined at bedside Agree with above note and assessment Pt is scheduled for ERCP tomorrow Cardiac cath was done yesterday IV antibiotics c.w current mx Plan d.w pt in detail
[2018-06-24] MEDS: Azithromycin 500 MG in Sodium Chloride 0.9% 250 ML IVPB SCH (11:02)
--- NOTE | 2018-06-24 11:04 | CP.PCM.PN ---
Subjective - Date & Time of Evaluation Date of Evaluation: 06/24/18 Time of Evaluation: 10:00 - Subjective Subjective: GI progress note for Dr. Sutherland Pt seen and examined at bedside this AM. Patient denies any pain, but reports some mild nausea after eating breakfast and heartburn. Last BM was yesterday and was soft, light in color. Per cardiology note, cardiac cath was negative and elevated troponins are likely due to cor pulmonale Objective - Vital Signs/Intake and Output Vital Signs (last 24 hours): Temp Pulse Resp BP Pulse Ox 97.4 F L 76 20 129/77 97 06/24/18 08:11 06/24/18 09:18 06/24/18 08:11 06/24/18 09:18 06/24/18 08:11 - Medications Medications: Current Medications Albuterol/Ipratropium (Duoneb 3 Mg/0.5 Mg (3 Ml) Ud) 3 ml INH RQ6 PRN PRN Reason: Shortness of Breath Albuterol/Ipratropium (Duoneb 3 Mg/0.5 Mg (3 Ml) Ud) 3 ml INH RQ6 [facility] Last Admin: 06/24/18 07:27 Dose: 3 ml Calcium/Vitamin D (Citracal+D 315mg/250iu) 1 tab PO DAILY [facility] Last Admin: 06/24/18 09:18 Dose: 1 tab Cholecalciferol (Vitamin D) 1,000 intlu PO DAILY [facility] Last Admin: 06/24/18 09:37 Dose: 1,000 intlu Emollient Ointment (Vaseline Oint) 1 pkt TOP DAILY [facility] Last Admin: 06/24/18 09:15 Dose: 1 pkt Enoxaparin Sodium (Lovenox) 40 mg SC DAILY [facility]; Protocol Last Admin: 06/24/18 09:15 Dose: 40 mg Gabapentin (Neurontin) 100 mg PO BID [facility] Last Admin: 06/24/18 09:19 Dose: 100 mg Ceftriaxone Sodium 1 gm/ (Sodium Chloride) 100 mls @ 100 mls/hr IVPB DAILY [facility]; Protocol Last Admin: 06/24/18 09:35 Dose: 100 mls/hr Azithromycin 500 mg/ Sodium (Chloride) 250 mls @ 250 mls/hr IVPB DAILY [facility]; Protocol Last Admin: 06/23/18 09:25 Dose: 250 mls/hr Methimazole (Tapazole) 10 mg PO DAILY [facility] Last Admin: 06/23/18 09:27 Dose: 10 mg Metoprolol Succinate (Toprol Xl) 50 mg PO Q12 [facility] Last Admin: 06/24/18 09:18 Dose: 50 mg Nitroglycerin (Nitrostat Sl Tab) 0.4 mg SL Q5M PRN PRN Reason: Pain, Mild (1-3) Ondansetron HCl (Zofran Inj) 4 mg IVP Q6 PRN PRN Reason: Nausea/Vomiting Pantoprazole Sodium (Protonix Ec Tab) 40 mg PO DAILY [facility] Last Admin: 06/24/18 09:20 Dose: 40 mg Sucralfate (Carafate Oral Susp) 1 gm PO QID [facility] Last Admin: 06/24/18 09:14 Dose: 1 gm - Labs Labs: 06/23/18 04:05 06/24/18 04:30 PT 12.9 Seconds (9.8-13.1) 06/19/18 23:45 INR 1.1 06/19/18 23:45 APTT 33.2 Seconds (25.6-37.1) 06/19/18 23:45 - Constitutional Appears: Well, Non-toxic, No Acute Distress - Head Exam Head Exam: ATRAUMATIC, NORMOCEPHALIC - Eye Exam Eye Exam: Scleral icterus. absent: Conjunctival injection - ENT Exam ENT Exam: Mucous Membranes Moist, Normal Oropharynx - Respiratory Exam Respiratory Exam: NORMAL BREATHING PATTERN. absent: Accessory Muscle Use, Respiratory Distress - Cardiovascular Exam Cardiovascular Exam: RRR - GI/Abdominal Exam GI & Abdominal Exam: Soft. absent: Distended, Tenderness Additional comments: negative cabrera's - Extremities Exam Extremities Exam: absent: Calf Tenderness, Pedal Edema, Tenderness - Neurological Exam Neurological Exam: Alert, Awake, Oriented x3 - Psychiatric Exam Psychiatric exam: Normal Affect, Normal Mood - Skin Skin Exam: Dry, Intact, Warm Additional comments: jaundice Assessment and Plan - Assessment and Plan (Free Text) Assessment: 67F with persistent hyperbilirubinemia and dilated CBD suspicious for choledocholithiasis, elevated troponins being evaluated by Cardiology with negative cardiac cath yesterday Plan: Patient likely has choledocholithiasis as cause of hyperbilirubinemia Plan for ERCP tomorrow AM Repeat CBC/CMP NPO after midnight Hold anticoagulation Continue antibiotics, protonix, and other medical therapy per primary IVF after midnight PRN nausea medication Discussed and examined with Dr. Sutherland, who agrees with above Consuelo oTney, PGY2
--- NOTE | 2018-06-24 11:09 | CP.PCM.PN ---
<Samuel Murcia - Last Filed: 06/24/18 11:06> Subjective - Date & Time of Evaluation Date of Evaluation: 06/24/18 Time of Evaluation: 08:00 - Subjective Subjective: Pt seen and examined this morning at the bedside with Dr. Black. Pt denies any complaints. Right groin examined- no bleeding/swelling. Good distal pulse. Plan for ERCP tomorrow with Dr. Sutherland. Objective - Vital Signs/Intake and Output Vital Signs (last 24 hours): Temp Pulse Resp BP Pulse Ox 97.4 F L 76 20 129/77 97 06/24/18 08:11 06/24/18 09:18 06/24/18 08:11 06/24/18 09:18 06/24/18 08:11 - Medications Medications: Current Medications Albuterol/Ipratropium (Duoneb 3 Mg/0.5 Mg (3 Ml) Ud) 3 ml INH RQ6 PRN PRN Reason: Shortness of Breath Albuterol/Ipratropium (Duoneb 3 Mg/0.5 Mg (3 Ml) Ud) 3 ml INH RQ6 [facility] Last Admin: 06/24/18 07:27 Dose: 3 ml Calcium/Vitamin D (Citracal+D 315mg/250iu) 1 tab PO DAILY [facility] Last Admin: 06/24/18 09:18 Dose: 1 tab Cholecalciferol (Vitamin D) 1,000 intlu PO DAILY [facility] Last Admin: 06/24/18 09:37 Dose: 1,000 intlu Emollient Ointment (Vaseline Oint) 1 pkt TOP DAILY [facility] Last Admin: 06/24/18 09:15 Dose: 1 pkt Enoxaparin Sodium (Lovenox) 40 mg SC DAILY [facility]; Protocol Last Admin: 06/24/18 09:15 Dose: 40 mg Gabapentin (Neurontin) 100 mg PO BID [facility] Last Admin: 06/24/18 09:19 Dose: 100 mg Ceftriaxone Sodium 1 gm/ (Sodium Chloride) 100 mls @ 100 mls/hr IVPB DAILY [facility]; Protocol Last Admin: 06/24/18 09:35 Dose: 100 mls/hr Azithromycin 500 mg/ Sodium (Chloride) 250 mls @ 250 mls/hr IVPB DAILY [facility]; Protocol Last Admin: 06/24/18 11:02 Dose: 250 mls/hr Methimazole (Tapazole) 10 mg PO DAILY [facility] Last Admin: 06/24/18 11:01 Dose: 10 mg Metoprolol Succinate (Toprol Xl) 50 mg PO Q12 [facility] Last Admin: 06/24/18 09:18 Dose: 50 mg Nitroglycerin (Nitrostat Sl Tab) 0.4 mg SL Q5M PRN PRN Reason: Pain, Mild (1-3) Ondansetron HCl (Zofran Inj) 4 mg IVP Q6 PRN PRN Reason: Nausea/Vomiting Pantoprazole Sodium (Protonix Ec Tab) 40 mg PO DAILY [facility] Last Admin: 06/24/18 09:20 Dose: 40 mg Sucralfate (Carafate Oral Susp) 1 gm PO QID [facility] Last Admin: 06/24/18 09:14 Dose: 1 gm - Labs Labs: 06/23/18 04:05 06/24/18 04:30 PT 12.9 Seconds (9.8-13.1) 06/19/18 23:45 INR 1.1 06/19/18 23:45 APTT 33.2 Seconds (25.6-37.1) 06/19/18 23:45 - Constitutional Appears: No Acute Distress - Head Exam Head Exam: NORMAL INSPECTION - Eye Exam Eye Exam: Normal appearance - ENT Exam ENT Exam: Mucous Membranes Moist - Respiratory Exam Respiratory Exam: Clear to Ausculation Bilateral. absent: Rales, Wheezes - Cardiovascular Exam Cardiovascular Exam: REGULAR RHYTHM, +S1, +S2. absent: Murmur - GI/Abdominal Exam GI & Abdominal Exam: absent: Tenderness - Extremities Exam Extremities Exam: Full ROM, Normal Capillary Refill. absent: Pedal Edema Additional comments: Right groin examined- no bleeding, swelling, bruising. Good distal pulses - Neurological Exam Neurological Exam: Alert, Normal Gait - Psychiatric Exam Psychiatric exam: Normal Affect - Skin Additional comments: Jaundice Assessment and Plan - Assessment and Plan (Free Text) Assessment: 67 yo F with hx COPD, HTN, Hyperthyroidism, admitted with chest pain, hem optysis, nausea and vomiting and discovered to have elevated troponins, transaminitis, elevated Total bilirubin, right lung lobe infiltrated, dilated hepatobiliary tree and thrombosis of portal vein on CT scan. Active problems include: NSTEMI, PNU, and possible obstructive jaundice. Pt had cath yesterday w/o intervention. Plan for ERCP tomorrow with Dr. Sutherland. The following consultants are on board: Cardiology- Dr. Vizcarra GI- Dr. Sutherland ID- Dr. Graf Heme Onc: Dr. Mccoy Plan: Elevated troponin/NSTEMI/chest pain - Troponins trending down 0.94>>>0.21 today - Cardiology consult Dr. Vizcarra: Cath w/o interventions. Spoke with Dr. Vizcarra, tropinemia likely from righ ventricular strain in setting of increase PA p ressure - D-Dimer elevated; PE ruled out with VQ scan and CTA Chest - Echo completed: EF 55-60, RV dilatation, Mild Pulm HTN - ASA 325mg once given in ED - Lovenox held per cardio - Metroprolol 50mg poq12 - Will hold Statin given transaminitis Jaundice/Abnormal LFT -AST/ALT 155/111 (trending down), T bili 7>5.6>6.3>6.3 (still elevated but stable at 6.3) - Hepatitis panel, HIV screen negative - CT abd/pelvis w/ pancreatic protocol completed; Nonocclusive thrombosis at the left sided portal veins.No cirrhosis pattern appreciated. Dilated intra and extra-hepatic biliary tree is stable with the gallbladder distended as well. - GI consult - Dr. Sutherland; ERCP pending cardiac clearance - Surg Consult- Dr. Farley - no surg intervention at this time Non occlusive Thrombosis Portal Vein - Heme onc consulted; Dr. Mccoy Pneumonia, prob bacterial ( POA) - C/w IV Azithro and Ceftriaxone, today is day 5 - Leukocytosis resolved, afebrile - Duoneb, scheduled - Bcx no growth 48 (prelim) COPD - Continue home medications - Supplemental O2 via NC to keep O2 sat above 92% Hypertension -Chronic, stable Hyperthyroidism -Chronic, continue home medications - TSH 1.18 wnl, T4 9.36 wnl Nausea/Vomiting - Resolved; tolerating regular diet - Zofran prn Diet -Heart Healthy diet DVT prophylaxis - SCD and encourage ambulation - Lovenox daily Discussed case with Dr. Black <Yuridia Black - Last Filed: 06/24/18 14:38> Objective - Vital Signs/Intake and Output Vital Signs (last 24 hours): Temp Pulse Resp BP Pulse Ox 98.1 F 73 20 150/82 97 01/17/19 11:45 06/24/18 11:45 06/24/18 11:45 06/24/18 11:45 06/24/18 11:45 - Medications Medications: Current Medications Albuterol/Ipratropium (Duoneb 3 Mg/0.5 Mg (3 Ml) Ud) 3 ml INH RQ6 PRN PRN Reason: Shortness of Breath Albuterol/Ipratropium (Duoneb 3 Mg/0.5 Mg (3 Ml) Ud) 3 ml INH RQ6 [facility] Last Admin: 06/24/18 13:36 Dose: 3 ml Calcium/Vitamin D (Citracal+D 315mg/250iu) 1 tab PO DAILY [facility] Last Admin: 06/24/18 09:18 Dose: 1 tab Cholecalciferol (Vitamin D) 1,000 intlu PO DAILY [facility] Last Admin: 06/24/18 09:37 Dose: 1,000 intlu Emollient Ointment (Vaseline Oint) 1 pkt TOP DAILY [facility] Last Admin: 06/24/18 09:15 Dose: 1 pkt Gabapentin (Neurontin) 100 mg PO BID [facility] Last Admin: 06/24/18 09:19 Dose: 100 mg Ceftriaxone Sodium 1 gm/ (Sodium Chloride) 100 mls @ 100 mls/hr IVPB DAILY [facility]; Protocol Last Admin: 06/24/18 09:35 Dose: 100 mls/hr Azithromycin 500 mg/ Sodium (Chloride) 250 mls @ 250 mls/hr IVPB DAILY [facility]; Protocol Last Admin: 06/24/18 11:02 Dose: 250 mls/hr Sodium Chloride (Sodium Chloride 0.9%) 1,000 mls @ 75 mls/hr IV .[id number] [facility] Stop: 06/25/18 11:54 Methimazole (Tapazole) 10 mg PO DAILY [facility] Last Admin: 06/24/18 11:01 Dose: 10 mg Metoprolol Succinate (Toprol Xl) 50 mg PO Q12 [facility] Last Admin: 06/24/18 09:18 Dose: 50 mg Nitroglycerin (Nitrostat Sl Tab) 0.4 mg SL Q5M PRN PRN Reason: Pain, Mild (1-3) Ondansetron HCl (Zofran Inj) 4 mg IVP Q6 PRN PRN Reason: Nausea/Vomiting Last Admin: 06/24/18 12:35 Dose: 4 mg Pantoprazole Sodium (Protonix Ec Tab) 40 mg PO DAILY [facility] Last Admin: 06/24/18 09:20 Dose: 40 mg Sucralfate (Carafate Oral Susp) 1 gm PO QID [facility] Last Admin: 06/24/18 13:36 Dose: 1 gm - Labs Labs: 06/23/18 04:05 06/24/18 04:30 PT 12.9 Seconds (9.8-13.1) 06/19/18 23:45 INR 1.1 06/19/18 23:45 APTT 33.2 Seconds (25.6-37.1) 06/19/18 23:45 Attending/Attestation - Attestation I have personally seen and examined this patient.: Yes I have fully participated in the care of the patient.: Yes I have reviewed all pertinent clinical information, including history, physical exam and plan: Yes Notes (Text): NSTEMI -Cardiac Cath : negative nonobstaructive CAD - cont medical mgt Obstructive jaundice - discussed with Dr gandhi - plan for ERCP in am CAP with hemoptysis - Continue Rocephin and Zithromax, O2 via NC , Duonebs COPD, chronic - cont Duonebs Hyperthyroidism - on methimazole Non occlusive portal vein thrombosis - prob due to inflammation - Dr Mccoy consulted- rec therapeutic anticoag - will start anticoag after ERCP
--- NOTE | 2018-06-24 17:15 | CP.PCM.PN ---
Subjective - Date & Time of Evaluation Date of Evaluation: 06/24/18 Time of Evaluation: 09:00 - Subjective Subjective: comfortable nad awaiting ERCP Objective - Vital Signs/Intake and Output Vital Signs (last 24 hours): Temp Pulse Resp BP Pulse Ox 97.6 F 81 20 116/70 99 06/24/18 15:48 06/24/18 15:48 06/24/18 15:48 06/24/18 15:48 06/24/18 15:48 - Medications Medications: Current Medications Albuterol/Ipratropium (Duoneb 3 Mg/0.5 Mg (3 Ml) Ud) 3 ml INH RQ6 PRN PRN Reason: Shortness of Breath Albuterol/Ipratropium (Duoneb 3 Mg/0.5 Mg (3 Ml) Ud) 3 ml INH RQ6 [facility] AT [facility] Last Admin: 06/24/18 13:36 Dose: 3 ml Calcium/Vitamin D (Citracal+D 315mg/250iu) 1 tab PO DAILY [facility] Last Admin: 06/24/18 09:18 Dose: 1 tab Cholecalciferol (Vitamin D) 1,000 intlu PO DAILY [facility] Last Admin: 06/24/18 09:37 Dose: 1,000 intlu Emollient Ointment (Vaseline Oint) 1 pkt TOP DAILY [facility] Last Admin: 06/24/18 09:15 Dose: 1 pkt Gabapentin (Neurontin) 100 mg PO BID [facility] Last Admin: 06/24/18 16:43 Dose: 100 mg Ceftriaxone Sodium 1 gm/ (Sodium Chloride) 100 mls @ 100 mls/hr IVPB DAILY [facility]; Protocol Last Admin: 06/24/18 09:35 Dose: 100 mls/hr Azithromycin 500 mg/ Sodium (Chloride) 250 mls @ 250 mls/hr IVPB DAILY [facility]; Protocol Last Admin: 06/24/18 11:02 Dose: 250 mls/hr Sodium Chloride (Sodium Chloride 0.9%) 1,000 mls @ 75 mls/hr IV .[id number] [facility]S AT [facility] Stop: 06/25/18 11:54 Methimazole (Tapazole) 10 mg PO DAILY [facility] Last Admin: 06/24/18 11:01 Dose: 10 mg Metoprolol Succinate (Toprol Xl) 50 mg PO Q12 [facility] Last Admin: 06/24/18 09:18 Dose: 50 mg Nitroglycerin (Nitrostat Sl Tab) 0.4 mg SL Q5M PRN PRN Reason: Pain, Mild (1-3) Ondansetron HCl (Zofran Inj) 4 mg IVP Q6 PRN PRN Reason: Nausea/Vomiting Last Admin: 06/24/18 12:35 Dose: 4 mg Pantoprazole Sodium (Protonix Ec Tab) 40 mg PO DAILY [facility] Last Admin: 06/24/18 09:20 Dose: 40 mg Sucralfate (Carafate Oral Susp) 1 gm PO QID [facility] Last Admin: 06/24/18 16:42 Dose: 1 gm - Labs Labs: 06/23/18 04:05 06/24/18 04:30 PT 12.9 Seconds (9.8-13.1) 06/19/18 23:45 INR 1.1 06/19/18 23:45 APTT 33.2 Seconds (25.6-37.1) 06/19/18 23:45 - Constitutional Appears: Non-toxic, Chronically Ill - Head Exam Head Exam: NORMOCEPHALIC - Eye Exam Eye Exam: Scleral icterus - ENT Exam ENT Exam: Mucous Membranes Dry - Neck Exam Neck Exam: absent: Lymphadenopathy - Respiratory Exam Respiratory Exam: Decreased Breath Sounds, Clear to Ausculation Bilateral - Cardiovascular Exam Cardiovascular Exam: REGULAR RHYTHM, +S1, +S2 - GI/Abdominal Exam GI & Abdominal Exam: Distended, Soft. absent: Tenderness - Rectal Exam Rectal Exam: Deferred - Exam Exam: NORMAL INSPECTION - Extremities Exam Extremities Exam: Pedal Edema - Back Exam Back Exam: absent: CVA tenderness (L), CVA tenderness (R) - Neurological Exam Neurological Exam: Alert, Awake, CN II-XII Intact, Oriented x3 - Psychiatric Exam Psychiatric exam: Depressed - Skin Skin Exam: Dry Assessment and Plan (1) Chest pain Status: Acute (2) Dilation of biliary tract Status: Acute (3) Elevated troponin Status: Acute (4) Hemoptysis Status: Acute (5) Hepatic vein thrombosis Status: Acute (6) NSTEMI (non-ST elevated myocardial infarction) Status: Acute (7) Tachycardia Status: Acute (8) Transaminitis Status: Acute - Assessment and Plan (Free Text) Assessment: awaiting ERCP Dr Sutherland WBC trending down cont rx
[2018-06-25] MEDS ORDERED: Sodium Chloride 0.9% 1,000 ML IV SCH (00:01)
[2018-06-25] MEDS: Albuterol-Ipratrop 3 mg / 0.5 (3 ml) UD INH SCH ×4 (01:05→20:17)
[2018-06-25 05:51] LABS: BASO # 0.1 K/uL (0.0-0.2); BASO % 0.9 % (0.0-2.0); EOS # 0.1 K/uL (0.0-0.7); EOS % 1.8 % (0.0-4.0); HEMOGLOBIN 12.6 g/dL (12.0-16.0); LYMPH # 1.2 K/uL (1.0-4.3); LYMPH % 15.1 % (20.0-40.0); MEAN CELL VOLUME 95.4 fl (81.0-99.0); MEAN CORPUSCULAR HEMOGLOBIN 32.6 pg (27.0-31.0); MEAN CORPUSCULAR HGB CONC 34.2 g/dL (33.0-37.0); MEAN PLATELET VOLUME 8.1 fl (7.2-11.7); MONO # 0.8 K/uL (0.0-0.8); NEUT # 5.7 K/uL (1.8-7.0); NEUT % 72.2 % (50.0-75.0); RBC 3.86 Mil/uL (3.80-5.20); WHITE BLOOD COUNT 7.9 K/uL (4.8-10.8)
[2018-06-25 05:58] LABS: ALB/GLOB RATIO 0.8 (1.0-2.1); ALBUMIN 2.8 g/dL (3.5-5.0); ALT/SGPT 81 U/L (9-52); AST/SGOT 116 U/L (14-36); BLOOD UREA NITROGEN 9 mg/dl (7-17); CALCIUM 8.9 mg/dL (8.4-10.2); GFR NON-AFRICAN AMERICAN > 60
[2018-06-25] MEDS ORDERED: Iohexol 240 (50 ml) ONE (07:30)
[2018-06-25] MEDS ORDERED: Potassium Chloride 20 mEq 100 ML IVPB ONE (07:39)
--- NOTE | 2018-06-25 07:45 | CP.PCM.PN ---
<Milo Dumont - Last Filed: 06/25/18 07:43> Subjective - Date & Time of Evaluation Date of Evaluation: 06/25/18 Time of Evaluation: 07:43 - Subjective Subjective: SURGERY NOTE FOR DR. CROWLEY 67F seen and examined at bedside. No acute events overnight. Patient denies any chest pain or abdominal pain, denies shortness of breath. Denies nausea, vomiting, she is tolerating diet. Objective - Vital Signs/Intake and Output Vital Signs (last 24 hours): Temp Pulse Resp BP Pulse Ox 97.2 F L 64 16 110/70 97 06/25/18 05:00 06/25/18 05:00 06/25/18 05:00 06/25/18 05:00 06/25/18 05:00 - Medications Medications: Current Medications Albuterol/Ipratropium (Duoneb 3 Mg/0.5 Mg (3 Ml) Ud) 3 ml INH RQ6 PRN PRN Reason: Shortness of Breath Albuterol/Ipratropium (Duoneb 3 Mg/0.5 Mg (3 Ml) Ud) 3 ml INH RQ6 [facility] Last Admin: 06/25/18 01:05 Dose: Not Given Calcium/Vitamin D (Citracal+D 315mg/250iu) 1 tab PO DAILY [facility] Last Admin: 06/24/18 09:18 Dose: 1 tab Cholecalciferol (Vitamin D) 1,000 intlu PO DAILY [facility] Last Admin: 06/24/18 09:37 Dose: 1,000 intlu Emollient Ointment (Vaseline Oint) 1 pkt TOP DAILY [facility] Last Admin: 06/24/18 09:15 Dose: 1 pkt Gabapentin (Neurontin) 100 mg PO BID [facility] Last Admin: 06/24/18 16:43 Dose: 100 mg Ceftriaxone Sodium 1 gm/ (Sodium Chloride) 100 mls @ 100 mls/hr IVPB DAILY [facility]; Protocol Last Admin: 06/24/18 09:35 Dose: 100 mls/hr Azithromycin 500 mg/ Sodium (Chloride) 250 mls @ 250 mls/hr IVPB DAILY [facility]; Protocol Last Admin: 06/24/18 11:02 Dose: 250 mls/hr Sodium Chloride (Sodium Chloride 0.9%) 1,000 mls @ 75 mls/hr IV .[id number] [facility] Stop: 06/25/18 11:54 Last Admin: 06/25/18 00:51 Dose: 75 mls/hr Potassium Chloride (Potassium Chloride 20 Meq/100 Ml) 100 mls @ 50 mls/hr IVPB ONCE ONE Stop: 06/25/18 09:38 Methimazole (Tapazole) 10 mg PO DAILY [facility] Last Admin: 06/24/18 11:01 Dose: 10 mg Metoprolol Succinate (Toprol Xl) 50 mg PO Q12 [facility] Last Admin: 06/24/18 20:51 Dose: 50 mg Nitroglycerin (Nitrostat Sl Tab) 0.4 mg SL Q5M PRN PRN Reason: Pain, Mild (1-3) Ondansetron HCl (Zofran Inj) 4 mg IVP Q6 PRN PRN Reason: Nausea/Vomiting Last Admin: 06/24/18 12:35 Dose: 4 mg Pantoprazole Sodium (Protonix Ec Tab) 40 mg PO DAILY [facility] Last Admin: 06/24/18 09:20 Dose: 40 mg Sucralfate (Carafate Oral Susp) 1 gm PO QID [facility] Last Admin: 06/24/18 21:14 Dose: 1 gm - Labs Labs: 06/25/18 05:00 06/25/18 05:00 PT 12.9 Seconds (9.8-13.1) 06/19/18 23:45 INR 1.1 06/19/18 23:45 APTT 33.2 Seconds (25.6-37.1) 06/19/18 23:45 - Constitutional Appears: Non-toxic, No Acute Distress - Respiratory Exam Respiratory Exam: Clear to Ausculation Bilateral, NORMAL BREATHING PATTERN - Cardiovascular Exam Cardiovascular Exam: REGULAR RHYTHM, +S1, +S2 - GI/Abdominal Exam GI & Abdominal Exam: Soft. absent: Distended, Firm, Guarding, Rigid, Tenderness - Extremities Exam Extremities Exam: absent: Pedal Edema, Tenderness - Neurological Exam Neurological Exam: Alert, Awake - Skin Skin Exam: Dry, Intact, Warm Additional comments: jaundice Assessment and Plan - Assessment and Plan (Free Text) Assessment: 67F with transaminitis, abnormal CBD Cardiac cath neg Plan: - Plan for ERCP today - Further recs discuss with Dr. Omar Dumont, PGY3 <Topher Nelson - Last Filed: 06/25/18 20:07> Objective - Vital Signs/Intake and Output Vital Signs (last 24 hours): Temp Pulse Resp BP Pulse Ox 98 F 77 18 116/67 96 06/25/18 19:54 06/25/18 19:54 06/25/18 19:54 06/25/18 19:54 06/25/18 19:54 Intake and Output: 06/25/18 06/26/18 18:59 06:59 Intake Total 350 Balance 350 - Medications Medications: Current Medications Albuterol/Ipratropium (Duoneb 3 Mg/0.5 Mg (3 Ml) Ud) 3 ml INH RQ6 PRN PRN Reason: Shortness of Breath Albuterol/Ipratropium (Duoneb 3 Mg/0.5 Mg (3 Ml) Ud) 3 ml INH RQ6 [facility] Last Admin: 06/25/18 13:03 Dose: 3 ml Calcium/Vitamin D (Citracal+D 315mg/250iu) 1 tab PO DAILY [facility] Last Admin: 06/25/18 11:34 Dose: Not Given Cholecalciferol (Vitamin D) 1,000 intlu PO DAILY [facility] Last Admin: 06/25/18 11:40 Dose: 1,000 intlu Emollient Ointment (Vaseline Oint) 1 pkt TOP DAILY [facility] Last Admin: 06/25/18 11:39 Dose: 1 pkt Gabapentin (Neurontin) 100 mg PO BID [facility] Last Admin: 06/25/18 17:44 Dose: Not Given Ceftriaxone Sodium 1 gm/ (Sodium Chloride) 100 mls @ 100 mls/hr IVPB DAILY [facility]; Protocol Last Admin: 06/25/18 11:37 Dose: 100 mls/hr Azithromycin 500 mg/ Sodium (Chloride) 250 mls @ 250 mls/hr IVPB DAILY [facility]; Protocol Last Admin: 06/25/18 11:37 Dose: 250 mls/hr Methimazole (Tapazole) 10 mg PO DAILY [facility] Last Admin: 06/25/18 11:39 Dose: 10 mg Metoprolol Succinate (Toprol Xl) 50 mg PO Q12 [facility] Last Admin: 06/25/18 11:39 Dose: 50 mg Nitroglycerin (Nitrostat Sl Tab) 0.4 mg SL Q5M PRN PRN Reason: Pain, Mild (1-3) Pantoprazole Sodium (Protonix Ec Tab) 40 mg PO DAILY [facility] Last Admin: 06/25/18 11:40 Dose: 40 mg - Labs Labs: 06/25/18 05:00 06/25/18 05:00 PT 12.9 Seconds (9.8-13.1) 06/19/18 23:45 INR 1.1 06/19/18 23:45 APTT 33.2 Seconds (25.6-37.1) 06/19/18 23:45 Attending/Attestation - Attestation I have personally seen and examined this patient.: Yes I have fully participated in the care of the patient.: Yes I have reviewed all pertinent clinical information, including history, physical exam and plan: Yes Notes (Text): Pt was seen and examined at bedside Agree with above note and assessment Pt underwent ERCP today Repeat LFTs in am IV antibiotics Pt is refusing surgery at present Plan d.w pt in detail Risk and benefit explained in detail.
[2018-06-25] MEDS ORDERED: Lactated Ringer's 500 ML IV ONE (08:28)
[2018-06-25] MEDS ORDERED: Etomidate 20 mg/10ml Inj IV ONE (08:51)
[2018-06-25] MEDS ORDERED: Propofol 10 mg/ml Inj (20 ML) ONE (08:52)
[2018-06-25] MEDS ORDERED: Midazolam 2 MG/2 ML VIAL ONE (08:52)
[2018-06-25] MEDS ORDERED: Succinylcholine 200 mg/10 ml Inj IV ONE (08:52)
[2018-06-25] MEDS: Citracal+D 315mg/250IU PO SCH (11:34)
[2018-06-25] MEDS: Sucralfate 1 gm/10 ml Oral Susp UD PO SCH ×2 (11:34→12:42)
[2018-06-25] MEDS: Azithromycin 500 MG in Sodium Chloride 0.9% 250 ML IVPB SCH (11:37)
[2018-06-25] MEDS: Petrolatum UD PAK TOP SCH (11:39)
[2018-06-25] MEDS: Metoprolol Succinate 50 mg XL Tab PO SCH ×2 (11:39→22:00)
[2018-06-25] MEDS: Cholecalciferol 1,000 INTLU TAB PO SCH (11:40)
[2018-06-25] MEDS: Pantoprazole 40 mg EC Tab PO SCH (11:40)
--- NOTE | 2018-06-25 12:36 | CP.PCM.PN ---
<Samuel Murcia - Last Filed: 06/25/18 15:55> Subjective - Date & Time of Evaluation Date of Evaluation: 06/25/18 Time of Evaluation: 08:00 - Subjective Subjective: Pt in ENdocsopy this am. Pt assessed after procedure. Denies pain, n/v. Daughter at bedside. Liquid diet initiated. Endoscopy report reviewed: Cholidocolithiasis was found, Biliary Sphinterotomy performed, and pancreatic stent performed. Avoid Nsaids and Anti-inflammatory for 1 week Full liquid diet Repeat upper endsocopy in 2 weeks to remove stent if KUB shows persistence of stent RTC to GI office in 1 week Objective - Vital Signs/Intake and Output Vital Signs (last 24 hours): Temp Pulse Resp BP Pulse Ox 97.8 F 74 18 147/81 97 06/25/18 11:55 06/25/18 11:55 06/25/18 11:55 06/25/18 11:55 06/25/18 11:55 Intake and Output: 06/25/18 06/25/18 06:59 18:59 Intake Total 350 Balance 350 - Medications Medications: Current Medications Albuterol/Ipratropium (Duoneb 3 Mg/0.5 Mg (3 Ml) Ud) 3 ml INH RQ6 PRN PRN Reason: Shortness of Breath Albuterol/Ipratropium (Duoneb 3 Mg/0.5 Mg (3 Ml) Ud) 3 ml INH RQ6 [facility] Last Admin: 06/25/18 08:12 Dose: Not Given Calcium/Vitamin D (Citracal+D 315mg/250iu) 1 tab PO DAILY [facility] Last Admin: 06/25/18 11:34 Dose: Not Given Cholecalciferol (Vitamin D) 1,000 intlu PO DAILY [facility] Last Admin: 06/25/18 11:40 Dose: 1,000 intlu Emollient Ointment (Vaseline Oint) 1 pkt TOP DAILY [facility] Last Admin: 06/25/18 11:39 Dose: 1 pkt Gabapentin (Neurontin) 100 mg PO BID [facility] Last Admin: 06/25/18 11:35 Dose: Not Given Ceftriaxone Sodium 1 gm/ (Sodium Chloride) 100 mls @ 100 mls/hr IVPB DAILY [facility]; Protocol Last Admin: 06/25/18 11:37 Dose: 100 mls/hr Azithromycin 500 mg/ Sodium (Chloride) 250 mls @ 250 mls/hr IVPB DAILY [facility]; Protocol Last Admin: 06/25/18 11:37 Dose: 250 mls/hr Methimazole (Tapazole) 10 mg PO DAILY [facility] Last Admin: 06/25/18 11:39 Dose: 10 mg Metoprolol Succinate (Toprol Xl) 50 mg PO Q12 [facility] Last Admin: 06/25/18 11:39 Dose: 50 mg Nitroglycerin (Nitrostat Sl Tab) 0.4 mg SL Q5M PRN PRN Reason: Pain, Mild (1-3) Ondansetron HCl (Zofran Inj) 4 mg IVP Q6 PRN PRN Reason: Nausea/Vomiting Last Admin: 06/24/18 12:35 Dose: 4 mg Pantoprazole Sodium (Protonix Ec Tab) 40 mg PO DAILY [facility] Last Admin: 06/25/18 11:40 Dose: 40 mg Sucralfate (Carafate Oral Susp) 1 gm PO QID [facility] Last Admin: 06/25/18 11:34 Dose: Not Given - Labs Labs: 06/25/18 05:00 06/25/18 05:00 PT 12.9 Seconds (9.8-13.1) 06/19/18 23:45 INR 1.1 06/19/18 23:45 APTT 33.2 Seconds (25.6-37.1) 06/19/18 23:45 - Constitutional Appears: No Acute Distress - Head Exam Head Exam: NORMAL INSPECTION - Eye Exam Eye Exam: Normal appearance - ENT Exam ENT Exam: Mucous Membranes Moist - Respiratory Exam Respiratory Exam: Clear to Ausculation Bilateral. absent: Rales, Wheezes - Cardiovascular Exam Cardiovascular Exam: REGULAR RHYTHM, +S1, +S2 - GI/Abdominal Exam GI & Abdominal Exam: Soft, Normal Bowel Sounds. absent: Tenderness - Neurological Exam Neurological Exam: Alert - Psychiatric Exam Psychiatric exam: Normal Affect - Skin Additional comments: jaundice Assessment and Plan - Assessment and Plan (Free Text) Assessment: 67 yo F with hx COPD, HTN, Hyperthyroidism, admitted with chest pain, hemoptysis, nausea and vomiting and discovered to have elevated troponins, transaminitis, elevated Total bilirubin, right lung lobe infiltrated, dilated hepatobiliary tree and thrombosis of portal vein on CT scan. Active problems include: NSTEMI, PNU, and possible obstructive jaundice. Pt had cath yesterday w/o intervention. ERCP completed today Wi2ll trend labs and likely discharge tomorrow morning. The following consultants are on board: Cardiology- Dr. Vizcarra GI- Dr. Sutherland ID- Dr. Homar Garcia Onc: Dr. Mccoy ERCP today: Cholidocolithiasis was found, Biliary Sphinterotomy performed, and pancreatic stent performed. Avoid Nsaids and Anti-inflammatory for 1 week Full liquid diet Repeat upper endsocopy in 2 weeks to remove stent if KUB shows persistence of stent RTC to GI office in 1 week Plan: Jaundice/Abnormal LFT -AST/ALT (trending down) 116/81, T bili 7>5.6>6.3>6.3>4.7 -Hepatitis panel, HIV screen negative -CT abd/pelvis w/ pancreatic protocol completed; Nonocclusive thrombosis at the left sided portal veins.No cirrhosis pattern appreciated. Dilated intra and extra-hepatic biliary tree is stable with the gallbladder distended as well. -GI consult - Dr. Sutherland -Surg Consult- Dr. Farley - no surg intervention at this time Elevated troponin/NSTEMI/chest pain - Troponins trending down 0.94>>>0.21 today - Cardiology consult Dr. Vizcarra: Cath w/o interventions. Spoke with Dr. Vizcarra, tropinemia likely from righ ventricular strain in setting of increase PA pressure - D-Dimer elevated; PE ruled out with VQ scan and CTA Chest - Echo completed: EF 55-60, RV dilatation, Mild Pulm HTN - ASA 325mg once given in ED - Lovenox held per cardio - Metroprolol 50mg poq12 - Will hold Statin given transaminitis Non occlusive Thrombosis Portal Vein - Heme onc consulted; Dr. Mccoy - Pt will likely need to be anticoagulated post cholecystectomy. Will communicate this with PMD Pneumonia, prob bacterial ( POA) - C/w IV Azithro and Ceftriaxone, today is day 6 - Leukocytosis resolved, afebrile - Duoneb, scheduled - Bcx no growth 48 (prelim) COPD - Continue home medications - Supplemental O2 via NC to keep O2 sat above 92% Hypertension -Chronic, stable Hyperthyroidism -Chronic, continue home medications - TSH 1.18 wnl, T4 9.36 wnl Nausea/Vomiting - Resolved; tolerating regular diet - Zofran prn Diet -Heart Healthy diet DVT prophylaxis - SCD and encourage ambulation - Lovenox daily Discussed case with Dr. Black <Yuridia Black - Last Filed: 06/25/18 17:04> Objective - Vital Signs/Intake and Output Vital Signs (last 24 hours): Temp Pulse Resp BP Pulse Ox 97.1 F L 81 16 122/71 96 06/25/18 16:09 06/25/18 16:09 06/25/18 16:09 06/25/18 16:09 06/25/18 16:09 Intake and Output: 06/25/18 06/25/18 06:59 18:59 Intake Total 350 Balance 350 - Medications Medications: Current Medications Albuterol/Ipratropium (Duoneb 3 Mg/0.5 Mg (3 Ml) Ud) 3 ml INH RQ6 PRN PRN Reason: Shortness of Breath Albuterol/Ipratropium (Duoneb 3 Mg/0.5 Mg (3 Ml) Ud) 3 ml INH RQ6 [facility] Last Admin: 06/25/18 13:03 Dose: 3 ml Calcium/Vitamin D (Citracal+D 315mg/250iu) 1 tab PO DAILY [facility] Last Admin: 06/25/18 11:34 Dose: Not Given Cholecalciferol (Vitamin D) 1,000 intlu PO DAILY [facility] Last Admin: 06/25/18 11:40 Dose: 1,000 intlu Emollient Ointment (Vaseline Oint) 1 pkt TOP DAILY [facility] Last Admin: 06/25/18 11:39 Dose: 1 pkt Gabapentin (Neurontin) 100 mg PO BID [facility] Last Admin: 06/25/18 11:35 Dose: Not Given Ceftriaxone Sodium 1 gm/ (Sodium Chloride) 100 mls @ 100 mls/hr IVPB DAILY [facility]; Protocol Last Admin: 06/25/18 11:37 Dose: 100 mls/hr Azithromycin 500 mg/ Sodium (Chloride) 250 mls @ 250 mls/hr IVPB DAILY [facility]; Protocol Last Admin: 06/25/18 11:37 Dose: 250 mls/hr Methimazole (Tapazole) 10 mg PO DAILY [facility] Last Admin: 06/25/18 11:39 Dose: 10 mg Metoprolol Succinate (Toprol Xl) 50 mg PO Q12 [facility] Last Admin: 06/25/18 11:39 Dose: 50 mg Nitroglycerin (Nitrostat Sl Tab) 0.4 mg SL Q5M PRN PRN Reason: Pain, Mild (1-3) Ondansetron HCl (Zofran Inj) 4 mg IVP Q6 PRN PRN Reason: Nausea/Vomiting Last Admin: 06/24/18 12:35 Dose: 4 mg Pantoprazole Sodium (Protonix Ec Tab) 40 mg PO DAILY [facility] Last Admin: 06/25/18 11:40 Dose: 40 mg Sucralfate (Carafate Oral Susp) 1 gm PO QID [facility] Last Admin: 06/25/18 12:42 Dose: 1 gm - Labs Labs: 06/25/18 05:00 06/25/18 05:00 PT 12.9 Seconds (9.8-13.1) 06/19/18 23:45 INR 1.1 06/19/18 23:45 APTT 33.2 Seconds (25.6-37.1) 06/19/18 23:45 Attending/Attestation - Attestation I have personally seen and examined this patient.: Yes I have fully participated in the care of the patient.: Yes I have reviewed all pertinent clinical information, including history, physical exam and plan: Yes Notes (Text): NSTEMI -Cardiac Cath : negative - cont medical mgt - BB - off ASA due to ERCP - off statin due to markedly abn LFTs Obstructive Jaundice due to Choledocholithiasis s/p ERCP , with Sphincterotomy and Pancreatic stent placement done by Dr Sutherland this am rpt LFT in am Surgey consulted- plan for outpt Lap Radha CAP with hemoptysis - Continue Rocephin and Zithromax, O2 via NC , Duonebs - Dr Graf consulted COPD, chronic - cont Duonebs Hyperthyroidism - on methimazole Non occlusive portal vein thrombosis - prob due to inflammation - Dr Mccoy consulted- rec therapeutic anticoag - will start short course therapeutic anticoag after 1 wk - Dr Sutherland rec no ASA, anticoag nor NSAID for 1 wk
--- NOTE | 2018-06-25 14:41 | CP.PCM.PN ---
Subjective - Date & Time of Evaluation Date of Evaluation: 06/25/18 Time of Evaluation: 08:00 - Subjective Subjective: Cholidocolithiasis was found, Biliary Sphinterotomy performed, and pancreatic stent performed. IV rx in progress c/o pain NAD Objective - Vital Signs/Intake and Output Vital Signs (last 24 hours): Temp Pulse Resp BP Pulse Ox 97.8 F 74 18 147/81 97 06/25/18 11:55 06/25/18 11:55 06/25/18 11:55 06/25/18 11:55 06/25/18 11:55 Intake and Output: 06/25/18 06/25/18 06:59 18:59 Intake Total 350 Balance 350 - Medications Medications: Current Medications Albuterol/Ipratropium (Duoneb 3 Mg/0.5 Mg (3 Ml) Ud) 3 ml INH RQ6 PRN PRN Reason: Shortness of Breath Albuterol/Ipratropium (Duoneb 3 Mg/0.5 Mg (3 Ml) Ud) 3 ml INH RQ6 [facility] Last Admin: 06/25/18 13:03 Dose: 3 ml Calcium/Vitamin D (Citracal+D 315mg/250iu) 1 tab PO DAILY [facility] Last Admin: 06/25/18 11:34 Dose: Not Given Cholecalciferol (Vitamin D) 1,000 intlu PO DAILY [facility] Last Admin: 06/25/18 11:40 Dose: 1,000 intlu Emollient Ointment (Vaseline Oint) 1 pkt TOP DAILY [facility] Last Admin: 06/25/18 11:39 Dose: 1 pkt Gabapentin (Neurontin) 100 mg PO BID [facility] Last Admin: 06/25/18 11:35 Dose: Not Given Ceftriaxone Sodium 1 gm/ (Sodium Chloride) 100 mls @ 100 mls/hr IVPB DAILY [facility]; Protocol Last Admin: 06/25/18 11:37 Dose: 100 mls/hr Azithromycin 500 mg/ Sodium (Chloride) 250 mls @ 250 mls/hr IVPB DAILY [facility]; Protocol Last Admin: 06/25/18 11:37 Dose: 250 mls/hr Methimazole (Tapazole) 10 mg PO DAILY [facility] Last Admin: 06/25/18 11:39 Dose: 10 mg Metoprolol Succinate (Toprol Xl) 50 mg PO Q12 [facility] Last Admin: 06/25/18 11:39 Dose: 50 mg Nitroglycerin (Nitrostat Sl Tab) 0.4 mg SL Q5M PRN PRN Reason: Pain, Mild (1-3) Ondansetron HCl (Zofran Inj) 4 mg IVP Q6 PRN PRN Reason: Nausea/Vomiting Last Admin: 06/24/18 12:35 Dose: 4 mg Pantoprazole Sodium (Protonix Ec Tab) 40 mg PO DAILY [facility] Last Admin: 06/25/18 11:40 Dose: 40 mg Sucralfate (Carafate Oral Susp) 1 gm PO QID [facility] Last Admin: 06/25/18 12:42 Dose: 1 gm - Labs Labs: 06/25/18 05:00 06/25/18 05:00 PT 12.9 Seconds (9.8-13.1) 06/19/18 23:45 INR 1.1 06/19/18 23:45 APTT 33.2 Seconds (25.6-37.1) 06/19/18 23:45 - Constitutional Appears: Chronically Ill - Head Exam Head Exam: NORMOCEPHALIC - Eye Exam Eye Exam: Scleral icterus - ENT Exam ENT Exam: Mucous Membranes Dry - Neck Exam Neck Exam: absent: Lymphadenopathy - Respiratory Exam Respiratory Exam: Decreased Breath Sounds - Cardiovascular Exam Cardiovascular Exam: REGULAR RHYTHM - GI/Abdominal Exam GI & Abdominal Exam: Distended, Soft. absent: Tenderness - Rectal Exam Rectal Exam: Deferred - Exam Exam: NORMAL INSPECTION - Extremities Exam Extremities Exam: absent: Pedal Edema - Back Exam Back Exam: absent: CVA tenderness (L), CVA tenderness (R) - Neurological Exam Neurological Exam: Alert, Awake Assessment and Plan (1) Chest pain Status: Acute (2) Dilation of biliary tract Status: Acute (3) Hemoptysis Status: Acute (4) Hepatic vein thrombosis Status: Chronic (5) NSTEMI (non-ST elevated myocardial infarction) Status: Acute (6) Tachycardia Status: Acute (7) Transaminitis Status: Acute - Assessment and Plan (Free Text) Assessment: Cholidocolithiasis was found, Biliary Sphinterotomy performed, and pancreatic stent performed.
[2018-06-25 19:54] VITALS: RESP 18
[2018-06-26] MEDS: Albuterol-Ipratrop 3 mg / 0.5 (3 ml) UD INH SCH ×3 (01:05→13:25)
[2018-06-26 07:34] LABS: BASO % 0.5 % (0.0-2.0); EOS # 0.1 K/uL (0.0-0.7); HEMOGLOBIN 12.3 g/dL (12.0-16.0); LYMPH # 1.3 K/uL (1.0-4.3); LYMPH % 14.4 % (20.0-40.0); MEAN CELL VOLUME 97.7 fl (81.0-99.0); MEAN CORPUSCULAR HEMOGLOBIN 32.3 pg (27.0-31.0); MEAN CORPUSCULAR HGB CONC 33.1 g/dL (33.0-37.0); MEAN PLATELET VOLUME 8.1 fl (7.2-11.7); MONO % 11.2 % (0.0-10.0); NEUT # 6.4 K/uL (1.8-7.0); NEUT % 72.9 % (50.0-75.0); NRBC % 0.1 % (0.0-0.0); RBC 3.82 Mil/uL (3.80-5.20); RED CELL DISTRIBUTION WIDTH 14.6 % (11.5-14.5); WHITE BLOOD COUNT 8.8 K/uL (4.8-10.8)
[2018-06-26 07:55] LABS: ALB/GLOB RATIO 0.8 (1.0-2.1); ALBUMIN 2.8 g/dL (3.5-5.0); ALT/SGPT 67 U/L (9-52); AST/SGOT 97 U/L (14-36); BLOOD UREA NITROGEN 8 mg/dl (7-17); CALCIUM 8.8 mg/dL (8.4-10.2); GFR NON-AFRICAN AMERICAN > 60
--- NOTE | 2018-06-26 08:01 | CP.PCM.PN ---
<Venkata Meneses - Last Filed: 06/26/18 08:02> Subjective - Date & Time of Evaluation Date of Evaluation: 06/26/18 Time of Evaluation: 06:00 - Subjective Subjective: Patient seen and examined. S/p ERCP. Patient reports mild epigastric pain. Tolerating liquids. No acute events over night. Objective - Vital Signs/Intake and Output Vital Signs (last 24 hours): Temp Pulse Resp BP Pulse Ox 98.0 F 70 18 130/78 96 06/26/18 07:42 06/26/18 07:42 06/26/18 07:42 06/26/18 07:42 06/26/18 07:42 - Medications Medications: Current Medications Albuterol/Ipratropium (Duoneb 3 Mg/0.5 Mg (3 Ml) Ud) 3 ml INH RQ6 PRN PRN Reason: Shortness of Breath Albuterol/Ipratropium (Duoneb 3 Mg/0.5 Mg (3 Ml) Ud) 3 ml INH RQ6 [facility] Last Admin: 06/26/18 01:05 Dose: 3 ml Calcium/Vitamin D (Citracal+D 315mg/250iu) 1 tab PO DAILY [facility] Last Admin: 06/25/18 11:34 Dose: Not Given Cholecalciferol (Vitamin D) 1,000 intlu PO DAILY [facility] Last Admin: 06/25/18 11:40 Dose: 1,000 intlu Emollient Ointment (Vaseline Oint) 1 pkt TOP DAILY [facility] Last Admin: 06/25/18 11:39 Dose: 1 pkt Gabapentin (Neurontin) 100 mg PO BID [facility] Last Admin: 06/25/18 17:44 Dose: Not Given Ceftriaxone Sodium 1 gm/ (Sodium Chloride) 100 mls @ 100 mls/hr IVPB DAILY [facility]; Protocol Last Admin: 06/25/18 11:37 Dose: 100 mls/hr Azithromycin 500 mg/ Sodium (Chloride) 250 mls @ 250 mls/hr IVPB DAILY [facility]; Protocol Last Admin: 06/25/18 11:37 Dose: 250 mls/hr Methimazole (Tapazole) 10 mg PO DAILY [facility] Last Admin: 06/25/18 11:39 Dose: 10 mg Metoprolol Succinate (Toprol Xl) 50 mg PO Q12 [facility] Last Admin: 06/25/18 22:00 Dose: 50 mg Nitroglycerin (Nitrostat Sl Tab) 0.4 mg SL Q5M PRN PRN Reason: Pain, Mild (1-3) Pantoprazole Sodium (Protonix Ec Tab) 40 mg PO DAILY [facility] Last Admin: 06/25/18 11:40 Dose: 40 mg - Labs Labs: 06/26/18 06:15 06/26/18 06:15 PT 12.9 Seconds (9.8-13.1) 06/19/18 23:45 INR 1.1 06/19/18 23:45 APTT 33.2 Seconds (25.6-37.1) 06/19/18 23:45 - Constitutional Appears: No Acute Distress - Head Exam Head Exam: NORMOCEPHALIC - Eye Exam Eye Exam: EOMI, Normal appearance - ENT Exam ENT Exam: Mucous Membranes Moist - Respiratory Exam Respiratory Exam: NORMAL BREATHING PATTERN - Cardiovascular Exam Cardiovascular Exam: +S1, +S2 - GI/Abdominal Exam GI & Abdominal Exam: Soft, Tenderness Additional comments: mild epigastric tenderness - Neurological Exam Neurological Exam: Alert, Awake, Oriented x3 - Psychiatric Exam Psychiatric exam: Normal Mood - Skin Skin Exam: Dry, Intact, Warm Assessment and Plan - Assessment and Plan (Free Text) Assessment: 67F with transaminitis, abnormal CBD Cardiac cath neg Plan: -Adv diet as tolerated -No plan for acute surgical intervention at this present time -LFTs trending down - Further recs discuss with Dr. Omar Montoya PGY3 <Topher Nelson - Last Filed: 06/29/18 16:25> Objective - Vital Signs/Intake and Output Vital Signs (last 24 hours): Temp Pulse Resp BP Pulse Ox 98.2 F 73 18 134/76 98 06/26/18 11:50 06/26/18 11:50 06/26/18 11:50 06/26/18 11:50 06/26/18 11:50 - Labs Labs: 06/26/18 06:15 06/26/18 06:15 PT 12.9 Seconds (9.8-13.1) 06/19/18 23:45 INR 1.1 06/19/18 23:45 APTT 33.2 Seconds (25.6-37.1) 06/19/18 23:45 Attending/Attestation - Attestation I have personally seen and examined this patient.: Yes I have fully participated in the care of the patient.: Yes I have reviewed all pertinent clinical information, including history, physical exam and plan: Yes Notes (Text): Pt is s/p ERCP and stent Advance diet as tolerated Can be DC home Low fat diet Plan d.w pt in detail. Risk and benefit explained in detail.
[2018-06-26] MEDS: Metoprolol Succinate 50 mg XL Tab PO SCH (08:46)
[2018-06-26] MEDS: Citracal+D 315mg/250IU PO SCH (08:47)
[2018-06-26] MEDS: Pantoprazole 40 mg EC Tab PO SCH (08:47)
[2018-06-26] MEDS: Cholecalciferol 1,000 INTLU TAB PO SCH (08:48)
[2018-06-26] MEDS: Petrolatum UD PAK TOP SCH (08:48)
[2018-06-26] MEDS: Azithromycin 500 MG in Sodium Chloride 0.9% 250 ML IVPB SCH (08:52)
[2018-06-26] MEDS ORDERED: Potassium Chloride 20 mEq ER Tab PO SCH (09:00)
--- NOTE | 2018-06-26 11:30 | CP.PCM.DIS ---
<Samuel Murcia - Last Filed: 06/26/18 15:55> Provider - Provider Date of Admission: 06/20/18 03:42 Attending physician: Sadi Mendosa MD Consults: 06/20/18 04:38 Cardiology Consult Routine Comment: Consulting Provider: Jamaica Vizcarra Consulting Physician: [place] Vizcarra Reason for Consult: elevated troponin 06/21/18 07:54 Gastroenterology Consult Routine Comment: abnormal common bile duct dilatation on abd US Consulting Provider: Luis Sutherland Consulting Physician: Luis Sutherland Reason for Consult: abnormal common bile duct dilatation on abd US, elevated LFT's, slud 06/21/18 07:55 General Surgery Consult Routine Comment: abnormal common bile duct dilatation, sludge in ga Consulting Provider: Topher Nelson Consulting Physician: Topher Nelson Reason for Consult: abnormal common bile duct dilatation, sludge in gallbladder, elevate 06/21/18 19:06 Infectious Disease Consult Routine Comment: Consulting Provider: Migue Graf Consulting Physician: Migue Graf Reason for Consult: leukocytosis with bands, no fever, Chronic lung changes, dilated CBD 06/22/18 09:43 Hematology Oncology Consult Routine Comment: nonocclusive thrombosis right and left main hepati Consulting Provider: Anton Mccoy Consulting Physician: Anton Mccoy Reason for Consult: nonocclusive thrombosis right and left main hepatic veins Time Spent in preparation of Discharge (in minutes): 35 Diagnosis - Discharge Diagnosis (1) Choledocholithiasis Status: Acute Comment: Cholidocolithiasis was found, Biliary Sphinterotomy performed, and pancreatic stent performed. Avoid Nsaids and Anti-inflammatory for 1 week. Advance diet as tolerated. Repeat upper endsocopy in 2 weeks to remove stent if KUB shows persistence of stent. RTC to GI office in 1 week (2) Transaminitis Status: Acute Priority: Low Comment: -AST/ALT (trending down) 116/81, T bili 7>5.6>6.3>6.3>4.7. -Hepatitis panel, HIV screen negative. -CT abd/pelvis w/ pancreatic protocol completed; Nonocclusive thrombosis at the left sided portal veins.No cirrhosis pattern appreciated. Dilated intra and extra-hepatic biliary tree is stable with the gallbladder distended as well. -GI consult - Dr. Sutherland. -Surg Consult- Dr. Farley - no surg intervention at this time, will need to f/u in surgery clinic in 1 week to schedule Katiana Patel (3) Elevated troponin Status: Resolved Priority: Medium Comment: - Troponemia resolved. - Cardiology consulted Dr. Vizcarra: Cath ompleted w/o interventions. Spoke with Dr. Vizcarra, tropinemia likely from righ ventricular strain in setting of increase PA pressure. - D-Dimer elevated; PE ruled out with VQ scan and CTA Chest. - Echo completed: EF 55-60, RV dilatation, Mild Pulm HTN. - Metroprolol 50mg poq12 started [address] Dr[address] Vizcarra. - Will hold Statin given transaminitis, can restart outpatient once liver enzymes improve (4) Hepatic vein thrombosis Status: Chronic Priority: Medium Comment: - Heme onc consulted; Dr. Mccoy. - Pt will likely need to be anticoagulated post cholecystectomy. Pt aware and will communicate this with PMD, Dr. Garduno (5) Pneumonia Status: Acute Priority: Low Comment: -Infiltrate on Cxray, no fever, mild leukocytosis on admission, then resolved. - Received 7 days of Ceftriazone and Azithtomycin. - Bcx no growth 48. -Will discharge on 3 days of [facility] Hospital Course - Lab Results Lab Results: Micro Results 06/20/18 09:00 Blood Blood Culture - Final NO GROWTH AFTER 5 DAYS 06/20/18 09:00 Blood Gram Stain - Final TEST NOT PERFORMED 06/20/18 08:05 Blood Blood Culture - Final NO GROWTH AFTER 5 DAYS 06/20/18 08:05 Blood Gram Stain - Final TEST NOT PERFORMED Most Recent Lab Values WBC 8.8 K/uL (4.8-10.8) 06/26/18 06:15 RBC 3.82 Mil/uL (3.80-5.20) 06/26/18 06:15 Hgb 12.3 g/dL (12.0-16.0) 06/26/18 06:15 Hct 37.3 % (34.0-47.0) 06/26/18 06:15 MCV 97.7 fl (81.0-99.0) D 06/26/18 06:15 MCH 32.3 pg (27.0-31.0) H 06/26/18 06:15 MCHC 33.1 g/dL (33.0-37.0) 06/26/18 06:15 RDW 14.6 % (11.5-14.5) H 06/26/18 06:15 Plt Count 406 K/uL (130-400) H 06/26/18 06:15 MPV 8.1 fl (7.2-11.7) 06/26/18 06:15 Neut % (Auto) 72.9 % (50.0-75.0) 06/26/18 06:15 Lymph % (Auto) 14.4 % (20.0-40.0) L 06/26/18 06:15 [place] % (Auto) 11.2 % (0.0-10.0) H 06/26/18 06:15 Eos % (Auto) 1.0 % (0.0-4.0) 06/26/18 06:15 Baso % (Auto) 0.5 % (0.0-2.0) 06/26/18 06:15 Neut # (Auto) 6.4 K/uL (1.8-7.0) 06/26/18 06:15 Lymph # (Auto) 1.3 K/uL (1.0-4.3) 06/26/18 06:15 [place] # (Auto) 1.0 K/uL (0.0-0.8) H 06/26/18 06:15 Eos # (Auto) 0.1 K/uL (0.0-0.7) 06/26/18 06:15 Baso # (Auto) 0.0 K/uL (0.0-0.2) 06/26/18 06:15 Neutrophils % (Manual) 82 % (42-75) H 06/23/18 04:05 Band Neutrophils % 3 % (0-2) H 06/19/18 23:45 Lymphocytes % (Manual) 12 % (20-50) L 06/23/18 04:05 Monocytes % (Manual) 6 % (0-10) 06/23/18 04:05 Platelet Estimate Normal (NORMAL) 06/23/18 04:05 Large Platelets Present 06/23/18 04:05 Anisocytosis (manual) Slight 06/23/18 04:05 Ovalocytes Slight 06/23/18 04:05 PT 12.9 Seconds (9.8-13.1) 06/19/18 23:45 INR 1.1 06/19/18 23:45 APTT 33.2 Seconds (25.6-37.1) 06/19/18 23:45 D-Dimer, Quantitative 980 ng/mlDDU (0-230) H 06/19/18 23:45 Sodium 140 mmol/l (132-148) 06/26/18 06:15 Potassium 3.5 MMOL/L (3.6-5.0) L 06/26/18 06:15 Chloride 102 mmol/L (98-107) 06/26/18 06:15 Carbon Dioxide 26 mmol/L (22-30) 06/26/18 06:15 Anion Gap 16 (10-20) 06/26/18 06:15 BUN 8 mg/dl (7-17) 06/26/18 06:15 Creatinine 0.8 mg/dl (0.7-1.2) 06/26/18 06:15 Est GFR ( Amer) > 60 06/26/18 06:15 Est GFR (Non-Af Amer) > 60 06/26/18 06:15 Random Glucose 84 mg/dL (65-105) 06/26/18 06:15 Calcium 8.8 mg/dL (8.4-10.2) 06/26/18 06:15 Phosphorus 3.3 mg/dl (2.5-4.5) 06/25/18 16:10 Magnesium 1.8 MG/DL (1.6-2.3) 06/26/18 06:15 Total Bilirubin 3.7 mg/dl (0.2-1.3) H 06/26/18 06:15 AST 97 U/L (14-36) H 06/26/18 06:15 ALT 67 U/L (9-52) H 06/26/18 06:15 Alkaline Phosphatase 516 U/L (38-126) H 06/26/18 06:15 Troponin I 0.1000 ng/mL (0.00-0.120) 06/23/18 08:26 NT-Pro-B Natriuret Pep 3920 pg/ml (0-900) H 06/20/18 10:20 Total Protein 6.1 G/DL (6.3-8.2) L 06/26/18 06:15 Albumin 2.8 g/dL (3.5-5.0) L 06/26/18 06:15 Globulin 3.4 gm/dL (2.2-3.9) 06/26/18 06:15 Albumin/Globulin Ratio 0.8 (1.0-2.1) L 06/26/18 06:15 Amylase 37 U/L (30-110) 06/21/18 04:20 Lipase 30 U/L (23-300) 06/21/18 04:20 25-OH Vitamin D Total 47.8 NG/ML (30.0-100.0) 06/21/18 04:20 Thyroxine (T4) 9.36 ug/dl (5.5-11.0) 06/20/18 10:20 TSH 3rd Generation 1.18 mIU/ML (0.46-4.68) 06/20/18 10:20 Urine Color [place] (YELLOW) 06/22/18 14:24 Urine Clarity Cloudy (Clear) 06/22/18 14:24 Urine pH 5.0 (5.0-8.0) 06/22/18 14:24 Ur Specific [place] 1.015 (1.003-1.030) 06/22/18 14:24 Urine Protein 30 mg/dL (NEGATIVE) 06/22/18 14:24 Urine Glucose (UA) Neg mg/dL (NEGATIVE) 06/22/18 14:24 Urine Ketones Negative mg/dL (NEGATIVE) 06/22/18 14:24 Urine Blood Negative (NEGATIVE) 06/22/18 14:24 Urine Nitrate Positive (NEGATIVE) H 06/22/18 14:24 Urine Bilirubin Moderate (NEGATIVE) 06/22/18 14:24 Urine Urobilinogen 1.0 mg/dL (0.2-1.0) 06/22/18 14:24 Ur Leukocyte Esterase Neg Mani/uL (Negative) 06/22/18 14:24 Urine RBC (Auto) 3 /hpf (0-3) 06/22/18 14:24 Urine Microscopic WBC 15 /hpf (0-5) H 06/22/18 14:24 Ur Squamous Epith Cells 1 /hpf (0-5) 06/22/18 14:24 Urine Bacteria Rare (<OCC) 06/22/18 14:24 ENDY 6 Profile Negative (NEGATIVE) 06/23/18 04:05 Hepatitis A IgM Ab Negative (NEGATIVE) 06/20/18 11:00 Hep Bs Antigen Negative (NEGATIVE) 06/20/18 11:00 Hep B Core IgM Ab Negative (NEGATIVE) 06/20/18 11:00 Hepatitis C Antibody Negative (NEGATIVE) 06/20/18 11:00 HIV-1 Ab Rapid Screen Non reactive (NON REAC) 06/20/18 11:18 Ur L.pneumophila Ag Negative (NEGATIVE) 06/20/18 19:23 Mycoplasma pneumon IgM Negative (NEGATIVE) 06/20/18 10:20 - Hospital Course Hospital Course: 67 yo F with hx COPD, HTN, Hyperthyroidism, admitted with chest pain, mild hemoptysis, nausea and vomiting and was discovered to have elevated troponins, transaminitis, elevated Total bilirubin, right lung lobe infiltrated, dilated hepatobiliary tree and thrombosis of portal vein on CT scan. Pt had coronary cath which did not reveal any significant coronary stenosis and was evaluated by junior bookkeeper, Dr. Vizcarra, who started her on Metroprolol. She had an ERCP by Dr. Sutherland on 06/25 and had biliary stone removed, as well as pancreatic stent placed. She was also treated for community acquired pneumonia with 7 days of Rocephin and Azithro. Pt was found on abdominal CT to have portal vein thrombosis and evaluated by library media assistant, Dr. Mccoy. She was advised to start anticoagulation therapy for 3 months, however in light of her planned cholecystectomy in the near future, she has opted to start anticoagulation post surgery. Pt was re-evaluated this morning and stable for discharge home with f/u scheduled with her PCP, Dr. Garduno, GI, and Surgery. Discharge Exam - Head Exam Head Exam: NORMOCEPHALIC Discharge Plan - Discharge Medications Prescriptions: Cefdinir [Omnicef] 300 mg PO Q12 3 Days #6 cap Metoprolol Succinate XL [Toprol XL] 50 mg PO DAILY 30 Days #30 tab - Follow Up Plan Condition: FAIR Disposition: HOME/ ROUTINE Instructions: Heart Attack (DC), Chest Pain (DC), Community-Acquired Pneumonia, Adult (DC) Additional Instructions: Follow up appt on thursday06/30/18 3:20pm with at the [facility]. Follow up with Dr. Farley, General Surgery, within 1 week. Follow up with Gasteroenterology, Dr. Sutherland within 1-2 weeks. Will need anticoagulation for portal vein thrombosis for 3 months as per library media assistant.Can be initiated after cholecystectomy, per patients preference. Avoid Nsaids, tylenol, or alcohol. Need repeat blood test for LFT's. Referrals: [facility] [Outside] Topher Nelson MD [Staff Provider] - Luis Sutherland MD [Staff Provider] - <WayneYuridia Skyla - Last Filed: 06/26/18 18:01> Provider - Provider Date of Admission: 06/20/18 03:42 Attending physician: Sadi Mendosa MD Consults: 06/20/18 04:38 Cardiology Consult Routine Comment: Consulting Provider: Jamaica Vizcarra Consulting Physician: [place] Vizcarra Reason for Consult: elevated troponin 06/21/18 07:54 Gastroenterology Consult Routine Comment: abnormal common bile duct dilatation on abd US Consulting Provider: Luis Sutherland Consulting Physician: Luis Sutherland Reason for Consult: abnormal common bile duct dilatation on abd US, elevated LFT's, slud 06/21/18 07:55 General Surgery Consult Routine Comment: abnormal common bile duct dilatation, sludge in ga Consulting Provider: Topher Nelson Consulting Physician: Topher Nelson Reason for Consult: abnormal common bile duct dilatation, sludge in gallbladd er, elevate 06/21/18 19:06 Infectious Disease Consult Routine Comment: Consulting Provider: Migue Graf Consulting Physician: Migue Graf Reason for Consult: leukocytosis with bands, no fever, Chronic lung changes, dilated CBD 06/22/18 09:43 Hematology Oncology Consult Routine Comment: nonocclusive thrombosis right and left main hepati Consulting Provider: Anton Mccoy Consulting Physician: Anton Mccoy Reason for Consult: nonocclusive thrombosis right and left main hepatic veins Hospital Course - Lab Results Lab Results: Micro Results 06/20/18 09:00 Blood Blood Culture - Final NO GROWTH AFTER 5 DAYS 06/20/18 09:00 Blood Gram Stain - Final TEST NOT PERFORMED 06/20/18 08:05 Blood Blood Culture - Final NO GROWTH AFTER 5 DAYS 06/20/18 08:05 Blood Gram Stain - Final TEST NOT PERFORMED Most Recent Lab Values WBC 8.8 K/uL (4.8-10.8) 06/26/18 06:15 RBC 3.82 Mil/uL (3.80-5.20) 06/26/18 06:15 Hgb 12.3 g/dL (12.0-16.0) 06/26/18 06:15 Hct 37.3 % (34.0-47.0) 06/26/18 06:15 MCV 97.7 fl (81.0-99.0) D 06/26/18 06:15 MCH 32.3 pg (27.0-31.0) H 06/26/18 06:15 MCHC 33.1 g/dL (33.0-37.0) 06/26/18 06:15 RDW 14.6 % (11.5-14.5) H 06/26/18 06:15 Plt Count 406 K/uL (130-400) H 06/26/18 06:15 MPV 8.1 fl (7.2-11.7) 06/26/18 06:15 Neut % (Auto) 72.9 % (50.0-75.0) 06/26/18 06:15 Lymph % (Auto) 14.4 % (20.0-40.0) L 06/26/18 06:15 [place] % (Auto) 11.2 % (0.0-10.0) H 06/26/18 06:15 Eos % (Auto) 1.0 % (0.0-4.0) 06/26/18 06:15 Baso % (Auto) 0.5 % (0.0-2.0) 06/26/18 06:15 Neut # (Auto) 6.4 K/uL (1.8-7.0) 06/26/18 06:15 Lymph # (Auto) 1.3 K/uL (1.0-4.3) 06/26/18 06:15 [place] # (Auto) 1.0 K/uL (0.0-0.8) H 06/26/18 06:15 Eos # (Auto) 0.1 K/uL (0.0-0.7) 06/26/18 06:15 Baso # (Auto) 0.0 K/uL (0.0-0.2) 06/26/18 06:15 Neutrophils % (Manual) 82 % (42-75) H 06/23/18 04:05 Band Neutrophils % 3 % (0-2) H 06/19/18 23:45 Lymphocytes % (Manual) 12 % (20-50) L 06/23/18 04:05 Monocytes % (Manual) 6 % (0-10) 06/23/18 04:05 Platelet Estimate Normal (NORMAL) 06/23/18 04:05 Large Platelets Present 06/23/18 04:05 Anisocytosis (manual) Slight 06/23/18 04:05 Ovalocytes Slight 06/23/18 04:05 PT 12.9 Seconds (9.8-13.1) 06/19/18 23:45 INR 1.1 06/19/18 23:45 APTT 33.2 Seconds (25.6-37.1) 06/19/18 23:45 D-Dimer, Quantitative 980 ng/mlDDU (0-230) H 06/19/18 23:45 Sodium 140 mmol/l (132-148) 06/26/18 06:15 Potassium 3.5 MMOL/L (3.6-5.0) L 06/26/18 06:15 Chloride 102 mmol/L (98-107) 06/26/18 06:15 Carbon Dioxide 26 mmol/L (22-30) 06/26/18 06:15 Anion Gap 16 (10-20) 06/26/18 06:15 BUN 8 mg/dl (7-17) 06/26/18 06:15 Creatinine 0.8 mg/dl (0.7-1.2) 06/26/18 06:15 Est GFR ( Amer) > 60 06/26/18 06:15 Est GFR (Non-Af Amer) > 60 06/26/18 06:15 Random Glucose 84 mg/dL (65-105) 06/26/18 06:15 Calcium 8.8 mg/dL (8.4-10.2) 06/26/18 06:15 Phosphorus 3.3 mg/dl (2.5-4.5) 06/25/18 16:10 Magnesium 1.8 MG/DL (1.6-2.3) 06/26/18 06:15 Total Bilirubin 3.7 mg/dl (0.2-1.3) H 06/26/18 06:15 AST 97 U/L (14-36) H 06/26/18 06:15 ALT 67 U/L (9-52) H 06/26/18 06:15 Alkaline Phosphatase 516 U/L (38-126) H 06/26/18 06:15 Troponin I 0.1000 ng/mL (0.00-0.120) 06/23/18 08:26 NT-Pro-B Natriuret Pep 3920 pg/ml (0-900) H 06/20/18 10:20 Total Protein 6.1 G/DL (6.3-8.2) L 06/26/18 06:15 Albumin 2.8 g/dL (3.5-5.0) L 06/26/18 06:15 Globulin 3.4 gm/dL (2.2-3.9) 06/26/18 06:15 Albumin/Globulin Ratio 0.8 (1.0-2.1) L 06/26/18 06:15 Amylase 37 U/L (30-110) 06/21/18 04:20 Lipase 30 U/L (23-300) 06/21/18 04:20 25-OH Vitamin D Total 47.8 NG/ML (30.0-100.0) 06/21/18 04:20 Thyroxine (T4) 9.36 ug/dl (5.5-11.0) 06/20/18 10:20 TSH 3rd Generation 1.18 mIU/ML (0.46-4.68) 06/20/18 10:20 Urine Color [place] (YELLOW) 06/22/18 14:24 Urine Clarity Cloudy (Clear) 06/22/18 14:24 Urine pH 5.0 (5.0-8.0) 06/22/18 14:24 Ur Specific [place] 1.015 (1.003-1.030) 06/22/18 14:24 Urine Protein 30 mg/dL (NEGATIVE) 06/22/18 14:24 Urine Glucose (UA) Neg mg/dL (NEGATIVE) 06/22/18 14:24 Urine Ketones Negative mg/dL (NEGATIVE) 06/22/18 14:24 Urine Blood Negative (NEGATIVE) 06/22/18 14:24 Urine Nitrate Positive (NEGATIVE) H 06/22/18 14:24 Urine Bilirubin Moderate (NEGATIVE) 06/22/18 14:24 Urine Urobilinogen 1.0 mg/dL (0.2-1.0) 06/22/18 14:24 Ur Leukocyte Esterase Neg Mani/uL (Negative) 06/22/18 14:24 Urine RBC (Auto) 3 /hpf (0-3) 06/22/18 14:24 Urine Microscopic WBC 15 /hpf (0-5) H 06/22/18 14:24 Ur Squamous Epith Cells 1 /hpf (0-5) 06/22/18 14:24 Urine Bacteria Rare (<OCC) 06/22/18 14:24 ENDY 6 Profile Negative (NEGATIVE) 06/23/18 04:05 Hepatitis A IgM Ab Negative (NEGATIVE) 06/20/18 11:00 Hep Bs Antigen Negative (NEGATIVE) 06/20/18 11:00 Hep B Core IgM Ab Negative (NEGATIVE) 06/20/18 11:00 Hepatitis C Antibody Negative (NEGATIVE) 06/20/18 11:00 HIV-1 Ab Rapid Screen Non reactive (NON REAC) 06/20/18 11:18 Ur L.pneumophila Ag Negative (NEGATIVE) 06/20/18 19:23 Mycoplasma pneumon IgM Negative (NEGATIVE) 06/20/18 10:20 Attending/Attestation - Attestation I have personally seen and examined this patient.: Yes I have fully participated in the care of the patient.: Yes I have reviewed all pertinent clinical information, including history, physical exam and plan: Yes Notes (Text): Elevated Troponin likely from Demand ischemia from current medical problems NSTEMI ruled out -Cardiac Cath : negative - cont medical mgt - BB - off ASA due to recent ERCP ( as rec by Dr Sutherland - to be off ASA and NSAIDS x 1 wk) - off statin due to markedly abn LFTs Obstructive Jaundice due to Choledocholithiasis s/p ERCP , with Sphincterotomy and Pancreatic stent placement done by Dr Sutherland this am Pt to ff up with Dr Sutherland in 1 wk - may need to remove stent Surgey consulted- appt with Dr Nelson in 1 wk - outpt ff up for poss Lap Radha CAP with hemoptysis - received Rocephin and Zithromax, O2 via NC , Duonebs - Dr Graf consulted - will give 3 more days of PO Omnicef COPD, chronic - cont Duonebs Hyperthyroidism - on methimazole Non occlusive Hepatic vein thrombosis - prob due to inflammation - Dr Mccoy consulted- rec therapeutic anticoag - will start short course therapeutic oral anticoag ( Eliquis) after 1 wk - Dr Sutherland rec no ASA, anticoag nor NSAID for 1 wk and pt may also need to go for Lap Radha
[2018-06-26 11:51] VITALS: BP 134/76; PULSE 73; TEMP 98.2; O2SAT 98
--- NOTE | 2018-06-29 11:57 | RAD ---
Date of service: 06/25/2018 PROCEDURE: Intraoperative fluoroscopy HISTORY: ERCP COMPARISON: Not available TECHNIQUE: Intraoperative fluoroscopy was provided for ERCP examination. Total time of fluoroscopy was 181.9 sec. Cumulative dose was 70.38 mGy. FINDINGS: Multiple fluoroscopic spot films are submitted. These sequential images demonstrate progressive distension of the common bile duct with retrograde contrast injection. No definite filling defect is appreciated. Please see full report from gastroenterology. IMPRESSION: Fluoroscopy provided.
== END 2018-06-26 13:58 | disposition home or self-care (01) ==
LOC: H.ER 22:52 → H.ERHOLD 06-20 03:42 → MERGE 06-20 03:42 → H.TEL 06-20 06:14
PROVIDERS: ADMIT Internal Medicine; ATTEND Internal Medicine
PROC: 4A023N7 Measurement of Cardiac Sampling and Pressure, Left Heart, Percutaneous Approach (ICD-10-PCS; 2018-06-23)
PROC: B41FZZZ Fluoroscopy of Right Lower Extremity Arteries (ICD-10-PCS; 2018-06-23)
PROC: 0F7D8DZ Dilation of Pancreatic Duct with Intraluminal Device, Via Natural or Artificial Opening Endoscopic (ICD-10-PCS; 2018-06-25)
PROC: BF11YZZ Fluoroscopy of Biliary and Pancreatic Ducts using Other Contrast (ICD-10-PCS; 2018-06-25)
PROC: 0FC98ZZ Extirpation of Matter from Common Bile Duct, Via Natural or Artificial Opening Endoscopic (ICD-10-PCS; principal; 2018-06-25 08:30)
DX: K80.45 Calculus of bile duct with chronic cholecystitis with obstruction (principal); I82.0 Budd-Chiari syndrome; J15.9 Unspecified bacterial pneumonia; I13.0 Hypertensive heart and chronic kidney disease with heart failure and stage 1 through stage 4 chronic kidney disease, or unspecified chronic kidney disease; I50.9 Heart failure, unspecified; I24.8 Other forms of acute ischemic heart disease; I27.29 Other secondary pulmonary hypertension; R04.2 Hemoptysis; Z86.74 Personal history of sudden cardiac arrest; N18.3 Chronic kidney disease, stage 3 (moderate); Z87.891 Personal history of nicotine dependence; Z96.611 Presence of right artificial shoulder joint; K29.70 Gastritis, unspecified, without bleeding; Z79.82 Long term (current) use of aspirin; E05.90 Thyrotoxicosis, unspecified without thyrotoxic crisis or storm; R79.1 Abnormal coagulation profile; F32.9 Major depressive disorder, single episode, unspecified; R74.0 Nonspecific elevation of levels of transaminase and lactic acid dehydrogenase [LDH]; J44.0 Chronic obstructive pulmonary disease with (acute) lower respiratory infection